=== PATIENT | male | born 1945 | race Caucasian/White ===

== ENCOUNTER 2023-11-03 11:58 | Outpatient (RCR) | payer OTHER, SELFPAY | END 2023-11-03 23:59 | disposition home or self-care (01) | LOC: RPT 11:58 | PROVIDERS: ATTENDING PHYSICIAN Student in an Organized Health Care Education/Training Program; FAMILY PHYSICIAN Family Medicine | DX: M79.661 Pain in right lower leg (principal); M79.89 Other specified soft tissue disorders; L97.512 Non-pressure chronic ulcer of other part of right foot with fat layer exposed; I89.0 Lymphedema, not elsewhere classified; Z73.6 Limitation of activities due to disability | CPT/HCPCS: 97140; 97163; 97535 ==

== ENCOUNTER → 2023-11-05 09:13 | Outpatient (REF) | payer OTHER, SELFPAY | LOC: WOUND 09:13 | PROVIDERS: ATTENDING PHYSICIAN Surgery | DX: I87.312 Chronic venous hypertension (idiopathic) with ulcer of left lower extremity (principal); L97.821 Non-pressure chronic ulcer of other part of left lower leg limited to breakdown of skin; L97.321 Non-pressure chronic ulcer of left ankle limited to breakdown of skin; I87.2 Venous insufficiency (chronic) (peripheral); L97.411 Non-pressure chronic ulcer of right heel and midfoot limited to breakdown of skin; M14.672 Charcot's joint, left ankle and foot; M14.671 Charcot's joint, right ankle and foot | CPT/HCPCS: 29580; 99214 ==

== ENCOUNTER → 2023-11-12 12:37 | Outpatient (REF) | payer OTHER, SELFPAY | LOC: WOUND 12:37 | PROVIDERS: ATTENDING PHYSICIAN Surgery | DX: I87.2 Venous insufficiency (chronic) (peripheral) (principal); I87.312 Chronic venous hypertension (idiopathic) with ulcer of left lower extremity; L97.821 Non-pressure chronic ulcer of other part of left lower leg limited to breakdown of skin; L97.321 Non-pressure chronic ulcer of left ankle limited to breakdown of skin; L97.411 Non-pressure chronic ulcer of right heel and midfoot limited to breakdown of skin; M14.672 Charcot's joint, left ankle and foot; M14.671 Charcot's joint, right ankle and foot | CPT/HCPCS: 29581; 99212 ==

== ENCOUNTER → 2023-11-22 14:22 | Outpatient (REF) | payer OTHER, SELFPAY | LOC: WOUND 14:22 | PROVIDERS: ATTENDING PHYSICIAN Surgery; FAMILY PHYSICIAN Family Medicine | DX: I87.312 Chronic venous hypertension (idiopathic) with ulcer of left lower extremity (principal); L97.821 Non-pressure chronic ulcer of other part of left lower leg limited to breakdown of skin; L97.321 Non-pressure chronic ulcer of left ankle limited to breakdown of skin; I87.2 Venous insufficiency (chronic) (peripheral); L97.411 Non-pressure chronic ulcer of right heel and midfoot limited to breakdown of skin; M14.671 Charcot's joint, right ankle and foot; M14.672 Charcot's joint, left ankle and foot | CPT/HCPCS: 29581; 99212 ==

== ENCOUNTER 2023-11-23 16:44 | Inpatient (IN) | payer OTHER, SELFPAY ==
[2023-11-23 13:36] VITALS: BP 128/55
[2023-11-23 14:12] VITALS: BP 120/58
[2023-11-23 14:15] VITALS: BMI 25.9
[2023-11-23 15:00] VITALS: BP 128/64
--- NOTE | 2023-11-23 15:07 | ED.GENMED ---
History of Present Illness
General
Chief Complaint: Skin Problem
Source: patient
Exam Limitations: none
Time Seen by Provider: 11/23/23 14:03
Nursing documentation reviewed up to this point in time: agreed with
Travel History
Have you had any contact with someone who has COVID-19?: No
Do you have any symptoms of coronavirus? Fever > 100 degrees, chills, cough, shortness of breath, sore throat, loss of taste or smell, muscle aches, or headache?: No
History of Present Illness
History of Present Illness:
78-year-old male with past medical history of A-fib currently on Eliquis, cardiomyopathy, hypertension hyperlipidemia, pancreatitis presenting to the emergency department today with concerns of swelling discomfort to the right foot worsening over
the past few weeks was seen by his repair armature winder and sent to the ER with concerns of infection and potential need of amputation. He denies any specific fevers or additional systemic symptoms.
Past History
Past History
ED Past Medical History: HTN, Hypercholesterolemia, Other (PUD) and Other (RLS)
Social History
Tobacco: Non-smoker
Personal:
Review of Systems
Review of Systems
Allergies reviewed?: Yes
All Other Systems: ROS reviewed and negative except as documented in HPI and ROS
Phy Exam
Physical Exam
Physical Exam:
GENERAL: Alert , in no apparent distress
EYE: pupils equal and reactive
NECK: Supple, no significant adenopathy.
ENT: o/p clr, mmm.
CARDIAC: Regular rate and rhythm .
LUNGS: Clear breath sounds bilaterally, no acute respiratory distress, no wheezes/rales/rhonchi
ABDOMEN: Soft, without focal tenderness, no r/g, no cvat
NEUROLOGICAL: Alert and oriented, no focal neuro deficits
SKIN: Warm and dry, skin intact.
MUSCULOSKELETAL: Swelling tender palpation to the right foot ulceration to the right palmar aspect of the midfoot 1 cm in diameter stage II, well perfused.
PSYCH: Normal and appropriate interaction.
Course
Orders/Labs/Results
Orders:
Orders
11/23/23 15:01
CR Foot - Right Min 3 Views Urgent
Comment:
Reason For Exam: foot infection
11/23/23 15:11
CMP [Comprehensive Metabolic Panel] Urgent
CRP [C-Reactive Protein] Urgent
Blood Culture Q30M
JUANPABLO Source: Blood/Venous
Specimen Description:
Blood Culture Q30M
JUANPABLO Source: Blood/Venous
Specimen Description:
11/23/23 15:12
CBC/With Diff [Complete Blood Count/With Diff] Urgent
ESR [Erythrocyte Sed Rate] Urgent
Lactic Acid Urgent
11/23/23 15:18
Vancomycin [Vancocin] 2,000 mg 0.9% Sodium Chloride 500 ml [Nss] 500 ml IV NOW
11/23/23 15:23
Wound Culture [Wound/Abscess/Other Culture] Urgent
JUANPABLO Source: Foot
Specimen Description: Right
Date Specimen was Collected: 11/23/23
Time Specimen was Collected: 15:19
Vancomycin [Vancocin] 2,000 mg 0.9% Sodium Chloride 500 ml [Nss] 500 ml IV NOW
Abnormal Lab Results
11/23/23 11/23/23
15:11 15:12
RBC 3.46 L 10^6/uL
(4.70-6.10)
Hgb 11.0 L g/dL
(13.0-18.0)
Hct 31.1 L %
(39.0-52.0)
MCH 31.8 H pg
(27.0-31.0)
Abs Immat Gran (auto) 0.1 H 10^3/uL
(0-0.05)
Absolute Neuts (auto) 7.8 H 10^3/uL
(1.4-6.5)
Absolute Lymphs (auto) 0.8 L 10^3/uL
(1.2-3.4)
Absolute Monos (auto) 1.1 H 10^3/uL
(0.1-0.6)
Neutrophils % 76.9 H %
(42.2-75.2)
Lymphocytes % 7.6 L %
(20.5-51.1)
Monocytes % 11.3 H %
(1.7-9.3)
ESR 89 H mm/hour
(0-20)
Glucose 124 H mg/dl
(70-99)
Alkaline Phosphatase 130 H U/L
(38-126)
C-Reactive Protein 174.20 H mg/L
(0.0-10.00)
Total Protein 6.2 L g/dl
(6.3-8.2)
Albumin 3.0 L g/dl
(3.5-5.0)
11/23/23 15:12
11/23/23 15:11
Vital Signs
Initial and Last Documented VS:
Initial Vital Signs
Temp Pulse Resp BP Pulse Ox
98.4 F 69 18 128/55 98
11/23/23 13:36 11/23/23 13:36 11/23/23 13:36 11/23/23 13:36 11/23/23 13:36
Last Documented Vital Signs
Temp Pulse Resp BP Pulse Ox
98.4 F 69 18 120/58 94
11/23/23 13:36 11/23/23 13:36 11/23/23 13:36 11/23/23 14:12 11/23/23 14:15
MDM/Problems Addressed
MDM/Problems Addressed:
78-year-old male presenting to the emergency department today with concerns of potential foot wound to the right side worsening swelling and discomfort recently. Podiatry concerned that he is at high risk for need of amputation like to bring in for
infectious work and IV antibiotics. Otherwise upon arrival here patient well-appearing no acute distress.
*Critical Care Note
Total Time (30-74mins, 75-104mins- exclusive of procedures): Not Applicable
ED Attending Note
-
Portions of this chart may have been created with voice recognition software.� Occasional wrong word or��sound alike� substitutions may have occurred due to the inherent limitations of voice recognition software.
Discharge Plan
Departure
Patient Disposition: Admit
Date of Disposition: 11/23/23
Time of Disposition: 16:27
Admit to: Med/Surg
Admit to doctor: Carlitos
Presentation/result/management discussed w/ accepting MD/DO: Hospitalist
Patient with high blood pressure during this ER visit?: No
Condition: Good
Covid-19: Not Applicable
Discharge Problem:
Foot ulcer, Foot infection
Prescriptions:
No Action
amlodipine 10 MG tablet
10 mg PO DAILY
hydrochlorothiazide 25 MG tablet
25 mg PO DAILY
finasteride 5 MG tablet
5 mg PO DAILY
Neupro 4 MG patch 24 hour
1 patch transdermal DAILY
armodafinil [Nuvigil] 150 MG tablet
150 mg PO DAILY
cetirizine 10 mg Tablet
10 mg PO HS
tramadol 50 mg Tablet
50 mg PO HS
oxymetazoline 0.05 % [place],Non-Aerosol
2 spray INTRANASAL DAILY
calcium carbonate-vitamin D3 [Calcium 600 with Vitamin D3] 600 mg-12.5 mcg (500 unit) Capsule
2 cap PO BID
red yeast rice 600 mg Tablet
600 mg PO DAILY
melatonin 10 mg Tablet
10 mg PO HS
Glucosamine Complex-MSM Capsule
3 cap PO DAILY
ropinirole [Requip] 1 mg Tablet
1 mg PO HS
metoprolol succinate 25 mg Tablet Extended Release 24 Hr
50 mg PO DAILY
ropinirole [Requip XL] 2 mg Tablet Extended Release 24 Hr
4 mg PO QPM
Eliquis 5 mg Tablet
5 mg PO BID
cyanocobalamin (vitamin B-12) 1,000 mcg Tablet
1,000 mcg PO DAILY
hydrochlorothiazide 25 mg Tablet
25 mg PO DAILY
losartan 100 mg Tablet
100 mg PO DAILY
PreserVision AREDS 2,148 mcg-113 mg-45 mg-17.4mg Tablet
2 tab PO BID
Referrals:
Tosin Ventura MD [Family Provider] -
Interventions
Interventions:
*Risk Screen - Suicide Last Done: 11/23/23 13:36
*General Assessment Last Done: 11/23/23 13:36
*Neglect/Abuse Screening Last Done: 11/23/23 13:36
ED- Fall Risk Assessment Last Done: 11/23/23 14:17
*ED COVID-19 Vaccine History Last Done: 11/23/23 14:16
[2023-11-23 15:32] LABS: % Basophils 0.4 % (0-2); % Eosinophils 3.3 % (0-6); % Immature Granulocytes 0.5 % (0-0.5); % Lymphocytes 7.6 % (20.5-51.1); % Monocytes 11.3 % (1.7-9.3); % Neutrophils 76.9 % (42.2-75.2); Absolute Eosinophils 0.3 10^3/uL (0-0.7); Absolute Immature Granulocytes 0.1 10^3/uL (0-0.05); Absolute Lymphocytes 0.8 10^3/uL (1.2-3.4); Absolute Monocytes 1.1 10^3/uL (0.1-0.6); Absolute Neutrophils 7.8 10^3/uL (1.4-6.5); Hematocrit 31.1 % (39.0-52.0); Mean Corp Hgb Conc. 35.4 g/dL (33.0-37.0); Mean Corpuscular Hgb 31.8 pg (27.0-31.0); Mean Corpuscular Volume 89.9 fL (80.0-94.0); Mean Platelet Volume 9.7 fL (7.4-10.4); Nucleated Red Blood Cells % 0 % (-); Platelet Count 293 10^3/uL (130-400); Red Blood Cell Count 3.46 10^6/uL (4.70-6.10); White Blood Cell Count 10.1 10^3/uL (4.8-10.8)
[2023-11-23 15:33] LABS: Erythrocyte Sed Rate 89 mm/hour (0-20)
[2023-11-23] MEDS: VANCOCIN 540 MG IV (15:43)
[2023-11-23 15:44] LABS: ALT (SGPT) 20 U/L (0-50); AST (SGOT) 29 U/L (17-59); Alkaline Phosphatase 130 U/L (38-126); Blood Urea Nitrogen 20 mg/dl (9-20); Carbon Dioxide 25 mmol/L (22-30); Chloride 100 mmol/L (98-107); Estimated Creatinine Clearance 83 ml/min; Glucose 124 mg/dl (70-99); Potassium 3.7 mmol/L (3.5-5.1); Sodium 135 mmol/L (135-145); Total Bilirubin 0.5 mg/dl (0.2-1.3); Total Protein 6.2 g/dl (6.3-8.2); eGFR > 60.00
[2023-11-23 15:46] LABS: Lactic Acid 1.3 mmol/L (0.7-2.0)
--- NOTE | 2023-11-23 16:43 | HPS.HSE ---
Addendum entered and electronically signed by Flavio Cabrales MD 11/23/23 17:02:
MRI ordered.
Addendum entered and electronically signed by Flavio Cabrales MD 11/23/23 16:53:
Wound, blood cultures pending.
Original Note:
Family Physician
-
Family Physician: Tosin Ventura
Chief Complaint
-
foot ulcer
History of Present Illness
78-year-old male past medical history of atrial fibrillation on Eliquis, hypertension, Charcot foot bilaterally status post surgery, obstructive sleep apnea, hyperlipidemia, bilateral renal artery stenosis, venous insufficiency, BPH, insomnia,
restless legs, questionable Parkinson's, questionable narcolepsy, history of MSSA, degenerative disc disease, former smoker, presenting with swelling and pain of the right foot which has been worsening over the past few weeks associated with wound
with discharge.
He was seen by Dr. Traore today and sent to the emergency room due to concern for infection and potential need for amputation. He denies fever or chills. He denies any history of peripheral arterial disease. He denies history of diabetes.
Patient drinks 1 beer a day. He is a former smoker.
Medical History
Past Medical History
Past Medical History: Reports Other (atrial fibrillation on Eliquis, hypertension, Charcot foot bilaterally status post surgery, obstructive sleep apnea, hyperlipidemia, bilateral renal artery stenosis, venous insufficiency, BPH, insomnia, restless
legs, questionable Parkinson's, questionable narcolepsy, history of MSSA, degenerative d)
Past Surgical History: Reports None and Orthopedic
Social History
Tobacco: Former Smoker
Alcohol: Daily
Drug: None
Family History
Family History: Not pertinent
Allergies / Home Medications
Allergies reflects when Allergies were last updated in [facility].
Home Medications with original date entered in [facility]
Allergy/Medication List:
Allergies
Allergy/AdvReac Type Severity Reaction Status Date / Time
adhesive Allergy Rash, Verified 09/28/23 07:42
Itching
hydroxychloroquine Allergy Rash Verified 09/28/23 07:42
pollen extracts Allergy seasonal Verified 09/28/23 07:42
allergy
Home Medications
amlodipine 10 mg tablet 10 mg PO DAILY 10/03/21
armodafinil 150 mg tablet (Nuvigil) 150 mg PO DAILY 10/03/21
finasteride 5 mg tablet 5 mg PO DAILY 10/03/21
hydrochlorothiazide 25 mg tablet 25 mg PO DAILY 10/03/21
rotigotine 4 mg/24 hour transdermal 24 hour patch (Neupro) 1 patch transdermal DAILY 10/03/21
calcium carbonate 600 mg-vitamin D3 12.5 mcg (500 unit) capsule (Calcium 600 with Vitamin D3) 2 cap PO BID 12/03/22
cetirizine 10 mg tablet 10 mg PO HS 12/03/22
dmeowrbdmpd-iud-joewgbugq-vitC capsule (Glucosamine Complex-MSM capsule) 3 cap PO DAILY 12/03/22
melatonin 10 mg tablet 10 mg PO HS 12/03/22
oxymetazoline 0.05 % nasal spray 2 spray intranasal DAILY 12/03/22
red yeast rice 600 mg tablet 600 mg PO DAILY 12/03/22
tramadol 50 mg tablet 50 mg PO HS 12/03/22
apixaban 5 mg tablet (Eliquis) 5 mg PO BID 08/30/23
metoprolol succinate 25 mg tablet,extended release 24 hr 50 mg PO DAILY 08/30/23
ropinirole 1 mg tablet 1 mg PO HS 08/30/23
ropinirole 2 mg tablet,extended release 24 hr 4 mg PO QPM 08/30/23
cyanocobalamin (vitamin B-12) 1,000 mcg tablet 1,000 mcg PO DAILY 11/23/23
hydrochlorothiazide 25 mg tablet 25 mg PO DAILY 11/23/23
losartan 100 mg tablet 100 mg PO DAILY 11/23/23
vitamins A,C,E-uwez-fmidpr 2,148 mcg-113 mg-45 mg-17.4 mg tablet (PreserVision AREDS) 2 tab PO BID 11/23/23
Review of Systems
-
History Source: Patient
A 12 point ROS was completed and negative except as noted: Yes
Constitutional: Reports No Symptoms
EENT: Reports No Symptoms
Respiratory: Reports No Symptoms
Cardiac: Reports No Symptoms
Abdomen/GI: Reports No Symptoms
: Reports No Symptoms
Musculoskeletal: Reports No Symptoms
Skin: Reports See HPI
Neurological: Reports No Symptoms
Endocrine: Reports No Symptoms
Hematologic/Lymphatic: Reports No Symptoms
Psych: Reports No Symptoms
Physical Exam
Vital Signs
Vital Signs
Temp Pulse Resp BP Pulse Ox
98.4 F 69 18 120/58 94
11/23/23 13:36 11/23/23 13:36 11/23/23 13:36 11/23/23 14:12 11/23/23 14:15
Physical Exam
General: Well Developed, Well Nourished and No Apparent Distress
HEENT: NormoCephalic, Moist mucous membranes and Atraumatic
Respiratory: Clear
Cardiac: S1/S2 and Regular Rhythm; No Murmur or Rub
GI: Soft, Non Tender, Non Distended and Normal Bowel Sounds; No Organomegaly
Rectal: Deferred by Provider
Musculoskeletal: No Clubbing, No Cyanosis and No Edema
Skin: Other (Swelling tender palpation to the right foot ulceration to the right palmar aspect of the midfoot 1 cm in diameter stage II, well perfused.); No Rash
Neuro: Nonfocal/grossly intact
Laboratory Results
-
11/23/23 15:12
11/23/23 15:11
Laboratory Results
Lactic Acid 1.3 mmol/L (0.7-2.0) 11/23/23 15:12
Total Bilirubin 0.5 mg/dl (0.2-1.3) 11/23/23 15:11
AST 29 U/L (17-59) 11/23/23 15:11
ALT 20 U/L (0-50) 11/23/23 15:11
Alkaline Phosphatase 130 U/L (38-126) H 11/23/23 15:11
Data Reviewed
-
Lab Data: Labs Reviewed by me
Old Records: Reviewed
Impression/Plan
-
IMPRESSION:
PLAN:
# Right foot ulceration with surrounding cellulitis
# History of Charcot foot bilaterally status post surgery
-Etiology of neuropathy and foot infection unclear as patient not diabetic
-X-ray of foot pending, will require MRI if unremarkable
-Vancomycin/Zosyn
-Posterior tibial pulse present of right lower extremity
-check REMIGIO
-Podiatry consulted
-Hold Eliquis for potential debridement
# Bilateral venous insufficiency/chronic lymphedema
Paroxysmal atrial fibrillation
-Hold Eliquis
-Continue metoprolol
Essential hypertension
-Continue amlodipine, hydrochlorothiazide, losartan
Obstructive sleep apnea
Narcolepsy
-Continue Nuvigil
Hyperlipidemia
Bilateral renal artery stenosis
BPH
-Continue finasteride
Restless leg syndrome
-Continue Neupro, ropinirole, tramadol
Insomnia
History of MSSA
Degenerative disc disease
Former smoker
Full code
DVT prophylaxis�heparin
Regular diet
[2023-11-23 18:14] VITALS: BP 152/69
[2023-11-23] MEDS: ZOSYN 50 IV ×2 (18:36→23:08)
--- NOTE | 2023-11-23 18:56 | PTCARENOTE ---
Addendum entered by Patricia Gold RN 11/23/23 18:58:
called and attempted to speak with paresh. No answer, this nurse did not leave a message because of paresh did not identify herself in her message.
Original Note:
Rn Flow design tech-Patient requesting to have Slovan come and see him.
--- NOTE | 2023-11-23 19:25 | PHA.VAN.IN ---
Assessment
- Assessment
Renal Function: Appears similar to baseline
Concomitant Antimicrobials: ZOSYN
- Previous Dosing Experience
Previous Regimen: NONE
AUC Dosing Plan
- Dosing Variables
Dosing Weight (kg): 77.1
Dosing CrCl (ml/min): 83
Vd coefficient (L/kg): 0.7
- Empiric Dosing
Initial / Loading Dose: 2GM
Maintenance Regimen: 1GM IV Q12H
Estimated AUC (mcg*h/mL): 524
Estimated Peak (mcg*h/mL): 31.7
Estimated Trough (mcg/ml): 14.1
Estimated Half Life (H): 9.5
Pharmacokinetics Vancomycin I
- -
Patient Age: 78
Patient Sex: Male
Vancomycin Day #: 1
Indication: Bone And Joint
Requesting Provider: KATI
Height / Weight:
Height 5 ft 8 in
Actual Weight 77.1 kg
Pertinent Past Medical History: CHARCOT FOOT, HX OF MSSA
- Vital Signs / Lab Results
Temp Pulse Resp BP Pulse Ox
98.3 F 74 17 152/69 97
11/23/23 18:14 11/23/23 18:14 11/23/23 18:14 11/23/23 18:14 11/23/23 18:14
Lab Results - Hematology
11/23/23
15:12
WBC 10.1
Lab Results - Chemistry
11/23/23
15:11
BUN 20
Creatinine 0.7
Estimated Creat Clear 83
Albumin 3.0 L
11/23/23
15:12
Lactic Acid 1.3
Microbiology Results
11/23/23 15:23 Gram Stain - Preliminary
Foot - Right
[2023-11-23] MEDS: REQUIP 2 MG PO (21:22)
[2023-11-23] MEDS: MELATONIN 10 MG PO (21:23)
[2023-11-23] MEDS: ULTRAM 50 MG PO (21:23)
[2023-11-23] MEDS: ZYRTEC 10 MG PO (21:23)
[2023-11-23] MEDS: OSCAL 500 + D 1000 MG PO (21:23)
[2023-11-23] MEDS: HEPARIN 5000 UNITS SC (21:29)
[2023-11-23 23:00] VITALS: BP 119/67
[2023-11-23] MEDS: NEUPRO 4 MG TRANSDERM (23:08)
[2023-11-24] MEDS: TYLENOL 650 MG PO ×2 (04:38→21:22)
[2023-11-24] MEDS: ZOSYN 50 IV ×3 (05:51→17:58)
[2023-11-24 05:56] LABS: % Basophils 0.5 % (0-2); % Immature Granulocytes 0.4 % (0-0.5); % Lymphocytes 11.8 % (20.5-51.1); % Monocytes 13.3 % (1.7-9.3); Absolute Basophils 0.1 10^3/uL (0-0.2); Absolute Eosinophils 0.4 10^3/uL (0-0.7); Absolute Lymphocytes 1.1 10^3/uL (1.2-3.4); Absolute Monocytes 1.2 10^3/uL (0.1-0.6); Absolute Neutrophils 6.4 10^3/uL (1.4-6.5); Hematocrit 31.3 % (39.0-52.0); Hemoglobin 10.7 g/dL (13.0-18.0); Mean Corp Hgb Conc. 34.2 g/dL (33.0-37.0); Mean Corpuscular Hgb 30.4 pg (27.0-31.0); Mean Corpuscular Volume 88.9 fL (80.0-94.0); Nucleated Red Blood Cells % 0 % (-); Platelet Count 314 10^3/uL (130-400); Red Blood Cell Count 3.52 10^6/uL (4.70-6.10); Red Cell Dist. Width 13.1 % (11.5-14.5); White Blood Cell Count 9.2 10^3/uL (4.8-10.8)
[2023-11-24] MEDS: VANCOCIN 200 IV ×2 (06:28→19:06)
[2023-11-24 06:33] LABS: ALT (SGPT) 21 U/L (0-50); AST (SGOT) 27 U/L (17-59); Albumin 2.7 g/dl (3.5-5.0); Alkaline Phosphatase 111 U/L (38-126); Blood Urea Nitrogen 15 mg/dl (9-20); Calcium 9.2 mg/dl (8.4-10.2); Carbon Dioxide 25 mmol/L (22-30); Chloride 101 mmol/L (98-107); Estimated Creatinine Clearance 83 ml/min; Glucose 99 mg/dl (70-99); Potassium 4.1 mmol/L (3.5-5.1); Sodium 130 mmol/L (135-145); Total Bilirubin 0.5 mg/dl (0.2-1.3); Total Protein 5.9 g/dl (6.3-8.2); eGFR > 60.00
[2023-11-24 07:46] VITALS: BP 160/75
[2023-11-24] MEDS: NORVASC 10 MG PO (08:34)
[2023-11-24] MEDS: AFRIN NASAL SPRAY 30 SPRAYS NASAL (08:34)
[2023-11-24] MEDS: PROSCAR 5 MG PO (08:34)
[2023-11-24] MEDS: ORETIC 25 MG PO (08:34)
[2023-11-24] MEDS: VITAMIN B-12 1000 MCG PO (08:35)
[2023-11-24] MEDS: COZAAR 100 MG PO (08:35)
[2023-11-24] MEDS: HEPARIN 5000 UNITS SC ×2 (08:35→21:14)
[2023-11-24] MEDS: OCUVITE SOFTGEL 1 CAP PO (08:35)
[2023-11-24] MEDS: OSCAL 500 + D 1000 MG PO ×2 (08:35→21:15)
[2023-11-24] MEDS: TOPROL XL 50 MG PO (08:35)
--- NOTE | 2023-11-24 08:59 | W.PN.HOSP.TC ---
Addendum entered and electronically signed by Victor Manuel Myles MD 11/25/23 09:25:
Total time spent to see the patient, examine the patient on the floor, review data and lab results, discuss treatment plan with patient, nursing staff around 55 minutes
Original Note:
Today's Communication/Plan
-
.
Assessment / Plan
Assessment / Plan
Physical Exam
General: Well Developed, Well Nourished and No Apparent Distress
HEENT: Normocephalic, Moist mucous membranes and Atraumatic
Respiratory: Clear
Cardiac: S1/S2
GI: Soft, Non Tender, Non Distended
Rectal: No rectal bleeding
Musculoskeletal: right foot wound
Skin: Other (Swelling tender palpation to the right foot ulceration to the right plantar aspect of the midfoot 1 cm in diameter stage II, well perfused.); No Rash
Neuro: Nonfocal/grossly intact
Psych: no agitation
# Right foot, planta pressure ulcer/ cellulitis
No pain, underlying neuropathy noted
no fevers
c/w IV Zosyn & vancomycin
For MRI
Appreciate podiatry and ID help
# Chronic venous insufficiency
# Charcot arthropathy of right and left ankles and feet
# Hyponatremia
mild
#Paroxysmal atrial fibrillation
-Hold Eliquis due to procedure
-Continue metoprolol
#Essential hypertension
-Continue amlodipine, hydrochlorothiazide, losartan
#Obstructive sleep apnea
#Narcolepsy
-Continue Nuvigil
#Hyperlipidemia
#Bilateral renal artery stenosis
#BPH
-Continue finasteride
#Restless leg syndrome
-Continue Neupro, ropinirole, tramadol
#Insomnia
#History of MSSA
#Degenerative disc disease
#Former smoker
#Full code
DVT prophylaxis
Anticipated Discharge: > 48 hours
Subjective/Interval History
-
Date of Service: November 24, 2023
No chest pain
No sob
No fevers
Objective Data
-
Labs:
Laboratory Results
11/24/23
05:10
WBC 9.2
Hgb 10.7 L
Hct 31.3 L
Plt Count 314
Sodium 130 L
Potassium 4.1
Chloride 101
Carbon Dioxide 25
BUN 15
Creatinine 0.7
Glucose 99
Calcium 9.2
Total Bilirubin 0.5
AST 27
ALT 21
Alkaline Phosphatase 111
Vital Signs:
Vital Signs
Temp Pulse Resp BP Pulse Ox
98.1 F 66 18 160/75 95
11/24/23 07:46 11/24/23 07:46 11/24/23 07:46 11/24/23 07:46 11/24/23 07:46
I&O
11/23/23 11/24/23 11/25/23
06:59 06:59 06:59
Intake Total 600 / 600
Output Total 1700 / 1700
Balance -1100 / -1100
[2023-11-24 09:36] LABS: Hepatitis C Antibody Negative (Negative)
--- NOTE | 2023-11-24 11:02 | PHA.VAN.FU ---
Vancomycin Assessment / Plan
- Assessment
Renal Function: Stable
WBC's are: WNL
In the past 24 hrs, patient has been: Afebrile
Concomitant Antimicrobials: Piperacillin/Tazobactam
- Dosing Plan
Continue: 1000mg Q12H
- Monitoring Plan
No level(s) ordered at this time: Will wait for cultures. If continued will order labs in next couple of days
- Follow Up
Pharmacy will continue to follow.
Vancomycin Follow UP
- -
Patient Age: 78
Patient Sex: Male
Vancomycin Day #: 1
Indication: Bone And Joint
Requesting Provider: Wes Turner
Height / Weight:
Height 5 ft 8 in
Actual Weight 77.1 kg
Pertinent Past Medical History: CHARCOT FOOT, HX OF MSSA
- Vital Signs / Lab Results
Temp Pulse Resp BP Pulse Ox
98.1 F 66 18 160/75 95
11/24/23 07:46 11/24/23 07:46 11/24/23 07:46 11/24/23 07:46 11/24/23 07:46
Lab Results - Hematology
11/23/23 11/24/23
15:12 05:10
WBC 10.1 9.2
Lab Results - Chemistry
11/23/23 11/24/23
15:11 05:10
BUN 20 15
Creatinine 0.7 0.7
Estimated Creat Clear 83 83
Albumin 3.0 L 2.7 L
11/23/23
15:12
Lactic Acid 1.3
Microbiology Results
11/23/23 15:23 Gram Stain - Preliminary
Foot - Right
--- NOTE | 2023-11-24 12:03 | CON.ID ---
Consultation
-
Date/Time Consultation Requested: 11/24/2023 06:27
Date/Time Consultation Performed: 11/24/2023 1150
Requesting Provider: Dr. Myles
Performing Provider: Dr. Wilkerson
Reason for Consultation: Right foot infection
Chief Complaint / Past History
History of Present Illness
Markus Jamil is a 78-year-old man being evaluated at the request of Dr. Myles in regards to a right lower extremity wound infection. History is obtained from chart review, along with patient interview. Patient has a significant past medical
history of neuropathy, with Charcot arthropathy of the bilateral feet. He reports that over the past several weeks he has had increasing swelling along with discomfort of the right foot, and has developed a wound which she has been attempting to
care for at home. He recently was seen by his Security And Privacy Consultant, and sent to the hospital for further evaluation and care given the noted wound on the plantar surface of the foot.
He denies significant pain in the foot, although he has had some discomfort. He denies fevers or chills.
Past History
Additional Past Medical History:
A-fib
Cardiomyopathy
Hypertension
Chronic lymphedema
Venous insufficiency
BPH with history of urinary retention
Dyslipidemia
Hx pancreatitis
Restless leg syndrome
Allergy History:
adhesive Allergy (Verified 09/28/23 07:42)
Rash, Itching
hydroxychloroquine Allergy (Verified 09/28/23 07:42)
Rash
pollen extracts Allergy (Verified 09/28/23 07:42)
seasonal allergy
Medications Reviewed: Yes
Social History
Tobacco: Former Smoker
Alcohol: None
Drug: None
Personal:
Living: With Family
Review of Systems
Vital Signs
Temp Pulse Resp BP Pulse Ox
98.1 F 66 18 160/75 95
11/24/23 07:46 11/24/23 07:46 11/24/23 07:46 11/24/23 07:46 11/24/23 07:46
Physical Exam
Physical Exam
Constitutional: Comfortable, Chronically Ill and Non-toxic
Eyes: No Conjunctival Hemorrhage and Sclera Anicteric
Cardiovascular: Irregular Rate and S1/S2; Negative S3/S4
Pulmonary: Non Labored
Gastrointestinal: Soft, Non Tender, Non Distended and Normal Bowel Sounds
Extremities: Erythema, Venous Insufficiency and Other (Bilateral Charcot arthropathy; R>L)
Wound: Other (Right plantar surface. Superficial, but with 1 cm probe in 2 areas. No bone palpated)
Neurological: Awake and Alert
Psychological: Calm
Lab / Diagnostic Study Results
11/24/23 05:10
11/24/23 05:10
Abs Immat Gran (auto) 0.0 10^3/uL (0-0.05) 11/24/23 05:10
Absolute Neuts (auto) 6.4 10^3/uL (1.4-6.5) 11/24/23 05:10
Absolute Lymphs (auto) 1.1 10^3/uL (1.2-3.4) L 11/24/23 05:10
Absolute Monos (auto) 1.2 10^3/uL (0.1-0.6) H 11/24/23 05:10
Absolute Basos (auto) 0.1 10^3/uL (0-0.2) 11/24/23 05:10
Immature Gran % 0.4 % (0-0.5) 11/24/23 05:10
Neutrophils % 70.0 % (42.2-75.2) 11/24/23 05:10
Lymphocytes % 11.8 % (20.5-51.1) L 11/24/23 05:10
Monocytes % 13.3 % (1.7-9.3) H 11/24/23 05:10
Eosinophils % 4.0 % (0-6) 11/24/23 05:10
Basophils % 0.5 % (0-2) 11/24/23 05:10
ESR 89 mm/hour (0-20) H 11/23/23 15:12
Lactic Acid 1.3 mmol/L (0.7-2.0) 11/23/23 15:12
C-Reactive Protein 174.20 mg/L (0.0-10.00) H 11/23/23 15:11
Microbiology Results
Micro:
11/23/23 15:23 Wound Culture - Preliminary
Foot - Right Gram negative bacilli
Gram Stain - Preliminary
11/23/23 15:11 Blood Culture - Pending
Blood/Venous
11/23/23 15:11 Blood Culture - Pending
Blood/Venous
Imaging:
11/24/2023 MRI right lower extremity: Worsening infectious process centered at the medial midfoot when compared to MRI dated 08/13/2023. There is progressed advanced destructive changes of the medial cuneiform secondary to osteomyelitis. Also noted
is acute osteomyelitis of the middle and lateral cuneiform and the bases of the first through third metatarsals. Plantar medial soft tissue wound with contiguous rim-enhancing fluid wrapping around the medial aspect of the midfoot along the
expected course of the flexor hallucis longus tendon suggesting infectious tenosynovitis and probable abscess formation. Please see full dictation for additional detail.
Assessment / Plan
Right foot wound
Right foot osteomyelitis
Severe Charcot arthropathy of the right foot
Hx right foot osteomyelitis (with Staph hominis; 09/02/2023)
A-fib
Cardiomyopathy
Hypertension
Chronic lymphedema
Venous insufficiency
BPH with history of urinary retention
Dyslipidemia
Hx pancreatitis
Restless leg syndrome
Recommendations:
Continue with empiric vancomycin and Zosyn for the present. Await further culture data to guide antimicrobial selection and de-escalation.
Await Podiatry evaluation.
Patient may need debridement and bone culture of the area.
Local care to the wound.
--- NOTE | 2023-11-24 12:22 | WOUNDNOTE ---
L ANKLE (MEDIAL POSTERIOR)
--- NOTE | 2023-11-24 12:23 | WOUNDNOTE ---
R CALF (LOWER LATERAL)
--- NOTE | 2023-11-24 12:23 | WOUNDNOTE ---
R PLANTAR FOOT (PROBES DEEP ABOUT 1CM)
--- NOTE | 2023-11-24 12:24 | WOUNDNOTE ---
R PLANTAR FOOT (probes about 1cm deep)
--- NOTE | 2023-11-24 12:25 | WOUNDNOTE ---
L 2ND TOE (PLANTAR)
--- NOTE | 2023-11-24 12:25 | WOUNDNOTE ---
L CALF (LOWER LATERAL ANTERIOR)
--- NOTE | 2023-11-24 12:25 | WOUNDNOTE ---
LLE (ANTERIOR LATERAL)
--- NOTE | 2023-11-24 12:40 | WOUNDNOTE ---
[facility] RN note: Patient admitted with R plantar foot ulcer. R foot MRI report states osteomyelitis, probable abscess formation. REMIGIO pending. Patient is followed and was sent in by Dr. Traore who is on consult for R foot. Patient follows [facility] for
LLE venous ulcer.
See H&P for complete history.
PMH: a fib (Eliquis), HTN, Charcot foot, sleep apnea, bilateral renal artery stenosis, venous insufficiency, BPH, anemia, DJD, former smoker, drinks 1 beer a day.
Wound Location and type/assessment: Patient admitted with: Full thickness neuropathy R plantar foot ulcer that probed 1cm (to muscle or deeper), pink with yellow fibrin. LLE venous deep dermal ulcers, pink with yellow fibrin. Trace LE edema. +Pedal
pulses (L palpable, R heard via portable Doppler).
Appetite: good.
Pressure redistribution devices in place: [employer] Accumax. Patient ambulatory. He has his custom molded shoes.
Plan: Patient seen with Dr. Wilkerson. R foot dressing changed. LLE dressing changed. Bilateral knee high Kenney wraps applied after confirming with Dr. Wilkerson. Heels off bed with pillow with air chair cushion on top.
Will confirm orders with physician and discussed with SAMARIA Mckenna.
Care plan to be updated and will follow as needed.
--- NOTE | 2023-11-24 12:40 | WOUNDNOTE ---
[facility] RN note: Patient admitted with R plantar foot ulcer. R foot MRI report states osteomyelitis, probable abscess formation. REMIGIO pending. Patient is followed and was sent in by Dr. Traore who is on consult for R foot. Patient follows [facility] for
LLE venous ulcer.
See H&P for complete history.
PMH: a fib (Eliquis), HTN, Charcot foot, sleep apnea, bilateral renal artery stenosis, venous insufficiency, BPH, anemia, DJD, former smoker, drinks 1 beer a day.
Wound Location and type/assessment: Patient admitted with: Full thickness neuropathy R plantar foot ulcer that probed 1cm (to muscle or deeper), pink with yellow fibrin. LLE venous deep dermal ulcers, pink with yellow fibrin. Trace LE edema. +Pedal
pulses (L palpable, R heard via portable Doppler).
Appetite: good.
Pressure redistribution devices in place: [employer] Accumax. Patient ambulatory. He has his custom molded shoes.
Plan: Patient seen with Dr. Wilkerson. R foot dressing changed. LLE dressing changed. Bilateral knee high Kenney wraps applied after confirming with Dr. Wilkerson. Heels off bed with pillow with air chair cushion on top.
Will confirm orders with physician and discussed with SAMARIA Mckenna.
Care plan to be updated and will follow as needed.
[2023-11-24 15:00] VITALS: BP 150/73
--- NOTE | 2023-11-24 15:34 | CM ---
Alert awake oriented patient who lives with his Abby who lives in a 2 story home with 3 step to enter and bed and bathroom on first floor. He is independent in driving and in all activities of daily living.He was offered VN he is unsure at
this time. He does have wounds on legs.Uses [facility]
No VN hx / No SNF history
Pharmacy [facility]
PCP DR Ventura
PLAN Home Declined VN
--- NOTE | 2023-11-24 17:35 | W.PN.UPDATE ---
Update Note
Progress Note Update
Patient see in setting of right foot Charcot midfoot infection with abscess
-NPO after midnight
-Plan for operative debridement 11/25/23
-Continue broad spectrim ABx, will obtain operative cultures
-Strict NWB RLE
-Anticipate discharge after debridment
[2023-11-24] MEDS: NON-FORMULARY ITEM 4 MG PO (17:58)
[2023-11-24] MEDS: MELATONIN 10 MG PO (21:16)
[2023-11-24] MEDS: NEUPRO 4 MG TRANSDERM (21:16)
[2023-11-24] MEDS: ZYRTEC 10 MG PO (21:17)
[2023-11-24] MEDS: ULTRAM 50 MG PO (21:17)
[2023-11-24] MEDS: REQUIP 1 MG PO (21:18)
[2023-11-24 23:08] VITALS: BP 126/65
[2023-11-25] VITALS (9 sets, daily range): BP systolic 106–148; BP diastolic 58–79; BMI 25.9; BMI 24.1
[2023-11-25] MEDS: ZOSYN 50 IV ×5 (00:41→23:27)
[2023-11-25] MEDS: TYLENOL 650 MG PO ×3 (03:07→13:06)
[2023-11-25] MEDS: VANCOCIN 200 IV ×2 (07:32→18:09)
--- NOTE | 2023-11-25 08:56 | W.PN.UPDATE ---
Update Note
Progress Note Update
Plan for operating room today for Dr. Traore for right lower extremity debridement irrigation. Consent signed and obtained and placed in the chart
[2023-11-25] MEDS: OCUVITE SOFTGEL 1 CAP PO (09:01)
[2023-11-25] MEDS: COZAAR 100 MG PO (09:01)
[2023-11-25] MEDS: HEPARIN 5000 UNITS SC ×2 (09:01→21:13)
[2023-11-25] MEDS: ORETIC 25 MG PO (09:02)
[2023-11-25] MEDS: OSCAL 500 + D 1000 MG PO ×2 (09:02→21:12)
[2023-11-25] MEDS: HYDROPHOR 1 APPLIC TOPICAL (09:02)
[2023-11-25] MEDS: NORVASC 10 MG PO (09:02)
[2023-11-25] MEDS: PROSCAR 5 MG PO (09:02)
[2023-11-25] MEDS: TOPROL XL 50 MG PO (09:02)
[2023-11-25] MEDS: VITAMIN B-12 1000 MCG PO (09:02)
[2023-11-25] MEDS: AFRIN NASAL SPRAY 30 SPRAYS NASAL (09:03)
--- NOTE | 2023-11-25 09:19 | W.PN.HOSP.TC ---
Today's Communication/Plan
-
.
Assessment / Plan
Assessment / Plan
Physical Exam
General: Well Developed, Well Nourished and No Apparent Distress
HEENT: Normocephalic, Moist mucous membranes and Atraumatic
Respiratory: Clear
Cardiac: S1/S2
GI: Soft, Non Tender, Non Distended
Rectal: No rectal bleeding
Musculoskeletal: right foot wound
Skin: Other (Swelling tender palpation to the right foot ulceration to the right plantar aspect of the midfoot 1 cm in diameter stage II, well perfused.); No Rash
Neuro: Nonfocal/grossly intact. Forgetful
Psych: no agitation
# �Right foot Charcot midfoot infection with abscess/ Acute osteomyelitis of the middle, �medial cuneiform, lateral cuneiforms and the bases of the first through third metatarsals
For operative debridement on 11/25/[address] Traore.
No pain, underlying neuropathy noted
no fevers
c/w IV Zosyn & vancomycin
NPO this morning
Will f/w OR wound cultures.
Appreciate podiatry and ID help
# Chronic venous insufficiency
# Charcot arthropathy of right and left ankles and feet
# Hyponatremia
mild
BMP in AM
#Paroxysmal atrial fibrillation
-Hold Eliquis due to procedure
-Continue metoprolol
#Essential hypertension
uncontrolled, mild
will add PRN hydralazine
-Continue amlodipine, hydrochlorothiazide, losartan
#Obstructive sleep apnea
#Narcolepsy
-Continue Nuvigil
#Hyperlipidemia
#Bilateral renal artery stenosis
#BPH
-Continue finasteride
#Restless leg syndrome
-Continue Neupro, ropinirole, tramadol
#Insomnia
#History of MSSA
#Degenerative disc disease
#Former smoker
#Full code
DVT prophylaxis
Total time spent to see the patient, examine the patient on the floor, review data and lab results, discuss treatment plan with patient, nursing staff around 55 minutes
Anticipated Discharge: > 48 hours
Subjective/Interval History
-
Date of Service: November 25, 2023
No chest pain
No sob
No abd pain
Objective Data
-
Vital Signs:
Vital Signs
Temp Pulse Resp BP Pulse Ox
97.9 F 58 16 148/58 95
11/25/23 07:36 11/25/23 07:36 11/25/23 07:36 11/25/23 07:36 11/25/23 07:36
I&O
11/24/23 11/25/23 11/26/23
06:59 06:59 06:59
Intake Total 600 / 600 240 / 240
Output Total 1700 / 1700 2235 / 2235
Balance -1100 / -1100 -1994 /
--- NOTE | 2023-11-25 15:45 | PHA.VAN.FU ---
Vancomycin Assessment / Plan
- Assessment
Renal Function: No New Labs Today
In the past 24 hrs, patient has been: Afebrile
Concomitant Antimicrobials: piperacillin/tazobactam
- Dosing Plan
Continue: Vanc 1000mg Q12H
- Monitoring Plan
No level(s) ordered at this time: will hold off on levels for now - surgery planned for today
- Follow Up
Pharmacy will continue to follow.
Vancomycin Follow UP
- -
Patient Age: 78
Patient Sex: Male
Vancomycin Day #: 3
Indication: Bone And Joint
Requesting Provider: Dr. Cabrales / Rhea
Pertinent Antimicrobial Allergies:
no pertinent antibiotic allergies
Height / Weight:
Height 5 ft 8 in
Actual Weight 71.894 kg
Pertinent Past Medical History: Charcot foot
- Vital Signs / Lab Results
Temp Pulse Resp BP Pulse Ox
97.9 F 58 16 148/58 95
11/25/23 07:36 11/25/23 07:36 11/25/23 07:36 11/25/23 07:36 11/25/23 07:36
Lab Results - Hematology
11/23/23 11/24/23
15:12 05:10
WBC 10.1 9.2
Lab Results - Chemistry
11/23/23 11/24/23
15:11 05:10
BUN 20 15
Creatinine 0.7 0.7
Estimated Creat Clear 83 83
Albumin 3.0 L 2.7 L
11/23/23
15:12
Lactic Acid 1.3
Microbiology Results
11/23/23 15:11 Blood Culture - Preliminary
Blood/Venous No Growth in 48 hours- Final report to follow
11/23/23 15:11 Blood Culture - Preliminary
Blood/Venous No Growth in 48 hours- Final report to follow
11/23/23 15:23 Wound Culture - Preliminary
Foot - Right Pseudomonas aeruginosa
Enterococcus species
Gram Stain - Preliminary
--- NOTE | 2023-11-25 16:34 | W.PN.UPDATE ---
Update Note
Progress Note Update
Patient with right foot acute infection and charcot
-Incision and drainage perfromed with debridment of bone, cultures taken
-Strict NWB RLE
-Continue ABx per Infectious disease, appreciate input
-No planned return to operating room at this time
-Dressing C/D/I, VAC to be changed 3 x per week, will need home wound care for wound VAC
--- NOTE | 2023-11-25 16:47 | CM ---
I and D of Right foot today.
Continues IV antibiotics.
Offered VN he was unsure .
PLAN Home offer VN again
[2023-11-25] MEDS: NON-FORMULARY ITEM 4 MG PO (17:17)
[2023-11-25] MEDS: REQUIP 1 MG PO (21:12)
[2023-11-25] MEDS: ZYRTEC 10 MG PO (21:12)
[2023-11-25] MEDS: MELATONIN 10 MG PO (21:12)
[2023-11-25] MEDS: NEUPRO 4 MG TRANSDERM (21:12)
[2023-11-25] MEDS: ULTRAM 50 MG PO (21:12)
[2023-11-25] MEDS: FLUSH (NSS) 2 FLUSH IV (23:27)
[2023-11-26 03:45] VITALS: BP 139/57
[2023-11-26] MEDS: ZOSYN 50 IV ×4 (05:12→23:25)
[2023-11-26] MEDS: FLUSH (NSS) 1 FLUSH IV (05:13)
[2023-11-26 05:38] LABS: Hematocrit 32.4 % (39.0-52.0); Hemoglobin 11.1 g/dL (13.0-18.0); Mean Corp Hgb Conc. 34.3 g/dL (33.0-37.0); Mean Corpuscular Hgb 30.4 pg (27.0-31.0); Mean Corpuscular Volume 88.8 fL (80.0-94.0); Mean Platelet Volume 9.8 fL (7.4-10.4); Platelet Count 342 10^3/uL (130-400); Red Blood Cell Count 3.65 10^6/uL (4.70-6.10); Red Cell Dist. Width 12.7 % (11.5-14.5); White Blood Cell Count 11.8 10^3/uL (4.8-10.8)
[2023-11-26] MEDS: VANCOCIN 200 IV ×2 (05:47→17:50)
[2023-11-26 05:59] LABS: Blood Urea Nitrogen 25 mg/dl (9-20); Calcium 9.3 mg/dl (8.4-10.2); Carbon Dioxide 25 mmol/L (22-30); Chloride 100 mmol/L (98-107); Estimated Creatinine Clearance 72 ml/min; Glucose 143 mg/dl (70-99); Potassium 4.2 mmol/L (3.5-5.1); Sodium 134 mmol/L (135-145); eGFR > 60.00
[2023-11-26 07:00] VITALS: BP 137/70
[2023-11-26 08:31] VITALS: BMI 24.1
[2023-11-26] MEDS: OCUVITE SOFTGEL 1 CAP PO (08:50)
[2023-11-26] MEDS: OSCAL 500 + D 1000 MG PO ×2 (08:50→21:45)
[2023-11-26] MEDS: COZAAR 100 MG PO (08:51)
[2023-11-26] MEDS: VITAMIN B-12 1000 MCG PO (08:51)
[2023-11-26] MEDS: TOPROL XL 50 MG PO (08:51)
[2023-11-26] MEDS: NORVASC 10 MG PO (08:51)
[2023-11-26] MEDS: ORETIC 25 MG PO (08:51)
[2023-11-26] MEDS: HYDROPHOR 1 APPLIC TOPICAL (08:52)
[2023-11-26] MEDS: AFRIN NASAL SPRAY 2 SPRAYS NASAL (08:52)
[2023-11-26] MEDS: HEPARIN 5000 UNITS SC (08:52)
[2023-11-26] MEDS: PROSCAR 5 MG PO (08:52)
--- NOTE | 2023-11-26 08:53 | WOUNDNOTE ---
W[facility] RN note: Faxed home ready vac forms to Ally from . Gave Ally Traore's email address for a Docu-sign signature. Notified Dr. Traore, next wound vac change Wednesday by wound nurse if still in hospital unless ortho service would like to
change next vac dressing over the weekend. VN to be set up by Case Management for home vac dressing changes.
--- NOTE | 2023-11-26 09:55 | W.PN.UPDATE ---
Update Note
Progress Note Update
Patient POD#1 Right foot I&D with debridement of bone ([address] Traore). patient to remain strict NWB RLE. Continue IV ABX per ID. following intraoperative Cx data. Dr. Traore does not have a plan to return to the OR at this time.
Recommends VAC change 3xs/week- will be in need of home wound care for VAC. Ortho/Podi will continue to follow
--- NOTE | 2023-11-26 10:22 | CM ---
Addendum entered by Isela Trejo 11/26/23 15:17:
Patient to need IV antibiotics and referral will need to be sent to [facility] as soon as available. Wound vac is in the Wound care nursing office. Patient lives with and his plan is for discharge home with [facility], when ready for discharge.
Original Note:
Patient seen at bedside. Patient expressed that he did not know what the wound vac was and that he did not know how to keep clean with it on. Patient updated nursing. Patient agreed to referral to [facility] for wound care at discharge. CM will send
referral to Liaison. Watch for home antibiotic needs. CM will continue to follow for discharge planning needs.
Plan; home with VN; wound vac and watch for IV antibiotic needs.
--- NOTE | 2023-11-26 10:24 | W.PN.HOSP.TC ---
Today's Communication/Plan
-
.
Assessment / Plan
Assessment / Plan
Physical Exam
General: Well Developed, Well Nourished and No Apparent Distress
HEENT: Normocephalic, Moist mucous membranes and Atraumatic
Respiratory: Clear
Cardiac: S1/S2
GI: Soft, Non Tender, Non Distended
Rectal: No rectal bleeding
Musculoskeletal: right foot wound
Skin: Other (Swelling tender palpation to the right foot ulceration to the right plantar aspect of the midfoot 1 cm in diameter stage II, well perfused.); No Rash
Neuro: Nonfocal/grossly intact. Forgetful
Psych: no agitation
# �Right foot Charcot midfoot infection with abscess/ Acute osteomyelitis of the middle, �medial cuneiform, lateral cuneiforms and the bases of the first through third metatarsals
s/p right foot I&D with debridement of bone by Dr Traore 11/25, no complications reported.
Strict NWB RLE.� Wound VAC change 3xs/week.
No pain, underlying neuropathy noted
no fevers
c/w IV Zosyn & vancomycin
Follow with OR wound cultures.
Appreciate podiatry and ID help
# mild leukocytosis, no fevers
expected after surgical procedure.
# Chronic venous insufficiency
# Charcot arthropathy of right and left ankles and feet
# Hyponatremia
mild
NA at 134
#Paroxysmal atrial fibrillation
- will resume Eliquis if ok to podiatry
-Continue metoprolol
#Essential hypertension
better controlled.
-Continue amlodipine, hydrochlorothiazide, losartan
#Obstructive sleep apnea
#Narcolepsy
-Continue Nuvigil
#Hyperlipidemia
#Bilateral renal artery stenosis
#BPH
-Continue finasteride
#Restless leg syndrome
-Continue Neupro, ropinirole, tramadol
#Insomnia
#History of MSSA
#Degenerative disc disease
#Former smoker
#Full code
DVT prophylaxis
Total time spent to see the patient, examine the patient on the floor, review data and lab results, discuss treatment plan with patient, nursing staff around 55 minutes
Anticipated Discharge: > 48 hours
Subjective/Interval History
-
Date of Service: November 26, 2023
Objective Data
-
Labs:
Laboratory Results
11/26/23
05:07
WBC 11.8 H
Hgb 11.1 L
Hct 32.4 L
Plt Count 342
Sodium 134 L
Potassium 4.2
Chloride 100
Carbon Dioxide 25
BUN 25 H
Creatinine 0.8
Glucose 143 H
Calcium 9.3
Vital Signs:
Vital Signs
Temp Pulse Resp BP Pulse Ox
98.0 F 58 17 137/70 97
11/26/23 07:00 11/26/23 08:51 11/26/23 07:00 11/26/23 08:51 11/26/23 07:00
I&O
11/25/23 11/26/23 11/27/23
06:59 06:59 06:59
Intake Total 240 / 240 540 / 540
Output Total 2235 / 2235 975 / 975
Balance -1994 / -1994 -435 / -435
[2023-11-26 11:00] VITALS: BP 140/62
[2023-11-26] MEDS: FLUSH (NSS) 2 FLUSH IV (12:54)
--- NOTE | 2023-11-26 13:50 | WOUNDNOTE ---
W[facility] RN note: Ally from notified this teletypewriter operator that the home ready vac pump/equipment was approved. The home ready vac is in this teletypewriter operator's office and can be brought up to patient closer to discharge. Updated Karely Trejo and Dr. Myles via tiger text.
[2023-11-26 15:00] VITALS: BP 130/57
[2023-11-26] MEDS: NEUPRO 4 MG TRANSDERM (15:09)
--- NOTE | 2023-11-26 15:09 | W.PN.ID1 ---
Date of Service
Date of Service: November 26, 2023
Today's Communication
Continue abx. Await further culture data.
Assessment / Plan
Right foot wound
Right foot osteomyelitis
- S/P debridement 11/25/23
Severe Charcot arthropathy of the right foot
Hx right foot osteomyelitis (with Staph hominis; 09/02/2023)
A-fib
Cardiomyopathy
Hypertension
Chronic lymphedema
Venous insufficiency
BPH with history of urinary retention
Dyslipidemia
Hx pancreatitis
Restless leg syndrome
Recommendations:
Continue with empiric vancomycin and Zosyn for the present. Await further culture data to guide antimicrobial selection and de-escalation.
If no MRSA recovered, discontinue further vancomycin.
Given osteomyelitis, patient will likely need a 6-week course of antibiotic therapy. Ultimately, patient may need SNF.
����������������������������������������������������������
Chief Complaint
-: Other (Osteomyelitis)
Subjective / Review of Systems
Review of Systems: No Fever and No Chills
Vital Signs / Physical Exam
Vital Signs
Vital Signs
Temp Pulse Resp BP Pulse Ox
98.2 F 61 18 140/62 95
11/26/23 11:00 11/26/23 11:00 11/26/23 11:00 11/26/23 11:00 11/26/23 11:00
Physical Exam
Constitutional: No Acute Distress, Comfortable, Chronically Ill and Non-toxic
Eyes: Sclera Anicteric
Cardiovascular: S1/S2; Negative S3/S4
Pulmonary: Non Labored
Gastrointestinal: Soft, Non Tender and Non Distended
Wound: Other (Right lower extremity wrapped in Kenney wrap. VAC in place.)
Neurological: Awake and Alert
Psychological: Calm
Objective Data
Lab Data
Lab Results
11/26/23 05:07
11/26/23 05:07
ESR 89 mm/hour (0-20) H 11/23/23 15:12
Estimated Creat Clear 72 ml/min 11/26/23 05:07
Lactic Acid 1.3 mmol/L (0.7-2.0) 11/23/23 15:12
Total Bilirubin 0.5 mg/dl (0.2-1.3) 11/24/23 05:10
AST 27 U/L (17-59) 11/24/23 05:10
ALT 21 U/L (0-50) 11/24/23 05:10
Alkaline Phosphatase 111 U/L (38-126) 11/24/23 05:10
C-Reactive Protein 174.20 mg/L (0.0-10.00) H 11/23/23 15:11
Most recent labs reviewed.
Micro Results:
11/25/23 16:32 Anaerobic Culture - Preliminary
Foot - Right Culture pending. Anaerobic cultures are examined after 3
days incubation. Additional information to follow.
11/25/23 16:32 Wound Culture - Preliminary
Foot - Right Gram Stain - Preliminary
11/23/23 15:23 Wound Culture - Final
Foot - Right Pseudomonas aeruginosa
Enterococcus faecalis
Gram Stain - Final
11/24/23 22:18 MRSA Screen - Final
Nose No Methicillin Resistant Staphylococcus aureus isolated.
11/23/23 15:11 Blood Culture - Preliminary
Blood/Venous No Growth in 48 hours- Final report to follow
11/23/23 15:11 Blood Culture - Preliminary
Blood/Venous No Growth in 48 hours- Final report to follow
Imaging:
11/24/2023 MRI right lower extremity: Worsening infectious process centered at the medial midfoot when compared to MRI dated 08/13/2023. There is progressed advanced destructive changes of the medial cuneiform secondary to osteomyelitis. Also noted
is acute osteomyelitis of the middle and lateral cuneiform and the bases of the first through third metatarsals. Plantar medial soft tissue wound with contiguous rim-enhancing fluid wrapping around the medial aspect of the midfoot along the
expected course of the flexor hallucis longus tendon suggesting infectious tenosynovitis and probable abscess formation. Please see full dictation for additional detail.
--- NOTE | 2023-11-26 16:19 | PHA.VAN.FU ---
Addendum entered and electronically signed by Sofy Matute [facility] 11/26/23 16:22:
BUN & SCR ordered per protocol
Original Note:
Vancomycin Assessment / Plan
- Assessment
Renal Function: Stable
WBC's are: Trending Down
In the past 24 hrs, patient has been: Afebrile
Concomitant Antimicrobials: piperacillin/tazobactam
- Dosing Plan
Continue: Vanc 1000mg Q12H
- Monitoring Plan
Peak Level: 11/26 20:30
Trough Level: 11/27 05:30
Monitoring Comments: levels after 6th maintenance dose
- Follow Up
Pharmacy will continue to follow.
Vancomycin Follow UP
- -
Patient Age: 78
Patient Sex: Male
Vancomycin Day #: 4
Indication: Bone And Joint
Requesting Provider: Dr. Cabrales / Rhea
Pertinent Antimicrobial Allergies:
no pertinent antibiotic allergies
Height / Weight:
Height 5 ft 8 in
Actual Weight 71.894 kg
Pertinent Past Medical History: Charcot foot
- Vital Signs / Lab Results
Temp Pulse Resp BP Pulse Ox
98.1 F 53 18 130/57 97
11/26/23 15:00 11/26/23 15:00 11/26/23 15:00 11/26/23 15:00 11/26/23 15:00
Lab Results - Hematology
11/24/23 11/26/23
05:10 05:07
WBC 9.2 11.8 H
Lab Results - Chemistry
11/24/23 11/26/23
05:10 05:07
BUN 15 25 H
Creatinine 0.7 0.8
Estimated Creat Clear 83 72
Albumin 2.7 L
Microbiology Results
11/23/23 15:11 Blood Culture - Preliminary
Blood/Venous No Growth in 72 hours- Final report to follow
11/23/23 15:11 Blood Culture - Preliminary
Blood/Venous No Growth in 72 hours- Final report to follow
11/25/23 16:32 Anaerobic Culture - Preliminary
Foot - Right Culture pending. Anaerobic cultures are examined after 3
days incubation. Additional information to follow.
11/25/23 16:32 Wound Culture - Preliminary
Foot - Right Gram Stain - Preliminary
11/23/23 15:23 Wound Culture - Final
Foot - Right Pseudomonas aeruginosa
Enterococcus faecalis
Gram Stain - Final
11/24/23 22:18 MRSA Screen - Final
Nose No Methicillin Resistant Staphylococcus aureus isolated.
[2023-11-26] MEDS: NON-FORMULARY ITEM 4 MG PO (18:03)
--- NOTE | 2023-11-26 20:45 | PTCARENOTE ---
Patient confused, restless, agitated that he is not able to walk around room freely. This RN watched patient almost fall twice when patient was ambulating. Patient very forgetful, forgets he has a wound vac to right foot. Patient placing full weight
on right foot despite education. Patient upset that a bed alarm is being placed on bed and chair, upset that he needs assistance at this time. Patient becoming increasing more anxious every time alarm goes off, JAY Orozco notified. Order placed
for PO Ativan, patient refused. LIGHT BULB ASSEMBLER in patient's room to assess patient. Will monitor.
[2023-11-26 21:36] LABS: Vancomycin Peak 26.1 ug/ml (18-26)
[2023-11-26] MEDS: MELATONIN 10 MG PO (21:45)
[2023-11-26] MEDS: ELIQUIS 5 MG PO (21:45)
[2023-11-26] MEDS: REQUIP 1 MG PO (21:45)
[2023-11-26] MEDS: ZYRTEC 10 MG PO (21:46)
[2023-11-26] MEDS: ULTRAM 50 MG PO (21:46)
[2023-11-26 23:00] VITALS: BP 128/73
[2023-11-27] MEDS: VANCOCIN IV ×3 (05:31→08:58)
[2023-11-27] MEDS: ZOSYN 50 IV (05:31)
[2023-11-27 06:33] LABS: Blood Urea Nitrogen 28 mg/dl (9-20); Estimated Creatinine Clearance 72 ml/min
[2023-11-27 06:40] LABS: Vancomycin Trough 27.5 ug/ml (5-20)
--- NOTE | 2023-11-27 07:58 | PHA.VAN.FU ---
Vancomycin Assessment / Plan
- Assessment
Renal Function: Stable
WBC's are: Trending Up
In the past 24 hrs, patient has been: Afebrile
Concomitant Antimicrobials: ZOSYN
- Assessment - Therapeutic Drug Monitoring
Extrapolated Cmax (mcg/mL): 26.1
Peak level was drawn: Appropriately
Extrapolated Cmin (mcg/mL): 27.5
Trough Drawn: While dose was infusing (11/27 0600 dose must have been given, there is no other reason trough to be higher than peak)
- Dosing Plan
Continue: 1000mg q12h
- Monitoring Plan
Peak Level: 11/27 @2030
Trough Level: 11/28 @0530
- Follow Up
Pharmacy will continue to follow.
Vancomycin Follow UP
- -
Patient Age: 78
Patient Sex: Male
Vancomycin Day #: 5
Indication: Bone And Joint
Requesting Provider: Dr. Cabrales / Rhea
Pertinent Antimicrobial Allergies:
no pertinent antibiotic allergies
Height / Weight:
Height 5 ft 8 in
Actual Weight 71.894 kg
Pertinent Past Medical History: Charcot foot
- Vital Signs / Lab Results
Temp Pulse Resp BP Pulse Ox
97.7 F 69 16 128/73 100
11/26/23 23:00 11/26/23 23:00 11/26/23 23:00 11/26/23 23:00 11/26/23 23:00
Lab Results - Hematology
11/26/23
05:07
WBC 11.8 H
Lab Results - Chemistry
11/26/23 11/27/23
05:07 05:52
BUN 25 H 28 H
Creatinine 0.8 0.8
Estimated Creat Clear 72 72
Microbiology Results
11/23/23 15:11 Blood Culture - Preliminary
Blood/Venous No Growth in 72 hours- Final report to follow
11/23/23 15:11 Blood Culture - Preliminary
Blood/Venous No Growth in 72 hours- Final report to follow
11/25/23 16:32 Anaerobic Culture - Preliminary
Foot - Right Culture pending. Anaerobic cultures are examined after 3
days incubation. Additional information to follow.
11/25/23 16:32 Wound Culture - Preliminary
Foot - Right Gram Stain - Preliminary
11/23/23 15:23 Wound Culture - Final
Foot - Right Pseudomonas aeruginosa
Enterococcus faecalis
Gram Stain - Final
11/24/23 22:18 MRSA Screen - Final
Nose No Methicillin Resistant Staphylococcus aureus isolated.
Therapeutic Drug Monitoring
Vancomycin Peak 26.1 ug/ml (18-26) H 11/26/23 21:04
Vancomycin Trough 27.5 ug/ml (5-20) H* 11/27/23 05:52
[2023-11-27 08:00] VITALS: BP 168/75
[2023-11-27] MEDS: ELIQUIS 5 MG PO ×2 (08:02→21:23)
[2023-11-27] MEDS: TOPROL XL 50 MG PO (08:02)
[2023-11-27] MEDS: PROSCAR 5 MG PO (08:02)
[2023-11-27] MEDS: COZAAR 100 MG PO (08:02)
[2023-11-27] MEDS: NORVASC 10 MG PO (08:02)
[2023-11-27] MEDS: OCUVITE SOFTGEL 1 CAP PO (08:02)
[2023-11-27] MEDS: VITAMIN B-12 1000 MCG PO (08:03)
[2023-11-27] MEDS: OSCAL 500 + D 1000 MG PO ×2 (08:03→21:24)
[2023-11-27] MEDS: ORETIC 25 MG PO (08:03)
[2023-11-27] MEDS: TYLENOL 650 MG PO ×2 (08:04→21:29)
[2023-11-27] MEDS: AFRIN NASAL SPRAY 30 SPRAYS NASAL (08:57)
[2023-11-27] MEDS: HYDROPHOR 1 APPLIC TOPICAL (08:59)
--- NOTE | 2023-11-27 09:14 | W.PN.ORTHO ---
Today's Communication / Plan
-
78M POD2 Right foot I&D with debridement of bone ([address] Traore) for charcot arthropathy with osteomyelitis.�
-remain strict NWB RLE.�
-Continue IV ABX per ID. following intraoperative Cx data.� NGTD
-Recommends VAC change 3xs/week-� will be in need of home wound care for VAC.�
-Ortho/Podi will continue to follow
Assessment
.
Dressing:
Clean, dry and intact.
Plan
.
Activity:
Out of bed.
PT/OT
Subjective
.
.:
Patient resting comfortably.
Vital Signs and Labs
.
Vital Signs and Labs:
Lab Results
11/26/23 05:07
11/27/23 05:52
Temp Pulse Resp BP Pulse Ox
97.6 F 55 18 168/75 98
11/27/23 08:00 11/27/23 08:00 11/27/23 08:00 11/27/23 08:00 11/27/23 08:00
--- NOTE | 2023-11-27 10:04 | W.PN.HOSP.TC ---
Today's Communication/Plan
-
.
Assessment / Plan
Assessment / Plan
Physical Exam
General: Well Developed, Well Nourished and No Apparent Distress
HEENT: Normocephalic, Moist mucous membranes and Atraumatic
Respiratory: Clear
Cardiac: S1/S2
GI: Soft, Non Tender, Non Distended
Rectal: No rectal bleeding
Musculoskeletal: right foot wound
Skin: dressing right foot with wound VAC/drain. No Rash
Neuro: Nonfocal/grossly intact. Forgetful
Psych: no agitation
# �Right foot Charcot midfoot infection with abscess/ Acute osteomyelitis of the middle, �medial cuneiform, lateral cuneiforms and the bases of the first through third metatarsals
s/p right foot I&D with debridement of bone by Dr Traore 11/25, no complications reported.
Strict NWB RLE.� Wound VAC change 3xs/week.
No pain, underlying neuropathy noted
no fevers
c/w IV Zosyn & vancomycin. MRSA screen is negative
Follow with OR wound cultures.
Appreciate podiatry and ID help
# mild leukocytosis, no fevers
expected after surgical procedure.
CBC in AM.
# Chronic venous insufficiency
# Charcot arthropathy of right and left ankles and feet
# Hyponatremia
mild
NA at 134
#Paroxysmal atrial fibrillation
- No chest pain or palpitation
- Back on Eliquis.
-Continue metoprolol
#Essential hypertension
better controlled. AM bP is 168/75, will add PRN low dose oral hydralazine
-Continue amlodipine, hydrochlorothiazide, losartan
#Obstructive sleep apnea
#Narcolepsy
-Continue Nuvigil
#Hyperlipidemia
#Bilateral renal artery stenosis
#BPH
-Continue finasteride
#Restless leg syndrome
-Continue Neupro, ropinirole, tramadol
#Insomnia
#History of MSSA
#Degenerative disc disease
#Former smoker
#Full code
DVT prophylaxis
Total time spent to see the patient, examine the patient on the floor, review data and lab results, discuss treatment plan with patient, nursing staff around 55 minutes
Anticipated Discharge: > 48 hours
Subjective/Interval History
-
Date of Service: November 27, 2023
Objective Data
-
Labs:
Laboratory Results
11/27/23
05:52
BUN 28 H
Creatinine 0.8
Vital Signs:
Vital Signs
Temp Pulse Resp BP Pulse Ox
97.6 F 55 18 168/75 98
11/27/23 08:00 11/27/23 08:00 11/27/23 08:00 11/27/23 08:00 11/27/23 08:00
I&O
11/26/23 11/27/23 11/28/23
06:59 06:59 06:59
Intake Total 540 / 540 1400 / 1400
Output Total 975 / 975 950 / 950
Balance -435 / -435 450 / 450
--- NOTE | 2023-11-27 10:54 | W.PN.ID1 ---
Date of Service
Date of Service: November 27, 2023
Today's Communication
continue zosyn
stop vanc
picc
Assessment / Plan
Right foot wound
Right foot osteomyelitis
- S/P debridement 11/25/23
Severe Charcot arthropathy of the right foot
Hx right foot osteomyelitis (with Staph hominis; 09/02/2023)
A-fib
Cardiomyopathy
Hypertension
Chronic lymphedema
Venous insufficiency
BPH with history of urinary retention
Dyslipidemia
Hx pancreatitis
Restless leg syndrome
Recommendations:
Follow intraop culture - no growth to date
Appears that pathology may not have been sent from the OR
Continue with Zosyn - dose adjusted for pseudomonas
Discontinue further vancomycin.
PICC line
Given osteomyelitis, patient will likely need a 6-week course of antibiotic therapy. Ultimately, patient may need SNF.
����������������������������������������������������������
Chief Complaint
-: Other (Osteomyelitis)
Subjective / Review of Systems
afebrile
bp stable
new leukocytosis 11.8
cr stable
11/25 wound culture from OR: no wbc no organisms
Vital Signs / Physical Exam
Vital Signs
Vital Signs
Temp Pulse Resp BP Pulse Ox
97.6 F 55 18 168/75 98
11/27/23 08:00 11/27/23 08:00 11/27/23 08:00 11/27/23 08:00 11/27/23 08:00
Physical Exam
Constitutional: No Acute Distress
Cardiovascular: Regular Rate and S1/S2; Negative Murmur or Rub
Pulmonary: Clear and Symmetric; Negative Wheezes or Rales
Gastrointestinal: Soft, Non Tender, Non Distended and Normal Bowel Sounds
Skin: Warm and Dry; Negative Rash or Jaundice
Lines: Other (wound vac)
Objective Data
Lab Data
Lab Results
11/26/23 05:07
11/27/23 05:52
ESR 89 mm/hour (0-20) H 11/23/23 15:12
Estimated Creat Clear 72 ml/min 11/27/23 05:52
Lactic Acid 1.3 mmol/L (0.7-2.0) 11/23/23 15:12
Total Bilirubin 0.5 mg/dl (0.2-1.3) 11/24/23 05:10
AST 27 U/L (17-59) 11/24/23 05:10
ALT 21 U/L (0-50) 11/24/23 05:10
Alkaline Phosphatase 111 U/L (38-126) 11/24/23 05:10
C-Reactive Protein 174.20 mg/L (0.0-10.00) H 11/23/23 15:11
Most recent labs reviewed.
Micro Results:
11/23/23 15:11 Blood Culture - Preliminary
Blood/Venous No Growth in 72 hours- Final report to follow
11/23/23 15:11 Blood Culture - Preliminary
Blood/Venous No Growth in 72 hours- Final report to follow
11/25/23 16:32 Anaerobic Culture - Preliminary
Foot - Right Culture pending. Anaerobic cultures are examined after 3
days incubation. Additional information to follow.
11/25/23 16:32 Wound Culture - Preliminary
Foot - Right Gram Stain - Preliminary
11/23/23 15:23 Wound Culture - Final
Foot - Right Pseudomonas aeruginosa
Enterococcus faecalis
Gram Stain - Final
11/24/23 22:18 MRSA Screen - Final
Nose No Methicillin Resistant Staphylococcus aureus isolated.
Imaging:
11/24/2023 MRI right lower extremity: Worsening infectious process centered at the medial midfoot when compared to MRI dated 08/13/2023. There is progressed advanced destructive changes of the medial cuneiform secondary to osteomyelitis. Also noted
is acute osteomyelitis of the middle and lateral cuneiform and the bases of the first through third metatarsals. Plantar medial soft tissue wound with contiguous rim-enhancing fluid wrapping around the medial aspect of the midfoot along the
expected course of the flexor hallucis longus tendon suggesting infectious tenosynovitis and probable abscess formation. Please see full dictation for additional detail.
[2023-11-27] MEDS: ZOSYN 100 IV ×2 (12:23→17:38)
[2023-11-27 15:30] VITALS: BP 122/64
[2023-11-27] MEDS: NEUPRO 4 MG TRANSDERM (15:43)
[2023-11-27] MEDS: NON-FORMULARY ITEM 4 MG PO (17:38)
--- NOTE | 2023-11-27 19:57 | VATNOTE ---
VAT paged to assess patient's right picc as it was recently placed and still bleeding. Patient's dressing found to be saturated with blood. Dressing removed, site cleaned, quickclot placed with sterile 4X4 and new sterile dressing placed. Kenney wrap
placed over dressing. Primary RN to remove kenney wrap in 1 hour. Will continue to monitor bleeding and change dressing as needed per protocol.
[2023-11-27] MEDS: MELATONIN 10 MG PO (21:24)
[2023-11-27] MEDS: REQUIP 1 MG PO (21:25)
[2023-11-27] MEDS: ULTRAM 50 MG PO (21:25)
[2023-11-27] MEDS: ZYRTEC 10 MG PO ×2 (21:26)
--- NOTE | 2023-11-27 21:54 | VATNOTE ---
VAT assessed PICC dressing to follow up after quickclot placement and mamadou wrap was removed, dressing was clean dry and intact- no blood noted on PICC dressing. Will continue to monitor.
[2023-11-27 23:25] VITALS: BP 124/64
[2023-11-28] MEDS: ZOSYN 100 IV ×4 (00:21→16:27)
[2023-11-28] MEDS: FLUSH (NSS) 1 FLUSH IV (01:44)
[2023-11-28 05:35] VITALS: BMI 24.1
[2023-11-28 05:59] LABS: Hematocrit 36.5 % (39.0-52.0); Hemoglobin 12.3 g/dL (13.0-18.0); Mean Corp Hgb Conc. 33.7 g/dL (33.0-37.0); Mean Corpuscular Hgb 30.5 pg (27.0-31.0); Mean Corpuscular Volume 90.6 fL (80.0-94.0); Mean Platelet Volume 9.7 fL (7.4-10.4); Platelet Count 417 10^3/uL (130-400); Red Blood Cell Count 4.03 10^6/uL (4.70-6.10); Red Cell Dist. Width 12.8 % (11.5-14.5); White Blood Cell Count 10.3 10^3/uL (4.8-10.8)
[2023-11-28 06:34] LABS: Blood Urea Nitrogen 33 mg/dl (9-20); Calcium 9.2 mg/dl (8.4-10.2); Carbon Dioxide 25 mmol/L (22-30); Chloride 102 mmol/L (98-107); Estimated Creatinine Clearance 53 ml/min; Glucose 90 mg/dl (70-99); Potassium 4.8 mmol/L (3.5-5.1); Sodium 134 mmol/L (135-145); eGFR > 60.00
[2023-11-28 08:05] VITALS: BP 121/55
--- NOTE | 2023-11-28 09:27 | W.PN.UPDATE ---
Update Note
Progress Note Update
78M PO3 Right foot I&D with debridement of bone ([address] Traore) for charcot arthropathy with osteomyelitis.�
-remain strict NWB RLE.�
-Continue IV ABX per ID. following intraoperative Cx data.� Intraop cultures with Pseudomonas and staph.
-Recommends VAC change 3xs/week-� will be in need of home wound care for VAC.�
-Ortho/Podi will continue to follow
[2023-11-28] MEDS: OSCAL 500 + D 1000 MG PO ×2 (09:31→21:04)
[2023-11-28] MEDS: PROSCAR 5 MG PO (09:31)
[2023-11-28] MEDS: TOPROL XL 50 MG PO (09:31)
[2023-11-28] MEDS: AFRIN NASAL SPRAY 1 SPRAYS NASAL (09:32)
[2023-11-28] MEDS: ELIQUIS 5 MG PO ×2 (09:32→21:00)
[2023-11-28] MEDS: ORETIC 25 MG PO (09:32)
[2023-11-28] MEDS: HYDROPHOR 1 APPLIC TOPICAL (09:32)
[2023-11-28] MEDS: NORVASC 10 MG PO (09:32)
[2023-11-28] MEDS: VITAMIN B-12 1000 MCG PO (09:33)
[2023-11-28] MEDS: OCUVITE SOFTGEL 1 CAP PO (09:33)
[2023-11-28] MEDS: COZAAR 100 MG PO (09:36)
--- NOTE | 2023-11-28 10:25 | W.PN.HOSP.TC ---
Today's Communication/Plan
-
.
Assessment / Plan
Assessment / Plan
Physical Exam
General: Well Developed, Well Nourished and No Apparent Distress
HEENT: Normocephalic, Moist mucous membranes and Atraumatic
Respiratory: Clear
Cardiac: S1/S2
GI: Soft, Non Tender, Non Distended
Rectal: No rectal bleeding
Musculoskeletal: right foot wound
Skin: dressing right foot with wound VAC/drain. No Rash
Neuro: Nonfocal/grossly intact. Forgetful
Psych: no agitation
# �Right foot Charcot midfoot infection with abscess/ Acute osteomyelitis of the middle, �medial cuneiform, lateral cuneiforms and the bases of the first through third metatarsals
s/p right foot I&D with debridement of bone by Dr Traore 11/25, no complications reported.
Strict NWB RLE.� Wound VAC change 3xs/week.
No pain, underlying neuropathy noted
no fevers
c/w IV Zosyn. Stopped vancomycin. MRSA screen is negative
OR wound cultures showing Pseudomonas.
Right picc line 11/27.
Appreciate podiatry and ID help
# Mild leukocytosis, no fevers
expected after surgical procedure.
Resolved.
# Mild elevation in BUN/Creatinine. Encourage fluid intake.
# Chronic venous insufficiency
# Charcot arthropathy of right and left ankles and feet
# Hyponatremia
mild
NA at 134
#Paroxysmal atrial fibrillation
- No chest pain or palpitation
- Back on Eliquis.
-Continue metoprolol
#Essential hypertension
better controlled.
PRN low dose oral hydralazine
-Continue amlodipine, hydrochlorothiazide, losartan
#Obstructive sleep apnea
#Narcolepsy
-Continue Nuvigil
#Hyperlipidemia
#Bilateral renal artery stenosis
#BPH
-Continue finasteride
#Restless leg syndrome
-Continue Neupro, ropinirole, tramadol
#Insomnia
#History of MSSA
#Degenerative disc disease
#Former smoker
#Full code
DVT prophylaxis
Total time spent to see the patient, examine the patient on the floor, review data and lab results, discuss treatment plan with patient, nursing staff around 57 minutes
Anticipated Discharge: 24 - 48 hours
Subjective/Interval History
-
Date of Service: November 28, 2023
No chest pain, no sob, no fevers.
Objective Data
-
Labs:
Laboratory Results
11/28/23
05:04
WBC 10.3
Hgb 12.3 L
Hct 36.5 L
Plt Count 417 H D
Sodium 134 L
Potassium 4.8
Chloride 102
Carbon Dioxide 25
BUN 33 H
Creatinine 1.1
Glucose 90
Calcium 9.2
Vital Signs:
Vital Signs
Temp Pulse Resp BP Pulse Ox
97.8 F 64 18 121/55 100
11/28/23 08:05 11/28/23 08:05 11/28/23 08:05 11/28/23 08:05 11/28/23 08:05
I&O
11/27/23 11/28/23 11/29/23
06:59 06:59 06:59
Intake Total 1400 / 1400 1760 / 1760
Output Total 950 / 950 1675 / 1675
Balance 450 / 450 85 / 85
--- NOTE | 2023-11-28 10:36 | W.PN.ID1 ---
Date of Service
Date of Service: November 28, 2023
Today's Communication
continue current antibiotics
Assessment / Plan
Right foot wound
Right foot osteomyelitis
- S/P debridement 11/25/23
Severe Charcot arthropathy of the right foot
Hx right foot osteomyelitis (with Staph hominis; 09/02/2023)
A-fib
Cardiomyopathy
Hypertension
Chronic lymphedema
Venous insufficiency
BPH with history of urinary retention
Dyslipidemia
Hx pancreatitis
Restless leg syndrome
Recommendations:
Follow intraop culture - few pseudomonas and rare cons thus far
Appears that pathology may not have been sent from the OR
Continue with Zosyn
PICC line
Given osteomyelitis, patient will likely need a 6-week course of antibiotic therapy. Ultimately, patient may need SNF.
����������������������������������������������������������
Chief Complaint
-: Other (Osteomyelitis)
Subjective / Review of Systems
afebrile
bp stable
without leukocytosis
plt 417
cr 1.1
Vital Signs / Physical Exam
Vital Signs
Vital Signs
Temp Pulse Resp BP Pulse Ox
97.8 F 64 18 121/55 100
11/28/23 08:05 11/28/23 08:05 11/28/23 08:05 11/28/23 08:05 11/28/23 08:05
Physical Exam
Constitutional: No Acute Distress
Cardiovascular: Regular Rate and S1/S2; Negative Murmur or Rub
Pulmonary: Clear and Symmetric; Negative Wheezes or Rales
Gastrointestinal: Soft, Non Tender, Non Distended and Normal Bowel Sounds
Skin: Warm and Dry; Negative Rash or Jaundice
Lines: Other (wound vac in place)
Objective Data
Lab Data
Lab Results
11/28/23 05:04
11/28/23 05:04
ESR 89 mm/hour (0-20) H 11/23/23 15:12
Estimated Creat Clear 53 ml/min 11/28/23 05:04
Lactic Acid 1.3 mmol/L (0.7-2.0) 11/23/23 15:12
Total Bilirubin 0.5 mg/dl (0.2-1.3) 11/24/23 05:10
AST 27 U/L (17-59) 11/24/23 05:10
ALT 21 U/L (0-50) 11/24/23 05:10
Alkaline Phosphatase 111 U/L (38-126) 11/24/23 05:10
C-Reactive Protein 174.20 mg/L (0.0-10.00) H 11/23/23 15:11
Most recent labs reviewed.
Micro Results:
11/23/23 15:11 Blood Culture - Preliminary
Blood/Venous No Growth in 4 days- Final report to follow
11/23/23 15:11 Blood Culture - Preliminary
Blood/Venous No Growth in 4 days- Final report to follow
11/25/23 16:32 Anaerobic Culture - Preliminary
Foot - Right Culture pending. Anaerobic cultures are examined after 3
days incubation. Additional information to follow.
11/25/23 16:32 Wound Culture - Preliminary
Foot - Right Pseudomonas aeruginosa
Gram Stain - Preliminary
11/23/23 15:23 Wound Culture - Final
Foot - Right Pseudomonas aeruginosa
Enterococcus faecalis
Gram Stain - Final
11/24/23 22:18 MRSA Screen - Final
Nose No Methicillin Resistant Staphylococcus aureus isolated.
Imaging:
11/24/2023 MRI right lower extremity: Worsening infectious process centered at the medial midfoot when compared to MRI dated 08/13/2023. There is progressed advanced destructive changes of the medial cuneiform secondary to osteomyelitis. Also noted
is acute osteomyelitis of the middle and lateral cuneiform and the bases of the first through third metatarsals. Plantar medial soft tissue wound with contiguous rim-enhancing fluid wrapping around the medial aspect of the midfoot along the
expected course of the flexor hallucis longus tendon suggesting infectious tenosynovitis and probable abscess formation. Please see full dictation for additional detail.
[2023-11-28 15:00] VITALS: BP 121/52
[2023-11-28] MEDS: NON-FORMULARY ITEM 2 MG PO (16:26)
[2023-11-28] MEDS: NEUPRO 4 MG TRANSDERM (16:26)
[2023-11-28] MEDS: MELATONIN 10 MG PO (21:10)
[2023-11-28] MEDS: REQUIP 1 MG PO (21:11)
[2023-11-28] MEDS: ULTRAM 50 MG PO (21:11)
[2023-11-28] MEDS: ZYRTEC 10 MG PO (21:12)
[2023-11-29 00:22] VITALS: BP 135/67
[2023-11-29] MEDS: ZOSYN 100 IV ×5 (05:14→23:01)
[2023-11-29 06:01] LABS: Blood Urea Nitrogen 33 mg/dl (9-20); Calcium 8.7 mg/dl (8.4-10.2); Carbon Dioxide 25 mmol/L (22-30); Chloride 104 mmol/L (98-107); Estimated Creatinine Clearance 48 ml/min; Glucose 103 mg/dl (70-99); Potassium 3.9 mmol/L (3.5-5.1); Sodium 135 mmol/L (135-145); eGFR > 60.00
[2023-11-29 07:47] VITALS: BP 137/68
[2023-11-29] MEDS: AFRIN NASAL SPRAY 2 SPRAYS NASAL (08:02)
[2023-11-29] MEDS: ELIQUIS 5 MG PO ×2 (08:03→20:43)
[2023-11-29] MEDS: COZAAR 100 MG PO (08:03)
[2023-11-29] MEDS: OSCAL 500 + D 1000 MG PO ×2 (08:03→20:43)
[2023-11-29] MEDS: VITAMIN B-12 1000 MCG PO (08:03)
[2023-11-29] MEDS: OCUVITE SOFTGEL 1 CAP PO (08:03)
[2023-11-29] MEDS: PROSCAR 5 MG PO (08:03)
[2023-11-29] MEDS: HYDROPHOR 1 APPLIC TOPICAL (08:03)
[2023-11-29] MEDS: ORETIC 25 MG PO (08:04)
[2023-11-29] MEDS: NORVASC 10 MG PO (08:04)
[2023-11-29] MEDS: TOPROL XL PO (09:12)
--- NOTE | 2023-11-29 09:28 | PN.CDI ---
CDI
- -
CDI:
Physician Documentation Request
Admit Date: 11/23/23 16:44
Dear Doctor León,
11/25 patient underwent ' Right foot incision of bone and cortex as well as debridement of complex wound abscess right foot'
Could you provide, in the progress notes further clarification regarding the debridement.
Please specify the type of debridement performed:
1. Excisional Debridement - defined as removal by excision of devitalized tissue, necrosis or slough
2. Non-excisional debridement - defined as removal of devitalized tissue, necrosis or slough by such methods as irrigation, brushing, scrubbing or washing.
Use of terms such as suspected, likely, concern for, or probable (associated with a specific diagnosis that is being evaluated, monitored, or treated as if it exists) are acceptable and can be coded in the inpatient setting, when documented at the
time of discharge.
Thank you,
Amelia Ta RN, BSN
CDI Specialist
tiger text
Please use your independent medical judgment in providing your response.
--- NOTE | 2023-11-29 11:13 | W.PN.ID1 ---
Date of Service
Date of Service: November 29, 2023
Today's Communication
Continue with Zosyn 4.5 g IV q6h through 01/06/24.
Follow weekly cbc with diff, CMP, CRP while on Zosyn.
Assessment / Plan
Right foot wound
Right foot osteomyelitis
- S/P debridement 11/25/23 with wound vac application.
Severe Charcot arthropathy of the right foot
Hx right foot osteomyelitis (with Staph hominis; 09/02/2023)
A-fib
Cardiomyopathy
Hypertension
Chronic lymphedema
Venous insufficiency
BPH with history of urinary retention
Dyslipidemia
Hx pancreatitis
Restless leg syndrome
Recommendations:
11/25 intraop culture - few pseudomonas and rare cons thus far
Appears that pathology may not have been sent from the OR
11/24 wound swab: pseudomonas, E. faecalis, few coag-neg staph
Continue with Zosyn 4.5 g IV q6h through 01/06/24.
Follow weekly cbc with diff, CMP, CRP while on Zosyn.
PICC line in place.
Infusion sheet submitted to rn field case manager.
����������������������������������������������������������
Chief Complaint
-: Other (Osteomyelitis)
Subjective / Review of Systems
Tolerating abx
Vital Signs / Physical Exam
Vital Signs
Vital Signs
Temp Pulse Resp BP Pulse Ox
97.8 F 58 16 137/68 98
11/29/23 07:47 11/29/23 09:12 11/29/23 07:47 11/29/23 08:04 11/29/23 07:47
Physical Exam
Constitutional: No Acute Distress
Wound: Other (Right foot charcot arthropathy, plantar wound deep, red tissue)
Lines: PICC
Objective Data
Lab Data
Lab Results
11/28/23 05:04
11/29/23 05:40
ESR 89 mm/hour (0-20) H 11/23/23 15:12
Estimated Creat Clear 48 ml/min 11/29/23 05:40
Lactic Acid 1.3 mmol/L (0.7-2.0) 11/23/23 15:12
Total Bilirubin 0.5 mg/dl (0.2-1.3) 11/24/23 05:10
AST 27 U/L (17-59) 11/24/23 05:10
ALT 21 U/L (0-50) 11/24/23 05:10
Alkaline Phosphatase 111 U/L (38-126) 11/24/23 05:10
C-Reactive Protein 174.20 mg/L (0.0-10.00) H 11/23/23 15:11
Most recent labs reviewed.
Micro Results:
11/25/23 16:32 Anaerobic Culture - Preliminary
Foot - Right Culture pending. Anaerobic cultures are examined after 3
days incubation. Additional information to follow.
11/23/23 15:11 Blood Culture - Final
Blood/Venous No Growth - Final Report
11/23/23 15:11 Blood Culture - Final
Blood/Venous No Growth - Final Report
11/25/23 16:32 Wound Culture - Preliminary
Foot - Right Pseudomonas aeruginosa
Gram Stain - Preliminary
11/23/23 15:23 Wound Culture - Final
Foot - Right Pseudomonas aeruginosa
Enterococcus faecalis
Gram Stain - Final
11/24/23 22:18 MRSA Screen - Final
Nose No Methicillin Resistant Staphylococcus aureus isolated.
Imaging:
11/24/2023 MRI right lower extremity: Worsening infectious process centered at the medial midfoot when compared to MRI dated 08/13/2023. There is progressed advanced destructive changes of the medial cuneiform secondary to osteomyelitis. Also noted
is acute osteomyelitis of the middle and lateral cuneiform and the bases of the first through third metatarsals. Plantar medial soft tissue wound with contiguous rim-enhancing fluid wrapping around the medial aspect of the midfoot along the
expected course of the flexor hallucis longus tendon suggesting infectious tenosynovitis and probable abscess formation. Please see full dictation for additional detail.
--- NOTE | 2023-11-29 11:15 | W.PN.HOSP.TC ---
Today's Communication/Plan
-
podiatry recs
Await culture
trend cr
pt/ot
Assessment / Plan
Assessment / Plan
Physical Exam
General: Well Developed, Well Nourished and No Apparent Distress
HEENT: Normocephalic, Moist mucous membranes and Atraumatic
Respiratory: Clear
Cardiac: S1/S2
GI: Soft, Non Tender, Non Distended
Rectal: No rectal bleeding
Musculoskeletal: right foot wound
Skin: dressing right foot with wound VAC/drain. No Rash
Neuro: Nonfocal/grossly intact. Forgetful
Psych: no agitation
# �Right foot Charcot midfoot infection with abscess/ Acute osteomyelitis of the middle, �medial cuneiform, lateral cuneiforms and the bases of the first through third metatarsals
s/p right foot I&D with debridement of bone by Dr Traore 11/25, no complications reported.
Strict NWB RLE.� Wound VAC change 3xs/week.
No pain, underlying neuropathy noted
no fevers
c/w IV Zosyn. Stopped vancomycin. MRSA screen is negative
OR wound cultures showing Pseudomonas. Few Coag neg staph
Right picc line 11/27.
Appreciate podiatry and ID help
# Mild leukocytosis, no fevers
expected after surgical procedure.
Resolved.
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
Cr was 1.1 in 08/26
Hold HCTZ overnight.
# Chronic venous insufficiency
# Charcot arthropathy of right and left ankles and feet
# Hyponatremia
mild
resolved.
#Paroxysmal atrial fibrillation
- No chest pain or palpitation
- Back on Eliquis.
-Continue metoprolol
#Essential hypertension
better controlled.
PRN low dose oral hydralazine
-Continue amlodipine, hydrochlorothiazide, losartan
#Obstructive sleep apnea
#Narcolepsy
-Continue Nuvigil
#Hyperlipidemia
#Bilateral renal artery stenosis
#BPH
-Continue finasteride
#Restless leg syndrome
-Continue Neupro, ropinirole, tramadol
#Insomnia
#History of MSSA
#Degenerative disc disease
#Former smoker
#Full code
DVT prophylaxis-eliquis
PT/OT
Anticipated Discharge: > 48 hours
Subjective/Interval History
-
Date of Service: November 29, 2023
states of left foot itching
Objective Data
-
Labs:
Laboratory Results
11/29/23
05:40
Sodium 135
Potassium 3.9
Chloride 104
Carbon Dioxide 25
BUN 33 H
Creatinine 1.2
Glucose 103 H
Calcium 8.7
Vital Signs:
Vital Signs
Temp Pulse Resp BP Pulse Ox
97.8 F 58 16 137/68 98
11/29/23 07:47 11/29/23 09:12 11/29/23 07:47 11/29/23 08:04 11/29/23 07:47
I&O
11/28/23 11/29/23 11/30/23
06:59 06:59 06:59
Intake Total 1760 / 1760 775 / 775
Output Total 1675 / 1675
Balance 85 / 85 775 / 775
Data Reviewed
-
Total Time Spent with Patient (in minutes): 54
--- NOTE | 2023-11-29 11:26 | WOUNDNOTE ---
WOC RN Note: Patient's R plantar foot wound vac dressing changed. Patient tolerated well, wound to bone with pink tissue. No surrounding erythema. Patient aware he is NWB R foot. He stated he has a knee scooter at home. Dr. Fajardo in during visit. L
medial calf ulcer healed. He has several scattered scratch moise on his R upper medial calf from scratching. Dressing LLE changed. L lateral ankle mild red and intact, adaptic, gauze pads and Kerlix applied. Bilateral knee high Kenney wraps applied.
Heels off bed with pillow. He can turn self in bed. Skin on heels and sacrum intact. Next vac dressing change due Wednesday. If patient goes home, will bring up home vac. If patient goes to rehab, CM will notify SNF rehab will need to obtain wound
vac.
[2023-11-29 11:30] VITALS: BMI 24.4
[2023-11-29] MEDS: TYLENOL 650 MG PO ×2 (12:53→20:43)
[2023-11-29] MEDS: FLUSH (NSS) 2 FLUSH IV ×2 (12:56→23:01)
[2023-11-29 13:27] VITALS: BP 133/62; PULSE 60; O2SAT 96
[2023-11-29] MEDS: NEUPRO 4 MG TRANSDERM (14:17)
--- NOTE | 2023-11-29 14:55 | WOUNDNOTE ---
WO RN note: Notified Cyber Security Administrator Annabelle Rodriguez re: CM will need to let SNF rehab know they need to get Vac pump/supplies (small spiral black foam used, pump setting 125mmhg continuous, change q 48-72 hours) if patient goes to a SNF and if patient
goes home with VN and home IV infusion, his home vac in this play writer's office.
--- NOTE | 2023-11-29 15:23 | CM ---
Addendum entered by Annabelle Rodriguez 11/29/23 16:18:
Per [facility], need copy of Rx card for pricing
Spouse will bring in tomorrow
Original Note:
CM met with pt and spouse to review dc planning
Pt with wound vac needs, NWB RLE and will need IV Zosyn 4.5 g Q6H through 01/06/24
SNF recommended by PT
Pt not thrilled will going to SNF for long period of time
Spouse notes concern with managing IV abx at home Q6 hours for extended period of time and physically managing NWB status
Pt in agreement to SNF referrals to [facility], [facility], [facility], and [facility]
Role of [employer] reviewed
Pt also requesting info regarding out of pocket costs for home infusion
PASRR completed and referrals sent via [facility]- pending
Home infusion referral faxed to [facility]- awaiting coverage and out of pocket costs
If plan for home, pt will need VN arranged ([facility] provider choice)
Per [facility]/Deja, wound vac in office and will be sent home with pt
If SNF on dc, SNF to arrange for wound vac (small spiral black foam dressing, pump 125mmhg continuous, change Q48-72 hours)
Plan to follow up with pt and spouse on outcome of SNF bed search and out of pocket costs for home infusion
Discharge Disposition- home with VN, wound vac, [facility]/IV abx vs SNF pending [employer] auth
--- NOTE | 2023-11-29 16:10 | VNURNOTE ---
Home Health Liaison met with patient and Abby at 1530 to discuss [facility] nurse/therapy, visits, schedule and homebound status. Patient was on phone for most of discussion. Liaison discussed in great detail the limitations of [facility] with visits 2-3x
per week.
Patient's is unsure if she can manage patient with wound VAC, NWB status and IV Antibiotics at home.
Abby is considering rehab prior to home.
[facility] brochure provided with contact information. Liaison will continue to follow.
[facility] referral to be made closer to discharge and when plan is clearer.
[2023-11-29] MEDS: NON-FORMULARY ITEM 4 MG PO (17:03)
[2023-11-29 17:53] VITALS: BP 134/72
[2023-11-29] MEDS: REQUIP 1 MG PO (22:06)
[2023-11-29] MEDS: ULTRAM 50 MG PO (22:06)
[2023-11-29] MEDS: MELATONIN 10 MG PO (22:07)
[2023-11-29 23:00] VITALS: BP 114/60
[2023-11-30] MEDS: TYLENOL 650 MG PO ×3 (04:47→21:56)
[2023-11-30] MEDS: ZOSYN 100 IV ×4 (05:52→23:04)
[2023-11-30] MEDS: FLUSH (NSS) 2 FLUSH IV ×2 (05:53→23:05)
[2023-11-30 06:17] LABS: % Basophils 0.5 % (0-2); % Eosinophils 1.5 % (0-6); % Immature Granulocytes 1.5 % (0-0.5); % Lymphocytes 7.8 % (20.5-51.1); % Monocytes 14.2 % (1.7-9.3); % Neutrophils 74.5 % (42.2-75.2); Absolute Basophils 0.1 10^3/uL (0-0.2); Absolute Eosinophils 0.2 10^3/uL (0-0.7); Absolute Immature Granulocytes 0.2 10^3/uL (0-0.05); Absolute Lymphocytes 0.9 10^3/uL (1.2-3.4); Absolute Monocytes 1.7 10^3/uL (0.1-0.6); Absolute Neutrophils 8.7 10^3/uL (1.4-6.5); Hematocrit 36.6 % (39.0-52.0); Hemoglobin 12.3 g/dL (13.0-18.0); Mean Corp Hgb Conc. 33.6 g/dL (33.0-37.0); Mean Corpuscular Hgb 30.1 pg (27.0-31.0); Mean Corpuscular Volume 89.5 fL (80.0-94.0); Mean Platelet Volume 9.5 fL (7.4-10.4); Nucleated Red Blood Cells % 0 % (-); Platelet Count 343 10^3/uL (130-400); Red Blood Cell Count 4.09 10^6/uL (4.70-6.10); Red Cell Dist. Width 13.1 % (11.5-14.5); White Blood Cell Count 11.7 10^3/uL (4.8-10.8)
[2023-11-30 06:40] LABS: Blood Urea Nitrogen 30 mg/dl (9-20); Calcium 9.4 mg/dl (8.4-10.2); Carbon Dioxide 26 mmol/L (22-30); Chloride 98 mmol/L (98-107); Estimated Creatinine Clearance 58 ml/min; Glucose 117 mg/dl (70-99); Potassium 4.2 mmol/L (3.5-5.1); Sodium 132 mmol/L (135-145); eGFR > 60.00
[2023-11-30] MEDS: COZAAR 100 MG PO (07:20)
[2023-11-30] MEDS: ELIQUIS 5 MG PO ×2 (07:20→21:53)
[2023-11-30] MEDS: OSCAL 500 + D 1000 MG PO ×2 (07:20→21:53)
[2023-11-30] MEDS: AFRIN NASAL SPRAY 2 SPRAYS NASAL (07:20)
[2023-11-30] MEDS: VITAMIN B-12 1000 MCG PO (07:20)
[2023-11-30] MEDS: PROSCAR 5 MG PO (07:20)
[2023-11-30] MEDS: OCUVITE SOFTGEL 1 CAP PO (07:20)
[2023-11-30] MEDS: TOPROL XL 50 MG PO (07:21)
[2023-11-30] MEDS: NORVASC 10 MG PO (07:21)
[2023-11-30] MEDS: HYDROPHOR 1 APPLIC TOPICAL (07:22)
[2023-11-30 07:28] VITALS: BP 137/64
[2023-11-30 09:20] VITALS: BP 106/63; PULSE 66; O2SAT 99
--- NOTE | 2023-11-30 10:08 | W.PN.UPDATE ---
Update Note
Progress Note Update
Appreciate the primary team and ID. Continue Tx with IV ABX. Patient was using the latrine this AM at the time of rounds. Patient to remain strict NWB RLE. PT/OT. Vac changes 3xs/week. Will need VNS to help with VAC changes. Dr. Traore following
along. They have discussed more definitive options. Continue to follow while inpatient.
--- NOTE | 2023-11-30 10:34 | W.PN.ID1 ---
Date of Service
Date of Service: November 30, 2023
Today's Communication
Continue with Zosyn 4.5 g IV q6h through 01/06/24.
Assessment / Plan
Right foot wound
Right foot osteomyelitis
- S/P debridement 11/25/23 with wound vac application.
Severe Charcot arthropathy of the right foot
Hx right foot osteomyelitis (with Staph hominis; 09/02/2023)
A-fib
Cardiomyopathy
Hypertension
Chronic lymphedema
Venous insufficiency
BPH with history of urinary retention
Dyslipidemia
Hx pancreatitis
Restless leg syndrome
Recommendations:
11/25 intraop culture - pseudomonas
Appears that pathology may not have been sent from the OR
11/24 wound swab: pseudomonas, E. faecalis, few coag-neg staph
Continue with Zosyn 4.5 g IV q6h through 01/06/24.
Follow weekly cbc with diff, CMP, CRP while on Zosyn.
PICC line in place.
Infusion sheet submitted to shelter case manager on 11/29.
����������������������������������������������������������
Chief Complaint
-: Other (Osteomyelitis)
Subjective / Review of Systems
No new complaints.
Vital Signs / Physical Exam
Vital Signs
Vital Signs
Temp Pulse Resp BP Pulse Ox
98.4 F 70 16 137/64 100
11/30/23 07:28 11/30/23 07:28 11/30/23 07:28 11/30/23 07:28 11/30/23 07:28
Physical Exam
Constitutional: No Acute Distress
Wound: Other (right foot wound vac in place)
Objective Data
Lab Data
Lab Results
11/30/23 05:36
11/30/23 05:36
ESR 89 mm/hour (0-20) H 11/23/23 15:12
Estimated Creat Clear 58 ml/min 11/30/23 05:36
Lactic Acid 1.3 mmol/L (0.7-2.0) 11/23/23 15:12
Total Bilirubin 0.5 mg/dl (0.2-1.3) 11/24/23 05:10
AST 27 U/L (17-59) 11/24/23 05:10
ALT 21 U/L (0-50) 11/24/23 05:10
Alkaline Phosphatase 111 U/L (38-126) 11/24/23 05:10
C-Reactive Protein 174.20 mg/L (0.0-10.00) H 11/23/23 15:11
Most recent labs reviewed.
Micro Results:
11/25/23 16:32 Wound Culture - Final
Foot - Right Pseudomonas aeruginosa
Gram Stain - Final
11/25/23 16:32 Anaerobic Culture - Final
Foot - Right NO ANAEROBES ISOLATED
11/23/23 15:11 Blood Culture - Final
Blood/Venous No Growth - Final Report
11/23/23 15:11 Blood Culture - Final
Blood/Venous No Growth - Final Report
11/23/23 15:23 Wound Culture - Final
Foot - Right Pseudomonas aeruginosa
Enterococcus faecalis
Gram Stain - Final
11/24/23 22:18 MRSA Screen - Final
Nose No Methicillin Resistant Staphylococcus aureus isolated.
Imaging:
11/24/2023 MRI right lower extremity: Worsening infectious process centered at the medial midfoot when compared to MRI dated 08/13/2023. There is progressed advanced destructive changes of the medial cuneiform secondary to osteomyelitis. Also noted
is acute osteomyelitis of the middle and lateral cuneiform and the bases of the first through third metatarsals. Plantar medial soft tissue wound with contiguous rim-enhancing fluid wrapping around the medial aspect of the midfoot along the
expected course of the flexor hallucis longus tendon suggesting infectious tenosynovitis and probable abscess formation. Please see full dictation for additional detail.
--- NOTE | 2023-11-30 11:14 | W.PN.HOSP.TC ---
Today's Communication/Plan
-
Hold HCTZ
IV abx
await placement
Assessment / Plan
Assessment / Plan
Physical Exam
General: Well Developed, Well Nourished and No Apparent Distress
HEENT: Normocephalic, Moist mucous membranes and Atraumatic
Respiratory: Clear
Cardiac: S1/S2
GI: Soft, Non Tender, Non Distended
Rectal: No rectal bleeding
Musculoskeletal: right foot wound
Skin: dressing right foot with wound VAC/drain. No Rash
Neuro: Nonfocal/grossly intact. Forgetful
Psych: no agitation
# �Right foot Charcot midfoot infection with abscess/ Acute osteomyelitis of the middle, �medial cuneiform, lateral cuneiforms and the bases of the first through third metatarsals
s/p right foot I&D with debridement of bone by Dr Traore 11/25, no complications reported.
Strict NWB RLE.� Wound VAC change 3xs/week.
No pain, underlying neuropathy noted
no fevers
c/w IV Zosyn 4.5g q6h through 01/06/24.
Stopped vancomycin. MRSA screen is negative
OR wound cultures showing Pseudomonas. Few Coag neg staph
Right picc line 11/27.
Appreciate podiatry and ID help
# Mild leukocytosis, no fevers
expected after surgical procedure.
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
Cr was 1.1 in 08/26
Hold HCTZ
# Chronic venous insufficiency
# Charcot arthropathy of right and left ankles and feet
# Hyponatremia
mild. ?due to HCTZ. Monitor off HCTZ for now.
#Paroxysmal atrial fibrillation
- No chest pain or palpitation
- Back on Eliquis.
-Continue metoprolol
#Essential hypertension
better controlled.
PRN low dose oral hydralazine
-Continue amlodipine, losartan
#Obstructive sleep apnea
#Narcolepsy
-Continue Nuvigil
#Hyperlipidemia
#Bilateral renal artery stenosis
#BPH
-Continue finasteride
#Restless leg syndrome
-Continue Neupro, ropinirole, tramadol
#Insomnia
#History of MSSA
#Degenerative disc disease
#Former smoker
#Full code
DVT prophylaxis-eliquis
PT/OT-SNF. CM aware. await placement.
Anticipated Discharge: Within 24 hours
Subjective/Interval History
-
Date of Service: November 30, 2023
denies foot pain
Objective Data
-
Labs:
Laboratory Results
11/30/23
05:36
WBC 11.7 H
Hgb 12.3 L
Hct 36.6 L
Plt Count 343
Sodium 132 L
Potassium 4.2
Chloride 98
Carbon Dioxide 26
BUN 30 H
Creatinine 1.0
Glucose 117 H
Calcium 9.4
Vital Signs:
Vital Signs
Temp Pulse Resp BP Pulse Ox
98.4 F 70 16 137/64 100
11/30/23 07:28 11/30/23 07:28 11/30/23 07:28 11/30/23 07:28 11/30/23 07:28
I&O
11/29/23 11/30/23 12/01/23
06:59 06:59 06:59
Intake Total 775 / 775 1400 / 1400
Output Total 1650 / 1650
Balance 775 / 775 -250 / -250
[2023-11-30 14:30] VITALS: BMI 24.4
[2023-11-30 15:00] VITALS: BP 125/62
[2023-11-30] MEDS: NEUPRO 4 MG TRANSDERM (15:31)
--- NOTE | 2023-11-30 15:59 | CM ---
heavy equipment sales manager spoke with [facility] and home IV ABX will be $100 per week for medication and supplies are covered $100%. heavy equipment sales manager met with patient and spouse and reviewed skilled placement, patient will need therapy, IV ABX and patient
has a wound vac in place, referrals sent to [facility] and [facility] and both facilities have denied patient, referral sent to [facility] and they will not accept patient with a vac machine. Referral sent to Nicky Rios who are
reviewing patient's chart.
Plan; To follow up with Nicky gomez.
[2023-11-30] MEDS: NON-FORMULARY ITEM 4 MG PO (17:13)
[2023-11-30] MEDS: ZYRTEC 10 MG PO (21:53)
[2023-11-30] MEDS: REQUIP 1 MG PO (21:53)
[2023-11-30] MEDS: MELATONIN 10 MG PO (21:53)
[2023-11-30] MEDS: ULTRAM 50 MG PO (21:53)
--- NOTE | 2023-11-30 22:24 | PTCARENOTE ---
Throughout shift, no attempts OOB. AAOx3. Forgetful at x's. Bed and chair alarm in place. Medsitter discontinued.
[2023-11-30 23:41] VITALS: BP 126/58
[2023-12-01 04:16] LABS: % Basophils 0.6 % (0-2); % Eosinophils 1.3 % (0-6); % Immature Granulocytes 1.5 % (0-0.5); % Lymphocytes 10.2 % (20.5-51.1); % Monocytes 17.1 % (1.7-9.3); % Neutrophils 69.3 % (42.2-75.2); Absolute Basophils 0.1 10^3/uL (0-0.2); Absolute Eosinophils 0.1 10^3/uL (0-0.7); Absolute Immature Granulocytes 0.2 10^3/uL (0-0.05); Absolute Monocytes 1.7 10^3/uL (0.1-0.6); Absolute Neutrophils 6.9 10^3/uL (1.4-6.5); Hematocrit 36.8 % (39.0-52.0); Hemoglobin 12.3 g/dL (13.0-18.0); Mean Corp Hgb Conc. 33.4 g/dL (33.0-37.0); Mean Corpuscular Hgb 29.9 pg (27.0-31.0); Mean Corpuscular Volume 89.3 fL (80.0-94.0); Mean Platelet Volume 9.5 fL (7.4-10.4); Nucleated Red Blood Cells % 0 % (-); Platelet Count 306 10^3/uL (130-400); Red Blood Cell Count 4.12 10^6/uL (4.70-6.10); Red Cell Dist. Width 13.2 % (11.5-14.5)
[2023-12-01 04:31] LABS: Blood Urea Nitrogen 30 mg/dl (9-20); Calcium 8.9 mg/dl (8.4-10.2); Carbon Dioxide 27 mmol/L (22-30); Chloride 100 mmol/L (98-107); Estimated Creatinine Clearance 48 ml/min; Glucose 105 mg/dl (70-99); Potassium 4.1 mmol/L (3.5-5.1); Sodium 132 mmol/L (135-145); eGFR > 60.00
[2023-12-01] MEDS: ZOSYN 100 IV ×4 (05:59→23:58)
[2023-12-01] MEDS: FLUSH (NSS) 2 FLUSH IV (05:59)
[2023-12-01 07:00] VITALS: BP 135/54
[2023-12-01] MEDS: AFRIN NASAL SPRAY 30 SPRAYS NASAL (08:02)
[2023-12-01] MEDS: ELIQUIS 5 MG PO ×2 (08:03→20:14)
[2023-12-01] MEDS: OCUVITE SOFTGEL 1 CAP PO (08:03)
[2023-12-01] MEDS: TOPROL XL 50 MG PO (08:03)
[2023-12-01] MEDS: PROSCAR 5 MG PO (08:03)
[2023-12-01] MEDS: OSCAL 500 + D 1000 MG PO ×2 (08:03→20:14)
[2023-12-01] MEDS: NORVASC 10 MG PO (08:03)
[2023-12-01] MEDS: VITAMIN B-12 1000 MCG PO (08:03)
[2023-12-01] MEDS: COZAAR 100 MG PO (08:04)
[2023-12-01] MEDS: HYDROPHOR 1 APPLIC TOPICAL (08:04)
[2023-12-01] MEDS: TYLENOL 650 MG PO ×2 (08:44→21:02)
--- NOTE | 2023-12-01 10:53 | W.PN.HOSP.TC ---
Today's Communication/Plan
-
Wound care/vac changes
hold hctz
IV abx
await placement
Assessment / Plan
Assessment / Plan
Physical Exam
General: Well Developed, Well Nourished and No Apparent Distress
HEENT: Normocephalic, Moist mucous membranes and Atraumatic
Respiratory: Clear
Cardiac: S1/S2
GI: Soft, Non Tender, Non Distended
Rectal: No rectal bleeding
Musculoskeletal: right foot wound
Skin: dressing right foot with wound VAC/drain. No Rash
Neuro: Nonfocal/grossly intact. Forgetful
Psych: no agitation
# �Right foot Charcot midfoot infection with abscess/ Acute osteomyelitis of the middle, �medial cuneiform, lateral cuneiforms and the bases of the first through third metatarsals
s/p right foot I&D with debridement of bone by Dr Traore 11/25, no complications reported.
Strict NWB RLE.� Wound VAC change 3xs/week.
No pain, underlying neuropathy noted
no fevers
c/w IV Zosyn 4.5g q6h through 01/06/24.
Stopped vancomycin. MRSA screen is negative
OR wound cultures showing Pseudomonas. Few Coag neg staph
Right picc line 11/27.
Appreciate podiatry and ID help
# Mild leukocytosis, no fevers
expected after surgical procedure.
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
Cr was 1.1 in 08/26
Hold HCTZ
# Chronic venous insufficiency
# Charcot arthropathy of right and left ankles and feet
# Hyponatremia
mild. ?due to HCTZ. Monitor off HCTZ for now. Na stable at 132 for now.
#Paroxysmal atrial fibrillation
- No chest pain or palpitation
- Back on Eliquis.
-Continue metoprolol
#Essential hypertension
better controlled.
PRN low dose oral hydralazine
-Continue amlodipine, losartan
#Obstructive sleep apnea
#Narcolepsy
-Continue Nuvigil
#Hyperlipidemia
#Bilateral renal artery stenosis
#BPH
-Continue finasteride
#Restless leg syndrome
-Continue Neupro, ropinirole, tramadol
#Insomnia
#History of MSSA
#Degenerative disc disease
#Former smoker
#Full code
DVT prophylaxis-eliquis
PT/OT-SNF. CM aware. await placement. Difficult disposition due to IV abx, wound vac changes etc.
Anticipated Discharge: Within 24 hours
Subjective/Interval History
-
Date of Service: December 01, 2023
Tolerating diet
denies foot pain
remains on afebrile
Objective Data
-
Labs:
Laboratory Results
12/01/23
04:02
WBC 10.0
Hgb 12.3 L
Hct 36.8 L
Plt Count 306
Sodium 132 L
Potassium 4.1
Chloride 100
Carbon Dioxide 27
BUN 30 H
Creatinine 1.2
Glucose 105 H
Calcium 8.9
Vital Signs:
Vital Signs
Temp Pulse Resp BP Pulse Ox
99.0 F 60 18 135/54 96
12/01/23 07:00 12/01/23 08:04 12/01/23 07:00 12/01/23 08:04 12/01/23 07:00
I&O
11/30/23 12/01/23 12/02/23
06:59 06:59 06:59
Intake Total 1400 / 1400 1400 / 1400
Output Total 1650 / 1650 776 / 776
Balance -250 / -250 624 / 624
--- NOTE | 2023-12-01 10:53 | W.PN.ID1 ---
Date of Service
Date of Service: December 01, 2023
Today's Communication
Continue current abx.
Assessment / Plan
Right foot wound
Right foot osteomyelitis
- S/P debridement 11/25/23 with wound vac application.
Severe Charcot arthropathy of the right foot
Hx right foot osteomyelitis (with Staph hominis; 09/02/2023)
A-fib
Cardiomyopathy
Hypertension
Chronic lymphedema
Venous insufficiency
BPH with history of urinary retention
Dyslipidemia
Hx pancreatitis
Restless leg syndrome
Recommendations:
11/25 intraop culture - Pseudomonas
Appears that pathology may not have been sent from the OR
11/24 wound swab: Pseudomonas, E. faecalis, few coag-neg staph
Continue with Zosyn 4.5 g IV q6h through 01/06/24.
Follow weekly cbc with diff, CMP, CRP while on Zosyn.
PICC line in place.
Infusion sheet submitted to machine adjuster leader case trim on 11/29.
����������������������������������������������������������
Chief Complaint
-: Other (Osteomyelitis - right foot)
Subjective / Review of Systems
Review of Systems: No Fever and No Chills
Vital Signs / Physical Exam
Vital Signs
Vital Signs
Temp Pulse Resp BP Pulse Ox
99.0 F 60 18 135/54 96
12/01/23 07:00 12/01/23 08:04 12/01/23 07:00 12/01/23 08:04 12/01/23 07:00
Physical Exam
Constitutional: No Acute Distress, Comfortable and Non-toxic
Eyes: Sclera Anicteric
Cardiovascular: S1/S2; Negative S3/S4
Pulmonary: Non Labored
Gastrointestinal: Soft and Non Distended
Extremities: Negative Edema or Erythema
Wound: Other (right foot with VAC in place)
Neurological: Awake, Alert and Oriented
Lines: PICC (RUE; exit site C/D/I)
Objective Data
Lab Data
Lab Results
12/01/23 04:02
12/01/23 04:02
ESR 89 mm/hour (0-20) H 11/23/23 15:12
Estimated Creat Clear 48 ml/min 12/01/23 04:02
Lactic Acid 1.3 mmol/L (0.7-2.0) 11/23/23 15:12
Total Bilirubin 0.5 mg/dl (0.2-1.3) 11/24/23 05:10
AST 27 U/L (17-59) 11/24/23 05:10
ALT 21 U/L (0-50) 11/24/23 05:10
Alkaline Phosphatase 111 U/L (38-126) 11/24/23 05:10
C-Reactive Protein 174.20 mg/L (0.0-10.00) H 11/23/23 15:11
Most recent labs reviewed.
Micro Results:
11/25/23 16:32 Wound Culture - Final
Foot - Right Pseudomonas aeruginosa
Gram Stain - Final
11/25/23 16:32 Anaerobic Culture - Final
Foot - Right NO ANAEROBES ISOLATED
11/23/23 15:11 Blood Culture - Final
Blood/Venous No Growth - Final Report
11/23/23 15:11 Blood Culture - Final
Blood/Venous No Growth - Final Report
11/23/23 15:23 Wound Culture - Final
Foot - Right Pseudomonas aeruginosa
Enterococcus faecalis
Gram Stain - Final
11/24/23 22:18 MRSA Screen - Final
Nose No Methicillin Resistant Staphylococcus aureus isolated.
SPEC #: [id number] RANJIT: 11/23/23-1522
RECD: 11/23/23
SOURCE: FOOT ENTR: 11/23/23-0
SPDESC: Right
ORDERED: Wound/Other
QUERIES: Date Specimen was Collected 11/23/23
Time Specimen was Collected 1519
Procedure Result Verified
Wound/abscess/other Cult Final 11/26/23-1136
Few Pseudomonas aeruginosa
Few Enterococcus faecalis
Few Coagulase neg. staphylococcus
Organism 1 Pseudomonas aeruginosa
Organism 2 Enterococcus faecalis
1. Pseudomonas aeruginosa
M.I.C. RX
--------- ---
Cefepime <=2 S
Ceftazidime 4 S
Ciprofloxacin <=0.25 S
Gentamicin <=4 S
Levofloxacin <=0.5 S
Meropenem <=1 S
Piperacillin/Tazobactam <=16 S
Tobramycin <=4 S
2. Enterococcus faecalis
M.I.C. RX
--------- ---
Ampicillin <=2 S
Gentamicin Synergy Screen <=500 S
Vancomycin 2 S
Imaging:
11/24/2023 MRI right lower extremity: Worsening infectious process centered at the medial midfoot when compared to MRI dated 08/13/2023. There is progressed advanced destructive changes of the medial cuneiform secondary to osteomyelitis. Also noted
is acute osteomyelitis of the middle and lateral cuneiform and the bases of the first through third metatarsals. Plantar medial soft tissue wound with contiguous rim-enhancing fluid wrapping around the medial aspect of the midfoot along the
expected course of the flexor hallucis longus tendon suggesting infectious tenosynovitis and probable abscess formation. Please see full dictation for additional detail.
[2023-12-01 11:00] VITALS: BMI 23.4
--- NOTE | 2023-12-01 12:14 | CM ---
icu manager reviewed patient's chart and patient with new wound vac, needs IV ABX, patient has been denied at [facility], [facility] and [facility], waiting on a determination from Nicky Rios. Spoke with patient and spouse this morning
requesting more skilled options.
Plan; Skilled placement with wound vac and IV ABX.
--- NOTE | 2023-12-01 14:16 | W.PN.UPDATE ---
Update Note
Progress Note Update
for CDI clinical inquiry and addendum to operative report patient's right foot surgery included excisional debridement with resection of all nonviable tissue down to the level of bone including excisional bony tissue and cultures taken
--- NOTE | 2023-12-01 14:50 | WOUNDNOTE ---
WOC RN Note: Patient's R foot wound vac dressing changed, LLE dressing changed and knee high Kenney wraps applied with help from RN/PCT Max. R plantar foot clean. LLE about healed. SAMARIA Craig was in during visit. Patient's heels off bed with pillow.
Sacral and heel skin intact. Instructed patient pressure injury prevention measures. Next vac dressing change due Wednesday.
--- NOTE | 2023-12-01 14:52 | WOUNDNOTE ---
WOC RN Note: Patient's L foot wound vac dressing changed and LLE dressing changed. Knee high Kenney wraps applied with help from RN/PCT Max. Updated RN Kiara. Heels off bed with pillow. Sacral and heel skin intact. Instructed patient pressure
injury prevention measures. Next vac dressing change due Wednesday.
[2023-12-01 15:00] VITALS: BP 144/87
[2023-12-01] MEDS: NEUPRO 4 MG TRANSDERM (15:38)
[2023-12-01 16:19] LABS: COVID-19 Antigen Positive (Negative)
[2023-12-01] MEDS: NON-FORMULARY ITEM 4 MG PO (17:01)
[2023-12-01] MEDS: ZYRTEC 10 MG PO (21:00)
[2023-12-01] MEDS: MELATONIN 10 MG PO (21:01)
[2023-12-01] MEDS: ULTRAM 50 MG PO (21:01)
[2023-12-01] MEDS: REQUIP 1 MG PO (21:01)
[2023-12-01 23:30] VITALS: BP 151/60
[2023-12-02 03:55] LABS: % Basophils 0.7 % (0-2); % Eosinophils 2.7 % (0-6); % Immature Granulocytes 1.6 % (0-0.5); % Lymphocytes 14.4 % (20.5-51.1); % Monocytes 16.8 % (1.7-9.3); % Neutrophils 63.8 % (42.2-75.2); Absolute Basophils 0.1 10^3/uL (0-0.2); Absolute Eosinophils 0.2 10^3/uL (0-0.7); Absolute Immature Granulocytes 0.1 10^3/uL (0-0.05); Absolute Monocytes 1.2 10^3/uL (0.1-0.6); Absolute Neutrophils 4.5 10^3/uL (1.4-6.5); Hematocrit 35.9 % (39.0-52.0); Mean Corp Hgb Conc. 33.4 g/dL (33.0-37.0); Mean Corpuscular Volume 89.8 fL (80.0-94.0); Mean Platelet Volume 9.4 fL (7.4-10.4); Nucleated Red Blood Cells % 0 % (-); Platelet Count 292 10^3/uL (130-400); Red Cell Dist. Width 13.2 % (11.5-14.5); White Blood Cell Count 7.1 10^3/uL (4.8-10.8)
[2023-12-02 04:18] LABS: Blood Urea Nitrogen 32 mg/dl (9-20); Calcium 8.4 mg/dl (8.4-10.2); Carbon Dioxide 26 mmol/L (22-30); Chloride 104 mmol/L (98-107); Estimated Creatinine Clearance 53 ml/min; Glucose 104 mg/dl (70-99); Potassium 3.8 mmol/L (3.5-5.1); Sodium 133 mmol/L (135-145); eGFR > 60.00
[2023-12-02] MEDS: ZOSYN 100 IV ×3 (05:32→17:02)
[2023-12-02 07:31] VITALS: BP 138/77
[2023-12-02] MEDS: TOPROL XL 50 MG PO (08:59)
[2023-12-02] MEDS: ELIQUIS 5 MG PO ×2 (08:59→21:18)
[2023-12-02] MEDS: OSCAL 500 + D 1000 MG PO ×2 (09:00→21:18)
[2023-12-02] MEDS: NORVASC 10 MG PO (09:00)
[2023-12-02] MEDS: PROSCAR 5 MG PO (09:00)
[2023-12-02] MEDS: TYLENOL 650 MG PO (09:00)
[2023-12-02] MEDS: VITAMIN B-12 1000 MCG PO (09:00)
[2023-12-02] MEDS: OCUVITE SOFTGEL 1 CAP PO (09:00)
[2023-12-02] MEDS: COZAAR 100 MG PO (09:00)
[2023-12-02] MEDS: HYDROPHOR 1 APPLIC TOPICAL (09:06)
[2023-12-02] MEDS: AFRIN NASAL SPRAY 30 SPRAYS NASAL (09:07)
--- NOTE | 2023-12-02 10:41 | W.PN.HOSP.TC ---
Today's Communication/Plan
-
start anti-viral
await placement
IV abx
Assessment / Plan
Assessment / Plan
Physical Exam
General: Well Developed, Well Nourished and No Apparent Distress
HEENT: Normocephalic, Moist mucous membranes and Atraumatic
Respiratory: Clear
Cardiac: S1/S2
GI: Soft, Non Tender, Non Distended
Rectal: No rectal bleeding
Musculoskeletal: right foot wound
Skin: dressing right foot with wound VAC/drain. No Rash
Neuro: Nonfocal/grossly intact. Forgetful
Psych: no agitation
#COVID-19 infection
afebrile
on room air
consider starting on paxlovid vs molnupirivir. will d/w with ID
# �Right foot Charcot midfoot infection with abscess/ Acute osteomyelitis of the middle, �medial cuneiform, lateral cuneiforms and the bases of the first through third metatarsals
s/p right foot I&D with debridement of bone by Dr Traore 11/25, no complications reported.
Strict NWB RLE.� Wound VAC change 3xs/week.
No pain, underlying neuropathy noted
no fevers
c/w IV Zosyn 4.5g q6h through 01/06/24.
Stopped vancomycin. MRSA screen is negative
OR wound cultures showing Pseudomonas. Few Coag neg staph
Right picc line 11/27.
Appreciate podiatry and ID help
# Mild leukocytosis, no fevers
expected after surgical procedure.
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
Cr was 1.1 in 08/26
Hold HCTZ
# Chronic venous insufficiency
# Charcot arthropathy of right and left ankles and feet
# Hyponatremia
mild. ?due to HCTZ. Monitor off HCTZ for now. Na improving.
#Paroxysmal atrial fibrillation
- No chest pain or palpitation
- Back on Eliquis.
-Continue metoprolol
#Essential hypertension
better controlled.
PRN low dose oral hydralazine
-Continue amlodipine, losartan
#Obstructive sleep apnea
#Narcolepsy
-Continue Nuvigil
#Hyperlipidemia
#Bilateral renal artery stenosis
#BPH
-Continue finasteride
#Restless leg syndrome
-Continue Neupro, ropinirole, tramadol
#Insomnia
#History of MSSA
#Degenerative disc disease
#Former smoker
#Full code
DVT prophylaxis-eliquis
PT/OT-SNF. CM aware. await placement. Difficult disposition due to IV abx, wound vac changes, COVID-19 etc.
Anticipated Discharge: > 48 hours
Subjective/Interval History
-
Date of Service: December 02, 2023
Pt with exposure to COVID via visitor
on room air
some cough
not on oxygen
Objective Data
-
Labs:
Laboratory Results
12/02/23
03:44
WBC 7.1
Hgb 12.0 L
Hct 35.9 L
Plt Count 292
Sodium 133 L
Potassium 3.8
Chloride 104
Carbon Dioxide 26
BUN 32 H
Creatinine 1.1
Glucose 104 H
Calcium 8.4
Vital Signs:
Vital Signs
Temp Pulse Resp BP Pulse Ox
97.5 F 62 16 138/77 98
12/02/23 07:31 12/02/23 08:59 12/02/23 07:31 12/02/23 08:59 12/02/23 07:31
I&O
12/01/23 12/02/23 12/03/23
06:59 06:59 06:59
Intake Total 1400 / 1400 1560 / 1560
Output Total 776 / 776 1250 / 1250
Balance 624 / 624 310 / 310
Data Reviewed
-
Total Time Spent with Patient (in minutes): 55
[2023-12-02 11:27] VITALS: BP 125/71; PULSE 62; O2SAT 100
--- NOTE | 2023-12-02 11:29 | W.PN.ID1 ---
Date of Service
Date of Service: December 02, 2023
Today's Communication
Continue current antibiotics.
Assessment / Plan
Right foot wound
Right foot osteomyelitis
- S/P debridement 11/25/23 with wound vac application.
Severe Charcot arthropathy of the right foot
Hx right foot osteomyelitis (with Staph hominis; 09/02/2023)
Covid-19 positive
-Asymptomatic
A-fib
Cardiomyopathy
Hypertension
Chronic lymphedema
Venous insufficiency
BPH with history of urinary retention
Dyslipidemia
Hx pancreatitis
Restless leg syndrome
Recommendations:
11/25 intraop culture - Pseudomonas
Appears that pathology not sent from the OR
11/24 wound swab: Pseudomonas, E. faecalis, few coag-neg staph
Continue with Zosyn 4.5 g IV q6h through 01/06/24.
Follow weekly cbc with diff, CMP, CRP while on Zosyn.
PICC line in place.
Infusion sheet submitted to employment case manager on 11/29.
Given asymptomatic disease, no need to treat COVID-19 at the present time. Will continue to monitor clinical status.
����������������������������������������������������������
Chief Complaint
-: Other (Osteomyelitis - right foot)
Subjective / Review of Systems
Review of Systems: No Fever, No Chills, No Cough and No Sputum Production
Vital Signs / Physical Exam
Vital Signs
Vital Signs
Temp Pulse Resp BP Pulse Ox
97.5 F 62 16 138/77 98
12/02/23 07:31 12/02/23 08:59 12/02/23 07:31 12/02/23 08:59 12/02/23 07:31
Physical Exam
Constitutional: No Acute Distress, Comfortable and Non-toxic
Eyes: Sclera Anicteric
Cardiovascular: S1/S2; Negative S3/S4
Pulmonary: Non Labored; Negative Wheezes or Rales
Gastrointestinal: Soft, Non Tender and Non Distended
Wound: Other (Right foot dressed. Significant Charcot arthropathy noted. VAC in place. No erythema extending up foot.)
Neurological: Awake and Alert
Psychological: Calm
Objective Data
Lab Data
Lab Results
12/02/23 03:44
12/02/23 03:44
ESR 89 mm/hour (0-20) H 11/23/23 15:12
Estimated Creat Clear 53 ml/min 12/02/23 03:44
Lactic Acid 1.3 mmol/L (0.7-2.0) 11/23/23 15:12
Total Bilirubin 0.5 mg/dl (0.2-1.3) 11/24/23 05:10
AST 27 U/L (17-59) 11/24/23 05:10
ALT 21 U/L (0-50) 11/24/23 05:10
Alkaline Phosphatase 111 U/L (38-126) 11/24/23 05:10
C-Reactive Protein 174.20 mg/L (0.0-10.00) H 11/23/23 15:11
Most recent labs reviewed.
Micro Results:
11/25/23 16:32 Wound Culture - Final
Foot - Right Pseudomonas aeruginosa
Gram Stain - Final
11/25/23 16:32 Anaerobic Culture - Final
Foot - Right NO ANAEROBES ISOLATED
11/23/23 15:11 Blood Culture - Final
Blood/Venous No Growth - Final Report
11/23/23 15:11 Blood Culture - Final
Blood/Venous No Growth - Final Report
11/23/23 15:23 Wound Culture - Final
Foot - Right Pseudomonas aeruginosa
Enterococcus faecalis
Gram Stain - Final
11/24/23 22:18 MRSA Screen - Final
Nose No Methicillin Resistant Staphylococcus aureus isolated.
SPEC #: [id number] RANJIT: 11/23/23-1522
RECD: 11/23/23-152
SOURCE: FOOT ENTR: 11/23/23-1520
SPDESC: Right
ORDERED: Wound/Other
QUERIES: Date Specimen was Collected 11/23/23
Time Specimen was Collected 1519
Procedure Result Verified
Wound/abscess/other Cult Final 11/26/23-1136
Few Pseudomonas aeruginosa
Few Enterococcus faecalis
Few Coagulase neg. staphylococcus
Organism 1 Pseudomonas aeruginosa
Organism 2 Enterococcus faecalis
1. Pseudomonas aeruginosa
M.I.C. RX
--------- ---
Cefepime <=2 S
Ceftazidime 4 S
Ciprofloxacin <=0.25 S
Gentamicin <=4 S
Levofloxacin <=0.5 S
Meropenem <=1 S
Piperacillin/Tazobactam <=16 S
Tobramycin <=4 S
2. Enterococcus faecalis
M.I.C. RX
--------- ---
Ampicillin <=2 S
Gentamicin Synergy Screen <=500 S
Vancomycin 2 S
Imaging:
11/24/2023 MRI right lower extremity: Worsening infectious process centered at the medial midfoot when compared to MRI dated 08/13/2023. There is progressed advanced destructive changes of the medial cuneiform secondary to osteomyelitis. Also noted
is acute osteomyelitis of the middle and lateral cuneiform and the bases of the first through third metatarsals. Plantar medial soft tissue wound with contiguous rim-enhancing fluid wrapping around the medial aspect of the midfoot along the
expected course of the flexor hallucis longus tendon suggesting infectious tenosynovitis and probable abscess formation. Please see full dictation for additional detail.
[2023-12-02] MEDS: NEUPRO 4 MG TRANSDERM (15:13)
[2023-12-02 15:51] VITALS: BP 137/68
[2023-12-02] MEDS: NON-FORMULARY ITEM 4 MG PO (17:01)
--- NOTE | 2023-12-02 17:24 | CM ---
patient stable for discharge to facility .[facility]however now patient is covid + and [facility] not able to accept patient.i recalled nii mcrae and sent several more referrals to [facility].patient will need an [employer]
authorization when facility is established.
Plan:discharge to skilled facilithy.
[2023-12-02] MEDS: REQUIP 1 MG PO (21:20)
[2023-12-02] MEDS: MELATONIN 10 MG PO (21:20)
[2023-12-02] MEDS: ULTRAM 50 MG PO (21:20)
[2023-12-02] MEDS: ZYRTEC 10 MG PO (21:20)
[2023-12-03 00:18] VITALS: BP 143/65
[2023-12-03] MEDS: ZOSYN 100 IV ×4 (00:55→17:26)
[2023-12-03 05:37] LABS: % Basophils 0.5 % (0-2); % Immature Granulocytes 1.7 % (0-0.5); % Lymphocytes 16.2 % (20.5-51.1); % Monocytes 14.8 % (1.7-9.3); % Neutrophils 61.8 % (42.2-75.2); Absolute Eosinophils 0.3 10^3/uL (0-0.7); Absolute Immature Granulocytes 0.1 10^3/uL (0-0.05); Absolute Lymphocytes 1.1 10^3/uL (1.2-3.4); Absolute Neutrophils 4.1 10^3/uL (1.4-6.5); Hemoglobin 12.3 g/dL (13.0-18.0); Mean Corp Hgb Conc. 33.2 g/dL (33.0-37.0); Mean Corpuscular Volume 87.3 fL (80.0-94.0); Mean Platelet Volume 9.4 fL (7.4-10.4); Nucleated Red Blood Cells % 0 % (-); Platelet Count 319 10^3/uL (130-400); Red Blood Cell Count 4.24 10^6/uL (4.70-6.10); Red Cell Dist. Width 13.1 % (11.5-14.5); White Blood Cell Count 6.6 10^3/uL (4.8-10.8)
[2023-12-03 06:07] LABS: Blood Urea Nitrogen 22 mg/dl (9-20); Calcium 8.9 mg/dl (8.4-10.2); Carbon Dioxide 27 mmol/L (22-30); Chloride 99 mmol/L (98-107); Estimated Creatinine Clearance 72 ml/min; Glucose 98 mg/dl (70-99); Potassium 4.2 mmol/L (3.5-5.1); Sodium 133 mmol/L (135-145); eGFR > 60.00
[2023-12-03 08:42] VITALS: BP 144/75
[2023-12-03] MEDS: PROSCAR 5 MG PO (09:12)
[2023-12-03] MEDS: OCUVITE SOFTGEL 1 CAP PO (09:12)
[2023-12-03] MEDS: TYLENOL 650 MG PO (09:12)
[2023-12-03] MEDS: OSCAL 500 + D 1000 MG PO ×2 (09:12→20:32)
[2023-12-03] MEDS: TOPROL XL 50 MG PO (09:13)
[2023-12-03] MEDS: VITAMIN B-12 1000 MCG PO (09:13)
[2023-12-03] MEDS: ELIQUIS 5 MG PO ×2 (09:13→20:32)
[2023-12-03] MEDS: NORVASC 10 MG PO (09:13)
[2023-12-03] MEDS: COZAAR 100 MG PO (09:13)
[2023-12-03] MEDS: HYDROPHOR 1 APPLIC TOPICAL (09:14)
[2023-12-03] MEDS: AFRIN NASAL SPRAY 2 SPRAYS NASAL (09:14)
--- NOTE | 2023-12-03 11:39 | W.PN.HOSP.TC ---
Today's Communication/Plan
-
Await placement
COVID iso
IV abx
Assessment / Plan
Assessment / Plan
Physical Exam
General: Well Developed, Well Nourished and No Apparent Distress
HEENT: Normocephalic, Moist mucous membranes and Atraumatic
Respiratory: Clear
Cardiac: S1/S2
GI: Soft, Non Tender, Non Distended
Rectal: No rectal bleeding
Musculoskeletal: right foot wound
Skin: dressing right foot with wound VAC/drain. No Rash
Neuro: Nonfocal/grossly intact. Forgetful
Psych: no agitation
#COVID-19 infection
afebrile
on room air
d/w with ID and plan to monitor off anti-viral for now.
# �Right foot Charcot midfoot infection with abscess/ Acute osteomyelitis of the middle, �medial cuneiform, lateral cuneiforms and the bases of the first through third metatarsals
s/p right foot I&D with debridement of bone by Dr Traore 11/25, no complications reported.
Strict NWB RLE.� Wound VAC change 3xs/week.
No pain, underlying neuropathy noted
no fevers
c/w IV Zosyn 4.5g q6h through 01/06/24.
Stopped vancomycin. MRSA screen is negative
OR wound cultures showing Pseudomonas. Few Coag neg staph
Right picc line 11/27.
Appreciate podiatry and ID help
# Mild leukocytosis, no fevers
expected after surgical procedure.
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
Cr was 1.1 in 08/26
Hold HCTZ
# Chronic venous insufficiency
# Charcot arthropathy of right and left ankles and feet
# Hyponatremia
mild. ?due to HCTZ. Monitor off HCTZ for now. Na improving 133 NOW.
#Paroxysmal atrial fibrillation
- No chest pain or palpitation
- Back on Eliquis.
-Continue metoprolol
#Essential hypertension
better controlled.
PRN low dose oral hydralazine
-Continue amlodipine, losartan
#Obstructive sleep apnea
#Narcolepsy
-Continue Nuvigil
#Hyperlipidemia
#Bilateral renal artery stenosis
#BPH
-Continue finasteride
#Restless leg syndrome
-Continue Neupro, ropinirole, tramadol
#Insomnia
#History of MSSA
#Degenerative disc disease
#Former smoker
#Full code
DVT prophylaxis-eliquis
PT/OT-SNF. CM aware. await placement. Difficult disposition due to IV abx, wound vac changes, COVID-19 etc.
Anticipated Discharge: Within 24 hours
Subjective/Interval History
-
Date of Service: December 03, 2023
remains afebrile
on room air
tolerating diet
Objective Data
-
Labs:
Laboratory Results
12/03/23
05:20
WBC 6.6
Hgb 12.3 L
Hct 37.0 L
Plt Count 319
Sodium 133 L
Potassium 4.2
Chloride 99
Carbon Dioxide 27
BUN 22 H
Creatinine 0.8
Glucose 98
Calcium 8.9
Vital Signs:
Vital Signs
Temp Pulse Resp BP Pulse Ox
97.5 F 57 16 144/75 98
12/03/23 08:42 12/03/23 09:13 12/03/23 08:42 12/03/23 09:13 12/03/23 08:42
I&O
12/02/23 12/03/23 12/04/23
06:59 06:59 06:59
Intake Total 1560 / 1560 1280 / 1280
Output Total 1250 / 1250 1850 / 1850
Balance 310 / 310 -570 / -570
[2023-12-03] MEDS: NEUPRO 4 MG TRANSDERM (14:46)
[2023-12-03 15:22] VITALS: BP 116/61
--- NOTE | 2023-12-03 16:09 | WOUNDNOTE ---
RIGHT DORSAL FOOT
--- NOTE | 2023-12-03 16:10 | WOUNDNOTE ---
WOC RN Note: Patient's R foot wound vac dressing changed as ordered. Kenney wraps applied. R plantar foot clean, granular. Edges of wound slightly macerated. No sting barrier wipe applied to wound edges. SAMARIA Walsh was updated. Patient's heels off bed
with pillow. Sacral and heel skin intact. Plan is for rehab at [facility] on Wednesday, per patient. TT CM for update. If not discharged, next vac changed is due on Wednesday.
[2023-12-03] MEDS: NON-FORMULARY ITEM 2 MG PO (17:26)
--- NOTE | 2023-12-03 19:14 | CM ---
patient has been accepted at [facility].fxed [facility] picc line measurements and gave her settings of wound vac.i have faxed clinicals to [facility] reference number [id number].[facility] will have a bed available over the weekend for patient once we get the
auth .jose call [facility] on weekend at [phone].
Plan discharge to [facility] when we receive [employer] auth.
[2023-12-03] MEDS: ZYRTEC 10 MG PO (20:32)
[2023-12-03] MEDS: REQUIP 1 MG PO (20:32)
[2023-12-03] MEDS: MELATONIN 10 MG PO (20:32)
[2023-12-03] MEDS: ULTRAM 50 MG PO (20:32)
[2023-12-03 23:35] VITALS: BP 143/61
[2023-12-04] MEDS: ZOSYN 100 IV ×5 (00:03→23:58)
[2023-12-04 07:38] VITALS: BP 124/66
[2023-12-04] MEDS: OCUVITE SOFTGEL 1 CAP PO (07:44)
[2023-12-04] MEDS: OSCAL 500 + D 1000 MG PO ×2 (07:46→21:04)
[2023-12-04] MEDS: VITAMIN B-12 1000 MCG PO (07:46)
[2023-12-04] MEDS: PROSCAR 5 MG PO (07:47)
[2023-12-04] MEDS: NORVASC 10 MG PO (07:47)
[2023-12-04] MEDS: ELIQUIS 5 MG PO ×2 (07:47→21:04)
[2023-12-04] MEDS: COZAAR 100 MG PO (07:48)
[2023-12-04] MEDS: TOPROL XL PO (07:53)
[2023-12-04] MEDS: AFRIN NASAL SPRAY 2 SPRAYS NASAL (08:06)
[2023-12-04] MEDS: HYDROPHOR 1 APPLIC TOPICAL (08:06)
[2023-12-04] MEDS: TYLENOL 650 MG PO (08:07)
--- NOTE | 2023-12-04 10:51 | W.PN.HOSP.TC ---
Today's Communication/Plan
-
await auth
monitor o2
IV abx
monitor diet tolearnce
Assessment / Plan
Assessment / Plan
Physical Exam
General: Well Developed, Well Nourished and No Apparent Distress
HEENT: Normocephalic, Moist mucous membranes and Atraumatic
Respiratory: Clear
Cardiac: S1/S2
GI: Soft, Non Tender, Non Distended
Rectal: No rectal bleeding
Musculoskeletal: right foot wound
Skin: dressing right foot with wound VAC/drain. No Rash
Neuro: Nonfocal/grossly intact. Forgetful
Psych: no agitation
#COVID-19 infection
remains afebrile
on room air
d/w with ID and plan to monitor off anti-viral for now.
# �Right foot Charcot midfoot infection with abscess/ Acute osteomyelitis of the middle, �medial cuneiform, lateral cuneiforms and the bases of the first through third metatarsals
s/p right foot I&D with debridement of bone by Dr Traore 11/25, no complications reported.
Strict NWB RLE.� Wound VAC change 3xs/week.
No pain, underlying neuropathy noted
no fevers
c/w IV Zosyn 4.5g q6h through 01/06/24.
Stopped vancomycin. MRSA screen is negative
OR wound cultures showing Pseudomonas. Few Coag neg staph
Right picc line 11/27.
Appreciate podiatry and ID help
# Mild leukocytosis, no fevers
expected after surgical procedure.
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
Cr was 1.1 in 08/26
Holding HCTZ
# Chronic venous insufficiency
# Charcot arthropathy of right and left ankles and feet
# Hyponatremia
mild. ?due to HCTZ. Monitor off HCTZ for now. Na improving 133 NOW.
#Paroxysmal atrial fibrillation
No chest pain or palpitation
Cont Eliquis.
Continue metoprolol
#Essential hypertension
better controlled. /66
PRN low dose oral hydralazine
Continue amlodipine, losartan
#Obstructive sleep apnea
#Narcolepsy
-Continue Nuvigil
#Hyperlipidemia
#Bilateral renal artery stenosis
#BPH
-Continue finasteride
#Restless leg syndrome
-Continue Neupro, ropinirole, tramadol
#Insomnia
#History of MSSA
#Degenerative disc disease
#Former smoker
#Full code
DVT prophylaxis-eliquis
PT/OT-SNF. CM aware. await placement. Difficult disposition due to IV abx, wound vac changes, COVID-19 etc.
Anticipated Discharge: > 48 hours
Subjective/Interval History
-
Date of Service: December 04, 2023
Feeling better
intermittent dry cough
on room air
Objective Data
-
Vital Signs:
Vital Signs
Temp Pulse Resp BP Pulse Ox
96.9 F L 51 18 124/66 100
12/04/23 07:38 12/04/23 07:53 12/04/23 07:38 12/04/23 07:53 12/04/23 07:38
I&O
12/03/23 12/04/23 12/05/23
06:59 06:59 06:59
Intake Total 1280 / 1280 2920 / 2920
Output Total 1850 / 1850 1100 / 1100
Balance -570 / -570 1820 / 1820
[2023-12-04] MEDS: NEUPRO 4 MG TRANSDERM (14:31)
[2023-12-04 15:49] VITALS: BP 136/64
[2023-12-04] MEDS: NON-FORMULARY ITEM 4 MG PO (17:41)
[2023-12-04] MEDS: ZYRTEC 10 MG PO (21:03)
[2023-12-04] MEDS: MELATONIN 10 MG PO (21:03)
[2023-12-04] MEDS: REQUIP 1 MG PO (21:03)
[2023-12-04] MEDS: ULTRAM 50 MG PO (21:03)
[2023-12-04 23:35] VITALS: BP 154/86
[2023-12-05] MEDS: TYLENOL 650 MG PO ×3 (02:23→17:44)
[2023-12-05] MEDS: ZOSYN 100 IV ×3 (05:19→17:38)
[2023-12-05 07:44] VITALS: BP 115/53
[2023-12-05] MEDS: ELIQUIS 5 MG PO ×2 (08:10→21:16)
[2023-12-05] MEDS: COZAAR 100 MG PO (08:10)
[2023-12-05] MEDS: VITAMIN B-12 1000 MCG PO (08:10)
[2023-12-05] MEDS: OCUVITE SOFTGEL 1 CAP PO (08:10)
[2023-12-05] MEDS: OSCAL 500 + D 1000 MG PO ×2 (08:10→21:16)
[2023-12-05] MEDS: PROSCAR 5 MG PO (08:11)
[2023-12-05] MEDS: NORVASC 10 MG PO (08:11)
[2023-12-05] MEDS: TOPROL XL PO (08:11)
[2023-12-05] MEDS: AFRIN NASAL SPRAY 2 SPRAYS NASAL (08:18)
[2023-12-05] MEDS: HYDROPHOR 1 APPLIC TOPICAL (08:20)
--- NOTE | 2023-12-05 08:38 | W.PN.UPDATE ---
Update Note
Progress Note Update
Patient seen and evaluated this morning by orthopedic surgery. Patient is a 78M POD10 Right foot I&D with debridement of bone ([address] Traore) for charcot arthropathy with osteomyelitis. Final intraoperative cultures revealing rare
Pseudomonas aeruginosa, few coagulase-negative Staphylococcus. No anaerobes isolated. 11/23 wound swab: Pseudomonas, E. faecalis, few coag-neg staph. Right PICC line placed in 11/27.
- Remain strict NWB RLE.
- Recommend VAC change 3xs/week- will be in need of home wound care for VAC.
- Patient was originally scheduled for D/C to [facility], however unfortunately tested positive for COVID. Currently awaiting placement.
- Continue IV ABX per ID, currently on Zosyn 4.5 g IV q6h through 01/06/24.
- Appreciate the primary, ID, and CM teams assistance with care of this patient.
--- NOTE | 2023-12-05 11:08 | W.PN.HOSP.TC ---
Today's Communication/Plan
-
tyenol prn
ID recs
Await placement
Assessment / Plan
Assessment / Plan
Physical Exam
General: Well Developed, Well Nourished and No Apparent Distress
HEENT: Normocephalic, Moist mucous membranes and Atraumatic
Respiratory: Clear
Cardiac: S1/S2
GI: Soft, Non Tender, Non Distended
Rectal: No rectal bleeding
Musculoskeletal: right foot wound
Skin: dressing right foot with wound VAC/drain. No Rash
Neuro: Nonfocal/grossly intact. Forgetful
Psych: no agitation
#COVID-19 infection
remains afebrile
on room air
tylenol prn.
d/w with ID and plan to monitor off anti-viral for now.
# �Right foot Charcot midfoot infection with abscess/ Acute osteomyelitis of the middle, �medial cuneiform, lateral cuneiforms and the bases of the first through third metatarsals
s/p right foot I&D with debridement of bone by Dr Traore 11/25, no complications reported.
Strict NWB RLE.� Wound VAC change 3xs/week.
No pain, underlying neuropathy noted
no fevers
c/w IV Zosyn 4.5g q6h through 01/06/24.
Stopped vancomycin. MRSA screen is negative
OR wound cultures showing Pseudomonas. Few Coag neg staph
Right picc line 11/27.
Appreciate podiatry and ID help
# Mild leukocytosis, no fevers
expected after surgical procedure.
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
Cr was 1.1 in 08/26
Holding HCTZ
# Chronic venous insufficiency
# Charcot arthropathy of right and left ankles and feet
# Hyponatremia
mild. ?due to HCTZ. Monitor off HCTZ for now. Na improved 133 NOW.
#Paroxysmal atrial fibrillation
No chest pain or palpitation
Cont Eliquis.
Continue metoprolol
#Essential hypertension
better controlled. 115/53
PRN low dose oral hydralazine
Continue amlodipine, losartan
#Obstructive sleep apnea
#Narcolepsy
-Continue Nuvigil
#Hyperlipidemia
#Bilateral renal artery stenosis
#BPH
-Continue finasteride
#Restless leg syndrome
-Continue Neupro, ropinirole, tramadol
#Insomnia
#History of MSSA
#Degenerative disc disease
#Former smoker
#Full code
DVT prophylaxis-eliquis
PT/OT-SNF. CM aware. await placement. Difficult disposition due to IV abx, wound vac changes, COVID-19 etc.
Anticipated Discharge: > 48 hours
Subjective/Interval History
-
Date of Service: December 05, 2023
states of bodyache
afebrile
on room air
Objective Data
-
Vital Signs:
Vital Signs
Temp Pulse Resp BP Pulse Ox
96.1 F L 55 17 115/53 98
12/05/23 07:44 12/05/23 07:44 12/05/23 07:44 12/05/23 07:44 12/05/23 07:44
I&O
12/04/23 12/05/23 12/06/23
06:59 06:59 06:59
Intake Total 2920 / 2920 1360 / 1360
Output Total 1100 / 1100 500 / 500
Balance 1820 / 1820 860 / 860
[2023-12-05 15:15] VITALS: BP 120/65
--- NOTE | 2023-12-05 15:27 | CM ---
Called [facility]ony [phone] to check on auth For SNF
spoke with Khai Gil - shannon [facility] auth request not received
Auth started on [employer]
Ref # [id number]
Clinicals faxed to [phone]
Plan - transfer to [facility] when medically stable and auth obtained
[2023-12-05] MEDS: NEUPRO 4 MG TRANSDERM (15:54)
[2023-12-05] MEDS: NON-FORMULARY ITEM 4 MG PO (17:36)
[2023-12-05] MEDS: FLUSH (NSS) 2 FLUSH IV (17:39)
[2023-12-05] MEDS: MELATONIN 10 MG PO (21:17)
[2023-12-05] MEDS: ULTRAM 50 MG PO (21:17)
[2023-12-05] MEDS: ZYRTEC 10 MG PO (21:17)
[2023-12-05] MEDS: REQUIP 1 MG PO (21:30)
[2023-12-06] VITALS (7 sets, daily range): BP systolic 108–161; BP diastolic 58–83; PULSE 50; O2SAT 98
[2023-12-06] MEDS: ZOSYN 100 IV ×4 (01:04→17:44)
[2023-12-06 04:45] LABS: % Basophils 0.3 % (0-2); % Eosinophils 6.4 % (0-6); % Immature Granulocytes 0.8 % (0-0.5); % Lymphocytes 11.3 % (20.5-51.1); % Monocytes 12.6 % (1.7-9.3); % Neutrophils 68.6 % (42.2-75.2); Absolute Eosinophils 0.4 10^3/uL (0-0.7); Absolute Immature Granulocytes 0.1 10^3/uL (0-0.05); Absolute Lymphocytes 0.7 10^3/uL (1.2-3.4); Absolute Monocytes 0.8 10^3/uL (0.1-0.6); Absolute Neutrophils 4.2 10^3/uL (1.4-6.5); Hematocrit 38.6 % (39.0-52.0); Hemoglobin 13.1 g/dL (13.0-18.0); Mean Corp Hgb Conc. 33.9 g/dL (33.0-37.0); Mean Corpuscular Hgb 30.1 pg (27.0-31.0); Mean Corpuscular Volume 88.7 fL (80.0-94.0); Nucleated Red Blood Cells % 0 % (-); Platelet Count 261 10^3/uL (130-400); Red Blood Cell Count 4.35 10^6/uL (4.70-6.10); Red Cell Dist. Width 13.1 % (11.5-14.5); White Blood Cell Count 6.1 10^3/uL (4.8-10.8)
[2023-12-06 05:09] LABS: ALT (SGPT) 25 U/L (0-50); AST (SGOT) 26 U/L (17-59); Albumin 3.4 g/dl (3.5-5.0); Alkaline Phosphatase 111 U/L (38-126); Blood Urea Nitrogen 20 mg/dl (9-20); Calcium 8.6 mg/dl (8.4-10.2); Carbon Dioxide 23 mmol/L (22-30); Chloride 104 mmol/L (98-107); Estimated Creatinine Clearance 64 ml/min; Glucose 87 mg/dl (70-99); Potassium 4.1 mmol/L (3.5-5.1); Sodium 132 mmol/L (135-145); Total Bilirubin 0.5 mg/dl (0.2-1.3); Total Protein 6.6 g/dl (6.3-8.2); eGFR > 60.00
[2023-12-06] MEDS: OSCAL 500 + D 1000 MG PO ×2 (09:13→20:48)
[2023-12-06] MEDS: OCUVITE SOFTGEL 1 CAP PO (09:13)
[2023-12-06] MEDS: ELIQUIS 5 MG PO ×2 (09:13→20:45)
[2023-12-06] MEDS: NORVASC 10 MG PO (09:13)
[2023-12-06] MEDS: PROSCAR 5 MG PO (09:14)
[2023-12-06] MEDS: VITAMIN B-12 1000 MCG PO (09:14)
[2023-12-06] MEDS: COZAAR 100 MG PO (09:14)
[2023-12-06] MEDS: TOPROL XL 50 MG PO (09:14)
[2023-12-06] MEDS: HYDROPHOR 1 APPLIC TOPICAL (09:15)
[2023-12-06] MEDS: AFRIN NASAL SPRAY 2 SPRAYS NASAL (09:15)
[2023-12-06] MEDS: TYLENOL 650 MG PO ×2 (09:28→20:47)
--- NOTE | 2023-12-06 10:07 | W.PN.HOSP.TC ---
Today's Communication/Plan
-
.
Assessment / Plan
Assessment / Plan
Physical Exam
General: Well Developed, Well Nourished and No Apparent Distress
HEENT: Normocephalic, Moist mucous membranes and Atraumatic
Respiratory: Clear
Cardiac: S1/S2
GI: Soft, Non Tender, Non Distended
Rectal: No rectal bleeding
Musculoskeletal: right foot wound
Skin: dressing right foot with wound VAC/drain. No Rash
Neuro: Nonfocal/grossly intact. Forgetful
Psych: no agitation
#COVID-19 infection
He was diagnosed on 12/01 upon screening test to discharge him to SNF
Today, pt reported sob upon exertion, will do chest x ray. Patient denies chest pain/cough or sore throat
c/w solation, per-protocol 10 days in hospital
remains afebrile
on room air
Tylenol prn.
d/w with ID and plan to monitor off anti-viral for now.
# �Right foot Charcot midfoot infection with abscess/ Acute osteomyelitis of the middle, �medial cuneiform, lateral cuneiforms and the bases of the first through third metatarsals
s/p right foot I&D with debridement of bone by Dr Traore 11/25, no complications reported.
Strict NWB RLE.� Wound VAC change 3xs/week.
No pain, underlying neuropathy noted
no fevers
c/w IV Zosyn 4.5g q6h through 01/06/24.
Stopped vancomycin. MRSA screen is negative
OR wound cultures showing Pseudomonas. Few Coag neg staph
Right picc line 11/27.
Appreciate podiatry and ID help
# Mild leukocytosis, no fevers
expected after surgical procedure.
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
Cr was 1.1 in 08/26
Holding HCTZ
# Chronic venous insufficiency
# Charcot arthropathy of right and left ankles and feet
# Hyponatremia
mild. ?due to HCTZ. Monitor off HCTZ for now. Na improved 132
#Paroxysmal atrial fibrillation
No chest pain or palpitation
Cont Eliquis.
Continue metoprolol
#Essential hypertension
better controlled. 115/53
PRN low dose oral hydralazine
Continue amlodipine, losartan
#Obstructive sleep apnea
#Narcolepsy
-Continue Nuvigil
#Hyperlipidemia
#Bilateral renal artery stenosis
#BPH
-Continue finasteride
#Restless leg syndrome
-Continue Neupro, ropinirole, tramadol
#Insomnia
#History of MSSA
#Degenerative disc disease
#Former smoker
#Full code
DVT prophylaxis-eliquis
PT/OT-SNF. CM aware. await placement. Difficult disposition due to IV abx, wound vac changes, COVID-19 etc.
Total time spent to see the patient, examine the patient on the floor, review data and lab results, discuss treatment plan with patient, nursing staff around 55 minutes
Anticipated Discharge: 24 - 48 hours
Subjective/Interval History
-
Date of Service: December 06, 2023
No chest pain
Reports sob upon mild exertion
No cough
No sore throat
No hypoxia
Objective Data
-
Labs:
Laboratory Results
12/06/23
04:04
WBC 6.1
Hgb 13.1
Hct 38.6 L
Plt Count 261
Sodium 132 L
Potassium 4.1
Chloride 104
Carbon Dioxide 23
BUN 20
Creatinine 0.9
Glucose 87
Calcium 8.6
Total Bilirubin 0.5
AST 26
ALT 25
Alkaline Phosphatase 111
Vital Signs:
Vital Signs
Temp Pulse Resp BP Pulse Ox
97.7 F 73 18 119/68 96
12/06/23 07:00 12/06/23 07:00 12/06/23 07:00 12/06/23 07:00 12/06/23 07:00
I&O
12/05/23 12/06/23 12/07/23
06:59 06:59 06:59
Intake Total 1360 / 1360 1340 / 1340
Output Total 500 / 500 400 / 400
Balance 860 / 860 940 / 940
--- NOTE | 2023-12-06 10:59 | W.PN.ID1 ---
Date of Service
Date of Service: December 06, 2023
Today's Communication
Continue with Zosyn 4.5 g IV q6h through 01/06/24.
Assessment / Plan
Right foot wound
Right foot osteomyelitis
- S/P debridement 11/25/23 with wound vac application.
Severe Charcot arthropathy of the right foot
Hx right foot osteomyelitis (with Staph hominis; 09/02/2023)
Covid-19 positive
-Asymptomatic
A-fib
Cardiomyopathy
Hypertension
Chronic lymphedema
Venous insufficiency
BPH with history of urinary retention
Dyslipidemia
Hx pancreatitis
Restless leg syndrome
Recommendations:
11/25 intraop culture - Pseudomonas
Appears that pathology not sent from the OR
11/24 wound swab: Pseudomonas, E. faecalis, few coag-neg staph
Continue with Zosyn 4.5 g IV q6h through 01/06/24.
Follow weekly cbc with diff, CMP, CRP while on Zosyn.
PICC line in place.
[facility] f[facility]
Given asymptomatic disease, no need to treat COVID-19 at the present time. Will continue to monitor clinical status.
����������������������������������������������������������
Chief Complaint
-: Other (Osteomyelitis - right foot)
Subjective / Review of Systems
No cough/SOB.
Vital Signs / Physical Exam
Vital Signs
Vital Signs
Temp Pulse Resp BP Pulse Ox
97.7 F 73 18 119/68 96
12/06/23 07:00 12/06/23 07:00 12/06/23 07:00 12/06/23 07:00 12/06/23 07:00
Physical Exam
Constitutional: No Acute Distress
Pulmonary: Clear
Gastrointestinal: Soft, Non Tender and Non Distended
Wound: Other (Foot wound vac intact.)
Neurological: AO x 3
Objective Data
Lab Data
Lab Results
12/06/23 04:04
12/06/23 04:04
ESR 89 mm/hour (0-20) H 11/23/23 15:12
Estimated Creat Clear 64 ml/min 12/06/23 04:04
Lactic Acid 1.3 mmol/L (0.7-2.0) 11/23/23 15:12
Total Bilirubin 0.5 mg/dl (0.2-1.3) 12/06/23 04:04
AST 26 U/L (17-59) 12/06/23 04:04
ALT 25 U/L (0-50) 12/06/23 04:04
Alkaline Phosphatase 111 U/L (38-126) 12/06/23 04:04
C-Reactive Protein 174.20 mg/L (0.0-10.00) H 11/23/23 15:11
Most recent labs reviewed.
Micro Results:
11/25/23 16:32 Wound Culture - Final
Foot - Right Pseudomonas aeruginosa
Gram Stain - Final
11/25/23 16:32 Anaerobic Culture - Final
Foot - Right NO ANAEROBES ISOLATED
11/23/23 15:11 Blood Culture - Final
Blood/Venous No Growth - Final Report
11/23/23 15:11 Blood Culture - Final
Blood/Venous No Growth - Final Report
11/23/23 15:23 Wound Culture - Final
Foot - Right Pseudomonas aeruginosa
Enterococcus faecalis
Gram Stain - Final
11/24/23 22:18 MRSA Screen - Final
Nose No Methicillin Resistant Staphylococcus aureus isolated.
SPEC #: [id number] RANJIT: 11/23/23-1522
RECD: 11/23/23-1524
SOURCE: FOOT ENTR: 11/23/23-1520
SPDESC: Right
ORDERED: Wound/Other
QUERIES: Date Specimen was Collected 11/23/23
Time Specimen was Collected 1519
Procedure Result Verified
Wound/abscess/other Cult Final 11/26/23-1136
Few Pseudomonas aeruginosa
Few Enterococcus faecalis
Few Coagulase neg. staphylococcus
Organism 1 Pseudomonas aeruginosa
Organism 2 Enterococcus faecalis
1. Pseudomonas aeruginosa
M.I.C. RX
--------- ---
Cefepime <=2 S
Ceftazidime 4 S
Ciprofloxacin <=0.25 S
Gentamicin <=4 S
Levofloxacin <=0.5 S
Meropenem <=1 S
Piperacillin/Tazobactam <=16 S
Tobramycin <=4 S
2. Enterococcus faecalis
M.I.C. RX
--------- ---
Ampicillin <=2 S
Gentamicin Synergy Screen <=500 S
Vancomycin 2 S
Imaging:
11/24/2023 MRI right lower extremity: Worsening infectious process centered at the medial midfoot when compared to MRI dated 08/13/2023. There is progressed advanced destructive changes of the medial cuneiform secondary to osteomyelitis. Also noted
is acute osteomyelitis of the middle and lateral cuneiform and the bases of the first through third metatarsals. Plantar medial soft tissue wound with contiguous rim-enhancing fluid wrapping around the medial aspect of the midfoot along the
expected course of the flexor hallucis longus tendon suggesting infectious tenosynovitis and probable abscess formation. Please see full dictation for additional detail.
[2023-12-06] MEDS: NEUPRO 4 MG TRANSDERM (14:50)
--- NOTE | 2023-12-06 14:52 | CM ---
continue iv osygn for right foot om,has wound vac.patient awaiting snf placement to [facility].i called jim and auth is still pending.miesha ravi wound care nurse would like to know when we receive the auth.
Plan [facility] pending auth
[2023-12-06] MEDS: NON-FORMULARY ITEM 4 MG PO (17:46)
[2023-12-06] MEDS: MELATONIN 10 MG PO (23:47)
[2023-12-06] MEDS: REQUIP 1 MG PO (23:47)
[2023-12-06] MEDS: ULTRAM 50 MG PO (23:47)
[2023-12-06] MEDS: ZYRTEC 10 MG PO (23:56)
[2023-12-07] MEDS: ZOSYN 100 IV ×4 (00:03→17:14)
[2023-12-07] MEDS: FLUSH (NSS) 1 FLUSH IV (00:05)
[2023-12-07 07:00] VITALS: BP 120/64
[2023-12-07] MEDS: PROSCAR 5 MG PO (09:22)
[2023-12-07] MEDS: ELIQUIS 5 MG PO ×2 (09:22→21:04)
[2023-12-07] MEDS: NORVASC 10 MG PO (09:23)
[2023-12-07] MEDS: OSCAL 500 + D 1000 MG PO ×2 (09:23→21:13)
[2023-12-07] MEDS: OCUVITE SOFTGEL 1 CAP PO (09:23)
[2023-12-07] MEDS: COZAAR 100 MG PO (09:23)
[2023-12-07] MEDS: VITAMIN B-12 1000 MCG PO (09:24)
[2023-12-07] MEDS: TOPROL XL 50 MG PO (09:24)
[2023-12-07] MEDS: AFRIN NASAL SPRAY NASAL (09:29)
[2023-12-07] MEDS: HYDROPHOR 1 APPLIC TOPICAL (09:29)
--- NOTE | 2023-12-07 10:42 | CM ---
Called [employer] to check on status of auth
Per [place], contact center representative, auth approved from 12/02-12/04 - now
Initiated new auth - spoke with representative Eugene at [facility] - [phone], opt 3
pending auth -[id number]
Clinicals faxed to [phone]
Plan - d/c to [facility] pending auth approval
[2023-12-07 15:00] VITALS: BP 133/85
--- NOTE | 2023-12-07 15:00 | W.PN.ID1 ---
Date of Service
Date of Service: December 07, 2023
Today's Communication
Continue current antibiotics
Assessment / Plan
Chronic right foot wound
Right foot osteomyelitis
- S/P debridement 11/25/23 with wound vac application.
Severe Charcot arthropathy of the right foot
Hx right foot osteomyelitis (with Staph hominis; 09/02/2023)
Covid-19 positive
-Asymptomatic
A-fib
Cardiomyopathy
Hypertension
Chronic lymphedema
Venous insufficiency
BPH with history of urinary retention
Dyslipidemia
Hx pancreatitis
Restless leg syndrome
Recommendations:
11/25 intraop culture - Pseudomonas
No OR pathology sent.
11/24 wound swab: Pseudomonas, E. faecalis, few coag-neg staph
--> Continue with Zosyn 4.5 g IV q6h through 01/06/24.
--> Follow weekly cbc with diff, CMP, CRP while on Zosyn.
PICC line in place.
Infusion sheet submitted to geriatric case manager on 11[facility]29[facility]
Given asymptomatic disease, no need to treat COVID-19 at the present time. Will continue to monitor clinical status.
����������������������������������������������������������
Chief Complaint
-: Other (Osteomyelitis - right foot)
Subjective / Review of Systems
Review of Systems: No Fever, No Chills and No Cough
Vital Signs / Physical Exam
Vital Signs
Vital Signs
Temp Pulse Resp BP Pulse Ox
98.2 F 52 18 120/64 99
12/07/23 07:00 12/07/23 07:00 12/07/23 07:00 12/07/23 07:00 12/07/23 07:00
Physical Exam
Constitutional: No Acute Distress, Comfortable and Non-toxic
Eyes: Sclera Anicteric
Cardiovascular: Regular Rate and S1/S2; Negative Murmur or Rub
Pulmonary: Clear and Symmetric; Negative Wheezes or Rales
Gastrointestinal: Soft, Non Tender, Non Distended and Normal Bowel Sounds
Skin: Warm and Dry; Negative Rash or Jaundice
Wound: Other (Right foot back in place. No erythema extending up the leg.)
Neurological: Awake and Alert
Psychological: Calm
Objective Data
Lab Data
Lab Results
12/06/23 04:04
12/06/23 04:04
ESR 89 mm/hour (0-20) H 11/23/23 15:12
Estimated Creat Clear 64 ml/min 12/06/23 04:04
Lactic Acid 1.3 mmol/L (0.7-2.0) 11/23/23 15:12
Total Bilirubin 0.5 mg/dl (0.2-1.3) 12/06/23 04:04
AST 26 U/L (17-59) 12/06/23 04:04
ALT 25 U/L (0-50) 12/06/23 04:04
Alkaline Phosphatase 111 U/L (38-126) 12/06/23 04:04
C-Reactive Protein 174.20 mg/L (0.0-10.00) H 11/23/23 15:11
Most recent labs reviewed.
Micro Results:
11/25/23 16:32 Wound Culture - Final
Foot - Right Pseudomonas aeruginosa
Gram Stain - Final
11/25/23 16:32 Anaerobic Culture - Final
Foot - Right NO ANAEROBES ISOLATED
11/23/23 15:11 Blood Culture - Final
Blood/Venous No Growth - Final Report
11/23/23 15:11 Blood Culture - Final
Blood/Venous No Growth - Final Report
11/23/23 15:23 Wound Culture - Final
Foot - Right Pseudomonas aeruginosa
Enterococcus faecalis
Gram Stain - Final
11/24/23 22:18 MRSA Screen - Final
Nose No Methicillin Resistant Staphylococcus aureus isolated.
SPEC #: [id number] RANJIT: 11/23/23
RECD: 11/23/23
SOURCE: FOOT ENTR: 11/23/23-0
SPDESC: Right
ORDERED: Wound/Other
QUERIES: Date Specimen was Collected 11/23/23
Time Specimen was Collected 151
Procedure Result Verified
Wound/abscess/other Cult Final 11/26/23-1135
Few Pseudomonas aeruginosa
Few Enterococcus faecalis
Few Coagulase neg. staphylococcus
Organism 1 Pseudomonas aeruginosa
Organism 2 Enterococcus faecalis
1. Pseudomonas aeruginosa
M.I.C. RX
--------- ---
Cefepime <=2 S
Ceftazidime 4 S
Ciprofloxacin <=0.25 S
Gentamicin <=4 S
Levofloxacin <=0.5 S
Meropenem <=1 S
Piperacillin/Tazobactam <=16 S
Tobramycin <=4 S
2. Enterococcus faecalis
M.I.C. RX
--------- ---
Ampicillin <=2 S
Gentamicin Synergy Screen <=500 S
Vancomycin 2 S
Imaging:
11/24/2023 MRI right lower extremity: Worsening infectious process centered at the medial midfoot when compared to MRI dated 08/13/2023. There is progressed advanced destructive changes of the medial cuneiform secondary to osteomyelitis. Also noted
is acute osteomyelitis of the middle and lateral cuneiform and the bases of the first through third metatarsals. Plantar medial soft tissue wound with contiguous rim-enhancing fluid wrapping around the medial aspect of the midfoot along the
expected course of the flexor hallucis longus tendon suggesting infectious tenosynovitis and probable abscess formation. Please see full dictation for additional detail.
[2023-12-07] MEDS: NON-FORMULARY ITEM 4 MG PO (17:13)
[2023-12-07] MEDS: NEUPRO 4 MG TRANSDERM (17:13)
[2023-12-07] MEDS: MELATONIN 10 MG PO (21:25)
[2023-12-07] MEDS: REQUIP 1 MG PO (21:28)
[2023-12-07] MEDS: ULTRAM 50 MG PO (21:32)
[2023-12-07] MEDS: ZYRTEC 10 MG PO (21:38)
[2023-12-07 23:03] VITALS: BP 121/64
[2023-12-08] MEDS: ZOSYN 100 IV ×3 (00:44→12:51)
[2023-12-08 07:00] VITALS: BP 130/66
[2023-12-08] MEDS: ELIQUIS 5 MG PO (08:22)
[2023-12-08] MEDS: NORVASC 10 MG PO (08:22)
[2023-12-08] MEDS: TOPROL XL 50 MG PO (08:22)
[2023-12-08] MEDS: OCUVITE SOFTGEL 1 CAP PO (08:22)
[2023-12-08] MEDS: PROSCAR 5 MG PO (08:22)
[2023-12-08] MEDS: COZAAR 100 MG PO (08:22)
[2023-12-08] MEDS: VITAMIN B-12 1000 MCG PO (08:22)
[2023-12-08] MEDS: OSCAL 500 + D 1000 MG PO (08:22)
[2023-12-08] MEDS: AFRIN NASAL SPRAY 2 SPRAYS NASAL (08:28)
[2023-12-08] MEDS: HYDROPHOR 1 APPLIC TOPICAL (08:29)
--- NOTE | 2023-12-08 10:17 | CM ---
Addendum entered by Clover Giraldo 12/08/23 13:56:
Transport at 1630 - pt and facility made aware
Addendum entered by Clover Giraldo 12/08/23 12:12:
Faxed [employer] info to Sonia at [phone]
[facility]
Report - [phone]
Fax - [phone]
Original Note:
Received call from Ebony from [facility]
Auth approved for 3 days - 12/07-12/09
Level 1
Next review 12/10

Auth # [id number]
Spoke with Sonia at [facility] [phone] - will accept pt today
Updated clinicals sent in [facility]
Requesting phone number for wound care nurse
Left VM with name and phone number of wound care nurse with [facility] - [phone]
[facility]
Fax - [phone]
[2023-12-08 12:10] VITALS: BP 119/73; PULSE 62; O2SAT 97
--- NOTE | 2023-12-08 12:19 | W.DCSUMMARY ---
Discharge Summary
Discharge Data
Date of Admission: 11/23/23
Date of Discharge: 12/08/23
-
Pending Results: No
Hospital Course
78 years old male admitted with worsening infection of the right foot. Patient was diagnosed with right foot Charcot midfoot infection with abscess/acute osteomyelitis of the middle, medial cuneiform, lateral cuneiform and the bases of the first
through third metatarsal bones. Patient was evaluated by podiatry. He underwent right foot incision and drainage with debridement of bone by Dr. Traore on November 25 with no complications reported. Wound VAC was applied. He was advised to
continue with nonweightbearing status. Patent had significant neuropathy and did not have significant pain. He was taking tramadol at night daily as home dose. Tylenol was added for pain. Patient was followed by infectious disease linux consultant.
He was started on intravenous Zosyn. Intraoperative wound culture showed Pseudomonas infection. Wound swab culture showed Pseudomonas, Enterococcus faecalis and few coagulase-negative Staphylococcus aureus. Patient received PICC line. Infectious
disease linux consultant recommended to continue Zosyn through January 05. Patient had history of hypertension. Hydrochlorothiazide was stopped due to hyponatremia. His blood pressure remained within normal parameters. Physical therapy evaluated the
patient and recommended fpc facility placement. Upon discharge, patient was screened for COVID and it came back positive. Patient was monitored in the hospital. He did not have symptoms. Repeat chest radiography did not show
infiltration. He did not have hypoxia or fever. Patient remained hemodynamically stable and was discharged in a stable condition.
Physical Exam
General: Well Developed, Well Nourished and No Apparent Distress
HEENT: Normocephalic, Moist mucous membranes and Atraumatic
Respiratory: Clear
Cardiac: S1/S2
GI: Soft, Non Tender, Non Distended
Rectal: No rectal bleeding
Musculoskeletal: right foot wound
Skin: dressing right foot with wound VAC/drain.� No Rash
Neuro: Nonfocal/grossly intact. Forgetful
Psych: no agitation
Total discharge time spent to see the patient, examine the patient on the floor, review data and lab results, discuss treatment plan with patient, case technician, nursing staff around 65 minutes
Discharge Plan
-
Patient Disposition: Fdc/SNF
Discharge Diagnosis/Procedures: Right foot osteomyelitis status post debridement 11/25/23 with wound VAC application.
Severe Charcot arthropathy of the right foot. Continue with Zosyn 4.5 g IV q6h through 01/06/24.
Follow weekly cbc with diff, CMP, CRP while on Zosyn.
Condition: Fair
Diet: As tolerated
Activity Restrictions/Additional Instructions:
Continue with Zosyn 4.5 g IV q6h through 01/06/24.
Follow weekly cbc with diff, CMP, CRP while on Zosyn.
Wound Care Instructions
R foot wound vac therapy-use black foam, Change every 48 - 72 hours (i. e. [id number]-[id number]-[id number]) and prn if unable to obtain a seal. Low Intensity, Continuous at 125 mmHg. Call or call [employer] tech support 26/04 for vac pump
questions/problems [phone].
NWB RLE
LLE wounds-clean with saline, Aquaphor ointment to dry skin le's adaptic, ABD pad, Kerlix wrap, change daily and prn drainage (add alginate after adaptic prn large amount of drainage).
Bilateral knee high [place] wraps as tolerated; re-wrap every am.
Follow up with Dr. Jean Traore
Follow up at wound care center call for an appointment.
Referrals:
Richie Wilkerson DO [Active] - in two weeks
Tosin Ventura MD [Family Provider] -
Jean Traore DPM [Active] - (Follow-up in the office 1-2 weeks following discharge. )
Prescriptions:
New
acetaminophen 325 mg Tablet
650 mg PO Q4HPRN PRN (Reason: mild pain/PARIKH/temp>100.5) Qty: 20 0RF
Zosyn in dextrose (iso-osm) 4.5 gram/100 mL Piggyback
4.5 g IV Q6H Qty: 1200 0RF
white petrolatum [Hydrophor] 42 % Ointment
1 applic topical DAILY Qty: 454 0RF
Rx Instructions:
to legs
Continued
amlodipine 10 MG tablet
10 mg PO DAILY
finasteride 5 MG tablet
5 mg PO DAILY
Neupro 4 MG patch 24 hour
1 patch transdermal 1600
cetirizine 10 mg Tablet
10 mg PO HS
tramadol 50 mg Tablet
50 mg PO HS
oxymetazoline 0.05 % [place],Non-Aerosol
2 spray INTRANASAL DAILY
calcium carbonate-vitamin D3 [Calcium 600 with Vitamin D3] 600 mg-12.5 mcg (500 unit) Capsule
2 cap PO BID
melatonin 10 mg Tablet
10 mg PO HS
Glucosamine Complex-MSM Capsule
3 cap PO DAILY
ropinirole 1 mg Tablet
1 mg PO 2100
metoprolol succinate 25 mg Tablet Extended Release 24 Hr
50 mg PO DAILY
ropinirole 2 mg Tablet Extended Release 24 Hr
4 mg PO 1800
Rx Instructions:
Pt takes 2mg at 1800 and 2000
Eliquis 5 mg Tablet
5 mg PO BID
cyanocobalamin (vitamin B-12) 1,000 mcg Tablet
1,000 mcg PO DAILY
losartan 100 mg Tablet
100 mg PO DAILY
PreserVision AREDS 2,148 mcg-113 mg-45 mg-17.4mg Tablet
2 tab PO BID
Discontinued
armodafinil [Nuvigil] 150 MG tablet
150 mg PO DAILY
red yeast rice 600 mg Tablet
600 mg PO DAILY
hydrochlorothiazide 25 mg Tablet
25 mg PO DAILY
Discharge Orders:
Discharge Patient (As Directed); Ordered 12/08/23
Ordered By: Victor Manuel Myles
[2023-12-08 12:27] VITALS: BP 119/73; PULSE 62; O2SAT 99
--- NOTE | 2023-12-08 12:30 | WOUNDNOTE ---
WO RN note: Driver Material Handler Clover Kristal stated patient is going to SNF today. [place] texted RN Mihaela Re: remove vac dressing and place saline gauze dressing for SNF transferred once discharge in finalized (SNF placed their own vac pump/dressing);
and the [facility] vac goes in 3W soiled utility room for steel pickler.
--- NOTE | 2023-12-08 12:30 | WOUNDNOTE ---
[facility] RN note: Settlement Worker Clover Kristal stated patient is going to SNF today. [place] texted SAMARIA Chairez Re: remove vac dressing and place saline gauze dressing for SNF transferred once discharge in finalized (SNF placed their own vac pump/dressing).
The [facility] vac goes in 3[facility] soiled utility room for coal picker.
--- NOTE | 2023-12-08 12:33 | W.PN.HOSP.TC ---
Today's Communication/Plan
-
.
Assessment / Plan
Assessment / Plan
Physical Exam
General: Well Developed, Well Nourished and No Apparent Distress
HEENT: Normocephalic, Moist mucous membranes and Atraumatic
Respiratory: Clear
Cardiac: S1/S2
GI: Soft, Non Tender, Non Distended
Rectal: No rectal bleeding
Musculoskeletal: right foot wound
Skin: dressing right foot with wound VAC/drain. No Rash
Neuro: Nonfocal/grossly intact. Forgetful
Psych: no agitation
#COVID-19 infection
He was diagnosed on 12/01 upon screening test to discharge him to SNF
Today, pt reported sob upon exertion, repeat chest x ray was unremarkable. Patient denies chest pain/cough or sore throat
c/w solation, per-protocol 10 days in hospital
remains afebrile
on room air
Tylenol prn.
d/w with ID and plan to monitor off anti-viral for now.
# �Right foot Charcot midfoot infection with abscess/ Acute osteomyelitis of the middle, �medial cuneiform, lateral cuneiforms and the bases of the first through third metatarsals
s/p right foot I&D with debridement of bone by Dr Traore 11/25, no complications reported.
Strict NWB RLE.� Wound VAC change 3xs/week.
No pain, underlying neuropathy noted
no fevers
c/w IV Zosyn 4.5g q6h through 01/06/24.
Stopped vancomycin. MRSA screen is negative
OR wound cultures showing Pseudomonas. Few Coag neg staph
Right picc line 11/27.
Appreciate podiatry and ID help
# Mild leukocytosis, no fevers
expected after surgical procedure.
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
Cr was 1.1 in 08/26
Holding HCTZ . Bp stable.
# Chronic venous insufficiency
# Charcot arthropathy of right and left ankles and feet
# Hyponatremia
mild. ?due to HCTZ. Monitor off HCTZ for now. Na improved 132
#Paroxysmal atrial fibrillation
No chest pain or palpitation
Cont Eliquis.
Continue metoprolol
#Essential hypertension
better controlled. 115/53
PRN low dose oral hydralazine
Continue amlodipine, losartan
#Obstructive sleep apnea
#Narcolepsy
-Continue Nuvigil
#Hyperlipidemia
#Bilateral renal artery stenosis
#BPH
-Continue finasteride
#Restless leg syndrome
-Continue Neupro, ropinirole, tramadol
#Insomnia
#History of MSSA
#Degenerative disc disease
#Former smoker
#Full code
DVT prophylaxis-eliquis
PT/OT-SNF. CM aware. await placement. Difficult disposition due to IV abx, wound vac changes, COVID-19 etc.
Total time spent to see the patient, examine the patient on the floor, review data and lab results, discuss treatment plan with patient, nursing staff around 45 minutes
Await placement
Anticipated Discharge: Within 24 hours
Subjective/Interval History
-
Date of Service: December 07, 2023
No complaints
No sob
No fevers
Objective Data
-
Vital Signs:
Vital Signs
Temp Pulse Resp BP Pulse Ox
97.6 F 60 16 130/66 99
12/08/23 07:00 12/08/23 08:22 12/08/23 07:00 12/08/23 08:22 12/08/23 07:00
I&O
12/07/23 12/08/23 12/09/23
06:59 06:59 06:59
Intake Total 1220 / 1220 1200 / 1200
Output Total 700 / 700 400 / 400
Balance 520 / 520 800 / 800
[2023-12-08] MEDS: FLUSH (NSS) 2 FLUSH IV (12:52)
--- NOTE | 2023-12-08 14:07 | WOUNDNOTE ---
WOC RN Note: Wound care nurse Faith called from [facility] who asked for wound vac settings; confirmed vac pump setting is 125mmhg continuous, using black vac foam.
[2023-12-08] MEDS: NEUPRO 4 MG TRANSDERM (14:31)
--- NOTE | 2023-12-08 17:32 | W.PN.ID1 ---
Date of Service
Date of Service: December 08, 2023
Today's Communication
Continue abx.
Assessment / Plan
Chronic right foot wound
Right foot osteomyelitis
- S/P debridement 11/25/23 with wound vac application.
Severe Charcot arthropathy of the right foot
Hx right foot osteomyelitis (with Staph hominis; 09/02/2023)
Covid-19 positive
-Asymptomatic
A-fib
Cardiomyopathy
Hypertension
Chronic lymphedema
Venous insufficiency
BPH with history of urinary retention
Dyslipidemia
Hx pancreatitis
Restless leg syndrome
Recommendations:
11/25 intraop culture - Pseudomonas
(No OR pathology sent.)
11/24 wound swab: Pseudomonas, E. faecalis, few coag-neg staph
--> Continue with Zosyn 4.5 g IV q6h through 01/06/24.
--> Follow weekly cbc with diff, CMP, CRP while on Zosyn.
PICC line in place.
Infusion sheet submitted to case assistant on 11/29.
Given asymptomatic disease, no need to treat COVID-19.
����������������������������������������������������������
Chief Complaint
-: Other (Osteomyelitis - right foot)
Subjective / Review of Systems
Review of Systems: No Fever
Vital Signs / Physical Exam
Vital Signs
Vital Signs
Temp Pulse Resp BP Pulse Ox
97.6 F 60 16 130/66 99
12/08/23 07:00 12/08/23 08:22 12/08/23 07:00 12/08/23 08:22 12/08/23 07:00
Physical Exam
Constitutional: Comfortable and Non-toxic
Pulmonary: Non Labored
Wound: Other (Vac in place to righ foot.)
Neurological: Awake and Alert
Psychological: Calm
Objective Data
Lab Data
Lab Results
12/06/23 04:04
12/06/23 04:04
ESR 89 mm/hour (0-20) H 11/23/23 15:12
Estimated Creat Clear 64 ml/min 12/06/23 04:04
Lactic Acid 1.3 mmol/L (0.7-2.0) 11/23/23 15:12
Total Bilirubin 0.5 mg/dl (0.2-1.3) 12/06/23 04:04
AST 26 U/L (17-59) 12/06/23 04:04
ALT 25 U/L (0-50) 12/06/23 04:04
Alkaline Phosphatase 111 U/L (38-126) 12/06/23 04:04
C-Reactive Protein 174.20 mg/L (0.0-10.00) H 11/23/23 15:11
Most recent labs reviewed.
Micro Results:
11/25/23 16:32 Wound Culture - Final
Foot - Right Pseudomonas aeruginosa
Gram Stain - Final
11/25/23 16:32 Anaerobic Culture - Final
Foot - Right NO ANAEROBES ISOLATED
11/23/23 15:11 Blood Culture - Final
Blood/Venous No Growth - Final Report
11/23/23 15:11 Blood Culture - Final
Blood/Venous No Growth - Final Report
11/23/23 15:23 Wound Culture - Final
Foot - Right Pseudomonas aeruginosa
Enterococcus faecalis
Gram Stain - Final
11/24/23 22:18 MRSA Screen - Final
Nose No Methicillin Resistant Staphylococcus aureus isolated.
SPEC #: [id number] RANJIT: 11/23/23-1522
RECD: 11/23/23-1524
SOURCE: FOOT ENTR: 11/23/23-1520
SPDESC: Right
ORDERED: Wound/Other
QUERIES: Date Specimen was Collected 11/23/23
Time Specimen was Collected 1519
Procedure Result Verified
Wound/abscess/other Cult Final 11/26/23-1136
Few Pseudomonas aeruginosa
Few Enterococcus faecalis
Few Coagulase neg. staphylococcus
Organism 1 Pseudomonas aeruginosa
Organism 2 Enterococcus faecalis
1. Pseudomonas aeruginosa
M.I.C. RX
--------- ---
Cefepime <=2 S
Ceftazidime 4 S
Ciprofloxacin <=0.25 S
Gentamicin <=4 S
Levofloxacin <=0.5 S
Meropenem <=1 S
Piperacillin/Tazobactam <=16 S
Tobramycin <=4 S
2. Enterococcus faecalis
M.I.C. RX
--------- ---
Ampicillin <=2 S
Gentamicin Synergy Screen <=500 S
Vancomycin 2 S
Imaging:
11/24/2023 MRI right lower extremity: Worsening infectious process centered at the medial midfoot when compared to MRI dated 08/13/2023. There is progressed advanced destructive changes of the medial cuneiform secondary to osteomyelitis. Also noted
is acute osteomyelitis of the middle and lateral cuneiform and the bases of the first through third metatarsals. Plantar medial soft tissue wound with contiguous rim-enhancing fluid wrapping around the medial aspect of the midfoot along the
expected course of the flexor hallucis longus tendon suggesting infectious tenosynovitis and probable abscess formation. Please see full dictation for additional detail.
--- NOTE | 2023-12-09 07:37 | WOUNDNOTE ---
WOC RN note: Notified [employer] of pickling operator/stop bill date as of 12/08/23 for the rental Vac [employer] pump via [employer] (work order #[id number]).
== END 2023-12-08 18:04 | DRG 503 ==
LOC: 3 WEST ACU 16:44
PROVIDERS: Hospitalist; Physician Assistant; Radiology Diagnostic Radiology; ADMITTING PHYSICIAN Hospitalist; ATTENDING PHYSICIAN Internal Medicine; CONSULT PHYSICIAN Internal Medicine Infectious Disease; CONSULT PHYSICIAN Student in an Organized Health Care Education/Training Program; EMERGENCY PHYSICIAN Emergency Medicine; FAMILY PHYSICIAN Family Medicine
PROC: 0QBL0ZZ Excision of Right Tarsal, Open Approach (ICD-10-PCS; 2023-11-25)
PROC: 02HV33Z Insertion of Infusion Device into Superior Vena Cava, Percutaneous Approach (ICD-10-PCS; 2023-11-27)
DX: M86.171 Other acute osteomyelitis, right ankle and foot (principal); U07.1 COVID-19; L03.115 Cellulitis of right lower limb; E87.1 Hypo-osmolality and hyponatremia; L02.611 Cutaneous abscess of right foot; M14.671 Charcot's joint, right ankle and foot; I48.0 Paroxysmal atrial fibrillation; D72.829 Elevated white blood cell count, unspecified; I12.9 Hypertensive chronic kidney disease with stage 1 through stage 4 chronic kidney disease, or unspecified chronic kidney disease; N18.31 Chronic kidney disease, stage 3a; B96.5 Pseudomonas (aeruginosa) (mallei) (pseudomallei) as the cause of diseases classified elsewhere; B95.61 Methicillin susceptible Staphylococcus aureus infection as the cause of diseases classified elsewhere; B95.2 Enterococcus as the cause of diseases classified elsewhere; I42.9 Cardiomyopathy, unspecified; I70.1 Atherosclerosis of renal artery; L97.519 Non-pressure chronic ulcer of other part of right foot with unspecified severity; I87.2 Venous insufficiency (chronic) (peripheral); N40.1 Benign prostatic hyperplasia with lower urinary tract symptoms; E78.00 Pure hypercholesterolemia, unspecified; R33.8 Other retention of urine; J30.1 Allergic rhinitis due to pollen; G25.81 Restless legs syndrome; G47.33 Obstructive sleep apnea (adult) (pediatric); I89.0 Lymphedema, not elsewhere classified; G62.9 Polyneuropathy, unspecified; G47.419 Narcolepsy without cataplexy; G47.00 Insomnia, unspecified; Z86.19 Personal history of other infectious and parasitic diseases; Z88.8 Allergy status to other drugs, medicaments and biological substances; Z87.11 Personal history of peptic ulcer disease; Z79.01 Long term (current) use of anticoagulants; Z91.048 Other nonmedicinal substance allergy status; Z87.891 Personal history of nicotine dependence
CPT/HCPCS: 71045; 73630; 73720; 80048; 80053; 80202; 82565; 83605; 84520; 85025; 85027; 85652; 86140; 86803; 87040; 87070; 87075; 87077; 87186; 87205; 87811; 93922; 96365; 96366; 97163; 97167; 97530; 97535; 99285; A9575

== ENCOUNTER → 2024-02-25 10:49 | Outpatient (REF) | payer OTHER, SELFPAY | LOC: RCS 10:49 | PROVIDERS: ATTENDING PHYSICIAN Internal Medicine Cardiovascular Disease; FAMILY PHYSICIAN Family Medicine | DX: I48.0 Paroxysmal atrial fibrillation (principal) | CPT/HCPCS: 93225; 93226 ==

== ENCOUNTER → 2024-04-21 06:47 | Outpatient (REF) | payer OTHER, SELFPAY | LOC: PAVMRI 06:47 | PROVIDERS: ATTENDING PHYSICIAN Physician Assistant; FAMILY PHYSICIAN Family Medicine | DX: M25.511 Pain in right shoulder (principal) | CPT/HCPCS: 73221 ==

== ENCOUNTER 2024-05-29 06:29 | Day surgery (SDC) | payer OTHER, SELFPAY ==
[2024-05-29] VITALS (8 sets, daily range): BP systolic 126–146; BP diastolic 54–66; BMI 23.6
[2024-05-29] MEDS: CELEBREX 200 MG PO (07:37)
[2024-05-29] MEDS: TYLENOL 1000 MG PO (07:37)
[2024-05-29] MEDS: NORMOSOL-R 1000 IV (07:38)
[2024-05-29 08:11] LABS: ALT (SGPT) 20 U/L (0-50); AST (SGOT) 35 U/L (17-59); Alkaline Phosphatase 107 U/L (38-126); Blood Urea Nitrogen 26 mg/dl (9-20); Calcium 9.7 mg/dl (8.4-10.2); Carbon Dioxide 23 mmol/L (22-30); Chloride 106 mmol/L (98-107); Estimated Creatinine Clearance 67 ml/min; Glucose 92 mg/dl (70-99); Potassium 4.6 mmol/L (3.5-5.1); Sodium 139 mmol/L (135-145); Total Bilirubin 0.6 mg/dl (0.2-1.3); Total Protein 6.7 g/dl (6.3-8.2); eGFR > 60.00
== END 2024-05-29 11:05 | disposition home or self-care (01) ==
LOC: SDS 06:29
PROVIDERS: ATTENDING PHYSICIAN Student in an Organized Health Care Education/Training Program
PROC: 0Y6S0Z2 Detachment at Left 2nd Toe, Mid, Open Approach (ICD-10-PCS; 2024-05-29)
PROC: 0JBQ0ZZ Excision of Right Foot Subcutaneous Tissue and Fascia, Open Approach (ICD-10-PCS; 2024-05-29)
DX: M86.672 Other chronic osteomyelitis, left ankle and foot (principal); L97.519 Non-pressure chronic ulcer of other part of right foot with unspecified severity
CPT/HCPCS: 28825; 11043; 88305; 88311; 80053; 87070; 87075; 87205; 93005

== ENCOUNTER → 2024-09-28 13:07 | Outpatient (REF) | payer OTHER, SELFPAY | LOC: RAD 13:07 | PROVIDERS: ATTENDING PHYSICIAN Student in an Organized Health Care Education/Training Program; FAMILY PHYSICIAN Family Medicine | DX: I73.9 Peripheral vascular disease, unspecified (principal) | CPT/HCPCS: 93922; 93925 ==

== ENCOUNTER → 2024-10-06 10:08 | Outpatient (REF) | payer OTHER, SELFPAY | LOC: HWRAD 10:08 | PROVIDERS: ATTENDING PHYSICIAN Student in an Organized Health Care Education/Training Program; FAMILY PHYSICIAN Family Medicine | DX: I87.2 Venous insufficiency (chronic) (peripheral) (principal) | CPT/HCPCS: 93970 ==

== ENCOUNTER → 2025-01-03 09:26 | Outpatient (REF) | payer OTHER, SELFPAY | LOC: HWEVLT 09:26 | PROVIDERS: ATTENDING PHYSICIAN Radiology Diagnostic Radiology | DX: I83.892 Varicose veins of left lower extremity with other complications (principal) | CPT/HCPCS: 36478; C1769 ==

== ENCOUNTER → 2025-01-04 07:55 | Outpatient (REF) | payer OTHER, SELFPAY | LOC: WOUND 07:55 | PROVIDERS: ATTENDING PHYSICIAN Surgery; FAMILY PHYSICIAN Family Medicine | DX: I87.312 Chronic venous hypertension (idiopathic) with ulcer of left lower extremity (principal); L97.322 Non-pressure chronic ulcer of left ankle with fat layer exposed; L97.222 Non-pressure chronic ulcer of left calf with fat layer exposed; L97.422 Non-pressure chronic ulcer of left heel and midfoot with fat layer exposed; I87.2 Venous insufficiency (chronic) (peripheral) | CPT/HCPCS: 99213 ==

== ENCOUNTER 2025-01-04 09:11 | Emergency (ER) | payer OTHER, SELFPAY ==
[2025-01-04 09:12] VITALS: BP 154/68
--- NOTE | 2025-01-04 09:23 | ED.GENMED ---
History of Present Illness
General
Chief Complaint: Fall
Time Seen by Provider: 01/04/25 09:18
History of Present Illness
History of Present Illness:
79-year-old male with history of paroxysmal A-fib on Eliquis presents to the emergency department as an emergency response after a fall just outside the hospital today. He was leaving his wound care visit, using his knee scooter when the wheels of
the scooter got stuck on something and he fell off. He did hit his head. No LOC. Currently denies other complaints. Specifically denies neck pain, chest pain, shortness of breath, low back pain, hip or pelvic pain.
Past History
Past History
ED Past Medical History: HTN, Hypercholesterolemia, Other (PUD) and Other (RLS)
Social History
Tobacco: Non-smoker
Personal:
Review of Systems
Review of Systems
Allergies reviewed?: Yes
All Other Systems: ROS reviewed and negative except as documented in HPI and ROS
Phy Exam
Physical Exam
Physical Exam:
GEN: Well appearing, NAD, WDWN
HEENT: Minor ecchymosis to the right forehead with no cephalohematoma, oral mucosa moist, no scleral icterus, no nasal congestion, no midline cervical spine tenderness
Cardiac: Regular rate
Lung: No respiratory distress, no tachypnea
MSK: No gross deformity or injuries, normal upper extremity range of motion, normal lower extremity range of motion
Skin: Good color, no pallor or jaundice, no rashes
Neuro: AO x3; CN II-XII grossly intact. BUE strength 5/5 in all mata, sensation intact and symmetric. BLE strength 5/5 in all mata, sensation intact and symmetric
Psych: Calm, cooperative
Course
Orders/Labs/Results
Orders:
Orders
01/04/25 09:23
CT Head W/o Iv Contrast Urgent
Comment:
Reason For Exam: fall head injury on OAC
Vital Signs
Initial and Last Documented VS:
Initial Vital Signs
Temp Pulse Resp BP Pulse Ox
97.8 F 60 18 154/68 100
01/04/25 09:12 01/04/25 09:12 01/04/25 09:12 01/04/25 09:12 01/04/25 09:12
Last Documented Vital Signs
Temp Pulse Resp BP Pulse Ox
97.8 F 60 18 154/68 100
01/04/25 09:12 01/04/25 09:12 01/04/25 09:12 01/04/25 09:12 01/04/25 09:12
MDM/Problems Addressed
MDM/Problems Addressed:
CT of the head was obtained as the patient struck his head and takes an anticoagulant although he is neurologically intact. CT shows no evidence for acute injury. Discharged in stable condition
*Critical Care Note
Total Time (30-74mins, 75-104mins- exclusive of procedures): Not Applicable
ED Attending Note
-
Portions of this chart may have been created with voice recognition software.� Occasional wrong word or��sound alike� substitutions may have occurred due to the inherent limitations of voice recognition software.
Discharge Plan
Departure
Patient Disposition: Home (Routine Discharge)
Date of Disposition: 01/04/25
Time of Disposition: 10:41
Patient with high blood pressure during this ER visit?: Yes
Discharge Problem:
Closed head injury
Instructions: Head Injury in Adults (DC)
Prescriptions:
No Action
amlodipine 10 MG tablet
10 mg PO DAILY
finasteride 5 MG tablet
5 mg PO DAILY
Neupro 4 MG patch 24 hour
1 patch transdermal QPM
cetirizine 10 mg Tablet
10 mg PO HS
oxymetazoline 0.05 % [place],Non-Aerosol
2 spray INTRANASAL QPM
calcium carbonate-vitamin D3 [Calcium 600 with Vitamin D3] 600 mg-12.5 mcg (500 unit) Capsule
2 cap PO BID
melatonin 10 mg Tablet
20 mg PO HS
Glucosamine Complex-MSM Capsule
3 cap PO DAILY
ropinirole 1 mg Tablet
1 mg PO HS
metoprolol succinate 25 mg Tablet Extended Release 24 Hr
50 mg PO DAILY
ropinirole 2 mg Tablet Extended Release 24 Hr
4 mg PO 1800
Eliquis 5 mg Tablet
5 mg PO BID
cyanocobalamin (vitamin B-12) 1,000 mcg Tablet
1,000 mcg PO MOWEFR
losartan 100 mg Tablet
100 mg PO DAILY
PreserVision AREDS 2,148 mcg-113 mg-45 mg-17.4mg Tablet
2 tab PO BID
hydrochlorothiazide 25 mg Tablet
25 mg PO DAILY
nystatin-triamcinolone 100,000-0.1 unit/g-% Cream
1 applic TOPICAL DAILY
Referrals:
Tosin Ventura MD [Family Provider] -
Interventions
Interventions:
*Risk Screen - Suicide Last Done: 01/04/25 09:12
*General Assessment Last Done: 01/04/25 09:12
*ED COVID-19 Vaccine History Last Done: 01/04/25 09:12
Discharge Date and Time
Print Language: [place]
== END 2025-01-04 11:05 | disposition home or self-care (01) ==
LOC: EMR 09:11
PROVIDERS: EMERGENCY PHYSICIAN Emergency Medicine; FAMILY PHYSICIAN Family Medicine
DX: S09.90XA Unspecified injury of head, initial encounter (principal); V00.141A Fall from scooter (nonmotorized), initial encounter; I10 Essential (primary) hypertension; I48.0 Paroxysmal atrial fibrillation; Z79.01 Long term (current) use of anticoagulants
CPT/HCPCS: 99284; 70450

== ENCOUNTER → 2025-01-09 09:58 | Outpatient (REF) | payer OTHER, SELFPAY | LOC: RAD 09:58 | PROVIDERS: ATTENDING PHYSICIAN Family Medicine | DX: M54.16 Radiculopathy, lumbar region (principal) | CPT/HCPCS: 72110 ==

== ENCOUNTER → 2025-01-11 11:26 | Outpatient (REF) | payer OTHER, SELFPAY | LOC: WOUND 11:26 | PROVIDERS: ATTENDING PHYSICIAN Surgery; FAMILY PHYSICIAN Family Medicine | DX: I87.312 Chronic venous hypertension (idiopathic) with ulcer of left lower extremity (principal); T79.A22A Traumatic compartment syndrome of left lower extremity, initial encounter; L97.322 Non-pressure chronic ulcer of left ankle with fat layer exposed; L97.222 Non-pressure chronic ulcer of left calf with fat layer exposed; L97.422 Non-pressure chronic ulcer of left heel and midfoot with fat layer exposed; I87.2 Venous insufficiency (chronic) (peripheral); W19.XXXA Unspecified fall, initial encounter | CPT/HCPCS: 99213 ==

== ENCOUNTER 2025-01-14 15:09 | Inpatient (IN) | payer OTHER, SELFPAY ==
[2025-01-11 12:19] VITALS: BP 152/81
--- NOTE | 2025-01-11 14:10 | ED.GENMED ---
History of Present Illness
<JAY Larson - Last Filed: 01/11/25 19:30>
General
Chief Complaint: Musculo-Skeletal Complaint
Source: patient
Exam Limitations: none
Time Seen by Provider: 01/11/25 13:56
Nursing documentation reviewed up to this point in time: agreed with
History of Present Illness
History of Present Illness:
Patient is a 79-year-old male with past medical history of restless leg syndrome chronic wounds, chronic kidney disease sleep apnea right toe amputations, superficial venous insufficiency status post ablation of left greater saphenous vein 01/03 was
sent to the ER by of wound care. Patient hit his left anterior tam and bumped his leg over a week ago and has significant swelling and redness to the area. Patient denies any numbness or tingling. He denies any pain he has been able
to walk. He denies any shortness of breath. He is anticoagulated.
Past History
<JYA Larson - Last Filed: 01/11/25 19:30>
Past History
ED Past Medical History: HTN, Hypercholesterolemia, Other (PUD) and Other (RLS)
Social History
Tobacco: Non-smoker
Personal:
Review of Systems
<JAY Larson - Last Filed: 01/11/25 19:30>
Review of Systems
Allergies reviewed?: Yes
All Other Systems: ROS reviewed and negative except as documented in HPI and ROS
Constitutional: Reports no symptoms; Denies fever, fatigue or chills
Respiratory: Reports no symptoms
Cardiac: Reports no symptoms
ABD/GI: Reports no symptoms
Musculoskeletal: Reports no symptoms
Neurological: Reports other (redness to left lower leg )
Hematologic/Lymphatic: Reports no symptoms
Psychiatric: Reports no symptoms
Phy Exam
<JAY Larson - Last Filed: 01/11/25 19:30>
General Physical Exam
General Presentation: no apparent distress
General age: appears stated age
General Skin: warm and dry
General Habitus: normal
General Mental: alert
General Hydration: appears well hydrated
Cardiovascular Exam
Cardiovascular Exam: regular rate/rhythm, no murmur and normal peripheral pulses
Pulmonary Exam
Pulmonary Exam: lungs clear and no respiratory distress
Neurological Exam
Neurological Exam: alert and oriented x3
Musculoskeletal Exam
Musculoskeletal Exam: full ROM and other (Patient's left leg with anterior hematoma with ecchymosis with surrounding erythema and swelling compartments are soft Doppler pulses. Lower aspect of anterior lower leg with wound that appears to be
healing with no drainage)
Skin Exam
Skin Exam: normal color and warm/dry
Psychiatric Exam
Psychiatric Exam: normal mood/affect
Course
<JAY Larson - Last Filed: 01/11/25 19:30>
Orders/Labs/Results
Orders:
Orders
01/11/25 14:41
IV Insert/Care/Rem.- Treatment PRN
Venous Doppler Lwr Ext Left [US Periph Venous LOWER Ext LT] Urgent
Comment:
Reason For Exam: swelling
01/11/25 14:48
Complete Blood Count/With Diff Urgent
Comprehensive Metabolic Panel Urgent
01/11/25 17:59
CeFAZolin 1 GRAM [Ancef] 1 gram in 5 ml IV NOW
01/11/25 18:36
Admit/Transfer Patient As Directed
Co-Sign Provider:
Level of Care: Observation services
Assign to:: Medical/Surgical
Physician / Group: Williams Pearl
Diagnosis: left lower extremity hematoma, left lower extremity infectious hematoma
PRN Pain Medication Management As Directed
May give lesser potent ordered pain med per pt: Yes
preference::
Protocol:: Medication orders for pain may be administered in a
manner that supports deferring to patient preference
when the pt is:
- Requesting an ordered lesser potent pain medication.
Least to most potent pain medications are defined
as: acetaminophen < NSAID < tramadol < opioids
(morphine, oxycodone, hydromorphone).
- Requesting a lesser dose of the same medication IF
ORDERED.
- Requesting a less intrusive route of administration
if both routes are prescribed by the provider (PO <
IV).
01/11/25 18:37
Code Status As Directed
Resuscitation Status: Full Code
Abnormal Lab Results
01/11/25
14:48
WBC 11.2 H 10^3/uL
(4.8-10.8)
RBC 3.82 L 10^6/uL
(4.70-6.10)
Hgb 11.1 L g/dL
(13.0-18.0)
Hct 33.7 L %
(39.0-52.0)
MCHC 32.9 L g/dL
(33.0-37.0)
RDW 14.6 H %
(11.5-14.5)
Plt Count 432 H 10^3/uL
(130-400)
Abs Immat Gran (auto) 0.1 H 10^3/uL
(0-0.05)
Absolute Neuts (auto) 8.2 H 10^3/uL
(1.4-6.5)
Absolute Monos (auto) 1.2 H 10^3/uL
(0.1-0.6)
Lymphocytes % 10.5 L %
(20.5-51.1)
Monocytes % 10.3 H %
(1.7-9.3)
Chloride 109 H mmol/L
(98-107)
BUN 31 H mg/dl
(9-20)
Glucose 160 H mg/dl
(70-99)
Alkaline Phosphatase 135 H U/L
(38-126)
01/11/25 14:48
01/11/25 14:48
Vital Signs
Initial and Last Documented VS:
Initial Vital Signs
Temp Pulse Resp BP Pulse Ox
98.0 F 73 16 152/81 98
01/11/25 12:19 01/11/25 12:19 01/11/25 12:19 01/11/25 12:19 01/11/25 12:19
Last Documented Vital Signs
Temp Pulse Resp BP Pulse Ox
98.4 F 64 18 136/65 100
01/11/25 15:29 01/11/25 17:42 01/11/25 17:42 01/11/25 17:42 01/11/25 17:42
Inventory Accountant consulted with Physician
Inventory Accountant consulted with physician?: Yes
Name of Physician Consulted: Oxana
<Thony Daigle MD - Last Filed: 01/11/25 18:42>
Orders/Labs/Results
Orders:
Orders
01/11/25 14:41
IV Insert/Care/Rem.- Treatment PRN
Venous Doppler Lwr Ext Left [US Periph Venous LOWER Ext LT] Urgent
Comment:
Reason For Exam: swelling
01/11/25 14:48
Complete Blood Count/With Diff Urgent
Comprehensive Metabolic Panel Urgent
01/11/25 17:59
CeFAZolin 1 GRAM [Ancef] 1 gram in 5 ml IV NOW
01/11/25 18:36
Admit/Transfer Patient As Directed
Co-Sign Provider:
Level of Care: Observation services
Assign to:: Medical/Surgical
Physician / Group: Williams Pearl
Diagnosis: left lower extremity hematoma, left lower extremity infectious hematoma
PRN Pain Medication Management As Directed
May give lesser potent ordered pain med per pt: Yes
preference::
Protocol:: Medication orders for pain may be administered in a
manner that supports deferring to patient preference
when the pt is:
- Requesting an ordered lesser potent pain medication.
Least to most potent pain medications are defined
as: acetaminophen < NSAID < tramadol < opioids
(morphine, oxycodone, hydromorphone).
- Requesting a lesser dose of the same medication IF
ORDERED.
- Requesting a less intrusive route of administration
if both routes are prescribed by the provider (PO <
IV).
01/11/25 18:37
Code Status As Directed
Resuscitation Status: Full Code
Abnormal Lab Results
01/11/25
14:48
WBC 11.2 H 10^3/uL
(4.8-10.8)
RBC 3.82 L 10^6/uL
(4.70-6.10)
Hgb 11.1 L g/dL
(13.0-18.0)
Hct 33.7 L %
(39.0-52.0)
MCHC 32.9 L g/dL
(33.0-37.0)
RDW 14.6 H %
(11.5-14.5)
Plt Count 432 H 10^3/uL
(130-400)
Abs Immat Gran (auto) 0.1 H 10^3/uL
(0-0.05)
Absolute Neuts (auto) 8.2 H 10^3/uL
(1.4-6.5)
Absolute Monos (auto) 1.2 H 10^3/uL
(0.1-0.6)
Lymphocytes % 10.5 L %
(20.5-51.1)
Monocytes % 10.3 H %
(1.7-9.3)
Chloride 109 H mmol/L
(98-107)
BUN 31 H mg/dl
(9-20)
Glucose 160 H mg/dl
(70-99)
Alkaline Phosphatase 135 H U/L
(38-126)
01/11/25 14:48
01/11/25 14:48
Vital Signs
Initial and Last Documented VS:
Initial Vital Signs
Temp Pulse Resp BP Pulse Ox
98.0 F 73 16 152/81 98
01/11/25 12:19 01/11/25 12:19 01/11/25 12:19 01/11/25 12:19 01/11/25 12:19
Last Documented Vital Signs
Temp Pulse Resp BP Pulse Ox
98.4 F 64 18 136/65 100
01/11/25 15:29 01/11/25 17:42 01/11/25 17:42 01/11/25 17:42 01/11/25 17:42
<JAY Larson - Last Filed: 01/11/25 19:30>
MDM/Problems Addressed
Differential Diagnosis Includes:
Not limited to hematoma less likely DVT, cellulitis possible abscess
MDM/Problems Addressed:
Patient is an 79-year-old male with an obvious contusion, swelling to left anterior lower leg however with surrounding erythema. Patient does have pulses by Doppler. He does have a lower extremity wound below the hematoma as well. He recently had
ablation of the greater saphenous vein by interventional radiology January 04.
He was sent by wound care for increasing redness to the area. I spoke with DR whatley via tiger text he wanted to be sure that there was not an abscess,/compartment syndrome.
Patient has obvious hematoma to anterior left lower leg with surrounding erythema and swelling. Pulses obtained by Doppler. Patient is been able to bear weight. he denies any he denies any fevers and is afebrile here however his white count is
elevated 11.2.
Ultrasound shows a complex fluid collection in the left anterior calf most likely differential diagnostic possibility be hematoma other collections include inflammatory infectious cannot be excluded. Patient however with no complaints of pain other
than his normal restless leg syndrome. Exam not consistent with compartment syndrome
with erythema of left lower leg would recommend admitted treat for cellulitis
<JAY Larson - Last Filed: 01/11/25 19:30>
*Radiology
Radiology exam reviewed: radiology read reviewed
*Pulse Oximetry
Patient hypoxic: no
*Critical Care Note
Total Time (30-74mins, 75-104mins- exclusive of procedures): Not Applicable
ED Attending Note
<JAY Larson - Last Filed: 01/11/25 19:30>
-
Portions of this chart may have been created with voice recognition software.� Occasional wrong word or��sound alike� substitutions may have occurred due to the inherent limitations of voice recognition software.
<Thony Dailge MD - Last Filed: 01/11/25 18:42>
ED Attending Note
Patient seen and examined by attending physician: Yes
ED Attending Note:
I have seen and evaluated the patient with a qtry-ap-jour encounter. I have spoken to the advance practicer provider and involved in the medical history, the physical exam, medical decision making.
Evaluation and management service: agree unless noted differently below.
Results interpretation: agree unless noted differently below.
Focused HPI: 79-year-old male with history as noted�significant for history of A-fib on Eliquis�presents to the ER referred by plastic surgery for evaluation of right leg redness and swelling. Patient had surgery on his right foot for a wound and
has been getting around with a scooter. He says that about 10 days ago he slipped off of his scooter and hit his left lower leg/tam. He sustained a large bruise/hematoma. Size of hematoma has not changed and he has had some increased redness and
swelling in the region. Saw plastic surgery today at [facility] and was referred to the ER for evaluation. No fever or chills. No other complaints.
Physical exam: Patient has large hematoma anterior tam with overlying ecchymosis; there is surrounding erythema extending both proximal and distal to the hematoma and streaking up towards the thigh and the entire area is warm and tender to the
touch; compartments are generally soft.
Medical Decision Makin-year-old male presents with increasing redness and pain, swelling in the left leg after sustaining traumatic hematoma about 10 days ago. Vitals and exam as above. Labs were significant for leukocytosis. Ultrasound
shows likely hematoma but no DVT. Concern for cellulitis and possibly infected hematoma. Admit for IV antibiotics.
Discharge Plan
Departure
Patient Disposition: Admit
Date of Disposition: 01/11/25
Time of Disposition: 17:51
Admit to: Med/Surg
Admit to doctor: hospitalist
Presentation/result/management discussed w/ accepting MD/DO: Hospitalist
Patient with high blood pressure during this ER visit?: Yes
Condition: Fair
Covid-19: Not Applicable
Discharge Problem:
Cellulitis of left leg
Prescriptions:
No Action
amlodipine 10 MG tablet
10 mg PO DAILY
finasteride 5 MG tablet
5 mg PO DAILY
Neupro 4 MG patch 24 hour
1 patch transdermal QPM
cetirizine 10 mg Tablet
10 mg PO HS
calcium carbonate-vitamin D3 [Calcium 600 with Vitamin D3] 600 mg-12.5 mcg (500 unit) Capsule
2 cap PO BID
melatonin 10 mg Tablet
20 mg PO HS
Glucosamine Complex-MSM Capsule
1 cap PO TID
ropinirole 1 mg Tablet
1 mg PO DAILY
metoprolol succinate 25 mg Tablet Extended Release 24 Hr
50 mg PO DAILY
ropinirole 2 mg Tablet Extended Release 24 Hr
2 mg PO HS
Eliquis 5 mg Tablet
5 mg PO BID
cyanocobalamin (vitamin B-12) 1,000 mcg Tablet
1,000 mcg PO MOWEFR
losartan 100 mg Tablet
100 mg PO DAILY
PreserVision AREDS 2,148 mcg-113 mg-45 mg-17.4mg Tablet
1 tab PO BID
acetaminophen [Tylenol] 325 mg Tablet
650 mg PO TID
gabapentin 300 mg Capsule
300 mg PO QID
Referrals:
Tosin Ventura MD [Family Provider] -
Interventions
Interventions:
*Risk Screen - Suicide Last Done: 01/11/25 12:19
*General Assessment Last Done: 01/11/25 13:12
*Neglect/Abuse Screening Last Done: 01/11/25 12:19
*ED- Fall Risk Assessment Last Done: 01/11/25 13:12
*ED COVID-19 Vaccine History Last Done: 01/11/25 13:12
ED-Musculoskeletal Assessment Last Done: 01/11/25 12:20
Discharge Date and Time
Print Language: UZBEK
[2025-01-11 15:08] LABS: % Basophils 0.6 % (0-2); % Eosinophils 4.6 % (0-6); % Immature Granulocytes 0.5 % (0-0.5); % Lymphocytes 10.5 % (20.5-51.1); % Monocytes 10.3 % (1.7-9.3); % Neutrophils 73.5 % (42.2-75.2); Absolute Basophils 0.1 10^3/uL (0-0.2); Absolute Eosinophils 0.5 10^3/uL (0-0.7); Absolute Immature Granulocytes 0.1 10^3/uL (0-0.05); Absolute Lymphocytes 1.2 10^3/uL (1.2-3.4); Absolute Monocytes 1.2 10^3/uL (0.1-0.6); Absolute Neutrophils 8.2 10^3/uL (1.4-6.5); Hematocrit 33.7 % (39.0-52.0); Hemoglobin 11.1 g/dL (13.0-18.0); Mean Corp Hgb Conc. 32.9 g/dL (33.0-37.0); Mean Corpuscular Hgb 29.1 pg (27.0-31.0); Mean Corpuscular Volume 88.2 fL (80.0-94.0); Mean Platelet Volume 9.2 fL (7.4-10.4); Nucleated Red Blood Cells % 0 % (-); Platelet Count 432 10^3/uL (130-400); Red Blood Cell Count 3.82 10^6/uL (4.70-6.10); Red Cell Dist. Width 14.6 % (11.5-14.5); White Blood Cell Count 11.2 10^3/uL (4.8-10.8)
[2025-01-11 15:24] LABS: ALT (SGPT) 24 U/L (0-50); AST (SGOT) 29 U/L (17-59); Albumin 3.5 g/dl (3.5-5.0); Alkaline Phosphatase 135 U/L (38-126); Blood Urea Nitrogen 31 mg/dl (9-20); Calcium 8.6 mg/dl (8.4-10.2); Carbon Dioxide 23 mmol/L (22-30); Chloride 109 mmol/L (98-107); Glucose 160 mg/dl (70-99); Potassium 4.3 mmol/L (3.5-5.1); Sodium 142 mmol/L (135-145); Total Bilirubin 0.8 mg/dl (0.2-1.3); Total Protein 6.9 g/dl (6.3-8.2); eGFR > 60.00
[2025-01-11 15:29] VITALS: BP 136/57
[2025-01-11 17:42] VITALS: BP 136/65; BMI 25.1
--- NOTE | 2025-01-11 17:55 | HPS.HSE ---
Family Physician
-
Family Physician: Tosin Ventura
Chief Complaint
-
Left anterior tam injury
History of Present Illness
Patient is a 79-year-old male with past medical history significant for atrial fibrillation, hypertension, obstructive sleep apnea, renal artery stenosis bilateral on arterial duplex, 2020, venous insufficiency with chronic lymphadenopathy, BPH with
urinary retention and restless leg syndrome who presented to [facility] ED for evaluation of left anterior tam injury. Patient reports falling from bed on January 01 and hit anterior tam on knee scooter. He reports the site of erythema and edema has not
changed in size since injury occurred. Patient denies any fever, chills, cough, shortness of breath, chest pain, nausea, vomiting, constipation, diarrhea or urinary symptoms.
Medical History
Past Medical History
Past Medical History: Reports Other (see below)
Additional Past Medical History:
Atrial fibrillation.
Hypertension.
Obstructive sleep apnea, noncompliant with device.
Renal artery stenosis bilateral on arterial duplex, 2020
Venous insufficiency with chronic lymphadenopathy.
BPH with urinary retention.
Insomnia.
Restless leg.
Questionable Parkinson�s.
Questionable narcolepsy.
MSSA history.
Degenerative disc disease.
remote tobacco.
Past Surgical History: Reports Orthopedic (recent foot debridement) and Other (ING hernia, L5 lami)
Social History
Tobacco: Former Smoker
Alcohol: Occasional (2 beers)
Drug: None
Personal:
Living: With Family
Employment: Retired
Family History
Family History: Not pertinent
Allergies / Home Medications
Allergies reflects when Allergies were last updated in [employer]
Home Medications with original date entered in [employer]
Allergy/Medication List:
Allergies
Allergy/AdvReac Type Severity Reaction Status Date / Time
adhesive Allergy Rash, Verified 01/11/25 12:22
Itching
hydroxychloroquine Allergy Rash Verified 01/11/25 12:22
pollen extracts Allergy seasonal Verified 01/11/25 12:22
allergy
Home Medications
amlodipine 10 mg tablet 10 mg PO DAILY Blood Pressure 10/03/21
finasteride 5 mg tablet 5 mg PO DAILY Urinary Issue 10/03/21
rotigotine 4 mg/24 hour transdermal 24 hour patch (Neupro) 1 patch transdermal QPM Neurological Condition 10/03/21
calcium 600 mg (as carbonate)-vitamin D3 12.5 mcg (500 unit) capsule (Calcium with Vit D3) 2 cap PO BID Supplement 12/03/22
cetirizine 10 mg tablet 10 mg PO HS Allergies 12/03/22
reaeumwztmd-fbd-kceacxwuo-vitC capsule (Glucosamine Complex-MSM capsule) 1 cap PO TID Supplement 12/03/22
melatonin 10 mg tablet 20 mg PO HS Sleep 12/03/22
apixaban 5 mg tablet (Eliquis) 5 mg PO BID Blood Clot Prevention/Tx 08/30/23
metoprolol succinate 25 mg tablet,extended release 24 hr 50 mg PO DAILY Blood Pressure 08/30/23
ropinirole 1 mg tablet 1 mg PO DAILY restless legs 08/30/23
ropinirole 2 mg tablet,extended release 24 hr 2 mg PO HS restless legs 08/30/23
cyanocobalamin (vitamin B-12) 1,000 mcg tablet 1,000 mcg PO MOWEFR Supplement 11/23/23
losartan 100 mg tablet 100 mg PO DAILY Blood Pressure 11/23/23
vitamins A,C,J-rcxc-hgfokh 2,148 mcg-113 mg-45 mg-17.4 mg tablet (PreserVision AREDS) 1 tab PO BID Supplement 11/23/23
acetaminophen 325 mg tablet (Tylenol) 650 mg PO TID 01/11/25
gabapentin 300 mg capsule 300 mg PO QID 01/11/25
Review of Systems
-
History Source: Patient
Constitutional: Reports No Symptoms
EENT: Reports No Symptoms
Respiratory: Reports No Symptoms
Cardiac: Reports No Symptoms
Abdomen/GI: Reports No Symptoms
: Reports No Symptoms
Musculoskeletal: Reports Edema (Left lower extremity, anterior tam with erythema )
Skin: Reports No Symptoms
Neurological: Reports No Symptoms
Endocrine: Reports No Symptoms
Hematologic/Lymphatic: Reports No Symptoms
Psych: Reports No Symptoms
Physical Exam
Vital Signs
Vital Signs
Temp Pulse Resp BP Pulse Ox
98.4 F 64 18 136/65 100
01/11/25 15:29 01/11/25 17:42 01/11/25 17:42 01/11/25 17:42 01/11/25 17:42
Physical Exam
General: Well Developed, Well Nourished, No Apparent Distress, Comfortable and Conversant
HEENT: NormoCephalic, Moist mucous membranes, Atraumatic, [place] Conjunctivae, Nose Appears Normal and Ears Appear Normal
Respiratory: Clear and Non Labored Respirations
Cardiac: S1/S2 and Regular Rhythm
Breast: Deferred by me
GI: Soft, Non Tender, Non Distended and Normal Bowel Sounds; No Organomegaly
Rectal: Deferred by Provider
Genito-urinary: Deferred by me
Musculoskeletal: No Clubbing, No Cyanosis and Edema, Left Lower Extremity (edema and erythema to left anterior lower extremity )
Skin: IV/Catheter Site and Other (would anterior distal left lower extremity healing)
Neuro: Awake, Alert, AO x 3 and Nonfocal/grossly intact
Psych: Calm and Intact Judgment/Insight
Laboratory Results
-
01/11/25 14:48
01/11/25 14:48
Laboratory Results
Total Bilirubin 0.8 mg/dl (0.2-1.3) 01/11/25 14:48
AST 29 U/L (17-59) 01/11/25 14:48
ALT 24 U/L (0-50) 01/11/25 14:48
Alkaline Phosphatase 135 U/L (38-126) H 01/11/25 14:48
Data Reviewed
-
Ultrasound: Report Reviewed by me (LLE: No evidence of deep venous thrombosis of the left lower extremity. Multiple left groin lymph nodes, as noted above. Complex fluid collection within the soft tissues of the left calf measuring 8.2 x 2.0 x 6.4
cm without blood flow within. Most likely differential diagnostic possibility would b)
Lab Data: Labs Reviewed by me (WBC 11.2, Hgb 11.1, Hct 33.7, )
Impression/Plan
-
IMPRESSION/PLAN:
#left lower extremity hematoma vs. infectious hematoma
WBC 11.2
LLE US: No evidence of deep venous thrombosis of the left lower extremity.
Multiple left groin lymph nodes, as noted above.
Complex fluid collection within the soft tissues of the left calf measuring 8.2 x 2.0 x 6.4 cm without blood flow within. Most likely differential diagnostic possibility would be a hematoma.
Other fluid collections including inflammatory/infectious collections cannot be excluded.
- Admit to med/surg
- IV Cefazolin
- supportive care
- Consult surgery
#Atrial fibrillation
- hold Eliquis in setting of possible hematoma
- continue metoprolol
#Hypertension
- continue losartan
#Renal artery stenosis
bilateral on arterial duplex, 2020
#BPH with urinary retention
- continue finasteride
#Restless leg
- continue ropinirole and Neupro
#Insomnia
- continue melatonin
#Venous insufficiency with chronic lymphadenopathy
#Obstructive sleep apnea, noncompliant with device
Code status: full code
DVT prophylaxis: SCDs
--- NOTE | 2025-01-11 18:10 | W.PN.UPDATE ---
Update Note
Progress Note Update
I saw and examined the patient.
The TRANSITIONAL NURSE or PA's note was reviewed and I agree with the note.
Comment: 79-year-old male who was sent from wound care due to left lower extremity swelling and erythema.
135/65, 64, 18, 98.4 �F, 100% RA
Gen: NAD, AAOx3.
Eyes: EOMI, PERRLA, no scleral icterus.
Neck: supple.
CV: RRR, +S1/S2, no m/r/g.
Resp: CTAB, no rales, wheezes, or rhonchi.
Abd: +BS, soft, NT, ND
Skin: L leg with significant soft tissue edema distal to the knee anteriorly. Slightly warm, not erythematous. Distally to the soft tissue edema is chronic venous stasis dermatitis.
Neuro: CN 2-12 intact, non-focal.
Psych: Normal mood and affect.
Lab Results
01/11/25
14:48
WBC 11.2 H
RBC 3.82 L
Hgb 11.1 L
Hct 33.7 L
MCV 88.2
MCH 29.1
MCHC 32.9 L
RDW 14.6 H
Plt Count 432 H
MPV 9.2
Abs Immat Gran (auto) 0.1 H
Absolute Neuts (auto) 8.2 H
Absolute Lymphs (auto) 1.2
Absolute Monos (auto) 1.2 H
Absolute Eos (auto) 0.5
Absolute Basos (auto) 0.1
Immature Gran % 0.5
Neutrophils % 73.5
Lymphocytes % 10.5 L
Monocytes % 10.3 H
Eosinophils % 4.6
Basophils % 0.6
Nucleated RBC % 0
Sodium 142
Potassium 4.3
Chloride 109 H
Carbon Dioxide 23
BUN 31 H
Creatinine 0.8
eGFR > 60.00
Glucose 160 H
Calcium 8.6
Total Bilirubin 0.8
AST 29
ALT 24
Alkaline Phosphatase 135 H
Total Protein 6.9
Albumin 3.5
LLE U/S: No DVT. Multiple left groin lymph nodes. Complex fluid collection within the soft tissues of the left calf measuring 8.2 x 2.0 x 6.4 cm without blood flow within. Most likely differential diagnostic possibility would be a hematoma. Other
fluid collections including inflammatory/infectious collections cannot be excluded.
LLE wound/collection:
-Highly doubt that this collection is infected considering it has been there about 2 weeks and the patient is hemodynamically stable, afebrile, and with a very minimal leukocytosis that is likely stress related
-For now, continue Ancef started in the ER
-Consult surgery
-PT/OT
Other problems:
Paroxysmal atrial fibrillation
Essential hypertension
Charcot foot bilaterally s/p surgery
ELZBIETA
Hyperlipidemia
B/L renal artery stenosis
Chronic venous insufficiency
BPH
Insomnia
RLS
Questionable Parkinson's
Questionable narcolepsy
DDD
[2025-01-11] MEDS: ANCEF 5 IV (18:15)
[2025-01-11 20:36] VITALS: BP 137/68
[2025-01-11 20:53] VITALS: BMI 25.1
[2025-01-11] MEDS: OCUVITE SOFTGEL 1 CAP PO (21:03)
[2025-01-11] MEDS: OSCAL 500 + D 1000 MG PO (21:03)
--- NOTE | 2025-01-11 21:16 | PTCARENOTE ---
Report tubed to floor.
[2025-01-11] MEDS: MELATONIN 20 MG PO (23:02)
[2025-01-11] MEDS: ZYRTEC 10 MG PO (23:02)
[2025-01-11] MEDS: TYLENOL 650 MG PO (23:03)
[2025-01-11] MEDS: NEURONTIN 300 MG PO (23:03)
[2025-01-11 23:14] VITALS: BP 152/67; BMI 24.8
--- NOTE | 2025-01-12 00:14 | PTCARENOTE ---
Patient arrived from ED, via stretcher. Patient unable to ambulate from stretcher to bed, required assistance to slide over to bed. Skin check completed. LLE extremity wound care completed. Wound care consult placed by this RN. Patient with
intermittent pain in his bilateral lower extremities. Pedal pulses weak on palpation but are palpable. Patient belongings accounted for including hearing aids, hearing aid cell manager, clock with phone cell manager, ear buds, walking shoe, boot, clothing and
other personal belongings; per patient, patient's Abby will bring in his glasses, in the morning. Patient oriented to room. Bed in lowest position. Urinal provided for voids. Call castillo and personal belongings within reach.
[2025-01-12] MEDS: REQUIP 2 MG PO (01:36)
[2025-01-12] MEDS: ANCEF 5 IV ×2 (01:41→10:39)
[2025-01-12] MEDS: NEUPRO 4 MG TRANSDERM ×2 (02:17→17:53)
[2025-01-12 07:00] VITALS: BP 141/62
[2025-01-12 07:19] LABS: Mean Corp Hgb Conc. 33.3 g/dL (33.0-37.0); Mean Corpuscular Hgb 29.2 pg (27.0-31.0); Mean Corpuscular Volume 87.5 fL (80.0-94.0); Mean Platelet Volume 9.3 fL (7.4-10.4); Platelet Count 387 10^3/uL (130-400); Red Blood Cell Count 3.43 10^6/uL (4.70-6.10); Red Cell Dist. Width 14.4 % (11.5-14.5)
[2025-01-12 07:35] LABS: Blood Urea Nitrogen 27 mg/dl (9-20); Calcium 8.3 mg/dl (8.4-10.2); Carbon Dioxide 25 mmol/L (22-30); Chloride 109 mmol/L (98-107); Estimated Creatinine Clearance 81 ml/min; Glucose 104 mg/dl (70-99); Potassium 4.1 mmol/L (3.5-5.1); Sodium 140 mmol/L (135-145); eGFR > 60.00
--- NOTE | 2025-01-12 07:35 | W.PN.HOSP.TC ---
Today's Communication/Plan
-
see plan
Assessment / Plan
Assessment / Plan
Gen: NAD, AAOx3.
Eyes: EOMI, PERRLA, no scleral icterus.
Neck: supple.
CV: Irregularly irregular, +S1/S2, no m/r/g.
Resp: CTAB anteriorly, no rales, wheezes, or rhonchi.
Abd: +BS, soft, NT, ND
Skin: L leg with significant soft tissue edema distal to the knee anteriorly. Slightly warm, minimally erythematous. Distally to the soft tissue edema is chronic venous stasis dermatitis.
Neuro: CN 2-12 intact, non-focal.
Psych: Normal mood and affect.
LLE U/S: No DVT. Multiple left groin lymph nodes. Complex fluid collection within the soft tissues of the left calf measuring 8.2 x 2.0 x 6.4 cm without blood flow within. Most likely differential diagnostic possibility would be a hematoma. Other
fluid collections including inflammatory/infectious collections cannot be excluded.
CT LLE with IV contrast 01/12/25: Large, amorphous, predominantly soft tissue attenuation mass in the anterior proximal leg. Given the history of fall, this is most likely hematoma. There is some liquefaction centrally. This could represent focally
evolving hemorrhage or early abscess. No well organized drainable fluid collection at this time. Clinical follow-up recommended. If clinically warranted, close follow-up CT can also be performed for reevaluation. Generalized moderate soft tissue
edema in the left leg. Redemonstration of Charcot arthropathy of tarsometatarsal joints.
LLE wound/collection:
-Highly doubt that this collection is infected considering it has been there about 2 weeks and the patient is hemodynamically stable, afebrile, and with a very minimal leukocytosis that is likely stress related.
-continue Ancef for now
-surgery following
-CT LLE above, will discuss if surgical intervention indicated
-PT/OT
Other problems:
Paroxysmal atrial fibrillation: cont BB. Eliquis on hold with hematoma.
Essential hypertension: cont BB/ARB/Norvasc
Charcot foot bilaterally s/p surgery
ELZBIETA
Hyperlipidemia
B/L renal artery stenosis
Chronic venous insufficiency
BPH
Insomnia
RLS: cont Requip
Questionable Parkinson's
Questionable narcolepsy
DDD
Anticipated Discharge: Within 24 hours
Subjective/Interval History
-
Date of Service: January 12, 2025
No new complaints.
Objective Data
-
Labs:
Laboratory Results
01/12/25
06:06
WBC 13.0 H
Hgb 10.0 L
Hct 30.0 L
Plt Count 387
Sodium Pending
Potassium Pending
Chloride Pending
Carbon Dioxide Pending
BUN Pending
Creatinine Pending
Glucose Pending
Calcium Pending
Vital Signs:
Vital Signs
Temp Pulse Resp BP Pulse Ox
98.1 F 77 18 152/67 99
01/11/25 23:14 01/11/25 23:14 01/11/25 23:14 01/11/25 23:14 01/11/25 23:14
I&O
01/11/25 01/12/25 01/13/25
06:59 06:59 06:59
Intake Total 240 / 240
Output Total 1100 / 1100
Balance -860 / -860
[2025-01-12] MEDS: NEURONTIN 300 MG PO ×4 (07:46→21:59)
[2025-01-12] MEDS: REQUIP 1 MG PO (07:46)
[2025-01-12] MEDS: OCUVITE SOFTGEL 1 CAP PO ×2 (07:47→20:52)
[2025-01-12] MEDS: OSCAL 500 + D 1000 MG PO ×2 (07:47→20:52)
[2025-01-12] MEDS: TYLENOL 650 MG PO ×3 (07:47→21:59)
[2025-01-12] MEDS: NORVASC 10 MG PO (07:47)
[2025-01-12] MEDS: PROSCAR 5 MG PO (07:47)
[2025-01-12] MEDS: TOPROL XL 50 MG PO (07:49)
[2025-01-12] MEDS: COZAAR 100 MG PO (07:49)
[2025-01-12] MEDS: VITAMIN B-12 1000 MCG PO (07:50)
[2025-01-12 08:23] LABS: Hepatitis C Antibody Negative (Negative)
--- NOTE | 2025-01-12 10:36 | CON.GS ---
Addendum entered and electronically signed by Quinten Chen MD 01/13/25 07:42:
I saw and examined the patient independently.
The Chemical Dependency Counselor's note was reviewed and I agree with the note, assessment and plan except where noted below.
Comment: This is an 79-year-old male with a history of A-fib on Eliquis with traumatic injury to his left lower extremity subsequent hematoma. General surgery consulted for possible infection. CT shows hematoma but no sign of gas or underlying
abscess.
Would manage expectantly for now.
No surgical intervention warranted at this time.
Surgery will sign off for now, please call with any questions or concerns.
Original Note:
Medical History
-
Chief Complaint: left leg pain
History of Present Illness:
Mr. Jamil is an 79 yo male with a h/o AFib on Eliquis (?LD 01/11), HTN, venous insufficiency, charcot food (R), debridement of the right foot for osteo in May with partial amputation of the left 2nd toe as well, and endovenous ablation of
left greater saphenous vein 10/2024 who presents after a slip and fall out of bed on 01/01 striking his left tam. He has had edema and discomfort with discoloration of the extremity since that time. He is overall a poor historian and notes that this
morning he woke up not sure even what time of day it was. He is intermittently falling asleep during exam and while eating breakfast. He notes pain to the site but is otherwise comfortable.
Past Medical History
Past Medical History: Arrhythmias (afib on Eliquis LD 01/11), HTN, Hypercholesterolemia and Other (renal artery stenosis, venous insufficiency/chronic lymphedema, BPH, RLS, insomnia, DDD, right foot osteo, Charcot right foot, ELZBIETA)
Past Surgical History: Orthopedic (L5 laminectomy, 05/2024 Debridement with excisional debridement down to the level of muscle and fascia right foot and left partial 2nd toe amputation. ) and Other (Endovenous ablation of left greater saphenous vein
10/2024)
Social History
Tobacco: Former Smoker
Alcohol: Occasional
Family History
Family History: Reviewed & Not Pertinent
Allergies / Home Medications
Allergy/AdvReac Type Severity Reaction Status Date / Time
adhesive Allergy Rash, Verified 01/11/25 12:22
Itching
hydroxychloroquine Allergy Rash Verified 01/11/25 12:22
pollen extracts Allergy seasonal Verified 01/11/25 12:22
allergy
�Medication �Instructions �Recorded �Confirmed �Type
amlodipine 10 mg tablet 10 mg PO DAILY Blood Pressure 10/03/21 01/11/25 History
finasteride 5 mg tablet 5 mg PO DAILY Urinary Issue 10/03/21 01/11/25 History
rotigotine 4 mg/24 hour 1 patch transdermal QPM 10/03/21 01/11/25 History
transdermal 24 hour patch (Neupro) Neurological Condition
calcium 600 mg (as 2 cap PO BID Supplement 12/03/22 01/11/25 History
carbonate)-vitamin D3 12.5 mcg
(500 unit) capsule (Calcium with
Vit D3)
cetirizine 10 mg tablet 10 mg PO HS Allergies 12/03/22 01/11/25 History
ynswkuszwdt-pgv-fdxklbjrz-vitC 1 cap PO TID Supplement 12/03/22 01/11/25 History
capsule (Glucosamine Complex-MSM
capsule)
melatonin 10 mg tablet 20 mg PO HS Sleep 12/03/22 01/11/25 History
apixaban 5 mg tablet (Eliquis) 5 mg PO BID Blood Clot 08/30/23 01/11/25 History
Prevention/Tx
metoprolol succinate 25 mg 50 mg PO DAILY Blood Pressure 08/30/23 01/11/25 History
tablet,extended release 24 hr
ropinirole 1 mg tablet 1 mg PO DAILY restless legs 08/30/23 01/11/25 History
ropinirole 2 mg tablet,extended 2 mg PO HS restless legs 08/30/23 01/11/25 History
release 24 hr
cyanocobalamin (vitamin B-12) 1,000 mcg PO MOWEFR Supplement 11/23/23 01/11/25 History
1,000 mcg tablet
losartan 100 mg tablet 100 mg PO DAILY Blood Pressure 11/23/23 01/11/25 History
vitamins A,C,F-sfif-esopzc 2,148 1 tab PO BID Supplement 11/23/23 01/11/25 History
mcg-113 mg-45 mg-17.4 mg tablet
(PreserVision AREDS)
acetaminophen 325 mg tablet 650 mg PO TID 01/11/25 01/11/25 History
(Tylenol)
gabapentin 300 mg capsule 300 mg PO QID 01/11/25 01/11/25 History
Review of Systems
-
History Source: Patient
All other systems: Negative unless noted
A 10 point review of systems was completed, and was negative except as per HPI.
Physical Exam
Vital Signs
Temp Pulse Resp BP Pulse Ox
98.5 F 69 20 141/62 99
01/12/25 07:00 01/12/25 07:49 01/12/25 07:00 01/12/25 07:49 01/12/25 07:00
01/11/25 01/12/25 01/13/25
06:59 06:59 06:59
Actual Weight 74.077 kg
Body Mass Index (BMI) 24.8
Lab Results
01/12/25 06:06
01/12/25 06:06
WBC 13.0 10^3/uL (4.8-10.8) H 01/12/25 06:06
Hgb 10.0 g/dL (13.0-18.0) L 01/12/25 06:06
Hct 30.0 % (39.0-52.0) L 01/12/25 06:06
Plt Count 387 10^3/uL (130-400) 01/12/25 06:06
Abs Immat Gran (auto) 0.1 10^3/uL (0-0.05) H 01/11/25 14:48
Neutrophils % 73.5 % (42.2-75.2) 01/11/25 14:48
Physical Exam
General: Well Developed and Well Nourished
HEENT: Moist Mucous Membranes
Respiratory: Non Labored Respirations
GI: Soft and Non Tender
Skin: Warm and Other (hematoma over the tibial plateau which is firm with ecchymosis down to the ankle)
Neuro: Oriented (x2-3) and Other (drowsy but arousable)
Psych: Calm
Data Reviewed
-
Ultrasound: Report Reviewed by me, Discussed with Physician and Discussed with Patient
Labs: Labs Reviewed by me, Discussed with Physician and Discussed with Patient
Old Records: Reviewed
Assessment / Plan
-
79 yo male h/o AFib on Eliquis (?LD 01/11), HTN, venous insufficiency, charcot food (R), debridement of the right foot for osteo in May with partial amputation of the left 2nd toe as well, and endovenous ablation of left greater saphenous vein
10/2024 who presents after a slip and fall out of bed on 01/01 striking his left tam with persistent discomfort, ecchymosis and hematoma present over the tibial plateau. AFVSS. Mild leukocytosis up to 13.0. Duplex without DVT. Tender to site.
Currently on Ancef.
--CT of the LLE with IV contrast
--Hold anticoagulation
--Wound care consulted to follow given chronic foot wounds, known to Dr. Traore of podiatry
--Medical management as per primary team
Further surgical recommendations pending CT findings
--- NOTE | 2025-01-12 11:42 | WOUNDNOTE ---
L ANKLE/HEEL (POSTERIOR)
--- NOTE | 2025-01-12 12:15 | WOUNDNOTE ---
[facility] RN note: Patient admitted with LLE hematoma. Patient goes to [facility] and Dr. Emerson. His assists with his wound care. He has a [place] walker boot for RLE and flat surgical shoe for L foot in his room.
See H&P for complete history.
PMH: a fib (Eliquis), HTN, sleep apnea, renal artery stenosis, venous stasis, BPH, restless leg syndrome, DDD, vein procedure 01/03/25 L thigh.
Wound Location and type/assessment: Patient admitted with: full thickness venous ulcers L ankle pink with yellow fibrin and large amount of [place] green drainage. R plantar foot with full thickness surgical wound along with neuropathy to subcutaneous
layer (may be healing deeper tissue layer wound), pink with scant yellow fibrin. L plantar foot black colored callus ( thinks black color is from a new black sock). + Pedal pulses (R palpable, L via portable Doppler). Heels blanchable red. L
tam raised firm area. CT scan ordered by general surgery.
Appetite: good.
Pressure redistribution devices in place: [employer] Accumax. Patient moves self in bed. Confirmed with and updated and confirmed with Dr. Arzate activity: bathroom privileges with R [place] walker boot and L foot flat surgical shoe. Confirmed
local wound care with and Dr. Arzate.
Plan: Dressing changed on LLE and R plantar foot. Heels off bed with pillow and air chair cushion. Patient aware of his weight bearing limitations.
Confirmed orders with Dr. Pearl.
Updated care plan and will follow as needed. Patient to follow up with Dr. Arzate and Dr. Emerson.
[2025-01-12 12:46] VITALS: BP 100/47; BP 137/58; PULSE 72
[2025-01-12 15:00] VITALS: BP 132/59
--- NOTE | 2025-01-12 15:30 | CM ---
CM reviewed chart, patient seen beside, initial assessment completed. Patient resides with his in a multiple story home, reports three steps to enter. Patient has a cane, walker, and knee scooter at home. Patient reports [facility] in the past for
wound care, unsure with who, reports [facility] in past. PT recommendation of [facility] explained to patient, agreeable to referral to [facility], TT to liaison with referral. Patient confirms PCP Tosin Ventura, pharmacy [facility]
reviewed, refused to sign, placed in chart. CM will continue to follow for all discharge planning needs.
Plan; home with [facility] likely
--- NOTE | 2025-01-12 15:56 | VNURNOTE ---
Home Health Liaison met with patient at bedside to discuss [facility] nurse/therapy, visits, schedule and homebound status. Patient requested that liaison call his spouse to discuss services. This author called spouse Abby. Explained services. Spouse
is familiar with [facility], pt not current with [facility] [employer]. Spouse is agreeable and understands that visits at home will be 2-3 x per week to assess and teach medical management. [facility] after discharge from . Spouse confirms she has done wound care before and is willing to do upon DC after shown [facility]
[2025-01-12] MEDS: DAKIN'S SOLUTION 0.125% 1/4 STRENGTH 473 ML TOPICAL (21:04)
[2025-01-12] MEDS: HYDROPHOR 1 APPLIC TOPICAL (21:05)
[2025-01-12] MEDS: MELATONIN 20 MG PO (21:58)
[2025-01-12] MEDS: ZYRTEC 10 MG PO (21:59)
[2025-01-12 23:14] VITALS: BP 137/59
[2025-01-13 07:32] VITALS: BP 142/60
[2025-01-13] MEDS: REQUIP 1 MG PO (08:54)
[2025-01-13] MEDS: PROSCAR 5 MG PO (08:54)
[2025-01-13] MEDS: COZAAR 100 MG PO (08:54)
[2025-01-13] MEDS: TYLENOL 650 MG PO ×3 (08:54→21:49)
[2025-01-13] MEDS: TOPROL XL 50 MG PO (08:54)
[2025-01-13] MEDS: NORVASC 10 MG PO (08:54)
[2025-01-13] MEDS: OSCAL 500 + D 1000 MG PO ×2 (08:54→20:11)
[2025-01-13] MEDS: NEURONTIN 300 MG PO ×4 (08:54→21:49)
[2025-01-13] MEDS: OCUVITE SOFTGEL 1 CAP PO ×2 (08:54→20:11)
[2025-01-13] MEDS: DAKIN'S SOLUTION 0.125% 1/4 STRENGTH 473 ML TOPICAL ×2 (09:04→20:12)
[2025-01-13] MEDS: HYDROPHOR 1 APPLIC TOPICAL ×2 (09:05→20:27)
[2025-01-13 13:11] LABS: Hematocrit 33.1 % (39.0-52.0); Mean Corp Hgb Conc. 33.2 g/dL (33.0-37.0); Mean Corpuscular Hgb 28.4 pg (27.0-31.0); Mean Corpuscular Volume 85.5 fL (80.0-94.0); Mean Platelet Volume 9.7 fL (7.4-10.4); Platelet Count 352 10^3/uL (130-400); Red Blood Cell Count 3.87 10^6/uL (4.70-6.10); Red Cell Dist. Width 14.2 % (11.5-14.5); White Blood Cell Count 12.9 10^3/uL (4.8-10.8)
--- NOTE | 2025-01-13 14:04 | W.PN.HOSP.TC ---
Today's Communication/Plan
-
Start Ancef
Kenney bandages
Assessment / Plan
Assessment / Plan
79 y/o male with history of A-fib on Eliquis presented after slip and fall out of bed on 01/01/2025. He had developed a hematoma.
LLE U/S: No DVT. Multiple left groin lymph nodes. Complex fluid collection within the soft tissues of the left calf measuring 8.2 x 2.0 x 6.4 cm without blood flow within. Most likely differential diagnostic possibility would be a hematoma. Other
fluid collections including inflammatory/infectious collections cannot be excluded.
CT LLE with IV contrast 01/12/25: Large, amorphous, predominantly soft tissue attenuation mass in the anterior proximal leg. Given the history of fall, this is most likely hematoma. There is some liquefaction centrally. This could represent focally
evolving hemorrhage or early abscess. No well organized drainable fluid collection at this time. Clinical follow-up recommended. If clinically warranted, close follow-up CT can also be performed for reevaluation. Generalized moderate soft tissue
edema in the left leg. Re demonstration of Charcot arthropathy of tarsometatarsal joints.
CVS: S1-S2 normal
Chest: CTA B/L
Abdomen: Soft, NT / Bowel sounds present
Extremities: No edema, hematoma on the left tam-no increased temperature or redness. Wounds around the ankle with mild discharge
#LLE collection:
-Highly doubt that this collection is infected considering it has been there about 2 weeks and the patient is hemodynamically stable, afebrile, and with a very minimal leukocytosis that is likely stress related.
-Holding Antibiotics
-surgery following
-No surgical interventions planned
-Kenney bandages
-Holding Eliquis
-PT/OT
# History of right foot wound with osteomyelitis status post debridement 11/27/2023 with wound VAC application.
Also has severe Charcot arthropathy of the right foot
History of right foot osteomyelitis-Staph hominis; 09/02/2023
Currently full-thickness venous ulcer left ankle, right plantar foot with full-thickness surgical wound, left plantar black-colored callus
Wound care consulted and following
Patient to follow-up with Dr. Arzate and Dr. Emerson as outpatient. Patient has an appointment on .
Mild discharge noted therefore will add antibiotics
REMIGIO 09/28/2024-right lower extremity-REMIGIO within normal limits 1.24 TBI mildly reduced 0.59 which is improved from prior 0.43
Left lower extremity REMIGIO 1.35 falsely elevated TBI 1.23 within normal limits.
# Paroxysmal atrial fibrillation: cont BB. Eliquis on hold with hematoma.
# Essential hypertension: cont BB/ARB/Norvasc
# Charcot foot bilaterally s/p surgery
# ELZBIETA, Questionable history of narcolepsy-patient was on CPAP at 1 point and is not on that anymore as it does not fit him anymore. Aware for patient
# Hyperlipidemia- Not on meds
# B/L renal artery stenosis
# Chronic venous insufficiency
# Enlarged prostate-continue Proscar
# Insomnia-continue melatonin
# RLS: cont Requip and Neupro
# Questionable Parkinson's
# DDD-continue Gabapentin
# Hx of Pancreatitis
# Ex-smoker
# DVT prophylaxis-Venous Foot Pumps
# Full code
D/W Daughter at bed side
D/W RN
Anticipated Discharge: Within 24 hours
Subjective/Interval History
-
Date of Service: January 13, 2025
Objective Data
-
Labs:
Laboratory Results
01/13/25
13:02
WBC 12.9 H
Hgb 11.0 L
Hct 33.1 L
Plt Count 352
Vital Signs:
Vital Signs
Temp Pulse Resp BP Pulse Ox
98.4 F 70 20 142/60 100
01/13/25 07:32 01/13/25 07:32 01/13/25 07:32 01/13/25 07:32 01/13/25 07:32
I&O
01/12/25 01/13/25 01/14/25
06:59 06:59 06:59
Intake Total 240 / 240 220 / 220
Output Total 1100 / 1350 250 / 250 700 / 700
Balance -860 / -1110 -30 / -30 -700 / -700
[2025-01-13] MEDS: ANCEF 5 IV ×2 (14:27→21:48)
[2025-01-13 15:33] VITALS: BP 145/76
[2025-01-13] MEDS: NEUPRO 4 MG TRANSDERM (17:40)
[2025-01-13] MEDS: FLUSH (NSS) 1 FLUSH IV (21:48)
[2025-01-13] MEDS: MELATONIN 20 MG PO (21:48)
[2025-01-13] MEDS: ZYRTEC 10 MG PO (21:49)
[2025-01-13 23:12] VITALS: BP 158/73
[2025-01-14] MEDS: ANCEF 5 IV ×3 (05:11→21:07)
[2025-01-14] MEDS: FLUSH (NSS) 1 FLUSH IV (05:12)
[2025-01-14 07:40] VITALS: BP 138/61
[2025-01-14 07:57] LABS: Hematocrit 30.6 % (39.0-52.0); Hemoglobin 10.3 g/dL (13.0-18.0); Mean Corp Hgb Conc. 33.7 g/dL (33.0-37.0); Mean Corpuscular Hgb 28.9 pg (27.0-31.0); Mean Corpuscular Volume 85.7 fL (80.0-94.0); Mean Platelet Volume 9.3 fL (7.4-10.4); Platelet Count 417 10^3/uL (130-400); Red Blood Cell Count 3.57 10^6/uL (4.70-6.10); White Blood Cell Count 10.6 10^3/uL (4.8-10.8)
[2025-01-14 08:12] LABS: Blood Urea Nitrogen 25 mg/dl (9-20); Calcium 8.4 mg/dl (8.4-10.2); Carbon Dioxide 24 mmol/L (22-30); Chloride 106 mmol/L (98-107); Estimated Creatinine Clearance 95 ml/min; Glucose 107 mg/dl (70-99); Potassium 3.9 mmol/L (3.5-5.1); Sodium 137 mmol/L (135-145); eGFR > 60.00
[2025-01-14] MEDS: HYDROPHOR 1 APPLIC TOPICAL ×2 (08:53→20:47)
[2025-01-14] MEDS: COZAAR 100 MG PO (08:53)
[2025-01-14] MEDS: REQUIP 1 MG PO (08:53)
[2025-01-14] MEDS: NEURONTIN 300 MG PO ×4 (08:53→21:07)
[2025-01-14] MEDS: OCUVITE SOFTGEL 1 CAP PO ×2 (08:53→20:48)
[2025-01-14] MEDS: PROSCAR 5 MG PO (08:53)
[2025-01-14] MEDS: NORVASC 10 MG PO (08:53)
[2025-01-14] MEDS: TYLENOL 650 MG PO ×3 (08:53→21:07)
[2025-01-14] MEDS: OSCAL 500 + D 1000 MG PO ×2 (08:53→20:48)
[2025-01-14] MEDS: TOPROL XL 50 MG PO (08:53)
[2025-01-14] MEDS: DAKIN'S SOLUTION 0.125% 1/4 STRENGTH 473 ML TOPICAL (08:54)
--- NOTE | 2025-01-14 12:32 | W.PN.HOSP.TC ---
Today's Communication/Plan
-
continue AB
Wound Cx with next dressing change
Will request Dr Traore to evaluate tomorrow
Assessment / Plan
Assessment / Plan
79 y/o male with history of A-fib on Eliquis presented after slip and fall out of bed on 01/01/2025. He had developed a hematoma.
LLE U/S: No DVT. Multiple left groin lymph nodes. Complex fluid collection within the soft tissues of the left calf measuring 8.2 x 2.0 x 6.4 cm without blood flow within. Most likely differential diagnostic possibility would be a hematoma. Other
fluid collections including inflammatory/infectious collections cannot be excluded.
CT LLE with IV contrast 01/12/25: Large, amorphous, predominantly soft tissue attenuation mass in the anterior proximal leg. Given the history of fall, this is most likely hematoma. There is some liquefaction centrally. This could represent focally
evolving hemorrhage or early abscess. No well organized drainable fluid collection at this time. Clinical follow-up recommended. If clinically warranted, close follow-up CT can also be performed for reevaluation. Generalized moderate soft tissue
edema in the left leg. Re demonstration of Charcot arthropathy of tarsometatarsal joints.
CVS: S1-S2 normal
Chest: CTA B/L
Abdomen: Soft, NT / Bowel sounds present
Extremities: No edema, hematoma on the left tam-no increased temperature or redness. Wounds around the ankle with discharge
#LLE collection:
-Highly doubt that this collection is infected considering it has been there about 2 weeks and the patient is hemodynamically stable, afebrile, and with a very minimal leukocytosis that is likely stress related.
-Holding Antibiotics
-surgery following
-No surgical interventions planned
-Ken[place] bandages encouraged ( Pt and refused yesterday)
-Holding Eliquis
-PT/OT
# History of right foot wound with osteomyelitis status post debridement 11/27/2023 with wound VAC application.
Also has severe Charcot arthropathy of the right foot
History of right foot osteomyelitis-Staph hominis; 09/02/2023
Currently full-thickness venous ulcer left ankle, right plantar foot with full-thickness surgical wound, left plantar black-colored callus
Wound care consulted and following
Patient to follow-up with Dr. Arzate and Dr. Emerson as outpatient. Patient has an appointment on .
Discharge noted therefore started antibiotics
REMIGIO 09/28/2024-right lower extremity-REMIGIO within normal limits 1.24 TBI mildly reduced 0.59 which is improved from prior 0.43
Left lower extremity REMIGIO 1.35 falsely elevated TBI 1.23 within normal limits.
Check X ray
White count better with antibiotics
Consider Eval by tomorrow
# Paroxysmal atrial fibrillation: cont BB. Eliquis on hold with hematoma. ( will hold for 7-10 days)
# Essential hypertension: cont BB/ARB/Norvasc
# Charcot foot bilaterally s/p surgery
# ELZBIETA, Questionable history of narcolepsy-patient was on CPAP at 1 point and is not on that anymore as it does not fit him anymore. Aware for patient
# Hyperlipidemia- Not on meds
# B/L renal artery stenosis
# Chronic venous insufficiency
# Enlarged prostate-continue Proscar
# Insomnia-continue melatonin
# RLS: cont Requip and Neupro
# Questionable Parkinson's
# DDD-continue Gabapentin
# Hx of Pancreatitis
# Ex-smoker
# DVT prophylaxis-Venous Foot Pumps
# Full code
D/W Daughter at bed side yesterday
D/W RN
Anticipated Discharge: 24 - 48 hours
Subjective/Interval History
-
Date of Service: January 14, 2025
Objective Data
-
Labs:
Laboratory Results
01/14/25
07:30
WBC 10.6
Hgb 10.3 L
Hct 30.6 L
Plt Count 417 H
Sodium 137
Potassium 3.9
Chloride 106
Carbon Dioxide 24
BUN 25 H
Creatinine 0.6 L
Glucose 107 H
Calcium 8.4
Vital Signs:
Vital Signs
Temp Pulse Resp BP Pulse Ox
98.3 F 79 21 138/61 95
01/14/25 07:40 01/14/25 07:40 01/14/25 07:40 01/14/25 07:40 01/14/25 07:40
I&O
01/13/25 01/14/25 01/15/25
06:59 06:59 06:59
Intake Total 220 / 220 1200 / 1200
Output Total 250 / 250 1200 / 1200
Balance -30 / -30 0 / 0
[2025-01-14 14:50] VITALS: BP 155/70
[2025-01-14] MEDS: NEUPRO 4 MG TRANSDERM (18:04)
[2025-01-14] MEDS: DAKIN'S SOLUTION 0.125% 1/4 STRENGTH 1 ML TOPICAL (20:48)
[2025-01-14] MEDS: MELATONIN 20 MG PO (21:07)
[2025-01-14] MEDS: ZYRTEC 10 MG PO (21:08)
[2025-01-14 22:48] VITALS: BP 141/60
[2025-01-15] MEDS: ANCEF 5 IV (05:06)
[2025-01-15 07:37] VITALS: BP 156/63
[2025-01-15 07:38] LABS: Hematocrit 31.8 % (39.0-52.0); Hemoglobin 10.6 g/dL (13.0-18.0); Mean Corp Hgb Conc. 33.3 g/dL (33.0-37.0); Mean Corpuscular Hgb 28.7 pg (27.0-31.0); Mean Corpuscular Volume 86.2 fL (80.0-94.0); Mean Platelet Volume 9.3 fL (7.4-10.4); Platelet Count 399 10^3/uL (130-400); Red Blood Cell Count 3.69 10^6/uL (4.70-6.10); White Blood Cell Count 11.5 10^3/uL (4.8-10.8)
[2025-01-15] MEDS: NORVASC 10 MG PO (08:02)
[2025-01-15] MEDS: OSCAL 500 + D 1000 MG PO ×2 (08:02→20:21)
[2025-01-15] MEDS: REQUIP 1 MG PO (08:02)
[2025-01-15] MEDS: TYLENOL 650 MG PO ×3 (08:02→21:54)
[2025-01-15] MEDS: OCUVITE SOFTGEL 1 CAP PO ×2 (08:02→20:22)
[2025-01-15] MEDS: PROSCAR 5 MG PO (08:02)
[2025-01-15] MEDS: TOPROL XL 50 MG PO (08:02)
[2025-01-15] MEDS: NEURONTIN 300 MG PO ×4 (08:02→21:54)
[2025-01-15] MEDS: COZAAR 100 MG PO (08:02)
[2025-01-15] MEDS: VITAMIN B-12 1000 MCG PO (08:03)
--- NOTE | 2025-01-15 08:12 | W.PN.UPDATE ---
Update Note
Progress Note Update
Patient seen at bedside, new onset left lower extremity wound
-WBAT LLE
-Wound care, start Profore dressings with nonabsorbants
-Continue ABx per ID
-Recommend referral to lymphedema clinic outpatient and or continued wound care follow up
-Will follow
[2025-01-15 08:52] LABS: Blood Urea Nitrogen 24 mg/dl (9-20); Calcium 8.4 mg/dl (8.4-10.2); Carbon Dioxide 21 mmol/L (22-30); Chloride 105 mmol/L (98-107); Estimated Creatinine Clearance 95 ml/min; Glucose 94 mg/dl (70-99); Potassium 4.3 mmol/L (3.5-5.1); Sodium 136 mmol/L (135-145); eGFR > 60.00
[2025-01-15] MEDS: HYDROPHOR 1 APPLIC TOPICAL ×2 (11:20→20:33)
[2025-01-15] MEDS: DAKIN'S SOLUTION 0.125% 1/4 STRENGTH 473 ML TOPICAL ×2 (11:20→20:30)
--- NOTE | 2025-01-15 12:10 | WOUNDNOTE ---
[facility] RN Note: Discussed Dr. Traore's note about multilayer weekly compression with Dr. Arzate. Dr. Arzate stated he prefers L knee high [place] wrap over the weekly multilayer compression d/t his L tam hematoma. 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
comfortable with weekly compression wraps in the acute care setting. [place] texted Dr. Traore re: above, who responded to start with L knee high [place] wraps as compression is the best thing for the wounds and he defers to Dr. Arzate re: compression
recommendation. Dr. Traore mentioned he can debride the wounds if they do not improve. L knee high [place] wrap is already on order. Will follow as needed.
--- NOTE | 2025-01-15 12:24 | W.PN.HOSP.TC ---
Today's Communication/Plan
-
Change AB to Cipro and Augmentin for now
Daughter aware OP Follow up needed for Getting final Cx and change A if needed
Has Podiatry appt on wednesday
Assessment / Plan
Assessment / Plan
79 y/o male with history of A-fib on Eliquis presented after slip and fall out of bed on 01/01/2025. He had developed a hematoma.
LLE U/S: No DVT. Multiple left groin lymph nodes. Complex fluid collection within the soft tissues of the left calf measuring 8.2 x 2.0 x 6.4 cm without blood flow within. Most likely differential diagnostic possibility would be a hematoma. Other
fluid collections including inflammatory/infectious collections cannot be excluded.
CT LLE with IV contrast 01/12/25: Large, amorphous, predominantly soft tissue attenuation mass in the anterior proximal leg. Given the history of fall, this is most likely hematoma. There is some liquefaction centrally. This could represent focally
evolving hemorrhage or early abscess. No well organized drainable fluid collection at this time. Clinical follow-up recommended. If clinically warranted, close follow-up CT can also be performed for reevaluation. Generalized moderate soft tissue
edema in the left leg. Re demonstration of Charcot arthropathy of tarsometatarsal joints.
CVS: S1-S2 normal
Chest: CTA B/L
Abdomen: Soft, NT / Bowel sounds present
Extremities: No edema, hematoma on the left tam-no increased temperature or redness. Wounds around the ankle with discharge
#LLE collection:
-Highly doubt that this collection is infected considering it has been there about 2 weeks and the patient is hemodynamically stable, afebrile, and with a very minimal leukocytosis that is likely stress related.
-Holding Antibiotics
-surgery following
-No surgical interventions planned
-Kenney bandages encouraged ( Pt now agreeable)
-Holding Eliquis
-PT/OT
# History of right foot wound with osteomyelitis status post debridement 11/27/2023 with wound VAC application.
Also has severe Charcot arthropathy of the right foot
History of right foot osteomyelitis-Sixto hanson; 09/02/2023
Currently full-thickness venous ulcer left ankle, right plantar foot with full-thickness surgical wound, left plantar black-colored callus
Wound care consulted and following
Patient to follow-up with Dr. Arzate and Dr. Emerson as outpatient. Patient has an appointment on .
Discharge noted therefore started antibiotics
REMIGIO 09/28/2024-right lower extremity-REMIGIO within normal limits 1.24 TBI mildly reduced 0.59 which is improved from prior 0.43
Left lower extremity REMIGIO 1.35 falsely elevated TBI 1.23 within normal limits.
Check X ray
White count better with antibiotics
Change AB to Cipro and Augmentin for now
Consider Eval by tomorrow
# Paroxysmal atrial fibrillation: cont BB. Eliquis on hold with hematoma. ( will hold total of 7 days). Restart 01/18/25.
# Essential hypertension: cont BB/ARB/Norvasc
# Charcot foot bilaterally s/p surgery
# ELZBIETA, Questionable history of narcolepsy-patient was on CPAP at 1 point and is not on that anymore as it does not fit him anymore. Aware for patient
# Hyperlipidemia- Not on meds
# B/L renal artery stenosis
# Chronic venous insufficiency
# Enlarged prostate-continue Proscar
# Insomnia-continue melatonin
# RLS: cont Requip and Neupro
# Questionable Parkinson's
# DDD-continue Gabapentin
# Hx of Pancreatitis
# Ex-smoker
# DVT prophylaxis-Venous Foot Pumps
# Full code
D/W RN at bed side
Called Daughter and discussed.
Anticipated Discharge: Within 24 hours
Subjective/Interval History
-
Date of Service: January 15, 2025
Objective Data
-
Labs:
Laboratory Results
01/15/25
06:58
WBC 11.5 H
Hgb 10.6 L
Hct 31.8 L
Plt Count 399
Sodium 136
Potassium 4.3
Chloride 105
Carbon Dioxide 21 L
BUN 24 H
Creatinine 0.6 L
Glucose 94
Calcium 8.4
Vital Signs:
Vital Signs
Temp Pulse Resp BP Pulse Ox
98.8 F 72 20 156/63 97
01/15/25 07:37 01/15/25 07:37 01/15/25 07:37 01/15/25 07:37 01/15/25 08:00
I&O
01/14/25 01/15/25 01/16/25
06:59 06:59 06:59
Intake Total 1200 / 1200 960 / 960
Output Total 1200 / 1200 500 / 500
Balance 0 / 0 460 / 460
[2025-01-15] MEDS: AUGMENTIN 875 MG/125 MG 1 TABLET PO ×2 (12:50→20:21)
[2025-01-15] MEDS: CIPRO 500 MG PO ×2 (12:50→20:30)
[2025-01-15 15:09] VITALS: BP 133/57
--- NOTE | 2025-01-15 16:20 | CM ---
Chart reviewed. Care ongoing at this time.
Wound care following, cont abx
[facility] accepted for services at d/c
Plan: Home w/ [facility]
[2025-01-15] MEDS: NEUPRO 4 MG TRANSDERM (17:01)
[2025-01-15] MEDS: MELATONIN 20 MG PO (21:52)
[2025-01-15] MEDS: ZYRTEC 10 MG PO (21:52)
[2025-01-15] MEDS: NON-FORMULARY ITEM 2 MG PO (21:53)
[2025-01-15 23:41] VITALS: BP 140/52
[2025-01-16] VITALS (12 sets, daily range): BP systolic 99–141; BP diastolic 39–63
[2025-01-16] MEDS: NEURONTIN 300 MG PO ×3 (08:05→20:22)
[2025-01-16] MEDS: PROSCAR 5 MG PO (08:05)
[2025-01-16] MEDS: AUGMENTIN 875 MG/125 MG 1 TABLET PO (08:05)
[2025-01-16] MEDS: NORVASC 10 MG PO (08:05)
[2025-01-16] MEDS: OCUVITE SOFTGEL 1 CAP PO ×2 (08:05→20:17)
[2025-01-16] MEDS: TOPROL XL 50 MG PO (08:05)
[2025-01-16] MEDS: REQUIP 1 MG PO (08:05)
[2025-01-16] MEDS: COZAAR 100 MG PO (08:05)
[2025-01-16] MEDS: CIPRO 500 MG PO ×2 (08:05→20:17)
[2025-01-16] MEDS: TYLENOL 650 MG PO ×2 (08:05→20:22)
[2025-01-16] MEDS: OSCAL 500 + D 1000 MG PO ×2 (08:05→20:17)
[2025-01-16] MEDS: HYDROPHOR 1 APPLIC TOPICAL ×2 (08:06→20:19)
[2025-01-16] MEDS: DAKIN'S SOLUTION 0.125% 1/4 STRENGTH 473 ML TOPICAL (08:06)
[2025-01-16 08:36] LABS: Hematocrit 33.1 % (39.0-52.0); Hemoglobin 11.1 g/dL (13.0-18.0); Mean Corp Hgb Conc. 33.5 g/dL (33.0-37.0); Mean Corpuscular Hgb 28.9 pg (27.0-31.0); Mean Corpuscular Volume 86.2 fL (80.0-94.0); Mean Platelet Volume 9.6 fL (7.4-10.4); Platelet Count 366 10^3/uL (130-400); Red Blood Cell Count 3.84 10^6/uL (4.70-6.10); Red Cell Dist. Width 13.9 % (11.5-14.5); White Blood Cell Count 13.8 10^3/uL (4.8-10.8)
[2025-01-16 09:13] LABS: Blood Urea Nitrogen 35 mg/dl (9-20); Calcium 8.2 mg/dl (8.4-10.2); Carbon Dioxide 22 mmol/L (22-30); Chloride 105 mmol/L (98-107); Estimated Creatinine Clearance 81 ml/min; Glucose 103 mg/dl (70-99); Sodium 134 mmol/L (135-145); eGFR > 60.00
--- NOTE | 2025-01-16 11:04 | W.PN.HOSP.TC ---
Today's Communication/Plan
-
For OR today
Change AB back to IV
Assessment / Plan
Assessment / Plan
79 y/o male with history of A-fib on Eliquis presented after slip and fall out of bed on 01/01/2025. He had developed a hematoma.
LLE U/S: No DVT. Multiple left groin lymph nodes. Complex fluid collection within the soft tissues of the left calf measuring 8.2 x 2.0 x 6.4 cm without blood flow within. Most likely differential diagnostic possibility would be a hematoma. Other
fluid collections including inflammatory/infectious collections cannot be excluded.
CT LLE with IV contrast 01/12/25: Large, amorphous, predominantly soft tissue attenuation mass in the anterior proximal leg. Given the history of fall, this is most likely hematoma. There is some liquefaction centrally. This could represent focally
evolving hemorrhage or early abscess. No well organized drainable fluid collection at this time. Clinical follow-up recommended. If clinically warranted, close follow-up CT can also be performed for reevaluation. Generalized moderate soft tissue
edema in the left leg. Re demonstration of Charcot arthropathy of tarsometatarsal joints.
CVS: S1-S2 normal
Chest: CTA B/L
Abdomen: Soft, NT / Bowel sounds present
Extremities: No edema, hematoma on the left tam-similar size as yesterday wounds around the ankle with discharge
#LLE collection:
-Kenney bandages encouraged ( Pt now agreeable)
-Holding Eliquis
-For I and D today per Ortho.
# History of right foot wound with osteomyelitis status post debridement 11/27/2023 with wound VAC application.
Also has severe Charcot arthropathy of the right foot
History of right foot osteomyelitis-Staph hominis; 09/02/2023
Currently full-thickness venous ulcer left ankle, right plantar foot with full-thickness surgical wound, left plantar black-colored callus
Wound care consulted and following
Patient to follow-up with Dr. Arzate and Dr. Emreson as outpatient. Patient has an appointment on .
Discharge noted therefore started antibiotics
REMIGIO 09/28/2024-right lower extremity-REMIGIO within normal limits 1.24 TBI mildly reduced 0.59 which is improved from prior 0.43
Left lower extremity REMIIGO 1.35 falsely elevated TBI 1.23 within normal limits.
X-ray without any bone changes
Change antibiotics back to Ancef as patient is being considered for I&D and debridement of the wounds
Discussed with Dr. Traore patient is 4 OR today.
# Paroxysmal atrial fibrillation: cont BB. Eliquis on hold with hematoma. Restart 01/18/25 if okay with orthopedics
# Essential hypertension: cont BB/ARB/Norvasc
# Charcot foot bilaterally s/p surgery
# ELZBIETA, Questionable history of narcolepsy-patient was on CPAP at 1 point and is not on that anymore as it does not fit him anymore.
# Hyperlipidemia- Not on meds
# B/L renal artery stenosis
# Chronic venous insufficiency
# Enlarged prostate-continue Proscar
# Insomnia-continue melatonin
# RLS: cont Requip and Neupro
# Questionable Parkinson's
# DDD-continue Gabapentin
# Hx of Pancreatitis
# Ex-smoker
# DVT prophylaxis-Venous Foot Pumps
# Full code
D/W RN at bed side
Discussed with Dr. Traore
Anticipated Discharge: 24 - 48 hours
Subjective/Interval History
-
Date of Service: January 16, 2025
Objective Data
-
Labs:
Laboratory Results
01/16/25
08:18
WBC 13.8 H
Hgb 11.1 L
Hct 33.1 L
Plt Count 366
Sodium 134 L
Potassium 5.0
Chloride 105
Carbon Dioxide 22
BUN 35 H
Creatinine 0.7
Glucose 103 H
Calcium 8.2 L
Vital Signs:
Vital Signs
Temp Pulse Resp BP Pulse Ox
98.1 F 68 18 141/63 98
01/16/25 07:44 01/16/25 07:44 01/16/25 07:44 01/16/25 07:44 01/16/25 08:00
I&O
01/15/25 01/16/25 01/17/25
06:59 06:59 06:59
Intake Total 960 / 960 720 / 720
Output Total 500 / 500 825 / 825
Balance 460 / 460 -105 / -105
[2025-01-16] MEDS: ANCEF 10 IV ×2 (12:27→20:17)
[2025-01-16] MEDS: TYLENOL PO (15:23)
--- NOTE | 2025-01-16 16:56 | W.PN.SURGUPD ---
Surgical Update
Surgical Update
79 yo M s/p bilateral leg wound debridements, left leg hematoma I&D
-Dressings to remain C/D/I
-Will need home nursing for dressing changes 1-2 weekly upon discharge
-2x cultures obtained, recommend abx per ID recs
-NWB to RLE
-PT/OT
[2025-01-16] MEDS: NEUPRO 4 MG TRANSDERM (18:03)
[2025-01-16] MEDS: NEURONTIN PO (18:04)
[2025-01-16] MEDS: DAKIN'S SOLUTION 0.125% 1/4 STRENGTH 1 ML TOPICAL (20:18)
[2025-01-16] MEDS: MELATONIN 20 MG PO (20:22)
[2025-01-16] MEDS: ZYRTEC 10 MG PO (20:22)
[2025-01-16] MEDS: NON-FORMULARY ITEM 2 MG PO (20:28)
[2025-01-17] VITALS (7 sets, daily range): BP systolic 113–137; BP diastolic 50–60; PULSE 56; O2SAT 96
[2025-01-17] MEDS: ANCEF 10 IV ×4 (03:27→21:09)
[2025-01-17] MEDS: PROSCAR 5 MG PO (07:55)
[2025-01-17] MEDS: COZAAR 100 MG PO (07:55)
[2025-01-17] MEDS: NORVASC 10 MG PO (07:56)
[2025-01-17] MEDS: OCUVITE SOFTGEL 1 CAP PO ×2 (07:56→21:09)
[2025-01-17] MEDS: OSCAL 500 + D 1000 MG PO ×2 (07:57→21:09)
[2025-01-17] MEDS: CIPRO 500 MG PO ×2 (07:57→21:15)
[2025-01-17] MEDS: NEURONTIN 300 MG PO ×4 (07:57→21:08)
[2025-01-17] MEDS: TOPROL XL 50 MG PO (07:57)
[2025-01-17] MEDS: TYLENOL 650 MG PO ×3 (07:57→21:08)
[2025-01-17] MEDS: REQUIP 1 MG PO (07:58)
[2025-01-17] MEDS: VITAMIN B-12 1000 MCG PO (08:01)
[2025-01-17 08:39] LABS: Hematocrit 31.7 % (39.0-52.0); Hemoglobin 10.5 g/dL (13.0-18.0); Mean Corp Hgb Conc. 33.1 g/dL (33.0-37.0); Mean Corpuscular Hgb 28.7 pg (27.0-31.0); Mean Corpuscular Volume 86.6 fL (80.0-94.0); Mean Platelet Volume 9.3 fL (7.4-10.4); Platelet Count 410 10^3/uL (130-400); Red Blood Cell Count 3.66 10^6/uL (4.70-6.10); Red Cell Dist. Width 13.9 % (11.5-14.5); White Blood Cell Count 9.6 10^3/uL (4.8-10.8)
[2025-01-17 09:06] LABS: Blood Urea Nitrogen 37 mg/dl (9-20); Calcium 8.3 mg/dl (8.4-10.2); Carbon Dioxide 21 mmol/L (22-30); Chloride 103 mmol/L (98-107); Estimated Creatinine Clearance 81 ml/min; Glucose 163 mg/dl (70-99); Potassium 4.8 mmol/L (3.5-5.1); Sodium 136 mmol/L (135-145); eGFR > 60.00
--- NOTE | 2025-01-17 09:43 | WOUNDNOTE ---
WOC RN note: Confirmed next wound dressings changes due on 01/24/[address] Lay. Dr. Emerson reviewed current wound care as written in the discharge instructions and stated continue that same wound care and confirmed to continue [place]
walker RLE and flat surgical shoe L foot while out of bed.
[2025-01-17] MEDS: HYDROPHOR TOPICAL (11:08)
[2025-01-17] MEDS: DAKIN'S SOLUTION 0.125% 1/4 STRENGTH TOPICAL (11:08)
--- NOTE | 2025-01-17 12:31 | W.PN.SURGUPD ---
Surgical Update
Surgical Update
79 yo M s/p bilateral leg wound debridements, left leg hematoma I&D 01/16
-Patient seen and evaluated at bedside, recovering well. Pain significantly improved
-Dressings to remain C/D/I
-Dressings to be changed in 1 week (01/23) as follows or sooner if dressings become dirty
-For right foot, please apply 4x4 gauze, ABD pads, cast padding (webril), JOSEPH bandage
-For left foot/leg, please apply xeroform or adaptic to ankle wound, 4x4 gauze, ABD pads, cast padding (webril) and JOSEPH bandage extending from foot to just below the knee
-Will need home nursing for dressing changes 1-2 weekly upon discharge
-2x cultures obtained, recommend abx per ID recs
-Heel WBAT for transfer to right, WBAT in surgical shoe to left
-PT/OT
--- NOTE | 2025-01-17 14:07 | W.PN.HOSP.TC ---
Addendum entered and electronically signed by Yu Obrien MD 01/17/25 14:33:
Okay to start tomorrow per discussion with orthopedics
Original Note:
Today's Communication/Plan
-
Sent a message to orthopedics to see if we can restart Eliquis
Discharge planning
Medically stable for discharge to rehab tomorrow
Assessment / Plan
Assessment / Plan
79 y/o male with history of A-fib on Eliquis presented after slip and fall out of bed on 01/01/2025. He had developed a hematoma.
LLE U/S: No DVT. Multiple left groin lymph nodes. Complex fluid collection within the soft tissues of the left calf measuring 8.2 x 2.0 x 6.4 cm without blood flow within. Most likely differential diagnostic possibility would be a hematoma. Other
fluid collections including inflammatory/infectious collections cannot be excluded.
CT LLE with IV contrast 01/12/25: Large, amorphous, predominantly soft tissue attenuation mass in the anterior proximal leg. Given the history of fall, this is most likely hematoma. There is some liquefaction centrally. This could represent focally
evolving hemorrhage or early abscess. No well organized drainable fluid collection at this time. Clinical follow-up recommended. If clinically warranted, close follow-up CT can also be performed for reevaluation. Generalized moderate soft tissue
edema in the left leg. Re demonstration of Charcot arthropathy of tarsometatarsal joints.
CVS: S1-S2 normal
Chest: CTA B/L
Abdomen: Soft, NT / Bowel sounds present
Extremities: Leg is bandaged after surgery
#LLE collection: Hematoma related to Eliquis
-Kenney bandages
- Status post foot subcutaneous debridements and graft preparation with bilateral debridement down to the level of muscle and fascia bilaterally. Status post decompression of the left leg hematoma by Dr. Traore on 01/16/2025
# History of right foot wound with osteomyelitis status post debridement 11/27/2023 with wound VAC application.
Also has severe Charcot arthropathy of the right foot
History of right foot osteomyelitis-Sixto hominis; 09/02/2023
Currently full-thickness venous ulcer left ankle, right plantar foot with full-thickness surgical wound, left plantar black-colored callus on admission S/P Debridement.
REMIGIO 09/28/2024-right lower extremity-REMIGIO within normal limits 1.24 TBI mildly reduced 0.59 which is improved from prior 0.43
Left lower extremity REMIGIO 1.35 falsely elevated TBI 1.23 within normal limits.
X-ray without any bone changes
On Ancef and Cipro
Discharged on ciprofloxacin and amoxicillin
# Paroxysmal atrial fibrillation: cont BB. Eliquis on hold with hematoma. Restart if okay with orthopedics
# Essential hypertension: cont BB/ARB/Norvasc
# Charcot foot bilaterally s/p surgery
# ELZBIETA, Questionable history of narcolepsy-patient was on CPAP at 1 point and is not on that anymore as it does not fit him anymore.
# Hyperlipidemia- Not on meds
# B/L renal artery stenosis
# Chronic venous insufficiency
# Enlarged prostate-continue Proscar
# Insomnia-continue melatonin
# RLS: cont Requip and Neupro
# Questionable Parkinson's
# DDD-continue Gabapentin
# Hx of Pancreatitis
# Ex-smoker
# DVT prophylaxis-Venous Foot Pumps
# Full code
D/W RN at bed side
D/W Case management
D/W Ortho
D/W at bed side
Anticipated Discharge: Within 24 hours
Subjective/Interval History
-
Date of Service: January 17, 2025
Objective Data
-
Labs:
Laboratory Results
01/17/25
07:27
WBC 9.6
Hgb 10.5 L
Hct 31.7 L
Plt Count 410 H
Sodium 136
Potassium 4.8
Chloride 103
Carbon Dioxide 21 L
BUN 37 H
Creatinine 0.7
Glucose 163 H
Calcium 8.3 L
Vital Signs:
Vital Signs
Temp Pulse Resp BP Pulse Ox
98.7 F 56 18 117/55 99
01/17/25 11:00 01/17/25 11:00 01/17/25 11:00 01/17/25 11:00 01/17/25 11:00
I&O
01/16/25 01/17/25 01/18/25
06:59 06:59 06:59
Intake Total 720 / 720 100 / 100
Output Total 825 / 825 450 / 450
Balance -105 / -105 -350 / -350
--- NOTE | 2025-01-17 16:03 | CM ---
Discussed w/ hospitalist, nurse advised of OT orders as PT sees a skilled rehab need.
PT/OT assessed patient today and now recommending skilled rehab at d/c
CM spoke w/ patient's spouse who is agreeable to rehab as she shares that patient is not strong right now and she wouldn't be able to support him much at home right away. Spouse shared patient was prev at [facility] but is wanting somewhere
closer in [place]. CM placed multiple referrals in [facility] for review, will await determinations.
Patient will need [employer] auth
Plan: SNF; pending accepting facility and auth
[2025-01-17] MEDS: NEUPRO 4 MG TRANSDERM (17:03)
--- NOTE | 2025-01-17 17:04 | WOUNDNOTE ---
Confirmed updated wound care with Dr. Emerson after reading his note today. Wound care order and discharge instructions updated. Next dressing by nursing due 01/23/25 or sooner if soiled.
[2025-01-17] MEDS: ZYRTEC 10 MG PO (21:08)
[2025-01-17] MEDS: MELATONIN 20 MG PO ×2 (21:08)
[2025-01-17] MEDS: NON-FORMULARY ITEM 1 MG PO (21:10)
[2025-01-18 07:30] VITALS: BP 163/69
[2025-01-18] MEDS: OCUVITE SOFTGEL 1 CAP PO (08:02)
[2025-01-18] MEDS: TYLENOL 650 MG PO ×2 (08:02→17:03)
[2025-01-18] MEDS: OSCAL 500 + D 1000 MG PO (08:02)
[2025-01-18] MEDS: TOPROL XL 50 MG PO (08:03)
[2025-01-18] MEDS: REQUIP 1 MG PO (08:03)
[2025-01-18] MEDS: NORVASC 10 MG PO (08:03)
[2025-01-18] MEDS: CIPRO 500 MG PO (08:03)
[2025-01-18] MEDS: COZAAR 100 MG PO (08:03)
[2025-01-18] MEDS: PROSCAR 5 MG PO (08:03)
[2025-01-18] MEDS: NEURONTIN 300 MG PO ×3 (08:03→17:03)
[2025-01-18] MEDS: ANCEF 10 IV (12:01)
--- NOTE | 2025-01-18 14:17 | W.PN.HOSP.TC ---
Addendum entered and electronically signed by Yu Obrien MD 01/18/25 14:32:
More than 30 minutes spent in discharge including
Final examination of the patient
Summarizing hospital stay
Instructions for continuing care to all relevant caregivers
Preparation of discharge records, prescriptions, and referral forms
Total time spent (in minutes): 36 min
Original Note:
Today's Communication/Plan
-
Medically stable for discharge when case management can place
Assessment / Plan
Assessment / Plan
79 y/o male with history of A-fib on Eliquis presented after slip and fall out of bed on 01/01/2025. He had developed a hematoma.
LLE U/S: No DVT. Multiple left groin lymph nodes. Complex fluid collection within the soft tissues of the left calf measuring 8.2 x 2.0 x 6.4 cm without blood flow within. Most likely differential diagnostic possibility would be a hematoma. Other
fluid collections including inflammatory/infectious collections cannot be excluded.
CT LLE with IV contrast 01/12/25: Large, amorphous, predominantly soft tissue attenuation mass in the anterior proximal leg. Given the history of fall, this is most likely hematoma. There is some liquefaction centrally. This could represent focally
evolving hemorrhage or early abscess. No well organized drainable fluid collection at this time. Clinical follow-up recommended. If clinically warranted, close follow-up CT can also be performed for reevaluation. Generalized moderate soft tissue
edema in the left leg. Re demonstration of Charcot arthropathy of tarsometatarsal joints.
CVS: S1-S2 normal
Chest: CTA B/L
Abdomen: Soft, NT / Bowel sounds present
Extremities: Leg is bandaged after surgery
#LLE collection: Hematoma related to Eliquis
-Kenney bandages
- Status post foot subcutaneous debridement and graft preparation with bilateral debridement down to the level of muscle and fascia bilaterally. Status post decompression of the left leg hematoma by Dr. Traore on 01/16/2025
# History of right foot wound with osteomyelitis status post debridement 11/27/2023 with wound VAC application.
Also has severe Charcot arthropathy of the right foot
History of right foot osteomyelitis-Staph hominis; 09/02/2023
Currently full-thickness venous ulcer left ankle, right plantar foot with full-thickness surgical wound, left plantar black-colored callus on admission S/P Debridement.
REMIGIO 09/28/2024-right lower extremity-REMIGIO within normal limits 1.24 TBI mildly reduced 0.59 which is improved from prior 0.43
Left lower extremity REMIGIO 1.35 falsely elevated TBI 1.23 within normal limits.
X-ray without any bone changes
On Ancef and Cipro
Discharge on ciprofloxacin and amoxicillin
# Paroxysmal atrial fibrillation: cont BB. Eliquis on hold with hematoma. Restart eliquis ( OK with POdiatry)
# Essential hypertension: cont BB/ARB/Norvasc
# Charcot foot bilaterally s/p surgery
# ELZBIETA, Questionable history of narcolepsy-patient was on CPAP at 1 point and is not on that anymore as it does not fit him anymore.
# Hyperlipidemia- Not on meds
# B/L renal artery stenosis
# Chronic venous insufficiency
# Enlarged prostate-continue Proscar
# Insomnia-continue melatonin
# RLS: cont Requip and Neupro
# Questionable Parkinson's
# DDD-continue Gabapentin
# Hx of Pancreatitis
# Ex-smoker
# DVT prophylaxis-Eliquis
# Full code
D/W RN at bed side
D/W Case management
D/W at bed side
Anticipated Discharge: Within 24 hours
Subjective/Interval History
-
Date of Service: January 18, 2025
Objective Data
-
Vital Signs:
Vital Signs
Temp Pulse Resp BP Pulse Ox
98.1 F 59 18 163/69 98
01/18/25 07:30 01/18/25 07:30 01/18/25 07:30 01/18/25 07:30 01/18/25 07:30
I&O
01/17/25 01/18/25 01/19/25
06:59 06:59 06:59
Intake Total 100 / 100 1440 / 1440
Output Total 450 / 450 1875 / 1875
Balance -350 / -350 -435 / -435
--- NOTE | 2025-01-18 14:30 | W.DS.TRANS ---
Addendum entered and electronically signed by Yu Obrien MD 01/19/25 08:49:
Dictation- [id number]
Original Note:
DC Summary - Roving Frame Tender
-
Discharge Instructions:
Discharge Diagnosis/Procedures Left lower extremity hematoma-status post I&D by
Dr. Traore 01/16/2025
Full-thickness venous ulcer left ankle status
post debridement by Dr. Traore 01/16/2025
Paroxysmal atrial fibrillation
Hypertension
Charcot foot bilaterally
Hyperlipidemia not on meds
Chronic venous insufficiency
Enlarged prostate
Restless leg syndrome
DDD
Diet 2 Gram Sodium
Activity As tolerated,Do not bear weight R leg
Additional Activity Heel WBAT for transfer to right, WBAT in
surgical shoe to left
Driving Restrictions No driving
Other Services PT,OT
Instructions:
Stand-Alone Forms:
Changes to Home Medications: Yes
Discharge Medications:
DC Medications w/original date entered in [employer]
amlodipine 10 mg tablet 10 mg PO DAILY Blood Pressure 10/03/21
finasteride 5 mg tablet 5 mg PO DAILY Urinary Issue 10/03/21
rotigotine 4 mg/24 hour transdermal 24 hour patch (Neupro) 1 patch transdermal QPM Neurological Condition 10/03/21
calcium 600 mg (as carbonate)-vitamin D3 12.5 mcg (500 unit) capsule (Calcium with Vit D3) 2 cap PO BID Supplement 12/03/22
cetirizine 10 mg tablet 10 mg PO HS Allergies 12/03/22
sglblncomnn-zyi-cytrcvnow-vitC capsule (Glucosamine Complex-MSM capsule) 1 cap PO TID Supplement 12/03/22
melatonin 10 mg tablet 20 mg PO HS Sleep 12/03/22
apixaban 5 mg tablet (Eliquis) 5 mg PO BID Blood Clot Prevention/Tx 08/30/23
metoprolol succinate 25 mg tablet,extended release 24 hr 50 mg PO DAILY Blood Pressure 08/30/23
ropinirole 1 mg tablet 1 mg PO DAILY restless legs 08/30/23
ropinirole 2 mg tablet,extended release 24 hr 2 mg PO HS restless legs 08/30/23
cyanocobalamin (vitamin B-12) 1,000 mcg tablet 1,000 mcg PO MOWEFR Supplement 11/23/23
losartan 100 mg tablet 100 mg PO DAILY Blood Pressure 11/23/23
vitamins A,C,U-mmkk-ixhmds 2,148 mcg-113 mg-45 mg-17.4 mg tablet (PreserVision AREDS) 1 tab PO BID Supplement 11/23/23
acetaminophen 325 mg tablet (Tylenol) 650 mg PO TID 01/11/25
amoxicillin 875 mg-potassium clavulanate 125 mg tablet 1 tab PO BID Skin issues #12 tabs 01/18/25
ciprofloxacin HCl 500 mg tablet 500 mg PO BID Skin issues #0 tabs 01/18/25
gabapentin 300 mg capsule 300 mg PO QID Neurological Condition #0 caps 01/18/25
Home Medication Changes
new
amoxicillin 875 mg-potassium clavulanate 125 mg tablet 1 tab PO BID Skin issues #12 tabs 01/18/25
ciprofloxacin HCl 500 mg tablet 500 mg PO BID Skin issues #0 tabs 01/18/25
Pending Results: Yes
Additional Pending Results:
final wound cultures
--- NOTE | 2025-01-18 14:30 | CM ---
Spoke w/ patient's spouse to review SNF options and determinations. [facility] is able to accept patient. Spouse shared it is important for patient to have enough space to ambulate w/ his knee scooter to minimize weight on RLE. Patient currently
wears a [place] boot on RLE and surgical shoe on LLE. Spouse shared when patient was at [facility] in the past, he was able to navigate w/ scooter which is a necessity, therefore, is preferring for patient to go there for STR.
CM placed referral to [facility] in [facility], SNF accepted and can offer bed today
CM obtained [employer] auth through [employer]. Certified in total for 7 days beginning today, next review is on 01/24
Certification number [id number]. Updated [facility] admissions
Patient will need ambulance transport, forms on chart
IMM verbally reviewed, patient given copy, copy placed on chart
[facility]
Report: [phone]

Plan: D/c to [facility] today
[2025-01-18 15:00] VITALS: BP 125/58
[2025-01-18] MEDS: NEUPRO 4 MG TRANSDERM (17:03)
== END 2025-01-18 18:53 | DRG 264 ==
LOC: 4 WEST ACU 15:09
PROVIDERS: Nurse Practitioner; Nurse Practitioner Family; ADMITTING PHYSICIAN Internal Medicine; ATTENDING PHYSICIAN Hospitalist; CONSULT PHYSICIAN Student in an Organized Health Care Education/Training Program; EMERGENCY PHYSICIAN Emergency Medicine; FAMILY PHYSICIAN Family Medicine; OTHER PHYSICIAN Surgery
PROC: 0JCP0ZZ Extirpation of Matter from Left Lower Leg Subcutaneous Tissue and Fascia, Open Approach (ICD-10-PCS; 2025-01-16)
PROC: 0JBR0ZZ Excision of Left Foot Subcutaneous Tissue and Fascia, Open Approach (ICD-10-PCS; 2025-01-16)
DX: I83.223 Varicose veins of left lower extremity with both ulcer of ankle and inflammation (principal); D68.32 Hemorrhagic disorder due to extrinsic circulating anticoagulants; L03.116 Cellulitis of left lower limb; L97.329 Non-pressure chronic ulcer of left ankle with unspecified severity; S80.12XA Contusion of left lower leg, initial encounter; S90.02XA Contusion of left ankle, initial encounter; G25.81 Restless legs syndrome; G47.33 Obstructive sleep apnea (adult) (pediatric); N18.9 Chronic kidney disease, unspecified; I48.0 Paroxysmal atrial fibrillation; I70.1 Atherosclerosis of renal artery; N40.1 Benign prostatic hyperplasia with lower urinary tract symptoms; G47.00 Insomnia, unspecified; E78.5 Hyperlipidemia, unspecified; I12.9 Hypertensive chronic kidney disease with stage 1 through stage 4 chronic kidney disease, or unspecified chronic kidney disease; E78.00 Pure hypercholesterolemia, unspecified; F10.10 Alcohol abuse, uncomplicated; R33.8 Other retention of urine; I89.0 Lymphedema, not elsewhere classified; M14.672 Charcot's joint, left ankle and foot; M14.671 Charcot's joint, right ankle and foot; W06.XXXA Fall from bed, initial encounter; W22.8XXA Striking against or struck by other objects, initial encounter; Y93.01 Activity, walking, marching and hiking; Y92.9 Unspecified place or not applicable; Z79.01 Long term (current) use of anticoagulants; Z87.891 Personal history of nicotine dependence; Z86.19 Personal history of other infectious and parasitic diseases; Z88.8 Allergy status to other drugs, medicaments and biological substances; Z91.048 Other nonmedicinal substance allergy status; Z91.81 History of falling; Z91.199 Patient's noncompliance with other medical treatment and regimen due to unspecified reason; Z87.11 Personal history of peptic ulcer disease
CPT/HCPCS: 73502; 73610; 73701; 80048; 80053; 85025; 85027; 86803; 87070; 87071; 87075; 87077; 87186; 87205; 93005; 93971; 96374; 97116; 97163; 97164; 97167; 97530; 99285; Q9967

== ENCOUNTER → 2025-02-06 10:52 | Outpatient (REF) | payer OTHER, SELFPAY | LOC: WOUND 10:52 | PROVIDERS: ATTENDING PHYSICIAN Surgery; FAMILY PHYSICIAN Family Medicine | DX: I87.312 Chronic venous hypertension (idiopathic) with ulcer of left lower extremity (principal); L97.322 Non-pressure chronic ulcer of left ankle with fat layer exposed; L97.222 Non-pressure chronic ulcer of left calf with fat layer exposed; L97.422 Non-pressure chronic ulcer of left heel and midfoot with fat layer exposed; I87.2 Venous insufficiency (chronic) (peripheral) | CPT/HCPCS: 99213 ==

== ENCOUNTER → 2025-02-08 15:28 | Outpatient (REF) | payer OTHER, SELFPAY | LOC: HWRAD 15:28 | PROVIDERS: ATTENDING PHYSICIAN Radiology Vascular & Interventional Radiology | DX: I83.892 Varicose veins of left lower extremity with other complications (principal) | CPT/HCPCS: 93971 ==

== ENCOUNTER 2025-03-02 18:58 | Inpatient (IN) | payer OTHER, SELFPAY ==
[2025-03-02 11:48] VITALS: BP 153/73
[2025-03-02 12:19] LABS: % Basophils 0.6 % (0-2); % Eosinophils 2.5 % (0-6); % Immature Granulocytes 0.3 % (0-0.5); % Lymphocytes 10.9 % (20.5-51.1); % Monocytes 12.1 % (1.7-9.3); % Neutrophils 73.6 % (42.2-75.2); Absolute Basophils 0.1 10^3/uL (0-0.2); Absolute Eosinophils 0.3 10^3/uL (0-0.7); Absolute Lymphocytes 1.2 10^3/uL (1.2-3.4); Absolute Monocytes 1.4 10^3/uL (0.1-0.6); Absolute Neutrophils 8.4 10^3/uL (1.4-6.5); Hematocrit 32.9 % (39.0-52.0); Hemoglobin 10.6 g/dL (13.0-18.0); Mean Corp Hgb Conc. 32.2 g/dL (33.0-37.0); Mean Platelet Volume 9.9 fL (7.4-10.4); Nucleated Red Blood Cells % 0 % (-); Platelet Count 286 10^3/uL (130-400); Red Blood Cell Count 3.78 10^6/uL (4.70-6.10); Red Cell Dist. Width 14.8 % (11.5-14.5); White Blood Cell Count 11.4 10^3/uL (4.8-10.8)
[2025-03-02 12:32] LABS: ALT (SGPT) 16 U/L (0-50); AST (SGOT) 22 U/L (17-59); Albumin 3.6 g/dl (3.5-5.0); Alkaline Phosphatase 125 U/L (38-126); Blood Urea Nitrogen 25 mg/dl (9-20); Calcium 9.1 mg/dl (8.4-10.2); Carbon Dioxide 22 mmol/L (22-30); Chloride 110 mmol/L (98-107); Glucose 106 mg/dl (70-99); Potassium 4.2 mmol/L (3.5-5.1); Sodium 139 mmol/L (135-145); Total Bilirubin 0.4 mg/dl (0.2-1.3); eGFR > 60.00
[2025-03-02 12:49] LABS: Urine Albumin 1+ (Neg - Trace); Urine Bilirubin Negative (Negative); Urine Character Clear (Clear); Urine Color Yellow; Urine Glucose Negative (Negative); Urine Ketone Negative (Negative); Urine Leukocyte Negative (Negative); Urine Nitrite Negative (Negative); Urine Occult Blood Negative (Negative); Urine Specific Gravity 1.015 (<1.030); Urine Urobilinogen Negative (Neg - 1+)
[2025-03-02 13:09] LABS: Urine Bacteria Many (Negative); Urine Red Blood Cell 0-2 /HPF (0-2); Urine Squamous Cell 0-2 /LPF (Few)
[2025-03-02 13:25] LABS: Lactic Acid 1.2 mmol/L (0.7-2.0)
--- NOTE | 2025-03-02 16:01 | ED.GENMED ---
History of Present Illness
General
Chief Complaint: Skin Problem
Source: patient
Exam Limitations: none
Time Seen by Provider: 03/02/25 13:56
Nursing documentation reviewed up to this point in time: agreed with
History of Present Illness
History of Present Illness:
Patient is an 79-year-old male past medical history of A-fib hypertension, restless leg syndrome, chronic wounds chronic kidney disease Charcot foot bilaterally, chronic venous insufficiency, osteomyelitis to left second toe w/ partial left 2nd toe
amputation, evacuation of hematoma to left lower leg/cellulitis sent by wound care nurse for increasing redness and drainage to left anterior lower leg patient. Patient denies any pain no fever chills.
Past History
Past History
ED Past Medical History: HTN, Hypercholesterolemia, Other (PUD) and Other (RLS)
Social History
Tobacco: Non-smoker
Personal:
Review of Systems
Review of Systems
Allergies reviewed?: Yes
Other source history: family
All Other Systems: ROS reviewed and negative except as documented in HPI and ROS
Constitutional: Reports no symptoms; Denies fever, fatigue or chills
Musculoskeletal: Reports other (increasing wound to left lower leg )
Skin: Reports other (see above )
Neurological: Reports no symptoms
Psychiatric: Reports no symptoms
Phy Exam
General Physical Exam
General Presentation: no apparent distress
General age: appears stated age
General Skin: warm and dry
General Habitus: normal
General Mental: alert
General Hydration: appears well hydrated
Neurological Exam
Neurological Exam: alert and oriented x3
Musculoskeletal Exam
Musculoskeletal Exam: other (Left lower extremity with + pulses by doppler, + erythema /drainage to left lower leg weepy + doppler pulses b/l )
Skin Exam
Skin Exam: normal color and warm/dry
Psychiatric Exam
Psychiatric Exam: normal mood/affect
Sepsis
Sepsis Screening
Sepsis Assessment: Sepsis Ruled Out
Sepsis Screen
Sepsis Screen: Sepsis Ruled Out
Date: 03/02/25
Time: 18:12
Course
Orders/Labs/Results
Orders:
Orders
03/02/25 11:52
Electrocardiogram (*1) Urgent
Reason for Study: Other
Other Reason for Exam: Possible Sepsis
03/02/25 11:53
EKG- Treatment ONCE
CR Chest - 2 Views Urgent
Comment:
Reason For Exam: suspected infection
03/02/25 12:01
Complete Blood Count/With Diff Urgent
Comprehensive Metabolic Panel Urgent
Blood Culture Stat
JUANPABLO Source: Blood/Venous
Specimen Description:
Date Specimen was Collected: 03/02/25
Time Specimen was Collected: 11:53
03/02/25 12:02
Lactic Acid Stat
Urinalysis Reflex To Culture Stat
Date Specimen was Collected: 03/02/25
Time Specimen was Collected: 11:53
Urine Microscopic Reflex Cult Stat
Urine Culture Stat
JUANPABLO Source: U
Specimen Description:
Date Specimen was Collected: 03/02/25
Time Specimen was Collected: 11:53
03/02/25 16:01
Venous Doppler Lwr Ext Bilat [US Periph Venous LOWER Ext Alex] Urgent
Comment:
Reason For Exam: swelling
Abnormal Lab Results
03/02/25 03/02/25
12:01 12:02
WBC 11.4 H 10^3/uL
(4.8-10.8)
RBC 3.78 L 10^6/uL
(4.70-6.10)
Hgb 10.6 L g/dL
(13.0-18.0)
Hct 32.9 L %
(39.0-52.0)
MCHC 32.2 L g/dL
(33.0-37.0)
RDW 14.8 H %
(11.5-14.5)
Absolute Neuts (auto) 8.4 H 10^3/uL
(1.4-6.5)
Absolute Monos (auto) 1.4 H 10^3/uL
(0.1-0.6)
Lymphocytes % 10.9 L %
(20.5-51.1)
Monocytes % 12.1 H %
(1.7-9.3)
Chloride 110 H mmol/L
(98-107)
BUN 25 H mg/dl
(9-20)
Glucose 106 H mg/dl
(70-99)
Urine Bacteria (Reflex) Many A
(Negative)
Urine Albumin (Reflex) 1+ A
(Neg - Trace)
03/02/25 12:01
03/02/25 12:01
Vital Signs
Initial and Last Documented VS:
Initial Vital Signs
Temp Pulse Resp BP Pulse Ox
98.3 F 61 20 153/73 97
03/02/25 11:48 03/02/25 11:48 03/02/25 11:48 03/02/25 11:48 03/02/25 11:48
Last Documented Vital Signs
Temp Pulse Resp BP Pulse Ox
98.3 F 61 20 153/73 97
03/02/25 11:48 03/02/25 11:48 03/02/25 11:48 03/02/25 11:48 03/02/25 11:48
MDM/Problems Addressed
Differential Diagnosis Includes:
not limited to cellulitis, DVT
MDM/Problems Addressed:
Will admit for cellulitis of left lower extremity. Left lower extremity with lower leg weeping redness. White count minimally elevated. Pulses by Doppler; afebrile .
*Radiology
Radiology exam reviewed: radiology read reviewed
*Pulse Oximetry
Patient hypoxic: no
*Critical Care Note
Total Time (30-74mins, 75-104mins- exclusive of procedures): Not Applicable
Data Reviewed
Review of Other/Old Records Reveals: Discharge Summary
ED Attending Note
-
Portions of this chart may have been created with voice recognition software.� Occasional wrong word or��sound alike� substitutions may have occurred due to the inherent limitations of voice recognition software.
Discharge Plan
Departure
Patient Disposition: Admit
Date of Disposition: 03/02/25
Time of Disposition: 18:11
Admit to: Med/Surg
Admit to doctor: hospitalist
Presentation/result/management discussed w/ accepting MD/DO: Hospitalist
Patient with high blood pressure during this ER visit?: Yes
Condition: Fair
Covid-19: Not Applicable
Discharge Problem:
Cellulitis of left leg
Prescriptions:
No Action
amlodipine 10 MG tablet
10 mg PO DAILY
finasteride 5 MG tablet
5 mg PO DAILY
Neupro 4 MG patch 24 hour
1 patch transdermal QPM
cetirizine 10 mg Tablet
10 mg PO HS
calcium carbonate-vitamin D3 [Calcium 600 with Vitamin D3] 600 mg-12.5 mcg (500 unit) Capsule
2 cap PO BID
melatonin 10 mg Tablet
20 mg PO HS
Glucosamine Complex-MSM Capsule
1 cap PO TID
ropinirole 1 mg Tablet
1 mg PO DAILY
metoprolol succinate 25 mg Tablet Extended Release 24 Hr
50 mg PO DAILY
ropinirole 2 mg Tablet Extended Release 24 Hr
2 mg PO HS
Eliquis 5 mg Tablet
5 mg PO BID
cyanocobalamin (vitamin B-12) 1,000 mcg Tablet
1,000 mcg PO MOWEFR
losartan 100 mg Tablet
100 mg PO DAILY
PreserVision AREDS 2,148 mcg-113 mg-45 mg-17.4mg Tablet
1 tab PO BID
acetaminophen [Tylenol] 325 mg Tablet
650 mg PO TID
ciprofloxacin HCl 500 mg Tablet
500 mg PO BID Qty: 0 0RF
amoxicillin-pot clavulanate 875-125 mg tablet
1 tab PO BID Qty: 12 0RF
gabapentin 300 mg Capsule
300 mg PO QID Qty: 0 0RF
Referrals:
Tosin Ventura MD [Family Provider, Family Practice]
Interventions
Interventions:
*Risk Screen - Suicide Last Done: 03/02/25 11:48
*General Assessment Last Done: 03/02/25 14:51
*Neglect/Abuse Screening Last Done: 03/02/25 11:48
*ED- Fall Risk Assessment Last Done: 03/02/25 14:51
*ED COVID-19 Vaccine History Last Done: 03/02/25 14:51
Discharge Date and Time
Print Language: BELIZEAN
--- NOTE | 2025-03-02 18:26 | HPS.HSE ---
Family Physician
-
Family Physician: Tosin Ventura
Chief Complaint
-
Weeping from Left Lower Extremity
History of Present Illness
Patient is an 79 y/o male past medical history of atrial fibrillation, hypertension, renal artery stenosis, venous insufficiency, lower extremity lymphedema, Charcot arthropathy, chronic pain, restless leg syndrome and insomnia who presents with
weeping/drainage from left lower extremity. Patient was sent in by visiting nurse who been coming out to see him and change the wound dressing every few days. Today visiting nurse expressed concern of increased drainage and redness of the left
lower extremity. Patient reports he is frequently very cold at night, but does not describe chills. He denies fevers.
Medical History
Past Medical History
Past Medical History: Reports Other
Additional Past Medical History:
Paroxysmal Atrial Fibrillation
Hypertension
Renal Artery Stenosis
Chronic Venous Insufficiency
Chronic Lower Extremity Lymphedema
Charcot Arthropathy
Chronic Pain Syndrome
Restless Leg Syndrome
Insomnia
BPH
ELZBIETA
Past Surgical History: Reports Other
Additional Past Surgical History:
Lower Back Surgery
Carpal Tunnel Release
Hernia Repair
Right Foot Surgery
Multiple Partial Toe Amputations
LLE Vein Procedure
Social History
Tobacco: Former Smoker
Alcohol: Occasional (2 beers)
Drug: None
Family History
Family History: Not pertinent
Allergies / Home Medications
Allergies reflects when Allergies were last updated in [facility].
Home Medications with original date entered in [facility]
Allergy/Medication List:
Allergies
Allergy/AdvReac Type Severity Reaction Status Date / Time
adhesive Allergy Rash, Verified 03/02/25 11:51
Itching
hydroxychloroquine Allergy Rash Verified 03/02/25 11:51
pollen extracts Allergy seasonal Verified 03/02/25 11:51
allergy
Home Medications
amlodipine 10 mg tablet 10 mg PO DAILY Blood Pressure 10/03/21
finasteride 5 mg tablet 5 mg PO DAILY Urinary Issue 10/03/21
rotigotine 4 mg/24 hour transdermal 24 hour patch (Neupro) 1 patch transdermal QPM Neurological Condition 10/03/21
calcium 600 mg (as carbonate)-vitamin D3 12.5 mcg (500 unit) capsule (Calcium with Vit D3) 1 cap PO BID Supplement 12/03/22
cetirizine 10 mg tablet 10 mg PO HS Allergies 12/03/22
[id number]-vitC capsule (Glucosamine Complex-MSM capsule) 1 cap PO TID Supplement 12/03/22
melatonin 10 mg tablet 20 mg PO HS Sleep 12/03/22
apixaban 5 mg tablet (Eliquis) 5 mg PO BID Blood Clot Prevention/Tx 08/30/23
metoprolol succinate 25 mg tablet,extended release 24 hr 50 mg PO DAILY Blood Pressure 08/30/23
ropinirole 1 mg tablet 1 mg PO DAILY@2100 restless legs 08/30/23
ropinirole 2 mg tablet,extended release 24 hr 4 mg PO HS restless legs 08/30/23
cyanocobalamin (vitamin B-12) 1,000 mcg tablet 1,000 mcg PO MOWEFR Supplement 11/23/23
losartan 100 mg tablet 100 mg PO DAILY Blood Pressure 11/23/23
vitamins A,C,J-sxhs-nnmlax 2,148 mcg-113 mg-45 mg-17.4 mg tablet (PreserVision AREDS) 1 tab PO BID Supplement 11/23/23
acetaminophen 325 mg tablet (Tylenol) 650 mg PO TID 01/11/25
gabapentin 300 mg capsule 300 mg PO TID Neurological Condition 03/02/25
Review of Systems
-
History Source: Patient
A 12 point ROS was completed and negative except as noted: Yes
Constitutional: Denies Fever or Chills
Respiratory: Denies Cough or Trouble Breathing
Cardiac: Denies Chest Pain or Palpitations
Abdomen/GI: Denies Abdominal Pain, Nausea, Vomiting, Diarrhea or Constipated
Physical Exam
Vital Signs
Vital Signs
Temp Pulse Resp BP Pulse Ox
98.3 F 61 20 153/73 97
03/02/25 11:48 03/02/25 11:48 03/02/25 11:48 03/02/25 11:48 03/02/25 11:48
Physical Exam
General: Comfortable and Conversant
HEENT: Anicteric and Moist mucous membranes
Respiratory: Clear and Non Labored Respirations
Cardiac: S1/S2 and Regular Rhythm
GI: Soft and Non Tender
Rectal: Deferred by Provider
Musculoskeletal: No Clubbing, No Cyanosis and Other (Chronic edema bilateral lower extremities with chronic venous stasis changes)
Skin: Other (Mild erythema LLE with weeping noted with slight foul smelling odor)
Neuro: Awake, Alert, Oriented and Nonfocal/grossly intact
Psych: Calm
Laboratory Results
-
03/02/25 12:01
03/02/25 12:01
Laboratory Results
Lactic Acid 1.2 mmol/L (0.7-2.0) 03/02/25 12:02
Total Bilirubin 0.4 mg/dl (0.2-1.3) 03/02/25 12:01
AST 22 U/L (17-59) 03/02/25 12:01
ALT 16 U/L (0-50) 03/02/25 12:01
Alkaline Phosphatase 125 U/L (38-126) 03/02/25 12:01
Peripheral Vascular Ultrasound:
No sonographic evidence for lower extremity venous thrombosis. Limited evaluation of the calves.
Severe bilateral calf soft tissue edematous change. Progressed on the left. Improved on the right.
Moderate bilateral groin lymphadenopathy.
Impression/Plan
-
Left Lower Extremity Cellulitis
-Continue Ancef
-Consult Wound Care
Paroxysmal Atrial Fibrillation
-Continue Eliquis for anticoagulation
-Continue Metoprolol for rate control
Hypertension
-Continue amlodipine, losartan and metoprolol
Chronic Pain Syndrome
-Continue Gabapentin
Restless Leg Syndrome
-Continue ropinirole and Neupro patch
Insomnia
-Continue Melatonin
BPH
-Continue finasteride
Other Noted History
-Chronic Venous Insufficiency
-Chronic Lower Extremity Lymphedema
-Bilateral Charcot Arthropathy
DVT proph: Eliquis
Code Status: Full Code
[2025-03-02 18:27] VITALS: BMI 25.3
[2025-03-02 18:31] VITALS: BP 140/63
[2025-03-02] MEDS: ANCEF 5 IV (18:40)
--- NOTE | 2025-03-02 19:55 | W.PN.UPDATE ---
Update Note
Progress Note Update
This is an addendum to the H&P written by Yenny Perkins on 03/02/2025.� Patient seen and examined independently with PA.
79-year-old male past medical history of paroxysmal atrial fibrillation on Eliquis, restless leg syndrome, chronic venous insufficiency status post surgery, lower extremity lymphedema, bilateral Charcot foot, hypertension, BPH, presenting with left
lower extremity superficial area of drainage from the ankle that is draining with surrounding redness, swelling progressing up the leg.� No fevers or chills.
Venous ultrasound shows severe bilateral Soft tissue edematous change left, improved on the right.� moderate bilateral groin lymphadenopathy progress on the right.
Wound care.� Cefazolin for underlying cellulitis.
[2025-03-02 21:05] VITALS: BP 164/61
[2025-03-02] MEDS: MELATONIN 20 MG PO (22:27)
[2025-03-02] MEDS: REQUIP 1 MG PO (22:28)
[2025-03-02] MEDS: NEURONTIN 300 MG PO (22:28)
[2025-03-02] MEDS: ELIQUIS 5 MG PO (22:28)
[2025-03-03 00:24] VITALS: BP 159/77
[2025-03-03] MEDS: ANCEF 10 IV ×3 (02:47→16:15)
[2025-03-03 07:16] VITALS: BP 152/62
[2025-03-03] MEDS: COZAAR 100 MG PO (07:58)
[2025-03-03] MEDS: NEURONTIN 300 MG PO ×3 (07:58→21:33)
[2025-03-03] MEDS: NORVASC 10 MG PO (07:58)
[2025-03-03] MEDS: ELIQUIS 5 MG PO ×2 (07:58→19:58)
[2025-03-03] MEDS: TOPROL XL 50 MG PO (07:59)
[2025-03-03] MEDS: PROSCAR 5 MG PO (07:59)
[2025-03-03 08:51] LABS: Hematocrit 33.3 % (39.0-52.0); Hemoglobin 10.7 g/dL (13.0-18.0); Mean Corp Hgb Conc. 32.1 g/dL (33.0-37.0); Mean Corpuscular Volume 87.2 fL (80.0-94.0); Mean Platelet Volume 9.9 fL (7.4-10.4); Platelet Count 303 10^3/uL (130-400); Red Blood Cell Count 3.82 10^6/uL (4.70-6.10); Red Cell Dist. Width 14.7 % (11.5-14.5); White Blood Cell Count 9.6 10^3/uL (4.8-10.8)
[2025-03-03 09:30] LABS: Blood Urea Nitrogen 18 mg/dl (9-20); Calcium 8.4 mg/dl (8.4-10.2); Carbon Dioxide 23 mmol/L (22-30); Chloride 105 mmol/L (98-107); Estimated Creatinine Clearance 84 ml/min; Glucose 173 mg/dl (70-99); Sodium 136 mmol/L (135-145); eGFR > 60.00
--- NOTE | 2025-03-03 10:54 | CM ---
Patient seen bedside, initial assessment completed. Patient is an 79 y/o male past medical history of atrial fibrillation, hypertension, renal artery stenosis, venous insufficiency, lower extremity lymphedema, Charcot arthropathy, chronic pain,
restless leg syndrome and insomnia who presents with weeping/drainage from left lower extremity.
Patient resides w/ spouse in a 2STH- 2 steps to enter the home. Patient uses knee scooter and cane to ambulate at this time. Has additional grab bar and shower chair in the bathroom. Independent w/ ADLs. [facility] in the past. No HC hx
reported.
Address, point of contact and insurance verified
PCP: Tosin Ventura
Pharmacy: [facility]
Wound care. IV abx for cellulitis
Plan: Home anticipated. Will watch for any needs
--- NOTE | 2025-03-03 13:26 | W.PN.HOSP.TC ---
Today's Communication/Plan
-
much improved. Case management please help with discharge planning for tomorrow.
Assessment / Plan
Assessment / Plan
79 y/o male past medical history of:
atrial fibrillation,
hypertension,
renal artery stenosis,
venous insufficiency,
lower extremity lymphedema,
Charcot arthropathy,
chronic pain,
restless leg syndrome and
insomnia
who presents with weeping/drainage from left lower extremity. Patient was sent in by visiting nurse who been coming out to see him and change the wound dressing every few days. Today visiting nurse expressed concern of increased drainage and
redness of the left lower extremity. Patient reports he is frequently very cold at night, but does not describe chills. He denies fevers.
A/P: hospital course:
1. Left Lower Extremity Cellulitis - improving
-Continue Ancef
-Consult Wound Care
-likely ready to go home tomorrow
2. Paroxysmal Atrial Fibrillation
-Continue Eliquis for anticoagulation
-Continue Metoprolol for rate control
3. Hypertension - chronic
-Continue amlodipine, losartan and metoprolol
4. Chronic Pain Syndrome
-Continue Gabapentin
5. Restless Leg Syndrome
-Continue ropinirole and Neupro patch
6. Insomnia
-Continue Melatonin
7. BPH
-Continue finasteride
Other Noted History
-Chronic Venous Insufficiency
-Chronic Lower Extremity Lymphedema
-Bilateral Charcot Arthropathy
DVT proph: Eliquis
Code Status: Full Code
Anticipated Discharge: Within 24 hours
Subjective/Interval History
-
Date of Service: March 03, 2025
feels better and redness is improved
Objective Data
-
Labs:
Laboratory Results
03/03/25
08:29
WBC 9.6
Hgb 10.7 L
Hct 33.3 L
Plt Count 303
Sodium 136
Potassium 4.0
Chloride 105
Carbon Dioxide 23
BUN 18
Creatinine 0.7
Glucose 173 H
Calcium 8.4
Vital Signs:
Vital Signs
Temp Pulse Resp BP Pulse Ox
98.1 F 68 18 152/62 98
03/03/25 07:16 03/03/25 07:16 03/03/25 07:16 03/03/25 07:16 03/03/25 08:00
I&O
03/02/25 03/03/25 03/04/25
06:59 06:59 06:59
Intake Total 240 / 240
Output Total 1200 / 1200
Balance -960 / -960
Review of Systems
-
History Source: Patient
All other systems: Reviewed and negative
Physical Exam
-
General: Well Developed, Well Nourished, No Apparent Distress and Comfortable
HEENT: Normocephalic, Atraumatic, Nose Appears Normal and Ears Appear Normal
Respiratory: Clear to Auscultation
Cardiac: Regular Rhythm and S1/S2
GI: Soft, Nontender and Nondistended
Musculoskeletal: No Clubbing, No Cyanosis and No Edema
Skin: Warm and Dry
Neuro: Awake, Alert and Oriented
Psych: Calm
Data Reviewed
-
Labs: Labs Reviewed by me
[2025-03-03 15:20] VITALS: BP 141/53
[2025-03-03] MEDS: NEUPRO 4 MG TRANSDERM (16:15)
--- NOTE | 2025-03-03 20:14 | PTCARENOTE ---
Assumed care of pt from previous nurse. Pt denies pain. Pt elevating ble. Dressings are intact. call castillo is within reach, pt rings dyllan. will cont to monitor.
[2025-03-03] MEDS: REQUIP 1 MG PO (21:33)
[2025-03-03] MEDS: MELATONIN 20 MG PO (21:33)
[2025-03-03 23:00] VITALS: BP 131/47
[2025-03-04] MEDS: ANCEF 10 IV ×2 (03:31→07:35)
[2025-03-04 06:57] LABS: Hemoglobin 12.3 g/dL (13.0-18.0); Mean Corp Hgb Conc. 32.4 g/dL (33.0-37.0); Mean Corpuscular Volume 86.4 fL (80.0-94.0); Mean Platelet Volume 10.3 fL (7.4-10.4); Platelet Count 350 10^3/uL (130-400); Red Cell Dist. Width 14.6 % (11.5-14.5); White Blood Cell Count 10.8 10^3/uL (4.8-10.8)
[2025-03-04 07:00] VITALS: BP 131/73
[2025-03-04] MEDS: NEURONTIN 300 MG PO (07:34)
[2025-03-04] MEDS: NORVASC 10 MG PO (07:34)
[2025-03-04] MEDS: ELIQUIS 5 MG PO (07:35)
[2025-03-04] MEDS: PROSCAR 5 MG PO (07:35)
[2025-03-04] MEDS: TOPROL XL 50 MG PO (07:35)
[2025-03-04] MEDS: COZAAR 100 MG PO (07:35)
[2025-03-04 07:38] LABS: Blood Urea Nitrogen 25 mg/dl (9-20); Calcium 9.1 mg/dl (8.4-10.2); Carbon Dioxide 23 mmol/L (22-30); Chloride 106 mmol/L (98-107); Estimated Creatinine Clearance 74 ml/min; Glucose 92 mg/dl (70-99); Potassium 4.8 mmol/L (3.5-5.1); Sodium 139 mmol/L (135-145); eGFR > 60.00
--- NOTE | 2025-03-04 10:31 | W.PN.HOSP.TC ---
Today's Communication/Plan
-
being discharged
Assessment / Plan
Assessment / Plan
Initial presentation and chronic diagnosis:
79 y/o male past medical history of:
atrial fibrillation,
hypertension,
renal artery stenosis,
venous insufficiency,
lower extremity lymphedema,
Charcot arthropathy,
chronic pain,
restless leg syndrome and
insomnia
who presented with weeping/drainage from left lower extremity. Patient was sent in by visiting nurse who been coming out to see him and change the wound dressing every few days. On day of admit visiting nurse expressed concern of increased drainage
and redness of the left lower extremity. Patient reports he is frequently very cold at night, but did not describe chills. He denied fevers.
A/P and hospital course by problem:
1. Left Lower Extremity Cellulitis - improving. Redness resolved.
-Switch from Ancef to cephalexin at discharge
-Follow up with outpatient provider, already scheduled.
Other problems (these were not active reasons for hospitalization):
2. Paroxysmal Atrial Fibrillation - chronic
-Continue Eliquis for anticoagulation
-Continue Metoprolol for rate control
3. Hypertension - chronic
-Continue amlodipine, losartan and metoprolol
4. Chronic Pain Syndrome
-Continue Gabapentin
5. Restless Leg Syndrome
-Continue ropinirole and Neupro patch
6. Insomnia
-Continue Melatonin
7. BPH
-Continue finasteride
Other Noted History
-Chronic Venous Insufficiency
-Chronic Lower Extremity Lymphedema
-Bilateral Charcot Arthropathy
DVT proph: Eliquis
Code Status: Full Code
Anticipated Discharge: Today
Subjective/Interval History
-
Date of Service: March 04, 2025
Feels well. Would like to go home.
Objective Data
-
Labs:
Laboratory Results
03/04/25
05:52
WBC 10.8
Hgb 12.3 L
Hct 38.0 L
Plt Count 350
Sodium 139
Potassium 4.8
Chloride 106
Carbon Dioxide 23
BUN 25 H
Creatinine 0.8
Glucose 92
Calcium 9.1
Vital Signs:
Vital Signs
Temp Pulse Resp BP Pulse Ox
98.0 F 68 20 131/73 99
03/04/25 07:00 03/04/25 07:00 03/04/25 07:00 03/04/25 07:00 03/04/25 08:00
I&O
03/03/25 03/04/25 03/05/25
06:59 06:59 06:59
Intake Total 240 / 240 450 / 450
Output Total 1200 / 1200 900 / 900 1300 / 1300
Balance -960 / -960 -450 / -450 -1300 / -1300
Review of Systems
-
History Source: Patient
All other systems: Reviewed and negative
Physical Exam
-
General: Well Developed, Well Nourished, No Apparent Distress and Comfortable
HEENT: Normocephalic and Atraumatic
Respiratory: Clear to Auscultation
Cardiac: Regular Rhythm and S1/S2
GI: Soft, Nontender and Nondistended
Musculoskeletal: No Clubbing, No Cyanosis, Edema, Right Lower Extrem and Edema, Left Lower Extrem
Skin: Warm and Dry
Neuro: Awake, Alert and Oriented
Psych: Calm
Data Reviewed
-
Labs: Labs Reviewed by me
--- NOTE | 2025-03-04 10:40 | W.DCSUMMARY ---
Discharge Summary
Discharge Data
Date of Admission: 03/02/25
Date of Discharge: 03/04/25
Total time spent discharging patient (in min): 45
-
Pending Results: No
Hospital Course
Initial presentation and chronic diagnosis:
79 y/o male past medical history of:
atrial fibrillation,
hypertension,
renal artery stenosis,
venous insufficiency,
lower extremity lymphedema,
Charcot arthropathy,
chronic pain,
restless leg syndrome and
insomnia
who presented with weeping/drainage from left lower extremity. Patient was sent in by visiting nurse who been coming out to see him and change the wound dressing every few days. On day of admit visiting nurse expressed concern of increased drainage
and redness of the left lower extremity. Patient reports he is frequently very cold at night, but did not describe chills. He denied fevers.
A/P and hospital course by problem:
1. Left Lower Extremity Cellulitis - improving. Redness resolved.
-Switch from Ancef to cephalexin at discharge
-Follow up with outpatient provider, already scheduled.
Other problems (these were not active reasons for hospitalization):
2. Paroxysmal Atrial Fibrillation - chronic
-Continue Eliquis for anticoagulation
-Continue Metoprolol for rate control
3. Hypertension - chronic
-Continue amlodipine, losartan and metoprolol
4. Chronic Pain Syndrome
-Continue Gabapentin
5. Restless Leg Syndrome
-Continue ropinirole and Neupro patch
6. Insomnia
-Continue Melatonin
7. BPH
-Continue finasteride
Other Noted History
-Chronic Venous Insufficiency
-Chronic Lower Extremity Lymphedema
-Bilateral Charcot Arthropathy
DVT proph: Eliquis
Code Status: Full Code
Discharge Plan
-
Patient Disposition: Home (Routine Discharge)
Discharge Diagnosis/Procedures: cellulitis
Diet: No restrictions
Activity: As tolerated
Driving Restrictions: As prior to admission
Bathing Restrictions: None
Referrals:
Tosin Ventura MD [Family Provider, [facility]]
Prescriptions:
New
cephalexin 500 mg capsule
1,000 mg PO BID Qty: 20 0RF
Continued
amlodipine 10 MG tablet
10 mg PO DAILY
finasteride 5 MG tablet
5 mg PO DAILY
Neupro 4 MG patch 24 hour
1 patch transdermal QPM
cetirizine 10 mg Tablet
10 mg PO HS
calcium carbonate-vitamin D3 [Calcium 600 with Vitamin D3] 600 mg-12.5 mcg (500 unit) Capsule
1 cap PO BID
melatonin 10 mg Tablet
20 mg PO HS
Glucosamine Complex-MSM Capsule
1 cap PO TID
ropinirole 1 mg Tablet
1 mg PO DAILY@2100
metoprolol succinate 25 mg Tablet Extended Release 24 Hr
50 mg PO DAILY
ropinirole 2 mg Tablet Extended Release 24 Hr
4 mg PO HS
Eliquis 5 mg Tablet
5 mg PO BID
cyanocobalamin (vitamin B-12) 1,000 mcg Tablet
1,000 mcg PO MOWEFR
losartan 100 mg Tablet
100 mg PO DAILY
PreserVision AREDS 2,148 mcg-113 mg-45 mg-17.4mg Tablet
1 tab PO BID
acetaminophen [Tylenol] 325 mg Tablet
650 mg PO TID
gabapentin 300 mg capsule
300 mg PO TID
Discharge Orders:
Discharge Patient (As Directed); Ordered 03/04/25
Ordered By: Darren John
Discharge Date and Time
Print Language: SLOVAK
[2025-03-04 11:00] VITALS: BP 119/54
--- NOTE | 2025-03-04 11:14 | CM ---
Patient stable for d/c today
Met w/ patient bedside, agreeable. IMM verbally reviewed, copy provided, copy on chart
Daughter will transport home
No CM needs identified at this time
Plan: Home, no needs
== END 2025-03-04 12:25 | disposition home or self-care (01) | DRG 603 ==
LOC: 4 WEST ACU 18:58
PROVIDERS: Physician Assistant Medical; ADMITTING PHYSICIAN Hospitalist; ATTENDING PHYSICIAN Internal Medicine; EMERGENCY PHYSICIAN Emergency Medicine; FAMILY PHYSICIAN Family Medicine
DX: L03.116 Cellulitis of left lower limb (principal); I87.2 Venous insufficiency (chronic) (peripheral); N18.9 Chronic kidney disease, unspecified; I48.0 Paroxysmal atrial fibrillation; I12.9 Hypertensive chronic kidney disease with stage 1 through stage 4 chronic kidney disease, or unspecified chronic kidney disease; G25.81 Restless legs syndrome; E78.00 Pure hypercholesterolemia, unspecified; I70.1 Atherosclerosis of renal artery; I89.0 Lymphedema, not elsewhere classified; G47.00 Insomnia, unspecified; G89.4 Chronic pain syndrome; N40.0 Benign prostatic hyperplasia without lower urinary tract symptoms; G47.33 Obstructive sleep apnea (adult) (pediatric); M14.671 Charcot's joint, right ankle and foot; M14.672 Charcot's joint, left ankle and foot; Z87.891 Personal history of nicotine dependence; Z88.8 Allergy status to other drugs, medicaments and biological substances; Z91.048 Other nonmedicinal substance allergy status; Z79.01 Long term (current) use of anticoagulants; Z87.11 Personal history of peptic ulcer disease
CPT/HCPCS: 71046; 80048; 80053; 81003; 81015; 83605; 85025; 85027; 87040; 87086; 93005; 93970; 96374; 99285

== ENCOUNTER 2025-03-17 17:55 | Inpatient (IN) | payer OTHER, SELFPAY ==
[2025-03-17 15:20] VITALS: BP 97/65
[2025-03-17 15:58] VITALS: BMI 24.8
[2025-03-17 16:22] LABS: % Basophils 0.8 % (0-2); % Eosinophils 3.3 % (0-6); % Immature Granulocytes 0.4 % (0-0.5); % Lymphocytes 12.5 % (20.5-51.1); % Monocytes 10.8 % (1.7-9.3); % Neutrophils 72.2 % (42.2-75.2); Absolute Basophils 0.1 10^3/uL (0-0.2); Absolute Eosinophils 0.3 10^3/uL (0-0.7); Absolute Lymphocytes 1.1 10^3/uL (1.2-3.4); Absolute Neutrophils 6.4 10^3/uL (1.4-6.5); Hematocrit 31.2 % (39.0-52.0); Hemoglobin 10.3 g/dL (13.0-18.0); Mean Corpuscular Hgb 28.2 pg (27.0-31.0); Mean Corpuscular Volume 85.5 fL (80.0-94.0); Mean Platelet Volume 9.4 fL (7.4-10.4); Nucleated Red Blood Cells % 0 % (-); Platelet Count 321 10^3/uL (130-400); Red Blood Cell Count 3.65 10^6/uL (4.70-6.10); Red Cell Dist. Width 14.6 % (11.5-14.5); White Blood Cell Count 8.9 10^3/uL (4.8-10.8)
[2025-03-17 16:25] VITALS: BP 123/55
--- NOTE | 2025-03-17 16:30 | ED.GENMED ---
History of Present Illness
General
Chief Complaint: Musculo-Skeletal Complaint
Time Seen by Provider: 03/17/25 15:56
History of Present Illness
History of Present Illness:
79-year-old male with history of A-fib on anticoagulants, hypertension, hyperlipidemia, former smoking, and Charcot arthropathy of both feet presents the emergency department for evaluation of persistent cellulitis of the left lower extremity. He
was admitted to this hospital at the beginning of March for the same complaint. He was seen today by visiting nurse who communicated findings of consistent skin bleeding and discharge to his pathology transcriptionist who requested he be admitted to the hospital
for IV antibiotics. At this time the patient reports no complaints, denies any fevers or chills. He has been on outpatient cephalexin at this point.
Past History
Past History
ED Past Medical History: HTN, Hypercholesterolemia, Other (PUD) and Other (RLS)
Social History
Tobacco: Non-smoker
Personal:
Review of Systems
Review of Systems
Allergies reviewed?: Yes
All Other Systems: ROS reviewed and negative except as documented in HPI and ROS
Phy Exam
Physical Exam
Physical Exam:
GEN: Well appearing, NAD, WDWN
HEENT: Oral mucosa moist, no scleral icterus
Cardiac: Regular rate and rhythm, bilateral dorsalis pedis pulses strong by Doppler
Lung: No respiratory distress, no tachypnea
MSK: No gross deformity or injuries
Skin: Good color, no pallor or jaundice. Circumferential skin desquamation of the lower third of the left leg extending into the midfoot with bloody discharge
Neuro: AO x3, moves all extremities freely
Psych: Calm, cooperative
Course
Orders/Labs/Results
Orders:
Orders
03/17/25 16:14
CMP [Comprehensive Metabolic Panel] Urgent
Complete Blood Count/With Diff Urgent
03/17/25 16:29
CeFAZolin 2 GRAM [Ancef] 2 grams in 10 ml IV NOW
Abnormal Lab Results
03/17/25
16:14
RBC 3.65 L 10^6/uL
(4.70-6.10)
Hgb 10.3 L g/dL
(13.0-18.0)
Hct 31.2 L %
(39.0-52.0)
RDW 14.6 H %
(11.5-14.5)
Absolute Lymphs (auto) 1.1 L 10^3/uL
(1.2-3.4)
Absolute Monos (auto) 1.0 H 10^3/uL
(0.1-0.6)
Lymphocytes % 12.5 L %
(20.5-51.1)
Monocytes % 10.8 H %
(1.7-9.3)
Chloride 109 H mmol/L
(98-107)
Carbon Dioxide 20 L mmol/L
(22-30)
BUN 25 H mg/dl
(9-20)
Glucose 122 H mg/dl
(70-99)
Albumin 3.2 L g/dl
(3.5-5.0)
03/17/25 16:14
03/17/25 16:14
Vital Signs
Initial and Last Documented VS:
Initial Vital Signs
Temp Pulse Resp BP Pulse Ox
98.2 F 57 16 97/65 98
03/17/25 15:20 03/17/25 15:20 03/17/25 15:20 03/17/25 15:20 03/17/25 15:20
Last Documented Vital Signs
Temp Pulse Resp BP Pulse Ox
98.2 F 57 16 97/65 98
03/17/25 15:20 03/17/25 15:20 03/17/25 15:20 03/17/25 15:20 03/17/25 16:25
MDM/Problems Addressed
MDM/Problems Addressed:
79-year-old male with persistent cellulitis of the left lower extremity despite oral antibiotics, was referred in by podiatry for IV antibiotics and plan for potential surgical debridement if not improving. He is clinically well
*Pulse Oximetry
Patient hypoxic: no
Comment: 98% on room air
*Critical Care Note
Total Time (30-74mins, 75-104mins- exclusive of procedures): Not Applicable
ED Attending Note
-
Portions of this chart may have been created with voice recognition software.� Occasional wrong word or��sound alike� substitutions may have occurred due to the inherent limitations of voice recognition software.
Discharge Plan
Departure
Patient Disposition: Admit
Date of Disposition: 03/17/25
Time of Disposition: 17:16
Admit to: Med/Surg
Presentation/result/management discussed w/ accepting MD/DO: Hospitalist
Discharge Problem:
Cellulitis of left lower extremity
Prescriptions:
No Action
amlodipine 10 MG tablet
10 mg PO DAILY
finasteride 5 MG tablet
5 mg PO DAILY
Neupro 4 MG patch 24 hour
1 patch transdermal QPM
cetirizine 10 mg Tablet
10 mg PO HS
calcium carbonate-vitamin D3 [Calcium 600 with Vitamin D3] 600 mg-12.5 mcg (500 unit) Capsule
1 cap PO BID
melatonin 10 mg Tablet
20 mg PO HS
Glucosamine Complex-MSM Capsule
1 cap PO TID
ropinirole 1 mg Tablet
1 mg PO DAILY@2100
metoprolol succinate 25 mg Tablet Extended Release 24 Hr
50 mg PO DAILY
ropinirole 2 mg Tablet Extended Release 24 Hr
4 mg PO HS
Eliquis 5 mg Tablet
5 mg PO BID
cyanocobalamin (vitamin B-12) 1,000 mcg Tablet
1,000 mcg PO MOWEFR
losartan 100 mg Tablet
100 mg PO DAILY
PreserVision AREDS 2,148 mcg-113 mg-45 mg-17.4mg Tablet
1 tab PO BID
acetaminophen [Tylenol] 325 mg Tablet
650 mg PO TID
gabapentin 300 mg capsule
300 mg PO TID
cephalexin 500 mg capsule
1,000 mg PO BID Qty: 20 0RF
Referrals:
NONE,* [Family Provider, Internal Medicine]
Interventions
Interventions:
*Risk Screen - Suicide Last Done: 03/17/25 15:20
*General Assessment Last Done: 03/17/25 15:20
*Neglect/Abuse Screening Last Done: 03/17/25 15:58
*ED- Fall Risk Assessment Last Done: 03/17/25 15:58
*ED COVID-19 Vaccine History Last Done: 03/17/25 15:58
Discharge Date and Time
Print Language: HAITIAN
[2025-03-17] MEDS: ANCEF 10 IV ×2 (16:33→23:48)
[2025-03-17 16:40] LABS: ALT (SGPT) 14 U/L (0-50); AST (SGOT) 21 U/L (17-59); Alkaline Phosphatase 108 U/L (38-126); Blood Urea Nitrogen 25 mg/dl (9-20); Calcium 8.7 mg/dl (8.4-10.2); Carbon Dioxide 20 mmol/L (22-30); Chloride 109 mmol/L (98-107); Estimated Creatinine Clearance 65 ml/min; Glucose 122 mg/dl (70-99); Sodium 138 mmol/L (135-145); Total Bilirubin 0.4 mg/dl (0.2-1.3); Total Protein 6.6 g/dl (6.3-8.2); eGFR > 60.00
[2025-03-17 16:46] LABS: Albumin 3.2 g/dl (3.5-5.0)
--- NOTE | 2025-03-17 17:44 | HPS.HSE ---
Family Physician
-
Family Physician: * NONE
Chief Complaint
-
skin infection
History of Present Illness
79-year-old male past medical history of paroxysmal atrial fibrillation on Eliquis, restless leg syndrome, chronic venous insufficiency status post surgery, lower extremity lymphedema, bilateral Charcot foot, hypertension, BPH, presented to the
emergency room for persistent cellulitis of the left lower extremity.
He was seen today by visiting nurse who communicated findings of consistent skin bleeding to his customer sales specialist Dr. Traore who requested he be admitted to the hospital for IV antibiotics. Patient denies any complaints including fevers or chills. He
has been on outpatient Keflex.
He was recently admitted from 03/02 to 03/04 for weeping/discharge from the left lower extremity. He was treated for cellulitis with Ancef switched to Keflex.
Medical History
Past Medical History
Past Medical History: Reports Other (paroxysmal atrial fibrillation on Eliquis, restless leg syndrome, chronic venous insufficiency status post surgery, lower extremity lymphedema, bilateral Charcot foot, hypertension, BPH)
Past Surgical History: Reports None
Social History
Tobacco: Non-smoker
Alcohol: None
Drug: None
Family History
Family History: Not pertinent
Allergies / Home Medications
Allergies reflects when Allergies were last updated in [employer].
Home Medications with original date entered in [employer]
Allergy/Medication List:
Allergies
Allergy/AdvReac Type Severity Reaction Status Date / Time
adhesive Allergy Rash, Verified 03/17/25 15:20
Itching
hydroxychloroquine Allergy Rash Verified 03/17/25 15:20
pollen extracts Allergy seasonal Verified 03/17/25 15:20
allergy
Home Medications
amlodipine 10 mg tablet 10 mg PO DAILY Blood Pressure 10/03/21
finasteride 5 mg tablet 5 mg PO DAILY Urinary Issue 10/03/21
rotigotine 4 mg/24 hour transdermal 24 hour patch (Neupro) 1 patch transdermal QPM Neurological Condition 10/03/21
calcium 600 mg (as carbonate)-vitamin D3 12.5 mcg (500 unit) capsule (Calcium with Vit D3) 1 cap PO BID Supplement 12/03/22
cetirizine 10 mg tablet 10 mg PO HS Allergies 12/03/22
pyfogpwnicm-ygp-jmtcxbaaq-vitC capsule (Glucosamine Complex-MSM capsule) 1 cap PO TID Supplement 12/03/22
melatonin 10 mg tablet 20 mg PO HS Sleep 12/03/22
apixaban 5 mg tablet (Eliquis) 5 mg PO BID Blood Clot Prevention/Tx 08/30/23
metoprolol succinate 25 mg tablet,extended release 24 hr 50 mg PO DAILY Blood Pressure 08/30/23
ropinirole 1 mg tablet 1 mg PO DAILY@2100 restless legs 08/30/23
ropinirole 2 mg tablet,extended release 24 hr 4 mg PO HS restless legs 08/30/23
cyanocobalamin (vitamin B-12) 1,000 mcg tablet 1,000 mcg PO MOWEFR Supplement 11/23/23
losartan 100 mg tablet 100 mg PO DAILY Blood Pressure 11/23/23
vitamins A,C,Q-hvcr-yrhrkn 2,148 mcg-113 mg-45 mg-17.4 mg tablet (PreserVision AREDS) 1 tab PO BID Supplement 11/23/23
acetaminophen 325 mg tablet (Tylenol) 650 mg PO TID 01/11/25
gabapentin 300 mg capsule 300 mg PO TID Neurological Condition 03/02/25
cephalexin 500 mg capsule 1,000 mg (2 x 500 mg) PO BID #20 caps 03/04/25
Review of Systems
-
History Source: Patient
A 12 point ROS was completed and negative except as noted: Yes
Constitutional: Reports No Symptoms
EENT: Reports No Symptoms
Respiratory: Reports No Symptoms
Cardiac: Reports No Symptoms
Abdomen/GI: Reports No Symptoms
: Reports No Symptoms
Musculoskeletal: Reports No Symptoms
Skin: Reports No Symptoms
Neurological: Reports No Symptoms
Endocrine: Reports No Symptoms
Hematologic/Lymphatic: Reports No Symptoms
Psych: Reports No Symptoms
Physical Exam
Vital Signs
Vital Signs
Temp Pulse Resp BP Pulse Ox
98.2 F 57 16 123/55 99
03/17/25 15:20 03/17/25 15:20 03/17/25 15:20 03/17/25 16:25 03/17/25 16:48
Physical Exam
General: Well Developed, Well Nourished and No Apparent Distress
HEENT: NormoCephalic, Moist mucous membranes and Atraumatic
Respiratory: Clear
Cardiac: S1/S2 and Regular Rhythm; No Murmur or Rub
GI: Soft, Non Tender, Non Distended and Normal Bowel Sounds; No Organomegaly
Rectal: Deferred by Provider
Musculoskeletal: No Clubbing, No Cyanosis and No Edema
Skin: No Rash
Neuro: Nonfocal/grossly intact
Laboratory Results
-
03/17/25 16:14
03/17/25 16:14
Laboratory Results
Total Bilirubin 0.4 mg/dl (0.2-1.3) 03/17/25 16:14
AST 21 U/L (17-59) 03/17/25 16:14
ALT 14 U/L (0-50) 03/17/25 16:14
Alkaline Phosphatase 108 U/L (38-126) 03/17/25 16:14
Data Reviewed
-
Lab Data: Labs Reviewed by me
Old Records: Reviewed
Impression/Plan
-
IMPRESSION:
PLAN:
# Persistent left lower extremity cellulitis
-Appears to be improved covering smaller surface area compared to previously but still desquamating
- Cefazolin
- Podiatry ([place]) consulted for potential debridement on Wednesday
- Hold Eliquis
Paroxysmal atrial fibrillation
- Continue metoprolol
- Hold Eliquis
Essential hypertension
- Continue losartan, amlodipine
Chronic pain syndrome
- Continue Tylenol
Restless leg syndrome
- Continue ropinirole, gabapentin, Neupro
Insomnia
BPH
- Continue finasteride
Chronic venous insufficiency
Chronic lower extremity lymphedema
Bilateral Charcot's arthropathy
Chronic anemia
- Hemoglobin stable
Full code
DVT prophylaxis heparin
Regular diet
[2025-03-17 18:00] VITALS: BP 149/77
[2025-03-17 19:00] VITALS: BP 118/69
[2025-03-17 19:48] VITALS: BP 135/69; BMI 24.3
[2025-03-17] MEDS: NEUPRO 4 MG TRANSDERM (21:30)
[2025-03-17] MEDS: HEPARIN 5000 UNITS SC (21:31)
[2025-03-17] MEDS: ZYRTEC 10 MG PO (21:32)
[2025-03-17] MEDS: NEURONTIN 300 MG PO (21:32)
[2025-03-17] MEDS: TYLENOL 650 MG PO (21:32)
[2025-03-17] MEDS: REQUIP 1 MG PO (21:32)
--- NOTE | 2025-03-17 22:17 | PTCARENOTE ---
Receive pt from ER. Pt alert oriented X3, in no distress. Pt able to pivot from the stretcher next to bed to his bed. Pt oriented to the room, call castillo within reach. Pt complains about pain in his left leg. Also complains about restless leg. Pt
given Tylenol for pain, Neurontin, Neupro and Requip for restless leg. Wound care completed. Will continue to monitor the pt.
[2025-03-17 22:28] VITALS: BMI 24.3
[2025-03-17] MEDS: MELATONIN 20 MG PO (22:30)
[2025-03-17 23:28] VITALS: BP 132/59
[2025-03-17] MEDS: REQUIP 2 MG PO (23:48)
[2025-03-18 05:47] LABS: % Basophils 0.7 % (0-2); % Eosinophils 2.6 % (0-6); % Immature Granulocytes 0.4 % (0-0.5); % Lymphocytes 12.4 % (20.5-51.1); % Monocytes 11.9 % (1.7-9.3); Absolute Basophils 0.1 10^3/uL (0-0.2); Absolute Eosinophils 0.3 10^3/uL (0-0.7); Absolute Lymphocytes 1.2 10^3/uL (1.2-3.4); Absolute Monocytes 1.2 10^3/uL (0.1-0.6); Hematocrit 31.5 % (39.0-52.0); Hemoglobin 10.4 g/dL (13.0-18.0); Mean Corpuscular Volume 84.9 fL (80.0-94.0); Mean Platelet Volume 9.9 fL (7.4-10.4); Nucleated Red Blood Cells % 0 % (-); Platelet Count 338 10^3/uL (130-400); Red Blood Cell Count 3.71 10^6/uL (4.70-6.10); Red Cell Dist. Width 14.4 % (11.5-14.5); White Blood Cell Count 9.8 10^3/uL (4.8-10.8)
[2025-03-18 06:16] LABS: ALT (SGPT) 12 U/L (0-50); AST (SGOT) 22 U/L (17-59); Alkaline Phosphatase 101 U/L (38-126); Blood Urea Nitrogen 19 mg/dl (9-20); Calcium 8.4 mg/dl (8.4-10.2); Carbon Dioxide 23 mmol/L (22-30); Chloride 108 mmol/L (98-107); Estimated Creatinine Clearance 84 ml/min; Glucose 83 mg/dl (70-99); Potassium 4.3 mmol/L (3.5-5.1); Sodium 136 mmol/L (135-145); Total Bilirubin 0.5 mg/dl (0.2-1.3); Total Protein 6.2 g/dl (6.3-8.2); eGFR > 60.00
[2025-03-18 07:05] VITALS: BP 143/65
[2025-03-18] MEDS: HEPARIN 5000 UNITS SC ×2 (09:06→20:30)
[2025-03-18] MEDS: COZAAR 100 MG PO (09:06)
[2025-03-18] MEDS: NEURONTIN 300 MG PO ×3 (09:07→21:22)
[2025-03-18] MEDS: OSCAL 500 + D 500 MG PO ×2 (09:07→20:29)
[2025-03-18] MEDS: NORVASC 10 MG PO (09:07)
[2025-03-18] MEDS: TOPROL XL 50 MG PO (09:08)
[2025-03-18] MEDS: TYLENOL 650 MG PO ×3 (09:08→21:22)
[2025-03-18] MEDS: ANCEF 10 IV ×2 (09:08→15:30)
[2025-03-18] MEDS: PROSCAR 5 MG PO (09:08)
[2025-03-18] MEDS: FLUSH (NSS) 2 FLUSH IV (09:09)
--- NOTE | 2025-03-18 10:23 | W.PN.HOSP.TC ---
Today's Communication/Plan
-
Continue antibiotics
Podiatry consult
Assessment / Plan
Assessment / Plan
Gen-AAOx3, NAD
HEENT-NC, AT, anicteric, clear oral mm
Neck-supple
CV-reg, no M, +S1/S2
Lungs-clear B/L
Abd-soft, NT, ND
Ext-no edema
Musculoskeletal-no cyanosis, clubbing
Skin-warm and dry, left lower extremity hyperpigmentation, circumferential left ankle skin breakdown with erythema and mild drainage
Right foot plantar ulcer with yellow drainage
Neuro-grossly non-focal
Psych-calm, cooperative
Left ankle skin and soft tissue infection -sent in by podiatry for IV antibiotics. Wound was evaluated and dressing was removed today. Significant skin breakdown noted. Some drainage. Etiology is likely due to poorly controlled venous stasis
dermatitis.
Continue IV cefazolin, await podiatry input, Dr. Traore. Discussed over [place] text.
Recently hospitalized for left lower extremity cellulitis and discharged on March 04 on Keflex. Has been on antibiotics since.
Right plantar ulcer, chronic -continue local wound care. Podiatry consulted. Does not look obviously infected.
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
Paroxysmal atrial fibrillation -hold Eliquis per podiatry.
Essential hypertension -stable.
Restless leg syndrome
BPH
Bilateral Charcot's arthropathy
Chronic anemia -stable.
Full code
Anticipated Discharge: > 48 hours
Subjective/Interval History
-
Date of Service: March 18, 2025
Patient seen and examined. No complaints.
Objective Data
-
Labs:
Laboratory Results
03/18/25
04:04
WBC 9.8
Hgb 10.4 L
Hct 31.5 L
Plt Count 338
Sodium 136
Potassium 4.3
Chloride 108 H
Carbon Dioxide 23
BUN 19
Creatinine 0.7
Glucose 83
Calcium 8.4
Total Bilirubin 0.5
AST 22
ALT 12
Alkaline Phosphatase 101
Vital Signs:
Vital Signs
Temp Pulse Resp BP Pulse Ox
98.0 F 64 14 143/65 98
03/18/25 07:05 03/18/25 09:06 03/18/25 07:05 03/18/25 09:06 03/18/25 07:05
I&O
03/17/25 03/18/25 03/19/25
06:59 06:59 06:59
Intake Total 240 / 240
Output Total 1375 / 1375
Balance -1135 / -1135
Review of Systems
-
History Source: Patient
All other systems: Reviewed and negative
[2025-03-18 15:05] VITALS: BP 131/54
--- NOTE | 2025-03-18 16:40 | CM ---
Alert awake oriented patient who lives with his Abby in a 2 story home with 2 step to enter. Bed bathromn on first floor. He is independent in activities of daily living.He uses knee scooter and cane.
[facility] hx / No SNF history
Pharmacy [facility] [address]
PCP DR Tosin Mukherjee
PLAN Home watch for VN needs
[2025-03-18] MEDS: NEUPRO 4 MG TRANSDERM (18:12)
[2025-03-18] MEDS: NON-FORMULARY ITEM 4 MG PO (20:33)
[2025-03-18] MEDS: ZYRTEC 10 MG PO (20:33)
[2025-03-18] MEDS: REQUIP 1 MG PO (20:35)
--- NOTE | 2025-03-18 21:13 | W.PN.UPDATE ---
Update Note
Progress Note Update
evaluation of lower extremities
-NPO tomorrow likely, reevaluate in AM
-Continue ABx
-WBAT LLE, NWB RLE
-Dressings needs multiplayer compression
[2025-03-18] MEDS: MELATONIN 20 MG PO (21:22)
[2025-03-18 23:27] VITALS: BP 109/55
[2025-03-19] MEDS: ANCEF 10 IV ×3 (00:41→15:35)
[2025-03-19 07:29] VITALS: BP 144/69
[2025-03-19] MEDS: HEPARIN 5000 UNITS SC (07:53)
[2025-03-19] MEDS: NORVASC 10 MG PO (07:53)
[2025-03-19] MEDS: TYLENOL 650 MG PO ×2 (07:53→15:35)
[2025-03-19] MEDS: NEURONTIN 300 MG PO ×2 (07:54→15:35)
[2025-03-19] MEDS: PROSCAR 5 MG PO (07:54)
[2025-03-19] MEDS: OSCAL 500 + D 500 MG PO (07:55)
[2025-03-19] MEDS: TOPROL XL 50 MG PO (07:55)
[2025-03-19] MEDS: COZAAR 100 MG PO (07:55)
--- NOTE | 2025-03-19 09:48 | WOUNDNOTE ---
L ANKLE/CALF (LATERAL)
--- NOTE | 2025-03-19 09:54 | WOUNDNOTE ---
[facility] RN note: Patient admitted with cellulitis. Patient for OR debridement by Dr. Traore/Dr. Lay today. Patient current with [facility].
See H&P for complete history.
PMH: a fib (Eliquis), restless leg syndrome, venous insufficiency, s/p vein procedure, LE lymphedema, Charcot foot, HTN, BPH, chronic pain syndrome, LLE hematoma evacuation 01/16/25, 11/25/23 R foot I+D with debridement of bone by Dr. Traore, former
smoker.
Wound Location and type/assessment: Patient admitted with: R plantar foot neuropathic ulcers suspect to subcutaneous layer, pink with some yellow fibrin with surrounding callus. Moderate yellow/green tinged drainage. LLE partial thickness venous
ulcers, pink and dry area, large serous drainage. Mild LLE erythema. L posterior heel/ankle with couple linear skin fissures. +Pedal pulses. Trace LLE edema.
Appetite: NPO for surgery today.
Pressure redistribution devices in place: [employer] Accumax. Patient moves self in bed. Patient is NWB R foot. He has a knee scooter at home and a [place] walker at home. He has 'diabetic' Velcro sandals in his room.
Plan: LLE and R foot dressing changed. LLE [place] reapplied. Heels off bed with pillows. Patient reminded/instructed he is NWB R foot. Instructed heel pressure relief measures.
Will confirm orders with poultry pathologist or hospitalist and discussed with SAMARIA Carvajal.
Updated care plan and will follow as needed.
Patient to follow up with Dr. Traore when discharged.
[2025-03-19 13:00] VITALS: BP 144/69; BP 98/79
--- NOTE | 2025-03-19 13:10 | W.PN.SURGUPD ---
Surgical Update
Surgical Update
79 yo M s/p bilateral foot and leg wound debridements
-Dressings to remain C/D/I
-WBAT BL is acceptable
-Continue antibiotics for 10-14 days
-Upon discharge will need home nursing dressing changes 2 times weekly per previous instructions
-Follow up at [facility] in 2 weeks
[2025-03-19 13:15] VITALS: BP 123/62
--- NOTE | 2025-03-19 13:23 | W.PN.HOSP.TC ---
Addendum entered and electronically signed by Moody Ellis MD 03/20/25 17:46:
Bilateral Leg improvement*
Original Note:
Today's Communication/Plan
-
Bilateral leg department today
Switch to p.o. antibiotics for 14 days
-Dressings to remain C/D/I
-WBAT BL is acceptable
-Upon discharge will need home nursing dressing changes 2 times weekly per previous instructions
-Follow up at [facility] in 2 weeks
Follow-up CBC and BMP within 1 week with PCP
Assessment / Plan
Assessment / Plan
Gen-AAOx3, NAD
HEENT-NC, AT, anicteric, clear oral mm
Neck-supple
CV-reg, no M, +S1/S2
Lungs-clear B/L
Abd-soft, NT, ND
Ext-no edema
Musculoskeletal-no cyanosis, clubbing
Skin-warm and dry, left lower extremity hyperpigmentation, circumferential left ankle skin breakdown with erythema and mild drainage
Right foot plantar ulcer with yellow drainage
Neuro-grossly non-focal
Psych-calm, cooperative
Left ankle skin and soft tissue infection -sent in by podiatry for IV antibiotics. Wound was evaluated and dressing was removed today. Significant skin breakdown noted. Some drainage. Etiology is likely due to poorly controlled venous stasis
dermatitis.
Continue IV cefazolin, status post bilateral leg debridements today 6�16. Continue 14 days of antibiotics, cephalexin.
Right plantar ulcer, chronic -continue local wound care. Podiatry consulted. Does not look obviously infected. debridement today
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
Paroxysmal atrial fibrillation -hold Eliquis per podiatry.
Essential hypertension -stable.
Restless leg syndrome
BPH
Bilateral Charcot's arthropathy
Chronic anemia -stable.
Full code
DC ready, await CM clearance
More than 30 minutes spent in discharge including
Final examination of the patient
Summarizing hospital stay
Instructions for continuing care to all relevant caregivers
Preparation of discharge records, prescriptions, and referral forms
Total time spent (in minutes): 36
Anticipated Discharge: Today
Subjective/Interval History
-
Date of Service: March 19, 2025
-Debridement today
Objective Data
-
Vital Signs:
Vital Signs
Temp Pulse Resp BP Pulse Ox
97.1 F 69 21 98/79 100
03/19/25 13:00 03/19/25 13:15 03/19/25 13:15 03/19/25 13:00 03/19/25 13:15
I&O
03/18/25 03/19/25 03/20/25
06:59 06:59 06:59
Intake Total 240 / 240 900 / 900
Output Total 1375 / 1375 2975 / 2975
Balance -1135 / -1135 -2074 / -2074
Review of Systems
-
History Source: Patient
All other systems: Not reviewed unless documented
Physical Exam
-
General: Well Developed, Well Nourished, No Apparent Distress and Comfortable
HEENT: Normocephalic and Atraumatic
Respiratory: Clear to Auscultation
Cardiac: Regular Rhythm and S1/S2
GI: Soft, Nontender and Nondistended
Musculoskeletal: No Clubbing, No Cyanosis, Edema, Right Lower Extrem and Edema, Left Lower Extrem
Skin: Warm and Dry
Neuro: Awake, Alert and Oriented
Psych: Calm
Data Reviewed
-
Labs: Labs Reviewed by me
--- NOTE | 2025-03-19 13:35 | W.DS.TRANS ---
DC Summary - Recreational Therapist
-
Discharge Instructions:
Discharge Diagnosis/Procedures b/l foot and leg wound debridements
Diet Low Fat,Low Cholesterol
Activity As tolerated
Blood Work
Follow-up CBC and BMP within 1 week with PCP
Wound Care p.o. antibiotics for 13 more days
-Dressings to remain C/D/I
-WBAT BL is acceptable
-Upon discharge will need home nursing dressing
changes 2 times weekly per previous instructions
-Follow up at [facility] in 2 weeks
Instructions:
Stand-Alone Forms:
Changes to Home Medications: Yes
Discharge Medications:
DC Medications w/original date entered in [employer]
amlodipine 10 mg tablet 10 mg PO DAILY Blood Pressure 10/03/21
finasteride 5 mg tablet 5 mg PO DAILY Urinary Issue 10/03/21
rotigotine 4 mg/24 hour transdermal 24 hour patch (Neupro) 1 patch transdermal QPM@2000 Neurological Condition 10/03/21
calcium 600 mg (as carbonate)-vitamin D3 12.5 mcg (500 unit) capsule (Calcium with Vit D3) 1 cap PO QID Supplement 12/03/22
cetirizine 10 mg tablet 10 mg PO HS Allergies 12/03/22
teiimxbrtkl-vie-unxkhzbru-vitC capsule (Glucosamine Complex-MSM capsule) 1 cap PO TID Supplement 12/03/22
melatonin 10 mg tablet 20 mg PO HS Sleep 12/03/22
apixaban 5 mg tablet (Eliquis) 5 mg PO BID Blood Clot Prevention/Tx 08/30/23
ropinirole 1 mg tablet 1 mg PO HS restless legs 08/30/23
ropinirole 2 mg tablet,extended release 24 hr 4 mg PO HS restless legs 08/30/23
cyanocobalamin (vitamin B-12) 1,000 mcg tablet 1,000 mcg PO MOWEFR Supplement 11/23/23
losartan 100 mg tablet 100 mg PO DAILY Blood Pressure 11/23/23
vitamins A,C,W-bupv-lhzgco 2,148 mcg-113 mg-45 mg-17.4 mg tablet (PreserVision AREDS) 1 tab PO BID Supplement 11/23/23
acetaminophen 325 mg tablet (Tylenol) 325 mg PO QID Pain 01/11/25
gabapentin 300 mg capsule 300 mg PO TID Neurological Condition 03/02/25
Lactobac no.2-Bifidobac no.1-S. thermo 112.5 billion cell capsule (Visbiome) 1 cap PO DAILY Supplement 03/17/25
ibuprofen 200 mg tablet 200 mg PO QID PAIN/INFLAMMATION 03/17/25
metoprolol succinate 50 mg tablet,extended release 24 hr 50 mg PO DAILY Blood Pressure 03/17/25
cephalexin 500 mg capsule 500 mg PO Q6H Infection 13 days #52 caps 03/19/25
Home Medication Changes
cephalexin 500 mg capsule 500 mg PO Q6H Infection 13 days #52 caps 03/19/25
Pending Results: No
--- NOTE | 2025-03-19 13:58 | PTCARENOTE ---
pt back from OR s/p LLE Debridement. pt is AAO*#, Vss, room air. deneis any pain this time. at the bedside updated. pt back on regular diet. call castillo within the reach. plan of care ongoing.
[2025-03-19 13:59] VITALS: BP 118/47
[2025-03-19 15:50] VITALS: BP 132/64
--- NOTE | 2025-03-19 16:26 | CM ---
MD entered order for discharge.
Pt seen by PT with his knee scooter . PT indicated home with VN
Pt requested [facility] Referral entered.
Abby will drive him home.
PLAN Home with [facility] fax [phone]
== END 2025-03-19 16:27 | disposition home health service (06) | DRG 572 ==
LOC: 4 EAST ACU 17:55
PROVIDERS: Physician Assistant; ADMITTING PHYSICIAN Hospitalist; ATTENDING PHYSICIAN Internal Medicine; CONSULT PHYSICIAN Student in an Organized Health Care Education/Training Program; EMERGENCY PHYSICIAN Emergency Medicine
PROC: 0KBV0ZZ Excision of Right Foot Muscle, Open Approach (ICD-10-PCS; 2025-03-19)
PROC: 0JBR0ZZ Excision of Left Foot Subcutaneous Tissue and Fascia, Open Approach (ICD-10-PCS; 2025-03-19)
DX: L03.116 Cellulitis of left lower limb (principal); I48.0 Paroxysmal atrial fibrillation; E78.00 Pure hypercholesterolemia, unspecified; I10 Essential (primary) hypertension; G25.81 Restless legs syndrome; I87.2 Venous insufficiency (chronic) (peripheral); I89.0 Lymphedema, not elsewhere classified; N40.0 Benign prostatic hyperplasia without lower urinary tract symptoms; J30.1 Allergic rhinitis due to pollen; G89.4 Chronic pain syndrome; G47.00 Insomnia, unspecified; D64.9 Anemia, unspecified; L97.519 Non-pressure chronic ulcer of other part of right foot with unspecified severity; M14.672 Charcot's joint, left ankle and foot; M14.671 Charcot's joint, right ankle and foot; Z88.8 Allergy status to other drugs, medicaments and biological substances; Z91.048 Other nonmedicinal substance allergy status; Z79.01 Long term (current) use of anticoagulants; Z87.891 Personal history of nicotine dependence; Z87.11 Personal history of peptic ulcer disease
CPT/HCPCS: 80053; 85025; 87070; 96374; 97162; 99284

== ENCOUNTER 2025-03-26 17:50 | Inpatient (IN) | payer OTHER, SELFPAY ==
[2025-03-26] VITALS (10 sets, daily range): BP systolic 116–155; BP diastolic 45–71; PULSE 52–60; BMI 24.8; BMI 23.7
[2025-03-26 12:52] LABS: % Basophils 0.4 % (0-2); % Eosinophils 0.8 % (0-6); % Immature Granulocytes 0.5 % (0-0.5); % Lymphocytes 7.5 % (20.5-51.1); % Monocytes 14.8 % (1.7-9.3); Absolute Basophils 0.1 10^3/uL (0-0.2); Absolute Eosinophils 0.1 10^3/uL (0-0.7); Absolute Immature Granulocytes 0.1 10^3/uL (0-0.05); Absolute Monocytes 2.1 10^3/uL (0.1-0.6); Absolute Neutrophils 10.6 10^3/uL (1.4-6.5); Hematocrit 29.9 % (39.0-52.0); Hemoglobin 9.8 g/dL (13.0-18.0); Mean Corp Hgb Conc. 32.8 g/dL (33.0-37.0); Mean Corpuscular Hgb 28.4 pg (27.0-31.0); Mean Corpuscular Volume 86.7 fL (80.0-94.0); Mean Platelet Volume 9.6 fL (7.4-10.4); Nucleated Red Blood Cells % 0 % (-); Platelet Count 287 10^3/uL (130-400); Red Blood Cell Count 3.45 10^6/uL (4.70-6.10); Red Cell Dist. Width 14.8 % (11.5-14.5); White Blood Cell Count 13.9 10^3/uL (4.8-10.8)
[2025-03-26 13:02] LABS: INR 1.59; PT 19.2 Sec (11.4-14.6)
[2025-03-26 13:03] LABS: APTT 45.8 Sec (23.4-35.0)
[2025-03-26 13:20] LABS: Lactic Acid 1.3 mmol/L (0.7-2.0)
[2025-03-26 13:32] LABS: ALT (SGPT) 14 U/L (0-50); AST (SGOT) 24 U/L (17-59); Albumin 2.8 g/dl (3.5-5.0); Alkaline Phosphatase 80 U/L (38-126); Blood Urea Nitrogen 21 mg/dl (9-20); Calcium 8.3 mg/dl (8.4-10.2); Carbon Dioxide 20 mmol/L (22-30); Chloride 109 mmol/L (98-107); Estimated Creatinine Clearance 65 ml/min; Glucose 121 mg/dl (70-99); Potassium 4.3 mmol/L (3.5-5.1); Sodium 137 mmol/L (135-145); Total Bilirubin 0.9 mg/dl (0.2-1.3); Total Protein 5.8 g/dl (6.3-8.2); eGFR > 60.00
[2025-03-26 13:49] LABS: Troponin I < 0.012 ng/ml
--- NOTE | 2025-03-26 13:56 | ED.GENMED ---
History of Present Illness
<Alicja Graham DITCHER OPERATOR - Last Filed: 03/27/25 13:23>
General
Chief Complaint: Fainting/Passed Out
Source: patient and spouse
Exam Limitations: none
Time Seen by Provider: 03/26/25 12:26
Nursing documentation reviewed up to this point in time: agreed with
History of Present Illness
History of Present Illness:
79 yo male w h/o paroxysmal atrial fibrillation on Eliquis, restless leg syndrome, chronic venous insufficiency status post surgery, lower extremity lymphedema, bilateral Charcot foot, hypertension, BPH, poorly-controlled venous stasis dermatitis
with chronic bilateral foot and lower leg wounds that were debrided during a recent admission 03/17 to 03/19/2025. Followed by podiatry. He is continuing with his Keflex for 14 days since discharge.
He is being followed by VN who was changing his leg dressings today when pt suddenly became lethargic, BP was low, and pt faded in and out of near syncope a few times, called EMS. Pt arrives somnolent but easily arouses with calling of name.
Received 1 L NSS IV en route and arrival BP 116/45
He states he's had left side abdominal pain since this morning. said he has been complaining of mild left side discomfort past few days but worse today. He denies n/v/d/c. Denies CP, SOP, headache.
Past History
<Alicja Graham, DITCHER OPERATOR - Last Filed: 03/27/25 13:23>
Past History
ED Past Medical History: Arrthythmia (PAF on Eliquis), HTN, Hypercholesterolemia, Other (PUD) and Other (restless leg syndrome, chronic venous insufficiency status post surgery, lower extremity lymphedema, bilateral Charcot foot, hypertension,
cardiomyopathy, BPH)
ED Past Surgical History: Orthopedic
Social History
Tobacco: Non-smoker
Alcohol: None
Personal:
Living: with family
Review of Systems
<Alicja V. Day, DITCHER OPERATOR - Last Filed: 03/27/25 13:23>
Review of Systems
Allergies reviewed?: Yes
All Other Systems: ROS reviewed and negative except as documented in HPI and ROS
Constitutional: Reports fatigue; Denies fever
Respiratory: Denies trouble breathing
Cardiac: Reports syncope (near syncope); Denies chest pain
ABD/GI: Reports abdominal pain; Denies nausea, vomiting, diarrhea, bloody stools or black stools
: Denies dysuria or incontinence
Musculoskeletal: Denies edema
Skin: Reports other (Open wounds left ankle and right foot plantar surface chronic)
Neurological: Denies dizzy, headache or numbness
Phy Exam
<Alicja Graham, DITCHER OPERATOR - Last Filed: 03/27/25 13:23>
Physical Exam
Physical Exam:
GENERAL: No acute distress. A&Ox3.
CONSTITUTIONAL: Afebrile.
EYES: clear, conjunctivae normal
ENMT: moist mucus membranes, Pharynx nl
RESPIRATORY: Regular respirations, nonlabored, lungs clear.
CARDIOVASCULAR: Regular rate and rhythm, no murmurs, no rubs.
GI: Soft, nontender, normal BS
MUSCULOSKELETAL: Moves with ease. Well perfused.
SKIN: Warm, dry, pink. Right foot plantar aspect with large wound, severiano sized opening in center, chronic. L ankle with reddened raw skin, sloughing, chronic
PSYCH: Normal mood and affect. Well kept, interactive and appropriate
NEUROLOGIC: Somnolent, when aroused is alert and oriented. Follows commands, hand grasps equal, speech clear. No focal neurological deficits
Course
<Alicja Graham, DITCHER OPERATOR - Last Filed: 03/27/25 13:23>
Orders/Labs/Results
Orders:
Orders
03/26/25 12:18
Electrocardiogram (*1) Urgent
Reason for Study: Bradycardia / Tachycardia
EKG- Treatment ONCE
03/26/25 12:35
CMP [Comprehensive Metabolic Panel] Urgent
Complete Blood Count/With Diff Urgent
Lipase Urgent
Comment: ADD ON
PT/INR [Prothrombin Time] Urgent
PTT Urgent
Troponin I Urgent
Urinalysis Reflex To Culture Urgent
Date Specimen was Collected: 03/26/25
Time Specimen was Collected: 12:25
Urine Microscopic Reflex Cult Urgent
03/26/25 12:44
Lactic Acid Urgent
03/26/25 14:04
CT Abd/Pel (IV only)-DH only Urgent
Comment:
Reason For Exam: L abd pain, near syncope, change in MS
03/26/25 14:09
CT Head W/o Iv Contrast Urgent
Comment:
Reason For Exam: Change in mental state
03/26/25 Dinner
Regular
At Your Request: Full Participation
Does patient need a safe tray?: No
03/26/25 16:12
Add On- LAB Urgent
Tests Added?: Lipase
03/26/25 16:26
Blood Culture Q30M
JUANPABLO Source: Blood/Venous
Specimen Description:
Blood Culture Q30M
JUANPABLO Source: Blood/Venous
Specimen Description:
03/26/25 17:17
Admit/Transfer Patient As Directed
Co-Sign Provider:
Level of Care: Inpatient admission
Assign to:: Telemetry
Physician / Group: ace escoto
Diagnosis: near syncope conc orthostasis, bradycardia uncler, leg wounds
Reason for Telemetry: Arrhythmia
Date to Stop Telemetry: 03/29/25
Time to Stop Telemetry: 11:00
Reason for Hospitalization: near syncope conc orthostasis, bradycardia uncler, leg wounds
Expected length of stay greater than two midnights?: Yes
ELOS- Estimated Length of Stay in days: 4
I certify the patient meets the requirements for IP care: Yes
03/26/25 17:18
Code Status As Directed
Resuscitation Status: Do not resuscitate
Reached after discussion with pt or family/Healthcare POA: Yes
Based on pt advanced directive or healthcare POA form: Yes
Decision communicated with: Per patient with Abby present
DNR Bracelet Application ONCE
03/26/25 17:29
PRN Pain Medication Management As Directed
May give lesser potent ordered pain med per pt: Yes
preference::
Protocol:: Medication orders for pain may be administered in a
manner that supports deferring to patient preference
when the pt is:
- Requesting an ordered lesser potent pain medication.
Least to most potent pain medications are defined
as: acetaminophen < NSAID < tramadol < opioids
(morphine, oxycodone, hydromorphone).
- Requesting a lesser dose of the same medication IF
ORDERED.
- Requesting a less intrusive route of administration
if both routes are prescribed by the provider (PO <
IV).
03/26/25 17:42
Wound Care As Directed
Location of Wound: Left lower extremity
Treatment of Wound: Cleanse with saline, apply alginate, Adaptic, dry sterile ABD pad, Leanne wrap
Apply left knee-high Kenney wrap
03/26/25 18:46
0.9% Sodium Chloride 1000 ml [Nss] 1,000 ml IV 60 mls/hr
03/26/25 18:46
WOUND/OSTOMY CONSULT Routine
Reason for Consult: VIKY wound s
VTE Contraindication Routine
VTE Mechanical Device Contraindication: Medical Contraindication
Pharmocologic Contraindication: Medical Contraindication
Comment: Patient on Eliquis
Activity As Directed
Activity Level: With Assistance
Intake/ Output As Directed
Frequency: Per unit guidelines
Orthostatic Vital Signs As Directed
Orthostatic VS Frequency: BID
Vital Signs As Directed
Frequency: Per unit guidelines
Weight As Directed
Frequency: Daily
Pt Eval And Treat Routine
Activity Level: With Assistance
03/26/25 20:00
Apixaban [Eliquis] 5 mg PO BID
Rotigotine [Neupro] 4 mg TRANSDERM DAILY@1999
Vit C/Vit E/Lutein/Min/[place]-3 [Ocuvite Softgel] 1 cap PO BID
03/26/25 22:00
Calcium Carbonate/Vitamin D3 [Oscal 500 + D] 500 mg PO QID
Cetirizine HCl [Zyrtec] 10 mg PO HS
Gabapentin [Neurontin] 300 mg PO TID
Ropinirole [Requip] 1 mg PO HS
ropinirole See Dose Instructions PO HS
03/27/25 06:23
Complete Blood Count/With Diff IN AM
Comprehensive Metabolic Panel IN AM
03/27/25 08:00
Finasteride [Proscar] 5 mg PO DAILY
03/28/25 06:00
Complete Blood Count/With Diff IN AM
Comprehensive Metabolic Panel IN AM
03/28/25 08:00
Cyanocobalamin [Vitamin B-12] 1,000 mcg PO MoWeFr@0800
03/29/25 06:00
Complete Blood Count/With Diff IN AM
Comprehensive Metabolic Panel IN AM
03/29/25 11:00
DC Protocol for Telemetry ONCE
03/30/25 06:00
Complete Blood Count/With Diff IN AM
Comprehensive Metabolic Panel IN AM
Abnormal Lab Results
03/26/25
12:35
WBC 13.9 H 10^3/uL
(4.8-10.8)
RBC 3.45 L 10^6/uL
(4.70-6.10)
Hgb 9.8 L g/dL
(13.0-18.0)
Hct 29.9 L %
(39.0-52.0)
MCHC 32.8 L g/dL
(33.0-37.0)
RDW 14.8 H %
(11.5-14.5)
Abs Immat Gran (auto) 0.1 H 10^3/uL
(0-0.05)
Absolute Neuts (auto) 10.6 H 10^3/uL
(1.4-6.5)
Absolute Lymphs (auto) 1.0 L 10^3/uL
(1.2-3.4)
Absolute Monos (auto) 2.1 H 10^3/uL
(0.1-0.6)
Neutrophils % 76.0 H %
(42.2-75.2)
Lymphocytes % 7.5 L %
(20.5-51.1)
Monocytes % 14.8 H %
(1.7-9.3)
PT 19.2 H Sec
(11.4-14.6)
APTT 45.8 H Sec
(23.4-35.0)
Chloride 109 H mmol/L
(98-107)
Carbon Dioxide 20 L mmol/L
(22-30)
BUN 21 H mg/dl
(9-20)
Glucose 121 H mg/dl
(70-99)
Calcium 8.3 L mg/dl
(8.4-10.2)
Total Protein 5.8 L g/dl
(6.3-8.2)
Albumin 2.8 L g/dl
(3.5-5.0)
Lipase 19 L U/L
(23-300)
Urine Albumin (Reflex) 1+ A
(Neg - Trace)
03/26/25 12:35
03/26/25 12:35
Vital Signs
Initial and Last Documented VS:
Initial Vital Signs
Temp Pulse Resp Pulse Ox
98.2 F 65 18 98
03/26/25 12:19 03/26/25 12:19 03/26/25 12:19 03/26/25 12:19
Last Documented Vital Signs
Temp Pulse Resp BP Pulse Ox
105 F H 88 17 173/67 92
03/27/25 08:34 03/27/25 07:00 03/27/25 11:08 03/27/25 07:00 03/27/25 11:08
<Arash Obando, DO - Last Filed: 03/26/25 16:29>
Orders/Labs/Results
Orders:
Orders
03/26/25 12:18
Electrocardiogram (*1) Urgent
Reason for Study: Bradycardia / Tachycardia
EKG- Treatment ONCE
03/26/25 12:35
CMP [Comprehensive Metabolic Panel] Urgent
Complete Blood Count/With Diff Urgent
Lipase Urgent
Comment: ADD ON
PT/INR [Prothrombin Time] Urgent
PTT Urgent
Troponin I Urgent
Urinalysis Reflex To Culture Urgent
Date Specimen was Collected: 03/26/25
Time Specimen was Collected: 12:25
Urine Microscopic Reflex Cult Urgent
03/26/25 12:44
Lactic Acid Urgent
03/26/25 14:04
CT Abd/Pel (IV only)-DH only Urgent
Comment:
Reason For Exam: L abd pain, near syncope, change in MS
03/26/25 14:09
CT Head W/o Iv Contrast Urgent
Comment:
Reason For Exam: Change in mental state
03/26/25 Dinner
Regular
At Your Request: Full Participation
Does patient need a safe tray?: No
03/26/25 16:12
Add On- LAB Urgent
Tests Added?: Lipase
03/26/25 16:26
Blood Culture Q30M
JUANPABLO Source: Blood/Venous
Specimen Description:
Blood Culture Q30M
JUANPABLO Source: Blood/Venous
Specimen Description:
03/26/25 17:17
Admit/Transfer Patient As Directed
Co-Sign Provider:
Level of Care: Inpatient admission
Assign to:: Telemetry
Physician / Group: ace escoto
Diagnosis: near syncope conc orthostasis, bradycardia uncler, leg wounds
Reason for Telemetry: Arrhythmia
Date to Stop Telemetry: 03/29/25
Time to Stop Telemetry: 11:00
Reason for Hospitalization: near syncope conc orthostasis, bradycardia uncler, leg wounds
Expected length of stay greater than two midnights?: Yes
ELOS- Estimated Length of Stay in days: 4
I certify the patient meets the requirements for IP care: Yes
03/26/25 17:18
Code Status As Directed
Resuscitation Status: Do not resuscitate
Reached after discussion with pt or family/Healthcare POA: Yes
Based on pt advanced directive or healthcare POA form: Yes
Decision communicated with: Per patient with Abby present
DNR Bracelet Application ONCE
03/26/25 17:29
PRN Pain Medication Management As Directed
May give lesser potent ordered pain med per pt: Yes
preference::
Protocol:: Medication orders for pain may be administered in a
manner that supports deferring to patient preference
when the pt is:
- Requesting an ordered lesser potent pain medication.
Least to most potent pain medications are defined
as: acetaminophen < NSAID < tramadol < opioids
(morphine, oxycodone, hydromorphone).
- Requesting a lesser dose of the same medication IF
ORDERED.
- Requesting a less intrusive route of administration
if both routes are prescribed by the provider (PO <
IV).
03/26/25 17:42
Wound Care As Directed
Location of Wound: Left lower extremity
Treatment of Wound: Cleanse with saline, apply alginate, Adaptic, dry sterile ABD pad, Leanne wrap
Apply left knee-high [place] wrap
03/26/25 18:46
0.9% Sodium Chloride 1000 ml [Nss] 1,000 ml IV 60 mls/hr
03/26/25 18:46
WOUND/OSTOMY CONSULT Routine
Reason for Consult: VIKY wound s
VTE Contraindication Routine
VTE Mechanical Device Contraindication: Medical Contraindication
Pharmocologic Contraindication: Medical Contraindication
Comment: Patient on Eliquis
Activity As Directed
Activity Level: With Assistance
Intake/ Output As Directed
Frequency: Per unit guidelines
Orthostatic Vital Signs As Directed
Orthostatic VS Frequency: BID
Vital Signs As Directed
Frequency: Per unit guidelines
Weight As Directed
Frequency: Daily
Pt Eval And Treat Routine
Activity Level: With Assistance
03/26/25 20:00
Apixaban [Eliquis] 5 mg PO BID
Rotigotine [Neupro] 4 mg TRANSDERM DAILY@1999
Vit C/Vit E/Lutein/Min/[place]-3 [Ocuvite Softgel] 1 cap PO BID
03/26/25 22:00
Calcium Carbonate/Vitamin D3 [Oscal 500 + D] 500 mg PO QID
Cetirizine HCl [Zyrtec] 10 mg PO HS
Gabapentin [Neurontin] 300 mg PO TID
Ropinirole [Requip] 1 mg PO HS
ropinirole See Dose Instructions PO HS
03/27/25 06:23
Complete Blood Count/With Diff IN AM
Comprehensive Metabolic Panel IN AM
03/27/25 08:00
Finasteride [Proscar] 5 mg PO DAILY
03/28/25 06:00
Complete Blood Count/With Diff IN AM
Comprehensive Metabolic Panel IN AM
03/28/25 08:00
Cyanocobalamin [Vitamin B-12] 1,000 mcg PO MoWeFr@0800
03/29/25 06:00
Complete Blood Count/With Diff IN AM
Comprehensive Metabolic Panel IN AM
03/29/25 11:00
DC Protocol for Telemetry ONCE
03/30/25 06:00
Complete Blood Count/With Diff IN AM
Comprehensive Metabolic Panel IN AM
Abnormal Lab Results
03/26/25
12:35
WBC 13.9 H 10^3/uL
(4.8-10.8)
RBC 3.45 L 10^6/uL
(4.70-6.10)
Hgb 9.8 L g/dL
(13.0-18.0)
Hct 29.9 L %
(39.0-52.0)
MCHC 32.8 L g/dL
(33.0-37.0)
RDW 14.8 H %
(11.5-14.5)
Abs Immat Gran (auto) 0.1 H 10^3/uL
(0-0.05)
Absolute Neuts (auto) 10.6 H 10^3/uL
(1.4-6.5)
Absolute Lymphs (auto) 1.0 L 10^3/uL
(1.2-3.4)
Absolute Monos (auto) 2.1 H 10^3/uL
(0.1-0.6)
Neutrophils % 76.0 H %
(42.2-75.2)
Lymphocytes % 7.5 L %
(20.5-51.1)
Monocytes % 14.8 H %
(1.7-9.3)
PT 19.2 H Sec
(11.4-14.6)
APTT 45.8 H Sec
(23.4-35.0)
Chloride 109 H mmol/L
(98-107)
Carbon Dioxide 20 L mmol/L
(22-30)
BUN 21 H mg/dl
(9-20)
Glucose 121 H mg/dl
(70-99)
Calcium 8.3 L mg/dl
(8.4-10.2)
Total Protein 5.8 L g/dl
(6.3-8.2)
Albumin 2.8 L g/dl
(3.5-5.0)
Lipase 19 L U/L
(23-300)
Urine Albumin (Reflex) 1+ A
(Neg - Trace)
03/26/25 12:35
03/26/25 12:35
Vital Signs
Initial and Last Documented VS:
Initial Vital Signs
Temp Pulse Resp Pulse Ox
98.2 F 65 18 98
03/26/25 12:19 03/26/25 12:19 03/26/25 12:19 03/26/25 12:19
Last Documented Vital Signs
Temp Pulse Resp BP Pulse Ox
105 F H 88 17 173/67 92
03/27/25 08:34 03/27/25 07:00 03/27/25 11:08 03/27/25 07:00 03/27/25 11:08
<Alicja Graham, DITCHER OPERATOR - Last Filed: 03/27/25 13:23>
MDM/Problems Addressed
Differential Diagnosis Includes:
cellulitis,
UTI, brain bleed (on Eliquis), vaso vagal response
diverticulitis, constipation
MDM/Problems Addressed:
79 yo male w h/o paroxysmal atrial fibrillation on Eliquis, restless leg syndrome, chronic venous insufficiency status post surgery, lower extremity lymphedema, bilateral Charcot foot, hypertension, BPH, poorly-controlled venous stasis dermatitis
with chronic bilateral foot and lower leg wounds that were debrided during a recent admission 03/17 to 03/19/2025. Followed by podiatry. He is continuing with his Keflex for 14 days since discharge.
He is being followed by VN who was changing his leg dressings today when pt suddenly became lethargic, BP was low, and pt faded in and out of near syncope a few times, called EMS. Pt arrives somnolent but easily arouses with calling of name.
Received 1 L NSS IV en route and arrival BP 116/45
He states he's had left side abdominal pain since this morning. said he has been complaining of mild left side discomfort past few days but worse today. He denies n/v/d/c. Denies CP, SOP, headache.
VSS, somnolent, NAD
Bedside monitor showing sinus bradycardia from 44-54, previous EKG also with HR in 40's
1:00 p.m.
CBC : WBC 13.9, otherwise consistent with his chronic anemia
CMP: No clinically significant abnormality
3:30 PM:
In to re evaluate: Pt remains somnolent, states totally out of character for him. He still is easily aroused but drifts right back to rest with eyes closed
Head CT neg
CT abd/pelvis w IV contrast Radiology report read: IMPRESSION:
1. No significant acute abnormality identified in the abdomen or pelvis, as described above.
2. Bilateral inguinal lymphadenopathy (left greater than right), slightly progressed from prior, nonspecific and may be reactive.
4:30 p.m.
Pt is back to his baseline mental state per . Pt is unaware of his episode(s) this a.m. of near syncope/syncope
He did say in CT scan reaching up with his arms over head, he felt 'muscular' pain left side up to armpit. He has been fighting with a stuck window at home past several days and feels he pulled something.
Case discussed with Dr. Obando who examined pt
Agrees with admit/observation due to episode hypotension and bradycardia, syncope, mild leukocytosis, with bilateral LE wounds.
Hospitalist notified of admission.
Blood cultures pending
<Alicja Graham, DITCHER OPERATOR - Last Filed: 03/27/25 13:23>
*Pulse Oximetry
SaO2: 93
Oxygen Mode of Delivery: Room air
Patient hypoxic: yes
*EKG
EKG Intrepretation Date: 03/26/25
Interpretation: abnormal
Heart Rate: 47
Rate: bradycardiac
Rhythm: sinus
[place]: left axis deviation
Interval: normal interval
QRS Pattern: normal QRS
Ischemia: no ischemia
*Critical Care Note
Total Time (30-74mins, 75-104mins- exclusive of procedures): Not Applicable
ED Attending Note
<Alicja Graham, DITCHER OPERATOR - Last Filed: 03/27/25 13:23>
-
Portions of this chart may have been created with voice recognition software.� Occasional wrong word or��sound alike� substitutions may have occurred due to the inherent limitations of voice recognition software.
<Arash Obando, - Last Filed: 03/26/25 16:29>
ED Attending Note
Patient seen and examined by attending physician: Yes
I performed the substantive portion of visit, reviewed & personally made and approve the management plan that is documented in note by myself or ERIN.: Yes
ED Attending Note:
79-year-old with long medical history who presents after syncope with hypotension found by the visiting nurse. Could consider vasovagal event with patient is unaware of events fully. No hypoxia. Was bradycardic on arrival. CBC noted for
leukocytosis. Blood culture sent. Lower extremities do appear chronically ill with excoriated skin on the left redness but given the fact he is afebrile recently treated for cellulitis we will hold off on antibiotics for now given his extensive
medical history and hypotension and syncope with bradycardia will admit for telemetry monitoring
Discharge Plan
Departure
Patient Disposition: Admit
Date of Disposition: 03/26/25
Time of Disposition: 16:28
Admit to: Med/Surg
Presentation/result/management discussed w/ accepting MD/DO: Hospitalist
Condition: Fair
Discharge Problem:
Syncope, Acute hypotension, Bradycardia
Interventions
Interventions:
*Risk Screen - Suicide Last Done: 03/26/25 12:19
*General Assessment Last Done: 03/26/25 12:19
*Neglect/Abuse Screening Last Done: 03/26/25 12:19
*ED- Fall Risk Assessment Last Done: 03/26/25 12:19
*ED COVID-19 Vaccine History Last Done: 03/26/25 12:19
*Nursing Disposition Last Done: 03/26/25 18:40
ED- Cardiac Assessment Last Done: 03/26/25 12:19
ED- Neurological Assessment Last Done: 03/26/25 12:19
Discharge Date and Time
Discharge Date/Time: 03/26/25 18:41
[2025-03-26 16:09] LABS: Urine Albumin 1+ (Neg - Trace); Urine Bilirubin Negative (Negative); Urine Character Clear (Clear); Urine Color Yellow; Urine Glucose Negative (Negative); Urine Ketone Negative (Negative); Urine Leukocyte Negative (Negative); Urine Nitrite Negative (Negative); Urine Occult Blood Negative (Negative); Urine Specific Gravity 1.005 (<1.030); Urine Urobilinogen Negative (Neg - 1+)
[2025-03-26 16:54] LABS: Lipase 19 U/L (23-300)
--- NOTE | 2025-03-26 16:55 | HPS.HSE ---
Addendum entered and electronically signed by Yung Urbina MD 03/26/25 18:10:
Seen and examined by me independently in collaboration with the nurse practitioner Urban.
Past medical history/social history/medication/allergies reviewed.
Lab data and imaging data reviewed.
Patient living at home with his was seen by visiting nurse today and was noted to have low blood pressure, low heart rate and near syncope. No loss of consciousness.
He is pretty much in the wheelchair and his transfers in and out of the bed otherwise nonambulatory.
He voices no specific complaints nor the has seen anything different with him. She found him to be very weak when his blood pressure was low today.
No nausea vomiting or diarrhea. No extrarenal losses. No new changes to the medication. Not on diuretics. Not known to have heart failure according to the patient/.
Ever since admission to the hospital his blood pressure has been stable but bradycardic in sinus rhythm.
Unclear based on the history whether he was orthostatic drop or blood pressure checked when he was in the wheelchair.
Check orthostasis. Check a TSH and cortisol. Continue with his antihypertensive with parameter.
He has a chronic lower extremity venous stasis dermatitis bilaterally. left leg seems slightly reddened but denies any increasing pain . Reviewing the wound care pictures from last week it seems more red and also more swollen. He also has
elevated white count. Apparently was feeling cold at home and the tells me that when visiting RN came today's temperature was low but here is afebrile and no hypothermia. On palpation he did have tenderness in the left lower posterior leg.
Clinically suspicious for left leg cellulitis. Start on IV Zosyn. Consult turn out Dr. Traore who worked on his leg last week.
With regards to bradycardia hold beta-isabel. Follow entirely. Is known to have paroxysmal atrial fibrillation. Consult cardiology.
DNR per patient wishes.
Original Note:
Family Physician
-
Family Physician: Tosin Ventura
Chief Complaint
-
Near syncope, lightheadedness, hypotension at home
History of Present Illness
79-year-old male from home where he lives with his Abby who states that today while the visiting nurse was visiting he attempted to stand up his blood pressure was 80 over 40s he became lethargic and had near syncopal episodes. His nurse also
noted his heart rate in the 40s. He arrived to the ER by EMS and en route received 1 L of IV NSS. He is complaining of left groin pain since this morning however he tells me he was moving a large heavy object yesterday it is exacerbated with
bending and lifting his left leg in the left inguinal area. He denies fever, chills, nausea, vomiting, diarrhea, chest pain, palpitations, cough, shortness of breath. He reports he is there is either lying in bed or sitting in a wheelchair he
stands only to transfer since his discharge. When he stood today he felt very lightheaded with symptoms above. He had a recent admission on 03/17 - 03/19/2025 secondary to bilateral foot and leg wound debridements by podiatry requiring 14 days of
Keflex. 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
tissue lower leg status post debridement 03/19/2025, transfer text BPH, bilateral Charcot arthropathy, chronic anemia, insomnia
Medical History
Past Medical History
Past Medical History: Reports Other
Additional Past Medical History:
hypertension
B12 deficiency
A-fib on Eliquis
BPH
insomnia
restless leg syndrome
bilateral leg wounds
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
right plantar ulcer
bilateral Charcot arthropathy,
left ankle skin soft tissue lower leg status post debridement 03/19/2025
BPH,chronic anemia
insomnia
Past Surgical History: Reports Other ( left ankle skin soft tissue lower leg status post debridement 03/19/2025)
Social History
Tobacco: Non-smoker
Alcohol: None
Drug: None
Personal:
Living: With Family ( Abby)
Employment: Retired
Family History
Family History: Not pertinent
Allergies / Home Medications
Allergies reflects when Allergies were last updated in [facility].
Home Medications with original date entered in [facility]
Allergy/Medication List:
Allergies
Allergy/AdvReac Type Severity Reaction Status Date / Time
adhesive Allergy Rash, Verified 03/17/25 15:20
Itching
hydroxychloroquine Allergy Rash Verified 03/17/25 15:20
pollen extracts Allergy seasonal Verified 03/17/25 15:20
allergy
Home Medications
amlodipine 10 mg tablet 10 mg PO DAILY Blood Pressure 10/03/21
finasteride 5 mg tablet 5 mg PO DAILY Urinary Issue 10/03/21
rotigotine 4 mg/24 hour transdermal 24 hour patch (Neupro) 1 patch transdermal QPM@1999 Neurological Condition 10/03/21
calcium 600 mg (as carbonate)-vitamin D3 12.5 mcg (500 unit) capsule (Calcium with Vit D3) 1 cap PO QID Supplement 12/03/22
cetirizine 10 mg tablet 10 mg PO HS Allergies 12/03/22
lzpqovbyrjm-bbj-cirutxvst-vitC capsule (Glucosamine Complex-MSM capsule) 1 cap PO TID Supplement 12/03/22
melatonin 10 mg tablet 20 mg PO HS Sleep 12/03/22
apixaban 5 mg tablet (Eliquis) 5 mg PO BID Blood Clot Prevention/Tx 08/30/23
ropinirole 1 mg tablet 1 mg PO HS restless legs 08/30/23
ropinirole 2 mg tablet,extended release 24 hr 4 mg PO HS restless legs 08/30/23
cyanocobalamin (vitamin B-12) 1,000 mcg tablet 1,000 mcg PO MOWEFR Supplement 11/23/23
losartan 100 mg tablet 100 mg PO DAILY Blood Pressure 11/23/23
vitamins A,C,W-bvoq-kwwkdu 2,148 mcg-113 mg-45 mg-17.4 mg tablet (PreserVision AREDS) 1 tab PO BID Supplement 11/23/23
acetaminophen 325 mg tablet (Tylenol) 325 mg PO QID Pain 01/11/25
gabapentin 300 mg capsule 300 mg PO TID Neurological Condition 03/02/25
Lactobac no.2-Bifidobac no.1-S. thermo 112.5 billion cell capsule (Visbiome) 1 cap PO DAILY Supplement 03/17/25
ibuprofen 200 mg tablet 200 mg PO QID PAIN/INFLAMMATION 03/17/25
metoprolol succinate 50 mg tablet,extended release 24 hr 50 mg PO DAILY Blood Pressure 03/17/25
cephalexin 500 mg capsule 500 mg PO Q6H Infection 13 days #52 caps 03/19/25
Review of Systems
-
History Source: Patient and Family ( Abby at bedside)
A 12 point ROS was completed and negative except as noted: Yes
Constitutional: Reports Fatigue; Denies Fever or Chills
EENT: Denies Sore Throat or Mouth Pain
Respiratory: Denies Cough or Trouble Breathing
Cardiac: Reports Other (Near syncope with standing); Denies Chest Pain, Diaphoresis or Palpitations
Abdomen/GI: Denies Abdominal Pain, Nausea, Vomiting, Diarrhea, Constipated or Bloody Stools
: Denies Dysuria, Frequency, Flank Pain, Incontinence, Difficulty Voiding or Urgency
Musculoskeletal: Denies Joint Pain or Edema
Skin: Reports Other (Left lower extremity chronic erythema from recent cellulitis with skin that is sloughed off two thirds of his lower leg); Denies Itching or Rash
Neurological: Reports Dizzy (With standing); Denies Headache or Weakness
Endocrine: Reports No Symptoms
Hematologic/Lymphatic: Reports No Symptoms
Psych: Reports Calm
Physical Exam
Vital Signs
Vital Signs
Temp Pulse Resp BP Pulse Ox
98.2 F 55 15 133/69 91
03/26/25 12:19 03/26/25 16:19 03/26/25 16:19 03/26/25 16:19 03/26/25 16:17
Physical Exam
General: Comfortable and Conversant; No Slurred Speech
HEENT: NormoCephalic, Anicteric, Moist mucous membranes, PERRLA, Morven Conjunctivae, No Ptosis and Neck Nontender
Respiratory: Clear; No Wheezes, Rales or Rhonchi
Cardiac: S1/S2 and Bradycardia (Sinus bradycardia 52 bpm); No Murmur, Rub or Gallop
Breast: Deferred by me
GI: Soft, Non Tender, Non Distended, Normal Bowel Sounds and No Hepatosplenomegaly
Rectal: Deferred by Provider
Genito-urinary: No costovertebral tender
Musculoskeletal: No Clubbing, No Cyanosis and Edema, Left Lower Extremity (Left lower extremity chronic erythema from recent cellulitis with skin that is sloughed off two thirds of his lower leg); No Edema, Left Upper Extremity, Edema, Right Upper
Extremity or Edema, Right Lower Extremity
Skin: Warm, Dry and Other (Left lower extremity chronic erythema from recent cellulitis with skin that is sloughed off two thirds of his lower leg); No Rash
Neuro: AO x 3, Nonfocal/grossly intact, Cranial Nerves Intact and Other (Chronic [place] does not have hearing aids in); No Slurred Speech, Facial Droop, Tremors or Sedated
Psych: Calm
Laboratory Results
-
03/26/25 12:35
03/26/25 12:35
Laboratory Results
PT 19.2 Sec (11.4-14.6) H 03/26/25 12:35
INR 1.59 03/26/25 12:35
APTT 45.8 Sec (23.4-35.0) H 03/26/25 12:35
Lactic Acid 1.3 mmol/L (0.7-2.0) 03/26/25 12:44
Total Bilirubin 0.9 mg/dl (0.2-1.3) 03/26/25 12:35
AST 24 U/L (17-59) 03/26/25 12:35
ALT 14 U/L (0-50) 03/26/25 12:35
Alkaline Phosphatase 80 U/L (38-126) 03/26/25 12:35
Troponin I < 0.012 ng/ml 03/26/25 12:35
Lipase 19 U/L (23-300) L 03/26/25 12:35
Data Reviewed
-
Lab Data: Labs Reviewed by me
Impression/Plan
-
Impression/plan:
Admit to telemetry
#Syncope likely secondary to orthostatic hypotension(prolonged lying in bed/wheelchair only stands to transfer)
HX essential htn
Reported hypotension 80s over 40s at home with visiting nurse and heart rate in 40s
IV NSS 1 L given by EMS
-Continue IV NSS 80 cc an hour
-follow orthostatic vitals twice daily
-Hold losartan 100 mg daily, hold metoprolol succinate 50 mg daily, amlodipine 10 mg daily
#Acute bradycardia
HR 55
EKG sinus bradycardia with PACs pattern of bigeminy HR 47 bpm, QTc 398 MS PACs are new since 03/26/2025
-Hold losartan 100 mg daily, hold metoprolol succinate 50 mg daily
- Consult [facility]ology
#Acute leukocytosis unclear
WBC 13.9 > 9.8 on 03/18/2025
- Follow CBC no obvious source of infection
CT abdomen pelvis with IV contrast:
1. No significant acute abnormality identified in the abdomen or pelvis, as described above.
2. Bilateral inguinal lymphadenopathy (left greater than right), slightly progressed from prior, nonspecific and may be reactive.
CT head no acute intracranial abnormality
#Left groin pain likely strain
Patient reports was moving lifting object felt strain in that area is exacerbated with movement
-Tylenol as needed
#Chronic ambulatory dysfunction
Currently using wheelchair stand to transfer
-consult PT/OT
#Chronic bilateral lower extremity venous stasis dermatitis
#Left ankle skin and soft tissue infection status post bilateral leg debridements 03/19 was to continue Keflex x 14 days did receive IV cefazolin
#Right plantar ulcer, chronic -continue local wound care.
-Was being followed by podiatry Dr. Traore
- Consult wound care
Dressing change plan was we will continue with: Cleanse with saline, apply alginate, Adaptic, dry sterile ABD pad, Leanne wrap
Apply left knee-high Kenney wrap
#Chronic anemia
Hgb 9.8 prior 10.4 on 03/18/2025
#Paroxysmal atrial fibrillation
-Continue Eliquis
- Hold losartan 100 mg daily, hold metoprolol succinate 50 mg daily
#Restless leg syndrome/neuropathy
- Continue Requip
- Continue gabapentin 300 mg p.o. 3 times daily
#BPH
- Monitor urine output
- Continue finasteride 5 mg daily with hold parameters
#Bilateral Charcot's arthropathy
#Chronic anemia -stable.
#Insomnia
Continue melatonin 20 mg at bedtime
DNR per patient with Abby at bedside
[2025-03-26 18:03] LABS: Urine Red Blood Cell 0-2 /HPF (0-2); Urine Squamous Cell 0-2 /LPF (Few); Urine White Cell 0-2 /HPF (0-5)
--- NOTE | 2025-03-26 18:23 | PHANOTE ---
03/26/2025, pt. states that they are taking Losartan 100 mg QPM; however, this med. is not in pharmacy records and not in [facility] records either. I was not able to confirm it with another source.
[2025-03-26] MEDS: NSS 1000 IV (19:35)
[2025-03-26] MEDS: ZOSYN 50 IV (19:36)
[2025-03-26] MEDS: NEUPRO 4 MG TRANSDERM (21:15)
[2025-03-26] MEDS: ELIQUIS 5 MG PO (21:15)
[2025-03-26] MEDS: OCUVITE SOFTGEL 1 CAP PO (21:15)
[2025-03-26] MEDS: TYLENOL 650 MG PO (21:16)
[2025-03-26] MEDS: REQUIP 1 MG PO (21:17)
[2025-03-26] MEDS: NEURONTIN 300 MG PO (21:17)
[2025-03-26] MEDS: OSCAL 500 + D 500 MG PO (21:17)
[2025-03-26] MEDS: ZYRTEC 10 MG PO (21:17)
[2025-03-27] VITALS (7 sets, daily range): BP systolic 119–173; BP diastolic 53–69; PULSE 73–75; BMI 23.7
[2025-03-27] MEDS: ZOSYN 50 IV ×4 (01:45→20:06)
[2025-03-27 06:52] LABS: % Basophils 0.3 % (0-2); % Eosinophils 1.6 % (0-6); % Immature Granulocytes 0.3 % (0-0.5); % Lymphocytes 5.1 % (20.5-51.1); % Monocytes 6.1 % (1.7-9.3); % Neutrophils 86.6 % (42.2-75.2); Absolute Eosinophils 0.2 10^3/uL (0-0.7); Absolute Lymphocytes 0.6 10^3/uL (1.2-3.4); Absolute Monocytes 0.7 10^3/uL (0.1-0.6); Absolute Neutrophils 10.3 10^3/uL (1.4-6.5); Hematocrit 34.4 % (39.0-52.0); Mean Corpuscular Hgb 27.8 pg (27.0-31.0); Mean Corpuscular Volume 86.9 fL (80.0-94.0); Nucleated Red Blood Cells % 0 % (-); Platelet Count 294 10^3/uL (130-400); Red Blood Cell Count 3.96 10^6/uL (4.70-6.10); Red Cell Dist. Width 14.6 % (11.5-14.5); White Blood Cell Count 11.9 10^3/uL (4.8-10.8)
[2025-03-27 07:03] LABS: ALT (SGPT) 14 U/L (0-50); AST (SGOT) 22 U/L (17-59); Albumin 3.2 g/dl (3.5-5.0); Alkaline Phosphatase 107 U/L (38-126); Blood Urea Nitrogen 19 mg/dl (9-20); Carbon Dioxide 26 mmol/L (22-30); Chloride 106 mmol/L (98-107); Estimated Creatinine Clearance 84 ml/min; Glucose 98 mg/dl (70-99); Potassium 4.8 mmol/L (3.5-5.1); Sodium 138 mmol/L (135-145); Total Bilirubin 0.7 mg/dl (0.2-1.3); Total Protein 6.6 g/dl (6.3-8.2); eGFR > 60.00
[2025-03-27 07:34] LABS: TSH Reflex To Free T4 0.83 uIU/ml (0.47-4.68)
[2025-03-27] MEDS: TYLENOL/FEVERALL 650 MG RECTAL (08:26)
[2025-03-27] MEDS: OCUVITE SOFTGEL 1 CAP PO ×2 (08:47→20:06)
[2025-03-27] MEDS: OSCAL 500 + D 500 MG PO ×4 (08:47→22:55)
[2025-03-27] MEDS: ELIQUIS 5 MG PO ×2 (08:47→20:06)
[2025-03-27] MEDS: NEURONTIN 300 MG PO ×3 (08:47→22:55)
[2025-03-27] MEDS: PROSCAR 5 MG PO (08:47)
--- NOTE | 2025-03-27 09:17 | W.PN.HOSP.TC ---
Today's Communication/Plan
-
Continue with IV Zosyn
Consult ID
Await teacher selection specialist input
Assessment / Plan
Assessment / Plan
#Left leg acute cellulitis-recurrent.
#Associated sepsis
Patient with recurrent cellulitis with recent admission to hospital for the same. He also had I&D done by teacher selection specialist last week.
Blood was noted yesterday and was started on antibiotics today with a very high fever. Blood cultures pending. White count coming down.
Await teacher selection specialist input.
Consult ID with the polymicrobial isolates in the wound culture in the recent past.
#Chronic bilateral lower extremity venous stasis dermatitis
#Left ankle skin and soft tissue infection status post bilateral leg debridements 03/19 was to continue Keflex x 14 days did receive IV cefazolin
#Right plantar ulcer, chronic -continue local wound care.
-Was being followed by podiatry Dr. Traore
- Consult wound care
# Near syncope at home
According to no syncope. He was just very weak, tired and slumped over. His blood pressure was low as well as heart rate and temperature per . Suspect also symptoms related to his infection. He is known to have atrial fibrillation which
is paroxysmal and no pauses or arrhythmias noted. His blood pressure has been stable here.
Continue to follow hemodynamics.
#Sinus bradycardia
Patient with known paroxysmal atrial fibrillation
EKG sinus bradycardia with PACs pattern of bigeminy HR 47 bpm, QTc 398 MS PACs are new since 03/26/2025
-hold metoprolol succinate 50 mg daily. Continue Eliquis
- Consult [facility]
#Chronic ambulatory dysfunction
Currently using wheelchair stand to transfer
-consult PT/OT
#Hypertension-hold antihypertensives for now with sepsis.
#Chronic anemia
Hgb 9.8 prior 10.4 on 03/18/2025
#Restless leg syndrome/neuropathy
- Continue Requip
- Continue gabapentin 300 mg p.o. 3 times daily
#BPH
- Monitor urine output
- Continue finasteride 5 mg daily with hold parameters
#Bilateral Charcot's arthropathy
#Chronic anemia -stable.
#Insomnia
Continue melatonin 20 mg at bedtime
DNR
Discussed with RN
Total time spent on today's encounter was 52 minutes which included time spent in counseling the patient/family regarding diagnosis and treatment plan as listed above, goals of care, and symptom management. Case was discussed with nursing staff,
specialists, and care coordinators/case management. All labs and imaging personally reviewed by me. Remainder the time spent in detailed review of previous records, lab data, imaging, and other medical provider documentation.
Anticipated Discharge: > 48 hours
Subjective/Interval History
-
Date of Service: March 27, 2025
This morning with a very high temp of 105.
He had associated confusion and hallucination per RN.
at bedside-finds him confused but is also without his hearing aid. Patient is alert and oriented to person only. He did not know where he he is but he knew he is here since yesterday
Feels some discomfort in the left flank but otherwise voicing no specific complaints. No nausea or vomiting.
He looks flushed.
Objective Data
-
Labs:
Laboratory Results
03/27/25
06:23
WBC 11.9 H
Hgb 11.0 L
Hct 34.4 L
Plt Count 294
Sodium 138
Potassium 4.8
Chloride 106
Carbon Dioxide 26
BUN 19
Creatinine 0.7
Glucose 98
Calcium 9.0
Total Bilirubin 0.7
AST 22
ALT 14
Alkaline Phosphatase 107
Vital Signs:
Vital Signs
Temp Pulse Resp BP Pulse Ox
105 F H 88 18 173/67 92
03/27/25 08:34 03/27/25 07:00 03/27/25 07:00 03/27/25 07:00 03/27/25 07:00
I&O
03/26/25 03/27/25 03/28/25
06:59 06:59 06:59
Intake Total 360 / 360
Output Total 400 / 400
Balance -40 / -40
Physical Exam
-
General: Comfortable
Respiratory: Non Labored Respirations; Negative Accessory Resp Muscle Use
Cardiac: S1/S2 and Irregular Rhythm; Negative Tachycardic
GI: Soft
Musculoskeletal: Other (left leg in dressing; reviewed yesterday )
Neuro: Awake, Alert, Oriented (Self only) and No Motor Deficits
Psych: Calm and Confused
Data Reviewed
-
Labs: Labs Reviewed by me
--- NOTE | 2025-03-27 10:42 | CM ---
Initial assessment completed. Patient is a 79-year-old male from home where he lives with his Abby who states that today while the visiting nurse was visiting he attempted to stand up his blood pressure was 80 over 40s he became lethargic and
had near syncopal episodes.
Patient resides w/ spouse in a 2STH- 2 steps to enter the home. Patient prev was using a knee scooter but is now primarily using a WC. Patient does have a cane but isn't using often at this time. Has additional grab bar and shower chair in the
bathroom. Independent w/ ADLs. [facility] in the past. Current w/ [facility]
Address, point of contact and insurance verified
PCP: Tosin Ventura
Pharmacy: [facility] [place]
PT eval ordered, will re-attempt another time as patient has a 105 degree fever and some confusion
Plan: CM will cont to follow for d/c planning
[2025-03-27] MEDS: TYLENOL 325 MG PO (12:01)
--- NOTE | 2025-03-27 12:01 | WOUNDNOTE ---
RIGHT PLANTAR FOOT
--- NOTE | 2025-03-27 12:02 | WOUNDNOTE ---
LEFT LATERAL LOWER LEG
--- NOTE | 2025-03-27 12:03 | WOUNDNOTE ---
LEFT LATERAL/POSTERIOR LOWER LEG
--- NOTE | 2025-03-27 12:04 | WOUNDNOTE ---
LEFT LOWER LEG
--- NOTE | 2025-03-27 12:05 | WOUNDNOTE ---
LEFT LOWER LEG/ANKLE
--- NOTE | 2025-03-27 12:06 | WOUNDNOTE ---
LEFT PLANTAR FOOT
--- NOTE | 2025-03-27 12:07 | WOUNDNOTE ---
WON RN note: Patient admitted with syncope, acute hypotension and bradycardia.
See H&P for complete history. Lives with , has VN.
PMH: a fib (Eliquis), restless leg syndrome, venous insufficiency, s/p vein procedure, LE lymphedema, Charcot foot, HTN, BPH, chronic pain syndrome, LLE hematoma evacuation 01/16/25, 11/25/23 R foot I+D with debridement of bone by Dr. Traore, former
smoker. 03/19/25 I&D of R plantar foot by Dr. Traore.
Wound Location and type/assessment: Patient known to service, last seen 03/19/25. Now admitted with: R plantar foot healing neuropathic ulcer, improved since last seen, base pink, no odor. Dr. Traore on consult. B/L Charcot feet, L plantar foot
with intact callus. Own Velcro 'diabetic' shoes at bedside. Heels are both blanchable red. L Lower leg surrounding ankle with venous ulcers, drainage large serosanguineous. Skin very red, dry and flaky surrounding ulcers +Pedal pulses palpable, +1
LLE edema. confirmed he did go to wound center here but now follows with podiatry. Was using an Unna boot for L leg until wound became worse.
Appetite: Good.
Pressure redistribution devices in place: Versa care Accumax. Patient moves self in bed. Pillow under calves applied.
Plan: LLE and R foot dressing changed. LLE Xeroform, alginate, abd pad and kerlix with mamadou wrap knee high applied. Adhesive foam applied to R heel to protect. Will confirm orders with Dr. Urbina for L lower leg. R plantar foot per Dr. Traore.
Updated nurse Meaghan, called [facility] for Xeroform and nurse to bring into when arrives. Care plan to be updated and will follow as needed. Patient to follow up with Dr. Traore when discharged and continue VN.
[2025-03-27] MEDS: NSS 1000 IV (13:16)
--- NOTE | 2025-03-27 14:22 | CON.SURG ---
Surgical Consultation
-
Chief Complaint
-
Bilateral lower extremity wounds
History of Present Illness
79-year-old male from home where he lives with his Abby who states that yesterday while the visiting nurse was visiting he attempted to stand up his blood pressure was 80 over 40s he became lethargic and had near syncopal episodes. His nurse
also noted his heart rate in the 40s. He arrived to the ER by EMS and en route received 1 L of IV NSS. He is complaining of left groin pain since this morning however he tells me he was moving a large heavy object yesterday it is exacerbated with
bending and lifting his left leg in the left inguinal area. He denies fever, chills, nausea, vomiting, diarrhea, chest pain, palpitations, cough, shortness of breath. He reports he is there is either lying in bed or sitting in a wheelchair he
stands only to transfer since his discharge. When he stood today he felt very lightheaded with symptoms above. He had a recent admission on 03/17 - 03/19/2025 secondary to bilateral foot and leg wound debridements by podiatry requiring 14 days of
Keflex. 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
tissue lower leg status post debridement 03/19/2025, bilateral Charcot arthropathy, chronic anemia, insomnia
Medical History
Past Medical History
Past Medical History: Reports Other
Additional Past Medical History:
hypertension
B12 deficiency
A-fib on Eliquis
BPH
insomnia
restless leg syndrome
bilateral leg wounds
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
right plantar ulcer
bilateral Charcot arthropathy,
left ankle skin soft tissue lower leg status post debridement 03/19/2025
BPH,chronic anemia
insomnia
Past Surgical History: Reports Other ( left ankle skin soft tissue lower leg status post debridement 03/19/2025)
Social History
Tobacco: Non-smoker
Alcohol: None
Drug: None
Personal:
Living: With Family ( Abby)
Employment: Retired
Family History
Family History: Not pertinent
Allergies / Home Medications
Allergies reflects when Allergies were last updated in [facility].
Home Medications with original date entered in [facility]
Allergy/Medication List:
Allergies
Allergy/AdvReac Type Severity Reaction Status Date / Time
adhesive Allergy Rash, Verified 03/17/25 15:20
Itching
hydroxychloroquine Allergy Rash Verified 03/17/25 15:20
pollen extracts Allergy seasonal Verified 03/17/25 15:20
allergy
Home Medications
amlodipine 10 mg tablet 10 mg PO DAILY Blood Pressure 10/03/21
finasteride 5 mg tablet 5 mg PO DAILY Urinary Issue 10/03/21
rotigotine 4 mg/24 hour transdermal 24 hour patch (Neupro) 1 patch transdermal QPM@1999 Neurological Condition 10/03/21
calcium 600 mg (as carbonate)-vitamin D3 12.5 mcg (500 unit) capsule (Calcium with Vit D3) 1 cap PO QID Supplement 12/03/22
cetirizine 10 mg tablet 10 mg PO HS Allergies 12/03/22
lryipqbxspt-heo-ailgvqqoc-vitC capsule (Glucosamine Complex-MSM capsule) 1 cap PO TID Supplement 12/03/22
melatonin 10 mg tablet 20 mg PO HS Sleep 12/03/22
apixaban 5 mg tablet (Eliquis) 5 mg PO BID Blood Clot Prevention/Tx 08/30/23
ropinirole 1 mg tablet 1 mg PO HS restless legs 08/30/23
ropinirole 2 mg tablet,extended release 24 hr 4 mg PO HS restless legs 08/30/23
cyanocobalamin (vitamin B-12) 1,000 mcg tablet 1,000 mcg PO MOWEFR Supplement 11/23/23
losartan 100 mg tablet 100 mg PO DAILY Blood Pressure 11/23/23
vitamins A,C,I-hcoj-ugctrl 2,148 mcg-113 mg-45 mg-17.4 mg tablet (PreserVision AREDS) 1 tab PO BID Supplement 11/23/23
acetaminophen 325 mg tablet (Tylenol) 325 mg PO QID Pain 01/11/25
gabapentin 300 mg capsule 300 mg PO TID Neurological Condition 03/02/25
Lactobac no.2-Bifidobac no.1-S. thermo 112.5 billion cell capsule (Visbiome) 1 cap PO DAILY Supplement 03/17/25
ibuprofen 200 mg tablet 200 mg PO QID PAIN/INFLAMMATION 03/17/25
metoprolol succinate 50 mg tablet,extended release 24 hr 50 mg PO DAILY Blood Pressure 03/17/25
cephalexin 500 mg capsule 500 mg PO Q6H Infection 13 days #52 caps 03/19/25
Review of Systems
-
History Source: Patient and Family ( Abby at bedside)
A 12 point ROS was completed and negative except as noted: Yes
Constitutional: Reports Fatigue; Denies Fever or Chills
EENT: Denies Sore Throat or Mouth Pain
Respiratory: Denies Cough or Trouble Breathing
Cardiac: Reports Other (Near syncope with standing); Denies Chest Pain, Diaphoresis or Palpitations
Abdomen/GI: Denies Abdominal Pain, Nausea, Vomiting, Diarrhea, Constipated or Bloody Stools
: Denies Dysuria, Frequency, Flank Pain, Incontinence, Difficulty Voiding or Urgency
Musculoskeletal: Denies Joint Pain or Edema
Skin: Reports Other (Left lower extremity chronic erythema from recent cellulitis with skin that is sloughed off two thirds of his lower leg); Denies Itching or Rash
Neurological: Reports Dizzy (With standing); Denies Headache or Weakness
Endocrine: Reports No Symptoms
Hematologic/Lymphatic: Reports No Symptoms
Psych: Reports Calm
Physical Exam
Vital Signs
Vital Signs
Temp Pulse Resp BP Pulse Ox
98.2 F 55 15 133/69 91
03/26/25 12:19 03/26/25 16:19 03/26/25 16:19 03/26/25 16:19 03/26/25 16:17
Physical Exam
General: Comfortable and Conversant; No Slurred Speech
HEENT: NormoCephalic, Anicteric, Moist mucous membranes, PERRLA, [place] Conjunctivae, No Ptosis and Neck Nontender
Respiratory: Clear; No Wheezes, Rales or Rhonchi
Cardiac: S1/S2 and Bradycardia (Sinus bradycardia 52 bpm); No Murmur, Rub or Gallop
Breast: Deferred by me
GI: Soft, Non Tender, Non Distended, Normal Bowel Sounds and No Hepatosplenomegaly
Rectal: Deferred by Provider
Genito-urinary: No costovertebral tender
Musculoskeletal: No Clubbing, No Cyanosis and Edema, Left Lower Extremity (Left lower extremity chronic erythema from recent cellulitis with skin that is sloughed off two thirds of his lower leg); No Edema, Left Upper Extremity, Edema, Right Upper
Extremity or Edema, Right Lower Extremity
Skin: Warm, Dry and Other (Left lower extremity chronic erythema from recent cellulitis with skin that is sloughed off two thirds of his lower leg); No Rash
Neuro: AO x 3, Nonfocal/grossly intact, Cranial Nerves Intact and Other (Chronic [place] does not have hearing aids in); No Slurred Speech, Facial Droop, Tremors or Sedated
Psych: Calm
Bilateral lower extremity exam
-DP/PT pulses 2/4, capillary refill < 3 seconds BL
-Right plantar foot wound stable with granular wound bed, surrounding hyperkeratosis, and no signs of acute infection
-Left lower leg wound surrounding ankle and malleoli region with granular wound bed and mild erythema. No purulence, crepitus, fluctuance, or other signs of acute infection
-Severe bilateral charcot deformity
Laboratory Results
-
03/26/25 12:35
03/26/25 12:35
Laboratory Results
PT 19.2 Sec (11.4-14.6) H 03/26/25 12:35
INR 1.59 03/26/25 12:35
APTT 45.8 Sec (23.4-35.0) H 03/26/25 12:35
Lactic Acid 1.3 mmol/L (0.7-2.0) 03/26/25 12:44
Total Bilirubin 0.9 mg/dl (0.2-1.3) 03/26/25 12:35
AST 24 U/L (17-59) 03/26/25 12:35
ALT 14 U/L (0-50) 03/26/25 12:35
Alkaline Phosphatase 80 U/L (38-126) 03/26/25 12:35
Troponin I < 0.012 ng/ml 03/26/25 12:35
Lipase 19 U/L (23-300) L 03/26/25 12:35
Data Reviewed
-
Lab Data: Labs Reviewed by me
Impression/Plan
-
79 yo M with history of bilateral lower extremity wounds from charcot neuroarthropathy presents with hypotension and sepsis. Concern for lower extremities as source of infection. Recent bilateral leg debridements performed on 03/19/2025
-Patient seen and evaluated at bedside, dressings removed and wounds inspected
-Right plantar foot stable with no signs of infection
-Left ankle and malleoli venous wound with mild erythema, possible cellulitis but no signs of deep infection
-Bilateral lower legs unlikely to be source of sepsis in setting of recent hypotension and temp of 105 this morning
-Agree with antibiotics
-If no other source of infection is determined, would consider LLE CT scan with IV contrast
-Will continue to follow
--- NOTE | 2025-03-27 15:53 | CON.ID ---
Consultation
-
Date/Time Consultation Requested: March 27, 2025 0915
Date/Time Consultation Performed: March 27, 2025 1555
Requesting Provider: Dr. Yung Urbina
Performing Provider: Dr. Michelle Fajardo
Reason for Consultation: LLE wound cellulitis
Chief Complaint / Past History
Chief Complaint
Low blood pressure
History of Present Illness
History obtained from patient at bedside and from the patient. He is a 79-year-old male with history of paroxysmal atrial fibrillation, neuropathy, Charcot foot with chronic plantar ulcer, left lower extremity lymphedema with venous stasis and
left lower extremity wounds who presented to the hospital due to presyncopal episode. Patient recently hospitalized multiple times including March 02 to March 04 with left lower extremity cellulitis treated with cefazolin in the hospital then
discharged on cephalexin. He returned to the hospital on March 17 to March 19 due to lower extremity wound bleeding and cellulitis. On March 19 he underwent debridement of the left wound and the right plantar ulcer. He was on IV cefazolin then
discharge on cephalexin. Yesterday he visiting nurse changed the left leg dressing. She then took his BP and it was low 80/40. Heart rate of 40. Nurse waited several minutes and repeated his blood pressure which remained low. When he attempted
to stand up he became lethargic and briefly passed out per . He was sent to the ER yesterday March 26. White count 13.9. Overnight he spiked a temperature 103 then escalated to 105. No chills or sweats he is currently on Zosyn. Cultures are
pending. Patient reports compliant with compression modalities at home.
Past History
Additional Past Medical History:
Paroxysmal Atrial Fibrillation
Hypertension
Renal Artery Stenosis
Chronic Venous Insufficiency status post left lower extremity venous ablation January 2025
Chronic left lower extremity stasis wounds
Chronic Lower Extremity Lymphedema
Charcot Arthropathy
Chronic right plantar foot ulcer
Chronic Pain Syndrome
Restless Leg Syndrome
Insomnia
BPH
ELZBIETA
Lower Back Surgery
Carpal Tunnel Release
Hernia Repair
Right Foot Surgery
Multiple Partial Toe Amputations
LLE Vein Procedure
Allergy History:
adhesive Allergy (Verified 03/17/25 15:20)
Rash, Itching
hydroxychloroquine Allergy (Verified 03/17/25 15:20)
Rash
pollen extracts Allergy (Verified 03/26/25 18:49)
seasonal allergy-nasal congestion/ watery eyes
Medications Reviewed: Yes
Current Antibiotics:
Zosyn
Social History
Tobacco: Former Smoker
Alcohol: Occasional
Drug: None
Personal:
Living: With Family
Employment: Not Employed
Family History
Family History: Not Pertinent
Review of Systems
Review of Systems
General: Fever and Change in Appetite
HEENT: Negative Sinus Problems or Headache
Cardiovascular: Negative Chest Pain or Dyspnea
Respiratory: Negative Dyspnea
Gasteroenterology: Negative Nausea, Vomiting or Diarrhea
Genital / Urological: Negative Dysuria or Flank Pain
Neurological: Negative Dizziness
All systems: All other systems were reviewed and were negative
Vital Signs
Temp Pulse Resp BP Pulse Ox
99.4 F 55 17 119/53 97
03/27/25 15:00 03/27/25 15:00 03/27/25 15:00 03/27/25 15:00 03/27/25 15:00
Selected Entries
03/27/25
07:00 03/27/25
08:34
Temp 103 F H 105 F H
Physical Exam
Physical Exam
Constitutional: Comfortable and Non-toxic
Head: Other (No frontal or max or sinus tenderness)
Eyes: No Conjunctival Hemorrhage and Sclera Anicteric
Cardiovascular: Regular Rate and S1/S2
Pulmonary: Clear
Gastrointestinal: Soft, Non Tender, Non Distended and Normal Bowel Sounds
Extremities: Edema (LLE 1+), Erythema (LLE distal leg with venous stasis shallow wounds from above ankle to proximal dorsal foot with dry, sloughing skin, + eryhema) and Venous Insufficiency (BLE)
Wound: Other (Right foot Charcot-mid plantar round with pink granulating base surrounded by callus.)
Neurological: AO x 3
Lab / Diagnostic Study Results
03/27/25 06:23
03/27/25 06:23
Abs Immat Gran (auto) 0.0 10^3/uL (0-0.05) 03/27/25 06:23
Absolute Neuts (auto) 10.3 10^3/uL (1.4-6.5) H 03/27/25 06:23
Absolute Lymphs (auto) 0.6 10^3/uL (1.2-3.4) L 03/27/25 06:23
Absolute Monos (auto) 0.7 10^3/uL (0.1-0.6) H 03/27/25 06:23
Absolute Basos (auto) 0.0 10^3/uL (0-0.2) 03/27/25 06:23
Immature Gran % 0.3 % (0-0.5) 03/27/25 06:23
Neutrophils % 86.6 % (42.2-75.2) H 03/27/25 06:23
Lymphocytes % 5.1 % (20.5-51.1) L 03/27/25 06:23
Monocytes % 6.1 % (1.7-9.3) 03/27/25 06:23
Eosinophils % 1.6 % (0-6) 03/27/25 06:23
Basophils % 0.3 % (0-2) 03/27/25 06:23
PT 19.2 Sec (11.4-14.6) H 03/26/25 12:35
INR 1.59 03/26/25 12:35
Lactic Acid 1.3 mmol/L (0.7-2.0) 06/23/25 12:44
Ur Squamous Epith Cells 0-2 /LPF (Few) 03/26/25 12:35
Microbiology Results
Micro:
03/26/25 16:26 Blood Culture - Pending
Blood/Venous
03/26/25 16:26 Blood Culture - Pending
Blood/Venous
03/26/25 CT a/p: No significant acute abnormality identified in the abdomen or pelvis, as described above.
2. Bilateral inguinal lymphadenopathy (left greater than right), slightly progressed from prior, nonspecific and may be reactive.
Assessment / Plan
# Leukocytosis
# Fever
# Hypotensive, bradycardic episode
# LLE cellulitis minimal response to 2 courses of cephalexin
# LLE Venous stasis dermatitis
-CT a/p no acute pathology
- Await blood cx's.
- Agree with Zosyn.
- Continue compression and local wound care.
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
Paroxysmal Atrial Fibrillation
Hypertension
Renal Artery Stenosis
Chronic Venous Insufficiency status post left lower extremity venous ablation January 2025
Chronic left lower extremity stasis wounds
Chronic Lower Extremity Lymphedema
Charcot Arthropathy
Chronic right plantar foot ulcer
Chronic Pain Syndrome
Restless Leg Syndrome
Insomnia
BPH
ELZBIETA
Lower Back Surgery
Carpal Tunnel Release
Hernia Repair
Right Foot Surgery
Multiple Partial Toe Amputations
LLE Vein Procedure
[2025-03-27] MEDS: TYLENOL 650 MG PO ×2 (18:41→22:56)
[2025-03-27] MEDS: NEUPRO 4 MG TRANSDERM (20:07)
[2025-03-27] MEDS: REQUIP 1 MG PO (22:55)
[2025-03-27] MEDS: ZYRTEC 10 MG PO (22:55)
[2025-03-28] VITALS (8 sets, daily range): BP systolic 120–155; BP diastolic 52–75; PULSE 76–92; BMI 24.0
[2025-03-28] MEDS: ZOSYN 50 IV ×4 (01:20→20:03)
[2025-03-28 08:19] LABS: % Basophils 0.7 % (0-2); % Eosinophils 2.6 % (0-6); % Immature Granulocytes 0.3 % (0-0.5); % Lymphocytes 4.3 % (20.5-51.1); % Monocytes 9.6 % (1.7-9.3); % Neutrophils 82.5 % (42.2-75.2); Absolute Basophils 0.1 10^3/uL (0-0.2); Absolute Eosinophils 0.2 10^3/uL (0-0.7); Absolute Lymphocytes 0.4 10^3/uL (1.2-3.4); Absolute Monocytes 0.9 10^3/uL (0.1-0.6); Absolute Neutrophils 7.6 10^3/uL (1.4-6.5); Hematocrit 36.2 % (39.0-52.0); Hemoglobin 11.9 g/dL (13.0-18.0); Mean Corp Hgb Conc. 32.9 g/dL (33.0-37.0); Mean Corpuscular Hgb 27.8 pg (27.0-31.0); Mean Corpuscular Volume 84.6 fL (80.0-94.0); Mean Platelet Volume 10.4 fL (7.4-10.4); Nucleated Red Blood Cells % 0 % (-); Platelet Count 252 10^3/uL (130-400); Red Blood Cell Count 4.28 10^6/uL (4.70-6.10); Red Cell Dist. Width 14.8 % (11.5-14.5); White Blood Cell Count 9.2 10^3/uL (4.8-10.8)
[2025-03-28 09:06] LABS: ALT (SGPT) 16 U/L (0-50); AST (SGOT) 30 U/L (17-59); Albumin 3.2 g/dl (3.5-5.0); Alkaline Phosphatase 127 U/L (38-126); Blood Urea Nitrogen 16 mg/dl (9-20); Calcium 8.3 mg/dl (8.4-10.2); Carbon Dioxide 22 mmol/L (22-30); Chloride 106 mmol/L (98-107); Estimated Creatinine Clearance 74 ml/min; Glucose 104 mg/dl (70-99); Potassium 3.9 mmol/L (3.5-5.1); Sodium 135 mmol/L (135-145); Total Bilirubin 0.7 mg/dl (0.2-1.3); Total Protein 6.4 g/dl (6.3-8.2); eGFR > 60.00
[2025-03-28] MEDS: NEURONTIN 300 MG PO ×3 (09:06→22:04)
[2025-03-28] MEDS: PROSCAR 5 MG PO (09:06)
[2025-03-28] MEDS: OCUVITE SOFTGEL 1 CAP PO ×2 (09:06→20:03)
[2025-03-28] MEDS: ELIQUIS 5 MG PO ×2 (09:06→20:03)
[2025-03-28] MEDS: OSCAL 500 + D 500 MG PO ×4 (09:06→22:04)
[2025-03-28] MEDS: VITAMIN B-12 1000 MCG PO (09:08)
--- NOTE | 2025-03-28 10:49 | W.PN.ID1 ---
Date of Service
Date of Service: March 28, 2025
Today's Communication
Continue Zosyn for now.
Assessment / Plan
# Leukocytosis resolved
# Fever persists
# Hypotensive, bradycardic episode
# LLE cellulitis minimal response to 2 courses of cephalexin
# LLE Venous stasis dermatitis
# Chronic right plantar foot ulcer - not infected
# Charcot arthropathy
-CT a/p no acute pathology
- ED bcx's x 2 neg to date
- Follow repeat blood cx's.
- Continue Zosyn (d3) for now.
- Trend temp curve.
- Continue compression and local wound care.
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
Paroxysmal Atrial Fibrillation
Hypertension
Renal Artery Stenosis
Chronic Venous Insufficiency status post left lower extremity venous ablation January 2025
Chronic left lower extremity stasis wounds
Chronic Lower Extremity Lymphedema
Charcot Arthropathy
Chronic right plantar foot ulcer
Chronic Pain Syndrome
Restless Leg Syndrome
Insomnia
BPH
ELZBIETA
Lower Back Surgery
Carpal Tunnel Release
Hernia Repair
Right Foot Surgery
Multiple Partial Toe Amputations
LLE Vein Procedure
Chief Complaint
-: Fever and Cellulitis
Subjective / Review of Systems
Had 104 fever last night, was confused.
He feels better when afebrile.
Vital Signs / Physical Exam
Vital Signs
Vital Signs
Temp Pulse Resp BP Pulse Ox
98.5 F 77 17 134/64 97
03/28/25 08:04 03/28/25 08:04 03/28/25 08:04 03/28/25 08:04 03/28/25 08:04
Selected Entries
03/27/25
18:30
Temp 104.2 F H
Physical Exam
Constitutional: No Acute Distress and Comfortable
Eyes: No Conjunctival Hemorrhage and Sclera Anicteric
Cardiovascular: Regular Rate and S1/S2
Pulmonary: Clear
Gastrointestinal: Soft, Non Tender, Non Distended and Normal Bowel Sounds
Genito-Urinary: Negative CVA Tenderness
Extremities: Other (LLE in JOSEPH Wrap)
Neurological: AO x 3
Objective Data
Lab Data
Lab Results
03/28/25 06:41
03/28/25 06:41
PT 19.2 Sec (11.4-14.6) H 03/26/25 12:35
INR 1.59 03/26/25 12:35
APTT 45.8 Sec (23.4-35.0) H 03/26/25 12:35
Estimated Creat Clear 74 ml/min 03/28/25 06:41
Lactic Acid 1.3 mmol/L (0.7-2.0) 03/26/25 12:44
Total Bilirubin 0.7 mg/dl (0.2-1.3) 03/28/25 06:41
AST 30 U/L (17-59) 03/28/25 06:41
ALT 16 U/L (0-50) 03/28/25 06:41
Alkaline Phosphatase 127 U/L (38-126) H 03/28/25 06:41
Most recent labs reviewed.
Micro Results:
03/28/25 00:27 Blood Culture - Pending
Blood/Venous
03/27/25 23:47 Blood Culture - Pending
Blood/Venous
03/26/25 16:26 Blood Culture - Preliminary
Blood/Venous No Growth in 24 hours- Final report to follow
03/26/25 16:26 Blood Culture - Preliminary
Blood/Venous No Growth in 24 hours- Final report to follow
03/26/25 CT a/p: No significant acute abnormality identified in the abdomen or pelvis, as described above.
2. Bilateral inguinal lymphadenopathy (left greater than right), slightly progressed from prior, nonspecific and may be reactive.
Care Review
Plan reviewed with: Physician (Dr. Urbina)
[2025-03-28] MEDS: HYDROPHOR 1 APPLIC TOPICAL (10:50)
--- NOTE | 2025-03-28 11:40 | W.PN.HOSP.TC ---
Today's Communication/Plan
-
Continue with Zosyn
Continue with wound care
Follow blood cultures
Continue PT OT
Assessment / Plan
Assessment / Plan
#Left leg acute cellulitis-recurrent.
#Associated sepsis
Patient with recurrent cellulitis with recent admission to hospital for the same. He also had I&D done by barnworker groom last week.
Improved fevers and white count. Improved cognition.
Appreciate barnworker groom input-they think there is mild cellulitis but clinically doubt deeper infection.
Blood cultures so far negative.
Continue with Zosyn. ID following.
#Chronic bilateral lower extremity venous stasis dermatitis
#Left ankle skin and soft tissue infection status post bilateral leg debridements 03/19 was to continue Keflex x 14 days did receive IV cefazolin
#Right plantar ulcer, chronic -continue local wound care.
-Was being followed by podiatry Dr. Traore
- Continue wound care
# Near syncope at home
According to no syncope. He was just very weak, tired and slumped over. His blood pressure was low as well as heart rate and temperature per . Suspect also symptoms related to his infection. He is known to have atrial fibrillation which
is paroxysmal and no pauses or arrhythmias noted. His blood pressure has been stable here.
Continue to follow hemodynamics.
#Sinus bradycardia
Patient with known paroxysmal atrial fibrillation
EKG sinus bradycardia with PACs pattern of bigeminy HR 47 bpm, QTc 398 MS PACs are new since 03/26/2025
-hold metoprolol succinate 50 mg daily. Continue Eliquis
- Hold on Cards consult for now
#Chronic ambulatory dysfunction
Currently using wheelchair stand to transfer
-cw PT/OT
#Hypertension-hold antihypertensives for now with sepsis.
#Chronic anemia
Hgb 9.8 prior 10.4 on 03/18/2025
#Restless leg syndrome/neuropathy
- Continue Requip
- Continue gabapentin 300 mg p.o. 3 times daily
#BPH
- Monitor urine output
- Continue finasteride 5 mg daily with hold parameters
#Bilateral Charcot's arthropathy
#Chronic anemia -stable.
#Insomnia
Continue melatonin 20 mg at bedtime
DNR
Discussed with ID today
Total time spent on today's encounter was 52 minutes which included time spent in counseling the patient/family regarding diagnosis and treatment plan as listed above, goals of care, and symptom management. Case was discussed with nursing staff,
specialists, and care coordinators/case management. All labs and imaging personally reviewed by me. Remainder the time spent in detailed review of previous records, lab data, imaging, and other medical provider documentation.
Anticipated Discharge: > 48 hours
Subjective/Interval History
-
Date of Service: March 28, 2025
Patient today is alert and more oriented. He knew the place, the month and the year. Got the date almost right ,he thought it was March 29. Not seeing anything which are not present anymore.
Twinges of pain in the left leg but otherwise voicing no specific complaints.
No nausea vomiting.
Denies any shortness of breath or chest pain.
No chills.
Objective Data
-
Labs:
Laboratory Results
03/28/25
06:41
WBC 9.2
Hgb 11.9 L
Hct 36.2 L
Plt Count 252
Sodium 135
Potassium 3.9
Chloride 106
Carbon Dioxide 22
BUN 16
Creatinine 0.8
Glucose 104 H
Calcium 8.3 L
Total Bilirubin 0.7
AST 30
ALT 16
Alkaline Phosphatase 127 H
Vital Signs:
Vital Signs
Temp Pulse Resp BP Pulse Ox
99.9 F 73 17 128/58 96
03/28/25 10:59 03/28/25 10:59 03/28/25 10:59 03/28/25 10:59 03/28/25 10:59
I&O
03/27/25 03/28/25 03/29/25
06:59 06:59 06:59
Intake Total 360 / 360 120 / 120
Output Total 400 / 400 1280 / 1280 250 / 250
Balance -40 / -40 -1160 / -1160 -250 / -250
Physical Exam
-
General: Comfortable
Respiratory: Clear to Auscultation and Non Labored Respirations; Negative Accessory Resp Muscle Use
Cardiac: Regular Rhythm and S1/S2; Negative Tachycardic
GI: Soft and Nontender
Musculoskeletal: Edema, Left Lower Extrem (improved swelling ;leg in dressing)
Neuro: AO x 3
Data Reviewed
-
Labs: Labs Reviewed by me
[2025-03-28] MEDS: TYLENOL 650 MG PO (13:14)
[2025-03-28] MEDS: NEUPRO 4 MG TRANSDERM (20:03)
[2025-03-28] MEDS: REQUIP 1 MG PO (22:04)
[2025-03-28] MEDS: ZYRTEC 10 MG PO (22:04)
--- NOTE | 2025-03-28 23:00 | PTCARENOTE ---
Pt takes 4mg requip HS along with his already scheduled requip 1mg HS. 4mg Requip is listed in the MAR as a home med and is not carried in our Pyxis. COTTON TIER Edwina notified and order placed for 1x Tylenol 1000mg for pt's restless legs; pt also advised
to bring in his home medication. Pt will discuss bringing his home requip in with his tomorrow morning.
[2025-03-28] MEDS: TYLENOL 1000 MG PO (23:10)
[2025-03-29] VITALS (9 sets, daily range): BP systolic 111–175; BP diastolic 58–87; PULSE 56–105; BMI 23.6
[2025-03-29] MEDS: ZOSYN 50 IV ×4 (02:05→19:50)
[2025-03-29 07:34] LABS: % Eosinophils 7.8 % (0-6); % Immature Granulocytes 0.3 % (0-0.5); % Lymphocytes 10.4 % (20.5-51.1); % Monocytes 16.9 % (1.7-9.3); % Neutrophils 63.6 % (42.2-75.2); Absolute Basophils 0.1 10^3/uL (0-0.2); Absolute Eosinophils 0.5 10^3/uL (0-0.7); Absolute Lymphocytes 0.7 10^3/uL (1.2-3.4); Absolute Monocytes 1.2 10^3/uL (0.1-0.6); Absolute Neutrophils 4.3 10^3/uL (1.4-6.5); Hematocrit 36.1 % (39.0-52.0); Hemoglobin 11.8 g/dL (13.0-18.0); Mean Corp Hgb Conc. 32.7 g/dL (33.0-37.0); Mean Corpuscular Hgb 27.1 pg (27.0-31.0); Mean Platelet Volume 9.8 fL (7.4-10.4); Nucleated Red Blood Cells % 0 % (-); Platelet Count 290 10^3/uL (130-400); Red Blood Cell Count 4.35 10^6/uL (4.70-6.10); Red Cell Dist. Width 14.6 % (11.5-14.5); White Blood Cell Count 6.8 10^3/uL (4.8-10.8)
[2025-03-29] MEDS: PROSCAR 5 MG PO (08:00)
[2025-03-29] MEDS: NEURONTIN 300 MG PO ×3 (08:00→21:08)
[2025-03-29] MEDS: OSCAL 500 + D 500 MG PO ×4 (08:00→21:08)
[2025-03-29] MEDS: ELIQUIS 5 MG PO ×2 (08:00→19:50)
[2025-03-29] MEDS: OCUVITE SOFTGEL 1 CAP PO ×2 (08:00→19:50)
[2025-03-29 08:11] LABS: ALT (SGPT) 18 U/L (0-50); AST (SGOT) 29 U/L (17-59); Albumin 3.1 g/dl (3.5-5.0); Alkaline Phosphatase 119 U/L (38-126); Blood Urea Nitrogen 14 mg/dl (9-20); Calcium 8.2 mg/dl (8.4-10.2); Carbon Dioxide 19 mmol/L (22-30); Chloride 111 mmol/L (98-107); Estimated Creatinine Clearance 65 ml/min; Glucose 89 mg/dl (70-99); Sodium 138 mmol/L (135-145); Total Bilirubin 0.5 mg/dl (0.2-1.3); Total Protein 6.4 g/dl (6.3-8.2); eGFR > 60.00
[2025-03-29] MEDS: HYDROPHOR 1 APPLIC TOPICAL (09:32)
--- NOTE | 2025-03-29 10:55 | CM ---
Patient seen at bedside on . Patient stated that he wants to go home with Magdalene to follow him at discharge. Patient indicated that his therapist name was Karissa and she is really good. CM will continue to follow for discharge planning needs.
Plan; home with Magdalene; pending physician assessment
--- NOTE | 2025-03-29 11:29 | W.PN.HOSP.TC ---
Today's Communication/Plan
-
Continue antibiotics
DC planning
Assessment / Plan
Assessment / Plan
#Left leg acute cellulitis-recurrent.
#Associated sepsis
Patient with recurrent cellulitis with recent admission to hospital for the same. He also had I&D done by under cutting machine operator last week.
Resolved fevers and normalized white count. Resolved cognition impairment..
Appreciate under cutting machine operator input-they think there is mild cellulitis but clinically doubt deeper infection.
Blood cultures so far negative.
Continue with Zosyn. ID following.
#Chronic bilateral lower extremity venous stasis dermatitis
#Left ankle skin and soft tissue infection status post bilateral leg debridements 03/19 was to continue Keflex x 14 days did receive IV cefazolin
#Right plantar ulcer, chronic -continue local wound care.
-Was being followed by podiatry Dr. Traore
- Continue wound care
# Near syncope at home
According to no syncope. He was just very weak, tired and slumped over. His blood pressure was low as well as heart rate and temperature per . Suspect also symptoms related to his infection. He is known to have atrial fibrillation which
is paroxysmal and no pauses or arrhythmias noted. His blood pressure has been stable here.
Continue to follow hemodynamics.
#Sinus bradycardia
Resolved
Patient with known paroxysmal atrial fibrillation
EKG sinus bradycardia with PACs pattern of bigeminy HR 47 bpm, QTc 398 MS PACs are new since 03/26/2025
- Resume metoprolol succinate 50 mg daily. Continue Eliquis
- Hold on Cards consult for now
#Chronic ambulatory dysfunction
Currently using wheelchair stand to transfer
-cw PT/OT
#Hypertension-resume
#Chronic anemia
Hgb 9.8 prior 10.4 on 03/18/2025
#Restless leg syndrome/neuropathy
- Continue Requip
- Continue gabapentin 300 mg p.o. 3 times daily
#BPH
- Monitor urine output
- Continue finasteride 5 mg daily with hold parameters
#Bilateral Charcot's arthropathy
#Chronic anemia -stable.
#Insomnia
Continue melatonin 20 mg at bedtime
DNR
DC home if okay from infectious disease standpoint
Anticipated Discharge: Today
Subjective/Interval History
-
Date of Service: March 29, 2025
Feels improved. No further fever. No nausea vomiting. Tolerating diet.
Denies shortness of breath or chest pain.
Eager to get into his wheelchair and go around in the unit. He feels his legs are restless. He has a longstanding history of restless leg syndrome.
Objective Data
-
Labs:
Laboratory Results
03/29/25
06:40
WBC 6.8
Hgb 11.8 L
Hct 36.1 L
Plt Count 290
Sodium 138
Potassium 4.0
Chloride 111 H
Carbon Dioxide 19 L
BUN 14
Creatinine 0.9
Glucose 89
Calcium 8.2 L
Total Bilirubin 0.5
AST 29
ALT 18
Alkaline Phosphatase 119
Vital Signs:
Vital Signs
Temp Pulse Resp BP Pulse Ox
97.6 F 65 17 137/62 98
03/29/25 11:20 03/29/25 11:20 03/29/25 11:20 03/29/25 11:20 03/29/25 11:20
I&O
03/28/25 03/29/25 03/30/25
06:59 06:59 06:59
Intake Total 120 / 120 560 / 560
Output Total 1280 / 1280 1175 / 1175
Balance -1160 / -1160 -615 / -615
Physical Exam
-
General: Comfortable
Respiratory: Non Labored Respirations; Negative Accessory Resp Muscle Use
Cardiac: Regular Rhythm and S1/S2
Musculoskeletal: Edema, Left Lower Extrem (Improved swelling and cellulitis)
Neuro: AO x 3
Psych: Calm
Data Reviewed
-
Labs: Labs Reviewed by me
--- NOTE | 2025-03-29 12:56 | PN.CDI ---
CDI
- -
CDI:
Physician Documentation Request
Admit Date: 03/26/25 17:50
Dear Doctor,
Please review the following and provide your response in the progress notes.
Clinical Indicators:
Pt admitted with sepsis amd acute left leg cellulitis.
03/27 Progress Note: ' This morning with a very high temp of 105.
He had associated confusion and hallucination per RN.... at bedside-finds him confused but is also without his hearing aid. Patient is alert and oriented to person only. He did not know where he he is but he knew he is here since yesterday'
Based on the above, could you clarify in the Progress Notes and Discharge Summary which, if any of the following, is the most likely etiology of the confusion/altered mental status.
Encephalopathy -Please indicate type, such as metabolic, toxic, septic. due to a specific condition such as UTI, CVA, hyponatremia etc.
Confusion Only
Other
Use of terms such as suspected, likely, concern for, or probable (associated with a specific diagnosis that is being evaluated, monitored, or treated as if it exists) are acceptable and can be coded in the inpatient setting, when documented at the
time of discharge.
Thank you,
Zoie Boo RN, BSN
CDI Specialist
[place] [facility]
Please use your independent medical judgment in providing your response.
--- NOTE | 2025-03-29 14:05 | W.PN.ID1 ---
Date of Service
Date of Service: March 29, 2025
Today's Communication
Continue Zosyn today.
Assessment / Plan
# Leukocytosis resolved
# Fever resoving
# s/p Hypotensive, bradycardic episode
# LLE cellulitis, improving
# LLE Venous stasis dermatitis
# Chronic right plantar foot ulcer - not infected
# Charcot arthropathy
-CT a/p no acute pathology
- ED bcx's x 2 neg to date
- repeat blood cx's neg
- Continue Zosyn (d4) for now.
- Continue compression and local wound care.
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
Paroxysmal Atrial Fibrillation
Hypertension
Renal Artery Stenosis
Chronic Venous Insufficiency status post left lower extremity venous ablation January 2025
Chronic left lower extremity stasis wounds
Chronic Lower Extremity Lymphedema
Charcot Arthropathy
Chronic right plantar foot ulcer
Chronic Pain Syndrome
Restless Leg Syndrome
Insomnia
BPH
ELZBIETA
Lower Back Surgery
Carpal Tunnel Release
Hernia Repair
Right Foot Surgery
Multiple Partial Toe Amputations
LLE Vein Procedure
Chief Complaint
-: Fever and Cellulitis
Subjective / Review of Systems
No fever overnight. Left leg less red.
Vital Signs / Physical Exam
Vital Signs
Vital Signs
Temp Pulse Resp BP Pulse Ox
97.8 F 104 18 111/79 93
03/29/25 12:15 03/29/25 12:15 03/29/25 12:15 03/29/25 12:15 03/29/25 12:15
Physical Exam
Constitutional: No Acute Distress and Comfortable
Cardiovascular: Regular Rate and S1/S2
Pulmonary: Clear
Gastrointestinal: Soft, Non Tender and Non Distended
Extremities: Edema and Other
Wound: Other (Nurse just finished changing LLE dressing 1 sec ago. She reports decreased erythema of wounds. Still with dry sloughing skin. )
Objective Data
Lab Data
Lab Results
03/29/25 06:40
03/29/25 06:40
PT 19.2 Sec (11.4-14.6) H 03/26/25 12:35
INR 1.59 03/26/25 12:35
APTT 45.8 Sec (23.4-35.0) H 03/26/25 12:35
Estimated Creat Clear 65 ml/min 03/29/25 06:40
Lactic Acid 1.3 mmol/L (0.7-2.0) 03/26/25 12:44
Total Bilirubin 0.5 mg/dl (0.2-1.3) 03/29/25 06:40
AST 29 U/L (17-59) 03/29/25 06:40
ALT 18 U/L (0-50) 03/29/25 06:40
Alkaline Phosphatase 119 U/L (38-126) 03/29/25 06:40
Most recent labs reviewed.
Micro Results:
03/28/25 00:27 Blood Culture - Preliminary
Blood/Venous No Growth in 24 hours- Final report to follow
03/27/25 23:47 Blood Culture - Preliminary
Blood/Venous No Growth in 24 hours- Final report to follow
03/26/25 16:26 Blood Culture - Preliminary
Blood/Venous No Growth in 48 hours- Final report to follow
03/26/25 16:26 Blood Culture - Preliminary
Blood/Venous No Growth in 48 hours- Final report to follow
03/26/25 CT a/p: No significant acute abnormality identified in the abdomen or pelvis, as described above.
2. Bilateral inguinal lymphadenopathy (left greater than right), slightly progressed from prior, nonspecific and may be reactive.
[2025-03-29] MEDS: TYLENOL 650 MG PO (16:22)
--- NOTE | 2025-03-29 18:10 | PTCARENOTE ---
brought in patient's own Neupro patch and Ropinorole tablets. Verbal order obtained from Dr. Urbina for Neupro patch, ropinrole ordered, in pending status. Sent to pharmacy to be bacoded for use during hospital stay.
[2025-03-29] MEDS: NEUPRO 4 MG TRANSDERM ×2 (19:50→22:58)
[2025-03-29] MEDS: NON-FORMULARY ITEM 4 MG PO (21:08)
[2025-03-29] MEDS: ZYRTEC 10 MG PO (21:08)
[2025-03-29] MEDS: REQUIP 1 MG PO (21:08)
[2025-03-29] MEDS: MELATONIN 10 MG PO (22:58)
[2025-03-30] MEDS: ZOSYN 50 IV ×3 (02:05→12:49)
[2025-03-30 03:00] VITALS: BP 154/72
[2025-03-30 05:18] VITALS: BMI 23.0
[2025-03-30 07:00] VITALS: BP 166/77
[2025-03-30 07:28] LABS: % Basophils 0.6 % (0-2); % Eosinophils 7.6 % (0-6); % Immature Granulocytes 0.7 % (0-0.5); % Lymphocytes 7.7 % (20.5-51.1); % Monocytes 14.3 % (1.7-9.3); % Neutrophils 69.1 % (42.2-75.2); Absolute Eosinophils 0.5 10^3/uL (0-0.7); Absolute Immature Granulocytes 0.1 10^3/uL (0-0.05); Absolute Lymphocytes 0.5 10^3/uL (1.2-3.4); Absolute Neutrophils 4.7 10^3/uL (1.4-6.5); Hemoglobin 11.5 g/dL (13.0-18.0); Mean Corp Hgb Conc. 32.9 g/dL (33.0-37.0); Mean Corpuscular Hgb 27.7 pg (27.0-31.0); Mean Corpuscular Volume 84.3 fL (80.0-94.0); Mean Platelet Volume 9.6 fL (7.4-10.4); Nucleated Red Blood Cells % 0 % (-); Platelet Count 303 10^3/uL (130-400); Red Blood Cell Count 4.15 10^6/uL (4.70-6.10); Red Cell Dist. Width 14.7 % (11.5-14.5); White Blood Cell Count 6.9 10^3/uL (4.8-10.8)
[2025-03-30] MEDS: NEURONTIN 300 MG PO (07:49)
[2025-03-30] MEDS: PROSCAR 5 MG PO (07:50)
[2025-03-30] MEDS: ELIQUIS 5 MG PO (07:50)
[2025-03-30] MEDS: OSCAL 500 + D 500 MG PO ×2 (07:50→12:49)
[2025-03-30] MEDS: OCUVITE SOFTGEL 1 CAP PO (07:50)
[2025-03-30 07:56] LABS: ALT (SGPT) 18 U/L (0-50); AST (SGOT) 25 U/L (17-59); Alkaline Phosphatase 112 U/L (38-126); Blood Urea Nitrogen 15 mg/dl (9-20); Calcium 8.3 mg/dl (8.4-10.2); Carbon Dioxide 20 mmol/L (22-30); Chloride 110 mmol/L (98-107); Estimated Creatinine Clearance 73 ml/min; Glucose 114 mg/dl (70-99); Potassium 3.8 mmol/L (3.5-5.1); Sodium 138 mmol/L (135-145); Total Bilirubin 0.3 mg/dl (0.2-1.3); eGFR > 60.00
[2025-03-30] MEDS: VITAMIN B-12 1000 MCG PO (08:43)
[2025-03-30] MEDS: HYDROPHOR 1 APPLIC TOPICAL (08:45)
--- NOTE | 2025-03-30 10:04 | W.PN.ID1 ---
Date of Service
Date of Service: March 30, 2025
Today's Communication
Can transition Zosyn (d5) to cipro 500 mg po bid and Augmentin 875mg po bid through 04/08/25.
Assessment / Plan
# LLE cellulitis, improving
# LLE venous stasis wounds
# Leukocytosis resolved
# Fever resolved
# s/p Hypotensive, bradycardic episode
# LLE Venous stasis dermatitis
# Chronic right plantar foot ulcer - not infected
# Charcot arthropathy
-CT a/p no acute pathology
- ED bcx's x 2 neg to date
- repeat blood cx's neg
- Can transition Zosyn (d5) to cipro 500 mg po bid and Augmentin 875mg po bid through 04/08/25.
- Continue compression and local wound care.
- Follow up with fundraising sale representative.
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
Paroxysmal Atrial Fibrillation
Hypertension
Renal Artery Stenosis
Chronic Venous Insufficiency status post left lower extremity venous ablation January 2025
Chronic left lower extremity stasis wounds
Chronic Lower Extremity Lymphedema
Charcot Arthropathy
Chronic right plantar foot ulcer
Chronic Pain Syndrome
Restless Leg Syndrome
Insomnia
BPH
ELZBIETA
Lower Back Surgery
Carpal Tunnel Release
Hernia Repair
Right Foot Surgery
Multiple Partial Toe Amputations
LLE Vein Procedure
Chief Complaint
-: Cellulitis
Subjective / Review of Systems
Left leg much improved. Feels well.
Vital Signs / Physical Exam
Vital Signs
Vital Signs
Temp Pulse Resp BP Pulse Ox
98.2 F 61 19 166/77 99
03/30/25 07:00 03/30/25 07:00 03/30/25 07:00 03/30/25 07:00 03/30/25 07:00
Physical Exam
Constitutional: No Acute Distress and Comfortable
Cardiovascular: Regular Rate and S1/S2
Pulmonary: Clear
Gastrointestinal: Soft, Non Tender and Non Distended
Extremities: Edema (LLE decreasing) and Erythema (LLE erythema decreased)
Neurological: AO x 3
Objective Data
Lab Data
Lab Results
03/30/25 06:40
03/30/25 06:40
PT 19.2 Sec (11.4-14.6) H 03/26/25 12:35
INR 1.59 03/26/25 12:35
APTT 45.8 Sec (23.4-35.0) H 03/26/25 12:35
Estimated Creat Clear 73 ml/min 03/30/25 06:40
Lactic Acid 1.3 mmol/L (0.7-2.0) 03/26/25 12:44
Total Bilirubin 0.3 mg/dl (0.2-1.3) 03/30/25 06:40
AST 25 U/L (17-59) 03/30/25 06:40
ALT 18 U/L (0-50) 03/30/25 06:40
Alkaline Phosphatase 112 U/L (38-126) 03/30/25 06:40
Most recent labs reviewed.
Micro Results:
03/28/25 00:27 Blood Culture - Preliminary
Blood/Venous No Growth in 48 hours- Final report to follow
03/27/25 23:47 Blood Culture - Preliminary
Blood/Venous No Growth in 48 hours- Final report to follow
03/26/25 16:26 Blood Culture - Preliminary
Blood/Venous No Growth in 72 hours- Final report to follow
03/26/25 16:26 Blood Culture - Preliminary
Blood/Venous No Growth in 72 hours- Final report to follow
03/26/25 CT a/p: No significant acute abnormality identified in the abdomen or pelvis, as described above.
2. Bilateral inguinal lymphadenopathy (left greater than right), slightly progressed from prior, nonspecific and may be reactive.
Care Review
Plan reviewed with: Physician (Dr. Urbina)
[2025-03-30 11:06] VITALS: BP 141/66
--- NOTE | 2025-03-30 13:38 | W.PN.HOSP.TC ---
Addendum entered and electronically signed by Yung Urbina MD 04/02/25 13:55:
Confusion with hallucinations in setting of high fevers seconary to encephalopathy from sepsis
Original Note:
Today's Communication/Plan
-
dc
Assessment / Plan
Assessment / Plan
#Left leg acute cellulitis-recurrent.
#Associated sepsis
Patient with recurrent cellulitis with recent admission to hospital for the same. He also had I&D done by director medical writing last week.
Resolved fevers and normalized white count. Resolved cognition impairment..
Appreciate director medical writing input-they think there is mild cellulitis but clinically doubt deeper infection.
Blood cultures so far negative.
Switch to oral medication per ID
#Chronic bilateral lower extremity venous stasis dermatitis
#Left ankle skin and soft tissue infection status post bilateral leg debridements 03/19 was to continue Keflex x 14 days did receive IV cefazolin
#Right plantar ulcer, chronic -continue local wound care.
-Was being followed by podiatry Dr. Traore
- Continue wound care
# Near syncope at home
According to no syncope. He was just very weak, tired and slumped over. His blood pressure was low as well as heart rate and temperature per . Suspect also symptoms related to his infection. He is known to have atrial fibrillation which
is paroxysmal and no pauses or arrhythmias noted. His blood pressure has been stable here.
Continue to follow hemodynamics.
#Sinus bradycardia
Resolved
Patient with known paroxysmal atrial fibrillation
EKG sinus bradycardia with PACs pattern of bigeminy HR 47 bpm, QTc 398 MS PACs are new since 03/26/2025
- Resume metoprolol succinate 50 mg daily. Continue Eliquis. No bradycardia.
#Chronic ambulatory dysfunction
Currently using wheelchair stand to transfer
-cw PT/OT-recommends home health
#Hypertension-continue meds
#Chronic anemia
Hgb 9.8 prior 10.4 on 03/18/2025
#Restless leg syndrome/neuropathy
- Continue Requip
- Continue gabapentin 300 mg p.o. 3 times daily
#BPH
- Monitor urine output
- Continue finasteride 5 mg daily with hold parameters
#Bilateral Charcot's arthropathy
#Chronic anemia -stable.
#Insomnia
Continue melatonin 20 mg at bedtime
DNR
DC home today.
Total time of discharge 32 minutes
Anticipated Discharge: Today
Subjective/Interval History
-
Date of Service: March 30, 2025
Feels improved.
No further fevers.
Improved left leg pain.
No nausea vomiting. Tolerating diet.
Denies any shortness of breath or chest pain.
Keen to go home.
Objective Data
-
Labs:
Laboratory Results
03/30/25
06:40
WBC 6.9
Hgb 11.5 L
Hct 35.0 L
Plt Count 303
Sodium 138
Potassium 3.8
Chloride 110 H
Carbon Dioxide 20 L
BUN 15
Creatinine 0.8
Glucose 114 H
Calcium 8.3 L
Total Bilirubin 0.3
AST 25
ALT 18
Alkaline Phosphatase 112
Vital Signs:
Vital Signs
Temp Pulse Resp BP Pulse Ox
97.7 F 70 20 141/66 97
03/30/25 11:06 03/30/25 11:06 03/30/25 11:06 03/30/25 11:06 03/30/25 11:06
I&O
03/29/25 03/30/25 03/31/25
06:59 06:59 06:59
Intake Total 560 / 560 1120 / 1120
Output Total 1175 / 1175 1075 / 1075 950 / 950
Balance -615 / -615 45 / 45 -950 / -950
Physical Exam
-
General: Comfortable
Respiratory: Clear to Auscultation and Non Labored Respirations; Negative Accessory Resp Muscle Use
Cardiac: Regular Rhythm and S1/S2
GI: Soft
Neuro: AO x 3
Psych: Calm; Negative Confused
Data Reviewed
-
Labs: Labs Reviewed by me
--- NOTE | 2025-03-30 13:48 | W.DCSUMMARY ---
Discharge Summary
Discharge Data
Date of Admission: 03/26/25
Date of Discharge: 03/30/25
-
Pending Results: No
Hospital Course
Primary diagnosis:
Left leg acute cellulitis with sepsis
Secondary diagnosis:
Bilateral lower extremity stasis dermatitis
Chronic ambulatory dysfunction
Hypertension essential
Chronic anemia
Restless leg syndrome
Benign prostatic hypertension
Hospital course:
Patient with chronic bilateral lower extremity stasis dermatitis and recurrent cellulitis was seen by visiting nurse and sent in because of low blood pressure, low heart rate and near syncope. No loss of consciousness. He was apparently having
weakness. He had no extrarenal losses. His blood pressure was low on admission. He is known to have hypertension on medication. During this admission he was noted to have high fevers of 105 and his left leg was looking more redder suggestive of
cellulitis. Clinically not concerning for deeper infection. His blood cultures also came back negative. Was seen by nursery hand who did not see any further debridement. Was seen by wound care. Was also seen by ID initially he was on intravenous
antibiotics and once his clinical status improved he was switched to oral Cipro and Augmentin to complete pleat course till 04/08/2025.
He was resumed on his antihypertensives as the hemodynamics are stable. He had brief sinus bradycardia without any issues. Beta-isabel was resumed. He is known to have paroxysmal atrial fibrillation.
He was DNR during the stay here.
Consultants on board:
Infectious disease-Michelle Cheng
[facility] [facility]-Chuy Diamond
Discharge Plan
-
Patient Disposition: Home with Home Care
Discharge Diagnosis/Procedures: Left leg cellulitis
Diet: Regular and No added salt
Activity: As tolerated
Driving Restrictions: As prior to admission
Bathing Restrictions: OK to Shower
Other Services: VN and PT
Activity Restrictions/Additional Instructions:
Wound Care Instructions
LLE: clean with soap and water, Xeroform, alginate(for increased drainage), abd pad and kerlix change daily and prn drainage.
Kenney wrap knee high daily can remove at hs
Moisturize outside of wound with mineral oil and legs daily
Leg elevation when sitting
Follow up with [employer] [facility]
Referrals:
Tosin Ventura MD [Family Provider, [facility]] - in less than 1 week
Prescriptions:
New
ciprofloxacin HCl 500 mg tablet
500 mg PO BID Qty: 20 0RF
amoxicillin-pot clavulanate 875-125 mg tablet
1 tab PO BID Qty: 20 0RF
Continued
amlodipine 10 MG tablet
10 mg PO QPM
finasteride 5 MG tablet
5 mg PO DAILY
cetirizine 10 mg Tablet
10 mg PO HS
melatonin 10 mg Tablet
20 mg PO HS
Glucosamine Complex-MSM Capsule
3 cap PO DAILY
ropinirole 1 mg Tablet
1 mg PO HS
ropinirole 2 mg Tablet Extended Release 24 Hr
4 mg PO HS
Eliquis 5 mg Tablet
5 mg PO BID
cyanocobalamin (vitamin B-12) 1,000 mcg Tablet
1,000 mcg PO MOWEFR
losartan 100 mg Tablet
100 mg PO QPM
PreserVision AREDS 2,148 mcg-113 mg-45 mg-17.4mg Tablet
2 tab PO DAILY
gabapentin 300 mg capsule
300 mg PO TID
metoprolol succinate 50 mg tablet extended release 24 hr
50 mg PO DAILY
Visbiome 112.5 billion cell Capsule
1 cap PO DAILY
acetaminophen [Tylenol Extra Strength] 500 mg Tablet
500 mg PO BID
Patient Comments:
03/26/2025, take with ibuprofen.
Neupro 4 mg/24 hour patch 24 hour
1 patch transdermal QPM
Patient Comments:
03/26/2025, pt. took patch off today and is currently not wearing one. He normally applies the patch to his upper thighs.
Calcium 600 + D(3)
1 cap PO TID
Discontinued
ibuprofen 200 mg Tablet
200 mg PO BID
Patient Comments:
03/26/2025, take with tylenol.
cephalexin 500 mg capsule
500 mg PO .SEE BELOW
Patient Comments:
03/26/2025, pt. filled on 03/19/2025 and is instructed to take 1 capsule Q6H for 13 days per pharmacy records; pt. thinks he has been taking this medication incorrectly.
Discharge Orders:
Discharge Patient (As Directed); Ordered 03/30/25
Ordered By: Yung Urbina
Discharge Date and Time
Print Language: PARAGUAYAN
--- NOTE | 2025-03-30 15:01 | CM ---
Patient stable for d/c
Current w/ Magdalene, will resume care at d/c as recommended by therapy
Updated Mavis/[facility]dalene of d/c today
Spouse will transport
IMM verbally reviewed, copy provided, copy on chart
Plan: Home, [facility] /
[2025-03-30 15:05] VITALS: BP 124/54
== END 2025-03-30 16:25 | disposition home health service (06) | DRG 871 ==
LOC: 4 WEST ACU 17:50
PROVIDERS: Clinical Nurse Specialist Family Health; Registered Nurse; ADMITTING PHYSICIAN Internal Medicine; CONSULT PHYSICIAN Internal Medicine Infectious Disease; EMERGENCY PHYSICIAN Emergency Medicine; FAMILY PHYSICIAN Family Medicine; OTHER PHYSICIAN Student in an Organized Health Care Education/Training Program
DX: A41.9 Sepsis, unspecified organism (principal); G93.41 Metabolic encephalopathy; I42.9 Cardiomyopathy, unspecified; L03.116 Cellulitis of left lower limb; L97.329 Non-pressure chronic ulcer of left ankle with unspecified severity; R44.3 Hallucinations, unspecified; I48.0 Paroxysmal atrial fibrillation; G25.81 Restless legs syndrome; I87.2 Venous insufficiency (chronic) (peripheral); I10 Essential (primary) hypertension; N40.0 Benign prostatic hyperplasia without lower urinary tract symptoms; I89.0 Lymphedema, not elsewhere classified; E78.00 Pure hypercholesterolemia, unspecified; Z66 Do not resuscitate; D64.9 Anemia, unspecified; I95.1 Orthostatic hypotension; E53.8 Deficiency of other specified B group vitamins; R26.2 Difficulty in walking, not elsewhere classified; I70.1 Atherosclerosis of renal artery; M14.671 Charcot's joint, right ankle and foot; M14.672 Charcot's joint, left ankle and foot; G89.4 Chronic pain syndrome; I87.8 Other specified disorders of veins; G47.33 Obstructive sleep apnea (adult) (pediatric); L97.519 Non-pressure chronic ulcer of other part of right foot with unspecified severity; G62.9 Polyneuropathy, unspecified; G47.00 Insomnia, unspecified; Z79.01 Long term (current) use of anticoagulants; Z87.11 Personal history of peptic ulcer disease; Z88.8 Allergy status to other drugs, medicaments and biological substances; Z91.048 Other nonmedicinal substance allergy status; Z87.891 Personal history of nicotine dependence
CPT/HCPCS: 70450; 74177; 80053; 81003; 81015; 83605; 83690; 84443; 84484; 85025; 85610; 85730; 87040; 93005; 97163; 97530; 99285; Q9967

== ENCOUNTER → 2025-09-03 14:26 | Outpatient (REF) | payer OTHER, SELFPAY | LOC: REG 14:26 | PROVIDERS: ATTENDING PHYSICIAN Student in an Organized Health Care Education/Training Program; FAMILY PHYSICIAN Family Medicine | DX: L97.512 Non-pressure chronic ulcer of other part of right foot with fat layer exposed (principal); S91.309A Unspecified open wound, unspecified foot, initial encounter | CPT/HCPCS: 87070; 87075; 87077; 87205 ==